=== PATIENT | female | born 1945 | race Caucasian/White ===

== ENCOUNTER → 2020-05-22 14:43 | Outpatient (BNVA) | payer MEDICARE, SELFPAY | PROVIDERS: PCP Nurse Practitioner Family; Visit Provider Hospitalist | DX: J44.9 Chronic obstructive pulmonary disease, unspecified (principal); J18.9 Pneumonia, unspecified organism; R91.8 Other nonspecific abnormal finding of lung field | CPT/HCPCS: 99212 ==

== ENCOUNTER → 2020-07-10 11:19 | Outpatient (BNVA) | payer MEDICARE, SELFPAY | PROVIDERS: PCP Internal Medicine; Visit Provider Orthopaedic Surgery | DX: M17.0 Bilateral primary osteoarthritis of knee (principal) | CPT/HCPCS: 20610; 99212; J1100 ==

== ENCOUNTER → 2020-07-12 08:54 | Outpatient (BNVA) | payer MEDICARE, SELFPAY | PROVIDERS: PCP Internal Medicine; Visit Provider Hospitalist | DX: Z13.89 Encounter for screening for other disorder (principal) | CPT/HCPCS: Q3014 ==

== ENCOUNTER → 2020-08-16 14:49 | Outpatient (BNVA) | payer MEDICARE, SELFPAY | PROVIDERS: PCP Nurse Practitioner Family; Visit Provider Internal Medicine | DX: J45.901 Unspecified asthma with (acute) exacerbation (principal); Z79.51 Long term (current) use of inhaled steroids | CPT/HCPCS: 96372; 99212; J2930 ==

== ENCOUNTER 2020-08-21 09:32 | Outpatient (REF) | payer MEDICARE, SELFPAY ==
--- NOTE | ~2020-08-21 | CT_ITS ---
EXAMINATION: CT CHEST WITHOUT CONTRAST CLINICAL INFORMATION: Pulmonary nodules COMPARISON: 02/28/2020 TECHNIQUE: Multidetector volumetric CT imaging of the chest was done. Axial MIP volume rendering provided. Sagittal and coronal reformatted images were obtained. This CT examination was performed using dose optimization techniques as appropriate, variously including the following: *Automated exposure control *Adjustment of mA and/or kV according to patient size (this includes techniques or standardized protocols for targeted exams where dose is matched to indication/reason for exam; i.e. extremities or head) *Use of iterative reconstruction technique DLP: 145 mGy-cm FINDINGS: MANAGER ENERGY: Unremarkable. LUNGS: Secretions noted in the trachea. The central airways are otherwise patent. Mild biapical paraseptal emphysema. This is unchanged. No dense consolidation. No pneumothorax. Pulmonary nodules are again noted. 1. 0.2 cm anterior left upper lobe nodule on series 5 image 156. This is unchanged. 2. 0.3 cm anterior left upper lobe nodule on series 5 image 148. This is unchanged. 3. The peripheral groundglass opacity of the right lower lobe has resolved. 4. Groundglass opacity in the right upper lobe along the major fissure measuring 1.3 x 0.4 cm is unchanged, series 5 image 187. There is an additional right middle lobe groundglass opacity described which is no longer seen. 5. 0.2 cm left upper lobe nodule on series 5 image 120, unchanged. No new pulmonary nodules are seen. MEDIASTINUM: Normal heart size. No pericardial effusion. No mediastinal lymphadenopathy. Coronary artery calcifications are present. PLEURA: There is no pleural effusion. No pleural mass or thickening. AXILLA: No lymphadenopathy. UPPER ABDOMEN: Cholecystectomy. No acute abnormality of the visualized upper abdomen. OSSEOUS STRUCTURES: No acute or suspicious osseous abnormality. Degenerative changes throughout the spine. CT/CT chest wo con IMPRESSION: Mild apical emphysema. Multiple pulmonary nodules are again noted, without change from previous imaging. The most prominent is the groundglass right upper lobe nodular opacity with average dimension of 0.8 cm. Based on the recommendations below, 2 year follow-up CT is recommended. According to the UPDATED 2017 Fleischner Society recommendations, the advised follow-up imaging for a single pure ground-glass nodule measuring 6 mm or greater is: CT at 6-12 months to confirm persistence, then CT every 2 years until 5 years if it persists.
== END 2020-08-21 09:33 | disposition home or self-care (01) ==
LOC: HO.CT 09:32
PROVIDERS: Visit Provider Hospitalist
DX: R91.8 Other nonspecific abnormal finding of lung field (principal)
CPT/HCPCS: 71250

== ENCOUNTER → 2020-09-11 09:16 | Outpatient (BNVA) | payer MEDICARE, SELFPAY | PROVIDERS: PCP Internal Medicine; Visit Provider Orthopaedic Surgery | DX: J45.51 Severe persistent asthma with (acute) exacerbation (principal); J40 Bronchitis, not specified as acute or chronic; J44.9 Chronic obstructive pulmonary disease, unspecified; J18.9 Pneumonia, unspecified organism; R91.8 Other nonspecific abnormal finding of lung field; D80.8 Other immunodeficiencies with predominantly antibody defects | CPT/HCPCS: 20610; 99212; J1100 ==

== ENCOUNTER 2020-10-23 15:01 | Emergency (ER) | payer MEDICARE, SELFPAY ==
--- NOTE | ~2020-10-23 | XR_ITS ---
EXAMINATION: XR CHEST CLINICAL INFORMATION: Dyspnea COMPARISON: Previous chest CT August 2019 and chest x-ray January 2020 TECHNIQUE: Frontal view of the chest was obtained. FINDINGS: The cardiac silhouette does not appear enlarged. The thoracic aorta is calcified. Hilar and mediastinal contours are otherwise unremarkable. The lungs are clear. There is no pleural effusion or pneumothorax. There are degenerative changes of the spine. XR/XR chest 1V IMPRESSION: No evidence for acute disease in the chest.
[2020-10-23 15:03] VITALS: BP 150/50; PULSE 86; RESP 20; TEMP 36.7; O2SAT 97; BMI 35.3
--- NOTE | 2020-10-23 15:20 | ED_ITS ---
HPI - SOB/Dyspnea General Chief Complaint: Dyspnea Stated Complaint: SOB Time Seen by Provider: 10/23/20 15:15 Source: patient Mode of arrival: ambulatory Limitations: no limitations History of Present Illness MD elicited complaint: shortness of breath and cough Pertinent past history: asthma and pneumonia Onset (ago): month(s) (1) Timing: constant and progressively worsening Severity: similar to previous episodes Exacerbating factors: exertion and coughing Relieving factors: rest and bronchodilators Known history of: asthma Associated symptoms: cough, wheezing, sputum production and other (has back pain with cough - hx of same in the past) Treatment prior to arrival: bronchodilator and other (on 5mg prednisone daily) Related Data Home Medications Medication Instructions Recorded Confirmed arformoterol 15 mcg/2 mL solution 2 ml INHALATION DAILY 05/22/20 09/11/20 for nebulization celecoxib 200 mg capsule 200 mg PO BID 05/22/20 07/12/20 flu vacc [id number](65yr up)-PF 240 ml IM 05/22/20 09/11/20 mcg/0.7 mL intramuscular syringe ipratropium bromide 21 mcg (0.03 INTRANASAL 05/22/20 07/12/20 %) nasal spray losartan 100 1 tab PO DAILY 05/22/20 09/11/20 mg-hydrochlorothiazide 25 mg tablet montelukast 10 mg tablet 10 mg PO DAILY 05/22/20 07/12/20 pravastatin 40 mg tablet mg PO 05/22/20 09/11/20 prednisone 10 mg tablet mg PO 05/22/20 07/12/20 estradiol 1 g VAGINAL 3XW 08/16/20 09/11/20 gabapentin 100 mg capsule 100 mg PO TID PRN cap 08/16/20 09/11/20 prednisone 10 mg tablet 20 mg PO DAILY tab 08/16/20 Previous Rx's Medication Instructions Recorded azithromycin 250 mg tablet 250 mg PO 3XW 28 Days #12 tab 05/22/20 doxycycline hyclate 100 mg tablet 100 mg PO BID 21 Days #42 tab 09/11/20 albuterol sulfate 90 mcg/actuation 2 puff INHALATION Q4-6H PRN 90 10/03/20 aerosol inhaler Days #3 ea albuterol sulfate 2.5 mg INHALATION Q6H PRN #300 ml 10/04/20 Allergies Allergy/AdvReac Type Severity Reaction Status Date / Time aspirin Allergy Severe Upset Verified 10/23/20 15:03 Stomach Latex Gloves Allergy Severe Rash Uncoded 09/11/20 10:26 Review of Systems Review of Systems: Constitutional : No Fever, No Chills ENT/Mouth : No sore throat, No Rhinorrhea, No Swallowing Difficulty Eyes: No Eye Pain, No Swelling, No Redness Cardiovascular : No Chest Pain, positive SOB, No Orthopnea, positive Edema Respiratory : pos Cough, pos Sputum, pos Wheezing, positive dyspnea Gastrointestinal : No Nausea, No Vomiting, No Diarrhea, No abdominal Pain, No Hematochezia, No Melena Genitourinary : No Dysuria, No Urinary Frequency, No Hematuria Musculoskeletal : No joint pain, No Myalgias, pos back pain with cough Skin : No Skin Lesions, No rash Neuro : No Weakness, No Numbness, No Dizziness, No Headache Psych : No Anxiety/Panic, No Depression Heme/Lymph: No Bruising, No Lymphadenopathy Endocrine : No Polyuria, No Polydipsia All other systems reviewed and are negative [facility] Past Medical History Attestation statement: The following information was validated with the patient. 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 Oriented X3. Mild acute distress. Eyes: Pupils equal, round and reactive to light. ENT: Pharynx normal. Neck: Normal inspection. Neck supple. CVS: Normal heart rate and rhythm. Pulses normal. Respiratory: Mild respiratory distress - tachypnea with retractions. Breath sounds diffuse audible insp/exp wheezing and decreased throughout Abdomen: Soft and nontender. Skin: Skin warm and dry. Normal skin color. Normal skin turgor. Extremities: mild nonpitting lower extremity edema. No calf ttp Neuro: Oriented X 3. No motor deficit. No sensory deficit. Course Course Course Narrative: signed out to Dr. South pending workup MDM - SOB/Dyspnea MDM Narrative Medical decision making narrative: 75 yo female with hx of pneumonitis, bronchial asthma here with 1 month of wheezing and cough - feels sputum at times she cannot get rid of, also c/o upper mid back pain with coughing, sent by her braiding machine tender for further workup and management at this time will need labs, EKG, hour long neb, IV steroids, CXR for pneumonia, given hx of COPD as well start antibiotics for coarse cough - possible admission ECG Data Attestation: I personally reviewed and interpreted this ECG as follows: ECG interpretation date: 10/23/20 ECG interpretation time: 15:51 Interpretation: Rate: 75 Rhythm: NSR [place]: normal Normal P waves. Normal NAVA. Normal QRS complex. ST T wave : normal no DARIEL qTC: normal prior studies: no acute ischemia The study has been interpreted contemporaneously by me. . Discharge Plan Discharge Clinical Impression: Asthma exacerbation Prescriptions: No Action albuterol sulfate 90 mcg/actuation HFA aerosol inhaler 2 puff inhalation Q4-6H PRN (Reason: shortness of breath or wheezing) 90 Days Qty: 3 RF: 3 albuterol sulfate 2.5 mg /3 mL (0.083 %) solution for nebulization 2.5 mg inhalation Q6H PRN (Reason: shortness of breath or wheezing) Qty: 300 RF: 3 doxycycline hyclate 100 mg tablet 100 mg PO BID 21 Days Qty: 42 RF: 1 montelukast 10 mg tablet 10 mg PO DAILY RF: 0 celecoxib 200 mg capsule 200 mg PO BID RF: 0 losartan-hydrochlorothiazide 100-25 mg tablet 1 tab PO DAILY RF: 0 pravastatin 40 mg tablet PO RF: 0 Fluzone HighDose Quad 20-21 PF 240 mcg/0.7 mL syringe IM RF: 0 prednisone 10 mg tablet PO RF: 0 ipratropium bromide 0.03 % spray,non-aerosol intranasal RF: 0 Brovana 15 mcg/2 mL solution for nebulization 2 ml inhalation DAILY RF: 0 azithromycin 250 mg tablet 250 mg PO 3XW 28 Days Qty: 12 RF: 6 gabapentin 100 mg capsule 100 mg PO TID PRNRF: 0 prednisone 10 mg tablet 20 mg PO DAILY RF: 0 estradiol 0.01 % (0.1 mg/gram) cream 1 g vaginal 3XW RF: 0
--- NOTE | 2020-10-23 15:28 | ECG_ITS ---
Test Reason : DYSPNEA Blood Pressure : / mmHG Vent. Rate : 075 BPM Atrial Rate : 075 BPM P-R Int : 162 ms QRS Dur : 078 ms QT Int : 376 ms P-R-T Axes : 036 006 019 degrees QTc Int : 419 ms Normal sinus rhythm Possible Inferior infarct , age undetermined Abnormal ECG No previous ECGs available Referred By: Deyanira Montaño Electronically Signed By:River Mark
[2020-10-23] MEDS: Albuterol Sulfate (0.083%) 2.5 MG/3 ML VIAL.NEB 5 MG INHALE (15:49)
[2020-10-23 15:50] VITALS: PULSE 82; O2SAT 97
[2020-10-23] MEDS: methylPREDNISolone Sod Succ 125 MG/2 ML VIAL IVPUSH (16:15)
[2020-10-23 16:29] LABS: MANUAL DIFF FLAG NO
[2020-10-23 16:30] VITALS: BP 132/55; PULSE 82; RESP 22; TEMP 36.5; O2SAT 97
[2020-10-23 16:36] LABS: Basophils Percent Auto 0.4 % (0-2); Eosinophils Absolute Auto 0.2 X10*3/uL (0.0-0.4); Eosinophils Percent Auto 2.2 % (0-4); Hematocrit 34.3 % (37-47); Hemoglobin 10.7 g/dl (12.0-16.0); Imm Gran Abs Auto 0.01 X10*3/uL (0.00-0.03); Imm Gran Pct Auto 0.1 % (0.0-0.4); Lymphocytes Absolute Auto 2.3 X10*3/uL (1.2-4.9); Lymphocytes Percent Auto 33.3 % (20-40); Mean Corpuscular HGB Conc 31.2 g/dl (31.0-35.0); Mean Corpuscular Hemoglobin 26.5 pg (27.0-33.0); Mean Corpuscular Volume 84.9 fL (80-98); Mean Platelet Volume 10.4 fL (9.4-12.3); Monocytes Absolute Auto 0.5 X10*3/uL (0.1-1.2); Monocytes Percent Auto 7.8 % (2-11); Neutrophils Absolute Auto 3.9 X10*3/uL (2.0-8.3); Neutrophils Percent Auto 56.2 % (45-73); Platelet Count 280 X10*3/uL (160-400); Red Blood Count 4.04 X10*6/uL (4.20-5.50); White Blood Count 6.9 X10*3/uL (4.8-10.8)
[2020-10-23] MEDS: cefTRIAXone sodium 1 GM in 0.9 % Sodium Chloride 50 ML IV (16:47)
[2020-10-23 16:58] LABS: Alanine Aminotransferase 22 U/L (0-31); Albumin Level 4.7 g/dL (3.5-5.0); Alkaline Phosphatase 104 U/L (39-117); Anion Gap 15 (12-20); Aspartate Amino Transferase 20 U/L (5-31); Bilirubin Direct < 0.2 mg/dL (0.0-0.5); Bilirubin Total 0.3 mg/dL (0.0-1.0); Blood Urea Nitrogen 27 mg/dL (9-16); Carbon Dioxide 27 mmol/L (22-29); Chloride 104 mmol/L (96-108); Creatinine Clr Calc Pharmacy 48.5; Estimated Glomerular Filt Rate 56; Glucose Random 110 mg/dL (60-115); Lipase 35 U/L (8-78); Magnesium 1.9 mg/dL (1.6-2.6); Potassium 3.7 mmol/L (3.3-5.1); Sodium 142 mmol/L (135-145); Total Protein 7.2 g/dL (6.5-8.0)
[2020-10-23 17:05] LABS: B Type Natriuretic Peptide 12 pg/mL (<100)
[2020-10-23 17:06] LABS: Troponin-I High Sensitivity < 3.5 ng/L (<3.5-17.0)
[2020-10-23] MEDS: Doxycycline Hyclate 100 MG in 0.9 % Sodium Chloride 250 ML 166.67 MG IV (17:50)
[2020-10-23 19:47] VITALS: BP 144/68; PULSE 78; RESP 20; TEMP 36.8; O2SAT 95
== END 2020-10-23 20:09 | disposition home or self-care (01) ==
PROVIDERS: Emergency Provider Emergency Medicine; PCP Nurse Practitioner Family
DX: J45.901 Unspecified asthma with (acute) exacerbation (principal); R06.00 Dyspnea, unspecified; Z79.899 Other long term (current) drug therapy; Z87.891 Personal history of nicotine dependence
CPT/HCPCS: 36415; 71045; 80048; 80076; 83690; 83735; 83880; 84484; 85025; 87040; 93005; 94640; 96361; 96365; 96375; 99284; J0696; J2930

== ENCOUNTER → 2020-10-30 14:32 | Outpatient (BNVA) | payer MEDICARE, SELFPAY | PROVIDERS: PCP Nurse Practitioner Family; Visit Provider Hospitalist | DX: J40 Bronchitis, not specified as acute or chronic (principal); J18.9 Pneumonia, unspecified organism; J44.9 Chronic obstructive pulmonary disease, unspecified; R91.8 Other nonspecific abnormal finding of lung field | CPT/HCPCS: 99212 ==

== ENCOUNTER → 2020-11-08 09:59 | Day surgery (SDC) | payer MEDICARE, SELFPAY ==
--- NOTE | 2020-11-06 13:45 | HO.ANESPROP2 ---
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 If so, by whom?: No Are you DNR?: No Advance Directives: No Advance Directives Information Provided: Yes Meds Allergies Allergy/AdvReac Type Severity Reaction Status Date / Time aspirin Allergy Severe Upset Verified 10/31/20 08:34 Stomach Latex Gloves Allergy Severe Rash Uncoded 10/31/20 08:34 Home Medications Medication Instructions Recorded Confirmed Last Taken Type losartan 100 1 tab PO DAILY 05/22/20 10/31/20 11/08/20 05:30 History mg-hydrochlorothiazide 25 mg tablet montelukast 10 mg tablet 10 mg PO QPM 05/22/20 10/31/20 Unknown History pravastatin 40 mg tablet 40 mg PO BID 05/22/20 10/31/20 11/08/20 05:30 History prednisone 10 mg tablet 10 mg PO DAILY 05/22/20 10/23/20 Unknown History estradiol 1 g VAGINAL MOWEFR@08/16/20 10/31/20 Unknown History gabapentin 100 mg capsule 100 mg PO TID PRN cap 08/16/20 10/31/20 Unknown History acetaminophen [Tylenol Extra 500 mg PO BEDTIME 10/23/20 10/31/20 Unknown History Strength] budesonide 0.5 mg INHALATION DAILY 10/23/20 10/31/20 Unknown History loratadine [Claritin] 10 mg PO DAILY 10/23/20 10/31/20 Unknown History omeprazole 20 mg PO DAILY 10/23/20 10/31/20 Unknown History peg 400-propylene glycol (PF) 1 drp OPHTHALMIC (EYE) TID 10/23/20 10/31/20 Unknown History [Systane (PF)] revefenacin [Yupelri] 175 mcg INHALATION DAILY 10/23/20 10/31/20 Unknown History Exam Exam Date and Time: November 06, 2020 1345 Narrative Narrative: EKG 10/2020 Vent. 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 If so, by whom?: No Are you DNR?: No Advance Directives: No Advance Directives Information Provided: Yes Meds Allergies Allergy/AdvReac Type Severity Reaction Status Date / Time aspirin Allergy Severe Upset Verified 10/31/20 08:34 Stomach Latex Gloves Allergy Severe Rash Uncoded 10/31/20 08:34 Home Medications Medication Instructions Recorded Confirmed Last Taken Type losartan 100 1 tab PO DAILY 12/01/0210/31/20 11/08/20 05:30 History mg-hydrochlorothiazide 25 mg tablet montelukast 10 mg tablet 10 mg PO QPM 05/22/20 10/31/20 Unknown History pravastatin 40 mg tablet 40 mg PO BID 05/22/20 10/31/20 11/08/20 05:30 History prednisone 10 mg tablet 10 mg PO DAILY 05/22/20 10/23/20 Unknown History estradiol 1 g VAGINAL MOWEFR@21 08/16/20 10/31/20 Unknown History gabapentin 100 mg capsule 100 mg PO TID PRN cap 08/16/20 10/31/20 Unknown History acetaminophen [Tylenol Extra 500 mg PO BEDTIME 10/23/20 10/31/20 Unknown History Strength] budesonide 0.5 mg INHALATION DAILY 10/23/20 10/31/20 Unknown History loratadine [Claritin] 10 mg PO DAILY 10/23/20 10/31/20 Unknown History omeprazole 20 mg PO DAILY 10/23/20 10/31/20 Unknown History peg 400-propylene glycol (PF) 1 drp OPHTHALMIC (EYE) TID 10/23/20 10/31/20 Unknown History [Systane (PF)] revefenacin [Yupelri] 175 mcg INHALATION DAILY 10/23/20 10/31/20 Unknown History Exam Airway Mallampati Class: II TM Dist: >3cm Neck ROM: Full Assessment and Plan Assessment Anesthesia Assessment: Anesthesia Plan Discussed and Chart Reviewed Final Anesthetic Review NPO: Yes ASA Class: II Final Preanesthetic Review: No Changes in Pt Med Stat, Meds/Allgs Chart Reviewed, Consent Obtained/Reviewed and Anes Risks/Benef Reviewed Patient Risk: Low Procedure Risk: Low Assessment/Block/Sedation in SS: Assess/Block/Sedation-SS Anesthetic Plan Anesthetic Plan: GA Disposition: Standard PACU
[2020-11-08] VITALS (8 sets, daily range): BP systolic 108–161; BP diastolic 41–78; PULSE 61–88; RESP 18–22; TEMP 35.9–36.4; O2SAT 96–100; BMI 35.3
[2020-11-08] MEDS: Lactated Ringers 1,000 ML 50 ML IV (10:45)
--- NOTE | 2020-11-08 11:30 | MHC.SHP ---
Pre-Procedural Eval Section B Chief Complaint: bronchitis Allergies: Allergies Allergy/AdvReac Type Severity Reaction Status Date / Time aspirin Allergy Severe Upset Verified 10/31/20 08:34 Stomach Latex Gloves Allergy Severe Rash Uncoded 10/31/20 08:34 Plan I have reviewed the history and physical and performed a pertinent physical examination on my patient. No changes have occurred unless specified.
[2020-11-08] MEDS: Albuterol Sulfate (0.083%) 2.5 MG/3 ML VIAL.NEB INHALE (12:28)
--- NOTE | 2020-11-08 20:56 | PM.OP ---
Brief Operative Note Date of Service: 11/08/20 Pre-op diagnosis: bronchitis, cough Post-op diagnosis: other (bronchomalecia) Procedure: Bronchoscopy with washings Surgeon: Beto Martins MD Anesthesia: GLMA Was an Adjunct Instructor used for this Procedure?: No Estimated blood loss (mL): 0 Pathology: none sent Condition: stable Disposition: same day
--- NOTE | 2020-11-08 22:42 | OP_ITS ---
SURGEON: Beto Martins MD PREOPERATIVE DIAGNOSIS: POSTOPERATIVE DIAGNOSIS: PROCEDURE PERFORMED: Bronchoscopy with washings. ESTIMATED BLOOD LOSS: COMPLICATIONS: ANESTHESIA: The patient received LMA. ASSISTANTS: None. SPECIMENS: ASA CLASSIFICATION: 2. PREOPERATIVE DIAGNOSES: Bronchitis and cough. POSTOPERATIVE DIAGNOSES: Bronchomalacia and chronic bronchitis. DESCRIPTION OF PROCEDURE: The patient was sedated and LMA was placed. After the patient was adequately sedated, the flexible digital bronchoscope was inserted over the level of the larynx. The vocal cords moved symmetrically to the midline without any lesions or inflammation. The patient did have some evidence of microaspiration. The bronchoscope was then passed through vocal cords to the level of the trachea. The trachea appeared to be patent and in good form. The tracheal rings were normal in appearance and no significant collapsibility of the tracheal rings with cough with breathing. The bronchoscope was navigated further down to the level of the main yuridia. At this point, the patient did have significant bronchomalacia, primarily of the central airways resulting in near complete obstruction of the airways with dynamic changes such as coughing. Also, had an excessive dynamic movement of the posterior membrane also resulting in additional extrinsic compression of the central airways. The bronchoscope was navigated to the entire tracheobronchial tree that was examined up to the subsegmental level without any evidence of any lesions or masses. The patient had thickened mucosa likely from chronic inflammatory changes and chronic bronchitis. No secretions noted. No bleeding and no endobronchial lesions noted. The bronchoscope was navigated to the subsegmental level and bronchial washings were collected bilaterally for both cytology and for microbiology. The bronchoscope was then removed. The total endoscopic time approximately about 10 minutes. The patient tolerated the procedure well. INTERPRETATION: 1. Normal larynx and normal trachea. 2. Evidence of significant bronchomalacia. 3. Chronic bronchitis. 4. Bronchial washings bilaterally and sent both for cytology and microbiology. Beto Martins MD MR/MODL / [id number]
== END | disposition home or self-care (01) ==
PROVIDERS: PCP Nurse Practitioner Family; Visit Provider Hospitalist
PROC: 0BJ08ZZ Inspection of Tracheobronchial Tree, Via Natural or Artificial Opening Endoscopic (ICD-10-PCS; CPT 31622; principal; 2020-11-08 11:30)
DX: J42 Unspecified chronic bronchitis (principal); J98.09 Other diseases of bronchus, not elsewhere classified; R91.8 Other nonspecific abnormal finding of lung field; I10 Essential (primary) hypertension; Z79.899 Other long term (current) drug therapy; Z91.040 Latex allergy status; Z88.8 Allergy status to other drugs, medicaments and biological substances
CPT/HCPCS: 31622; 87071; 87102; 87116; 87205; 88112; 88305; 94640; J0171

== ENCOUNTER → 2020-11-22 10:19 | Outpatient (BNVA) | payer MEDICARE, SELFPAY | PROVIDERS: PCP Internal Medicine; Visit Provider Hospitalist | DX: Z01.811 Encounter for preprocedural respiratory examination (principal); R91.8 Other nonspecific abnormal finding of lung field; J40 Bronchitis, not specified as acute or chronic; J18.9 Pneumonia, unspecified organism; J44.9 Chronic obstructive pulmonary disease, unspecified; J98.09 Other diseases of bronchus, not elsewhere classified | CPT/HCPCS: 99212 ==

== ENCOUNTER 2021-03-16 15:19 | Emergency (ER) | payer MEDICARE, SELFPAY ==
--- NOTE | ~2021-03-16 | XR_ITS ---
EXAMINATION: XR CHEST CLINICAL INFORMATION: Shortness of breath COMPARISON: Previous chest x-ray most recent October 2020 TECHNIQUE: 2 views of the chest were obtained. FINDINGS: The cardiac and mediastinal contours are stable. The lungs are clear. There is no pleural effusion or pneumothorax. There are degenerative changes of the thoracic spine. There are postsurgical changes of the lumbar spine. XR/XR chest 2V IMPRESSION: No evidence for acute disease in the chest.
[2021-03-16 15:27] VITALS: BP 149/64; PULSE 68; RESP 24; TEMP 36.3; O2SAT 99; BMI 35.9
== END 2021-03-16 18:30 | disposition left against medical advice (07) ==
PROVIDERS: Emergency Provider Emergency Medicine; PCP Nurse Practitioner Family
DX: R06.02 Shortness of breath (principal)
CPT/HCPCS: 71046; 99282; 99283

== ENCOUNTER → 2021-03-23 10:28 | Outpatient (BNVA) | payer MEDICARE, SELFPAY | PROVIDERS: PCP Nurse Practitioner Family; Visit Provider Hospitalist | DX: J40 Bronchitis, not specified as acute or chronic (principal); J18.9 Pneumonia, unspecified organism; J98.09 Other diseases of bronchus, not elsewhere classified; J45.51 Severe persistent asthma with (acute) exacerbation; R91.8 Other nonspecific abnormal finding of lung field | CPT/HCPCS: 99212 ==

== ENCOUNTER → 2021-04-06 13:30 | Outpatient (BNVA) | payer MEDICARE, SELFPAY | PROVIDERS: PCP Nurse Practitioner Family; Visit Provider Hospitalist | DX: J45.51 Severe persistent asthma with (acute) exacerbation (principal); J40 Bronchitis, not specified as acute or chronic; J18.9 Pneumonia, unspecified organism; J98.09 Other diseases of bronchus, not elsewhere classified; R91.8 Other nonspecific abnormal finding of lung field | CPT/HCPCS: 96372; 99212; J2930 ==

== ENCOUNTER → 2021-04-30 09:39 | Outpatient (BNVA) | payer MEDICARE, SELFPAY | PROVIDERS: PCP Nurse Practitioner Family; Visit Provider Hospitalist | DX: J45.51 Severe persistent asthma with (acute) exacerbation (principal); J40 Bronchitis, not specified as acute or chronic; J98.09 Other diseases of bronchus, not elsewhere classified; R91.8 Other nonspecific abnormal finding of lung field; J18.9 Pneumonia, unspecified organism | CPT/HCPCS: 96372; 99212; J2930 ==

== ENCOUNTER → 2021-05-15 15:38 | Outpatient (REF) | payer MEDICARE, SELFPAY | LOC: HO.SL 15:38 | PROVIDERS: PCP Nurse Practitioner Family; Visit Provider Hospitalist | DX: G47.33 Obstructive sleep apnea (adult) (pediatric) (principal) | CPT/HCPCS: 95806 ==

== ENCOUNTER → 2021-05-17 14:18 | Outpatient (BNVA) | payer MEDICARE, SELFPAY | PROVIDERS: PCP Nurse Practitioner Family; Visit Provider Hospitalist | DX: Z01.818 Encounter for other preprocedural examination (principal); J45.50 Severe persistent asthma, uncomplicated; J40 Bronchitis, not specified as acute or chronic; J18.9 Pneumonia, unspecified organism; J98.09 Other diseases of bronchus, not elsewhere classified; R91.8 Other nonspecific abnormal finding of lung field | CPT/HCPCS: 99212 ==

== ENCOUNTER 2021-05-24 08:50 | Outpatient (REF) | payer MEDICARE, SELFPAY | END 2021-05-24 08:51 | disposition home or self-care (01) | LOC: HO.MDS 08:50 | PROVIDERS: PCP Nurse Practitioner Family; Visit Provider Hospitalist | DX: J45.50 Severe persistent asthma, uncomplicated (principal) | CPT/HCPCS: 96372; J2182 ==

== ENCOUNTER 2021-06-22 14:54 | Outpatient (REF) | payer MEDICARE, SELFPAY | END 2021-06-22 14:55 | disposition home or self-care (01) | LOC: HO.MDS 14:54 | PROVIDERS: PCP Nurse Practitioner Family; Visit Provider Hospitalist | DX: J45.50 Severe persistent asthma, uncomplicated (principal) | CPT/HCPCS: 96372; J2182 ==

== ENCOUNTER 2021-07-19 14:22 | Outpatient (REF) | payer MEDICARE, SELFPAY | END 2021-07-19 14:23 | disposition home or self-care (01) | LOC: HO.MDS 14:22 | PROVIDERS: PCP Nurse Practitioner Family; Visit Provider Hospitalist | DX: J45.50 Severe persistent asthma, uncomplicated (principal) | CPT/HCPCS: 96372; J2182 ==

== ENCOUNTER → 2021-07-26 14:49 | Outpatient (BNVA) | payer MEDICARE, SELFPAY | PROVIDERS: PCP Nurse Practitioner Family; Visit Provider Hospitalist | DX: J45.51 Severe persistent asthma with (acute) exacerbation (principal); J40 Bronchitis, not specified as acute or chronic; J98.09 Other diseases of bronchus, not elsewhere classified; R91.8 Other nonspecific abnormal finding of lung field | CPT/HCPCS: 96372; 99212 ==

== ENCOUNTER 2021-09-14 14:18 | Outpatient (REF) | payer MEDICARE, SELFPAY | END 2021-09-14 14:19 | disposition home or self-care (01) | LOC: HO.MDS 14:18 | PROVIDERS: Visit Provider Hospitalist | DX: J45.50 Severe persistent asthma, uncomplicated (principal) | CPT/HCPCS: 96372; J2182 ==

== ENCOUNTER → 2021-09-18 13:40 | Outpatient (BNVA) | payer MEDICARE, SELFPAY | PROVIDERS: PCP Nurse Practitioner Family; Visit Provider Hospitalist | DX: J45.50 Severe persistent asthma, uncomplicated (principal); J98.09 Other diseases of bronchus, not elsewhere classified; R91.8 Other nonspecific abnormal finding of lung field; G47.33 Obstructive sleep apnea (adult) (pediatric) | CPT/HCPCS: 99212 ==

== ENCOUNTER 2021-10-12 13:49 | Outpatient (REF) | payer MEDICARE, SELFPAY | END 2021-10-12 13:50 | disposition home or self-care (01) | LOC: HO.MDS 13:49 | PROVIDERS: Visit Provider Hospitalist | DX: J45.50 Severe persistent asthma, uncomplicated (principal) | CPT/HCPCS: 96372; J2182 ==

== ENCOUNTER 2021-11-14 14:15 | Outpatient (REF) | payer MEDICARE, SELFPAY | END 2021-11-14 14:16 | disposition home or self-care (01) | LOC: HO.MDS 14:15 | PROVIDERS: Visit Provider Hospitalist | DX: J45.50 Severe persistent asthma, uncomplicated (principal) | CPT/HCPCS: 96372; J2182 ==

== ENCOUNTER 2021-12-13 10:43 | Outpatient (REF) | payer MEDICARE, SELFPAY | END 2021-12-13 10:44 | disposition home or self-care (01) | LOC: HO.MDS 10:43 | PROVIDERS: Visit Provider Hospitalist | DX: J45.50 Severe persistent asthma, uncomplicated (principal) | CPT/HCPCS: 96372; J2182 ==

== ENCOUNTER 2022-01-06 10:00 | Inpatient (IN) | payer MEDICARE, SELFPAY ==
[2022-01-06] VITALS (10 sets, daily range): BP systolic 97–147; BP diastolic 34–66; PULSE 65–155; RESP 14–28; TEMP 36.7–37.1; O2SAT 96–98; BMI 35.9
--- NOTE | ~2022-01-06 | CT_ITS ---
EXAMINATION: CT CHEST WITHOUT CONTRAST CLINICAL INFORMATION: Shortness of breath COMPARISON: Chest radiograph earlier today, chest CT 08/21/2020 TECHNIQUE: Multidetector volumetric CT imaging of the chest was done. Axial MIP volume rendering provided. Sagittal and coronal reformatted images were obtained. This CT examination was performed using dose optimization techniques as appropriate, variously including the following: *Automated exposure control *Adjustment of mA and/or kV according to patient size (this includes techniques or standardized protocols for targeted exams where dose is matched to indication/reason for exam; i.e. extremities or head) *Use of iterative reconstruction technique DLP: 260 mGy-cm FINDINGS: LUNGS: Some small 2 mm micronodules are unchanged (see parra images) There is a groundglass opacity seen in the right upper lobe along the fissure laterally which has increased in size measuring 1.3 x 0.7 x 0.5 cm previously measuring 1.2 x 0.4 x 0.3 cm (5:195 compare prior 5:189) MEDIASTINUM: Heart size normal. Coronary artery calcifications are seen. Aortic calcifications are present. No aneurysm. Mild stenosis origin of left subclavian artery. PLEURA: There is no pleural effusion. No pleural mass or thickening. AXILLA: No lymphadenopathy. UPPER ABDOMEN: Status post cholecystectomy OSSEOUS STRUCTURES: Degenerative changes again seen throughout the spine CT/CT chest wo con IMPRESSION: 1. A cause for the patient's shortness of breath and found. 2. Incidental note is made of decrease in size of the groundglass opacity in the right upper lobe along the fissure from 1.2 x 0.4 x 0.3 cm to 1.3 x 0.7 x 0.5 cm. 3. No other worrisome lung masses seen. 2017 Fleischner Society Recommendations for Lung Nodule(s): Follow-Up based on size (average of long- and short-axis diameters). Use most suspicious nodule for followup. Single GG lung nodule >= 6 mm: Recommend a non-contrast Chest CT at 6-12 months to confirm persistence, then additional non-contrast Chest CTs every 2 years until 5 years. These guidelines do not apply to patients younger than 35 years, immunocompromised patients, and patients with cancer. F/u in patients with significant comorbidities as clinically warranted. For lung cancer screening, adhere to Lung-RADS guidelines. Reference: Radiology. 2017 Dec; 284(1):228-243 1. Fleischner guidelines were followed.
--- NOTE | ~2022-01-06 | XR_ITS ---
EXAMINATION: XR CHEST CLINICAL INFORMATION: Cough, shortness of breath. COMPARISON: Most recent chest radiograph dated 03/16/2021. TECHNIQUE: 2 views of the chest were obtained. FINDINGS: No focal airspace consolidation. No pleural effusion or pneumothorax. Stable cardiomediastinal silhouette. Partially visualized posterior stabilization hardware within the spine. Right upper quadrant surgical clips. XR/XR chest 2V IMPRESSION: No acute cardiopulmonary findings.
[2022-01-06 11:00] LABS: COVID-19 Test Negative (Negative); IDNOW Serial# 16C4AD1C
--- NOTE | 2022-01-06 11:32 | ECG_ITS ---
Test Reason : SOB Blood Pressure : / mmHG Vent. Rate : 079 BPM Atrial Rate : 079 BPM P-R Int : 134 ms QRS Dur : 082 ms QT Int : 374 ms P-R-T Axes : 047 004 016 degrees QTc Int : 428 ms Sinus rhythm with sinus arrhythmia with occasional , and consecutive Premature ventricular complexes Possible Inferior infarct (cited on or before 23-OCT-2020) Abnormal ECG When compared with ECG of 23-OCT-2020 15:47, Premature ventricular complexes are now Present Referred By: Paulina Robles Electronically Signed By:ELIZABETH BECKER
--- NOTE | 2022-01-06 11:34 | ED.SOB ---
HPI - SOB/Dyspnea General Chief Complaint: Dyspnea Stated Complaint: flu like symptoms Time Seen by Provider: 01/06/22 10:17 Source: patient Mode of arrival: ambulatory Limitations: no limitations History of Present Illness HPI Narrative: Patient presents emergency department for evaluation of shortness of breath and cough. She reports she has been having symptoms for approximately 2 weeks. However her symptoms are progressively worsening. She contacted her assembler rubber footwear 4-5 days ago by her account, and was given a prescription for an antibiotic and a prednisone taper, stating she has completed the antibiotic and is currently taking prednisone 30 mg. She states her symptoms have not improved since he taking these medications. She is using a albuterol inhaler multiple times a day, and nebulizer twice a day without significant improvement. She has a productive cough with yellow phlegm, no associated chest pain and upper back pain when coughing. Denies fevers or chills, sore throat, palpitation, nausea, vomiting, abdominal pain. Related Data Home Medications Medication Instructions Recorded Confirmed losartan 100 1 tab PO DAILY 05/22/20 01/06/22 mg-hydrochlorothiazide 25 mg tablet pravastatin 40 mg tablet 40 mg PO BID 05/22/20 01/06/22 acetaminophen 500 mg tablet 500 mg PO BEDTIME 10/23/20 01/06/22 (Tylenol Extra Strength) budesonide 0.5 mg/2 mL suspension 0.5 mg inhalation BID 10/23/20 01/06/22 for nebulization loratadine 10 mg tablet (Claritin) 10 mg PO DAILY 10/23/20 01/06/22 omeprazole 20 mg capsule,delayed 20 mg PO DAILY 10/23/20 01/06/22 release peg 400-propylene glycol (PF) 0.4 1 drp ophthalmic (eye) TID PRN Dry 10/23/20 01/06/22 %-0.3 % eye drops in a dropperette Eye(S) (Systane (PF)) alendronate 70 mg tablet 70 mg PO SA 03/23/21 01/06/22 ascorbic acid (vitamin C) 1,000 mg 500 mg PO DAILY 04/06/21 01/06/22 tablet ferrous sulfate 142 mg (45 mg 142 mg PO DAILY 04/06/21 01/06/22 iron) tablet,extended release (Slow Fe) montelukast 10 mg tablet 10 mg PO DAILY 05/17/21 01/06/22 mirabegron 25 mg tablet,extended 25 mg PO DAILY 07/26/21 01/06/22 release 24 hr (Myrbetriq) conjugated estrogens 0.625 mg/gram 0.625 mg vaginal MOFR@2100 01/06/22 01/06/22 vaginal cream (Premarin) gabapentin 100 mg capsule 1 cap PO BEDTIME PRN moderate pain 01/06/22 01/06/22 ipratropium 0.5 mg-albuterol 3 mg 3 ml inhalation BID 01/06/22 01/06/22 (2.5 mg base)/3 mL nebulization soln omeprazole 20 mg capsule,delayed 20 mg PO DAILY PRN gi upset 01/06/22 01/06/22 release prednisone 10 mg tablet See Rx Instructions PO DAILY 01/06/22 01/06/22 triamcinolone acetonide 0.1 % 1 appl topical BID PRN Rash 01/06/22 01/06/22 topical cream white petrolatum-mineral oil 94 1 appl ophthalmic (eye) BEDTIME 01/06/22 01/06/22 %-3 % eye ointment (Systane Nighttime) Previous Rx's Medication Instructions Recorded albuterol sulfate 90 mcg/actuation 2 inh inhalation Q6H PRN shortness 04/06/21 aerosol inhaler of breath or wheezing 30 days #18 grams mepolizumab 100 mg subcutaneous 100 mg subcut Q4W 30 days #1 ea 04/17/21 solution Allergies Allergy/AdvReac Type Severity Reaction Status Date / Time aspirin Allergy Severe Upset Verified 09/18/21 13:51 Stomach Latex Gloves Allergy Severe Rash Uncoded 09/18/21 13:51 Review of Systems Review of Systems: Constitutional : No Fever, No Chills ENT/Mouth : No sore throat, No Rhinorrhea, No Swallowing Difficulty Eyes: No Eye Pain, No Swelling, No Redness Cardiovascular : Positive Chest Pain, positive SOB, No Orthopnea, no Edema Respiratory : Positive Cough, positive Sputum, positive Wheezing, positive dyspnea Gastrointestinal : No Nausea, No Vomiting, No Diarrhea, No abdominal Pain, No Hematochezia, No Melena Genitourinary : No Dysuria, No Urinary Frequency, No Hematuria Musculoskeletal : No joint pain, No Myalgias Skin : No Skin Lesions, No rash Neuro : No Weakness, No Numbness, No Dizziness, No Headache Psych : No Anxiety/Panic, No Depression Heme/Lymph: No Bruising, No Lymphadenopathy Endocrine : No Polyuria, No Polydipsia Yes all other systems are reviewed and are negative [facility] Past Medical History Attestation statement: The following information was validated with the patient. 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 Surgical History History of bronchoscopy History of foot surgery Family History Family History Other Asthma Social History Social History Patient Tobacco Use Status: Former Tobacco user Tobacco use type: Cigarette Years Smoked: 20 years Advance Directives: Yes Advance Directives Information Provided: No Advance Directives on File: No Physical Exam Vital Signs: Vital Signs: Last Vital Signs Temp 98.1 F 01/06/22 13:44 Pulse 70 01/06/22 17:40 Resp 14 01/06/22 17:40 BP 138/57 L 01/06/22 15:19 Pulse Ox 97 01/06/22 15:19 O2 Del Method 01/06/22 15:19 O2 Flow Rate 2 01/06/22 15:19 BMI result Body Mass Index 35.9 Appearance: Alert.?Oriented to person, place and time. No acute distress.?Normal affect. Eyes: Pupils equal, round and reactive to light.? ENT: Pharynx normal.?? Neck: Normal inspection.? Neck supple.?? CVS: Heart sounds normal. Normal heart rate and rhythm.? Pulses normal.?? Respiratory: No respiratory distress.? Lung sounds with diffuse expiratory wheezing. Abdomen: Soft and non-tender. Normoactive bowel sounds. Skin: Skin warm and dry.? Normal skin color.? ?? Extremities: No lower extremity edema.? No calf ttp? Neuro: Moves all extremities spontaneously. Sensation intact bilaterally. CN II-XII intact. No focal neuro deficits. Ambulates with normal steady gait. Course Course Course Narrative: Patient is a 76-year-old female with a past medical history of obstructive sleep apnea, pneumonitis, asthma/COPD overlap, bronchial malacia, pulmonary nodules presenting to emergency department for evaluation of shortness of breath and cough, associated chest and upper back pain with cough. Removal increased work of breathing big toe ariza, mild tachypnea, no hypoxia or tachycardia at this time. Will obtain CBC, CMP, BNP, EKG, troponin, and a uteri all/ipratropium, IV Solu-Medrol, chest x-ray. Given history of COPD will cover with IV antibiotic Reevaluation(s) Reevaluation #1: CBC reveals a microcytic anemia. CMP overall unremarkable. Chest x-ray is unremarkable for any acute cardiopulmonary disease. Troponin <3.5, initial EKG revealing sinus rhythm no acute ischemic findings. BNP normal COVID-19 testing is negative. Re-evaluated patient at this time, reports minimal improvement after receiving hour long nebulizer, lung sounds with less wheezing, but diminished, at this time noted to be tachypneic respiratory rate 30, and tachycardia 160s, obtained repeat EKG at this time which revealed atrial fibrillation with RVR, patient with no reported history of atrial fibrillation in the past. Will trial diltiazem 15 mg IV push at this time. Time: 13:42 Reevaluation #2: Rate has improved after bolus down to 130s, will initiate Cardizem drip at 5 mg/hour at this time titrating accordingly. Spoke with hospitalist, Haydee Martins [employer], who accepted patient for admission to medicine service for AF-ib RVR and COPD exacerbation. Discussed all this with patient. She is agreeable to plan of care. Time: 14:10 MDM - SOB/Dyspnea Medical Records Attestation: I reviewed the patient's medical records. Lab Data Attestation: I reviewed the patient's lab results. Result diagrams: 01/06/22 13:23 01/06/22 13:23 Labs: Lab Results 01/06/22 01/06/22 01/06/22 Range/Units 10:37 13:23 13:23 WBC 9.8 (4.8-10.8) X10*3/uL RBC 4.05 L (4.20-5.50) X10*6/uL Hgb 10.0 L (12.0-16.0) g/dl Hct 33.1 L (37.0-47.0) % MCV 81.7 (80.0-98.0) fL MCH 24.7 L (27.0-33.0) pg MCHC 30.2 L (31.0-35.0) g/dl RDW 16.7 H (11.0-16.0) % Plt Count 300 (160-400) X10*3/uL MPV 9.6 (9.4-12.3) fL Immature Gran % (Auto) 1.8 H (0.0-0.4) % Neut % (Auto) 81.7 H (45-73) % Lymph % (Auto) 14.3 L (20-40) % [place] % (Auto) 2.1 (2-11) % Eos % (Auto) 0.0 (0-4) % Baso % (Auto) 0.1 (0-2) % Lymph # (Auto) 1.4 (1.2-4.9) X10*3/uL [place] # (Auto) 0.2 (0.1-1.2) X10*3/uL Eos # (Auto) 0.0 (0.0-0.4) X10*3/uL Baso # (Auto) 0.0 (0.0-0.2) X10*3/uL Abs Immat Gran (auto) 0.18 H (0.00-0.03) X10*3/uL Absolute Neuts (auto) 8.0 (2.0-8.3) x10*3/uL Absolute Nucleated RBC 0.000 (0.0-0.012) X10*3/uL Nucleated RBC % (auto) 0.0 (0.0-0.2) /100WBC Sodium 142 (135-145) mmol/L Potassium 4.3 (3.3-5.1) mmol/L Chloride 104 (96-108) mmol/L Carbon Dioxide 25 (22-29) mmol/L Anion Gap 17 (12-20) BUN 24 H (9-16) mg/dL Creatinine 1.02 (0.5-1.4) mg/dL Estim Creat Clear Calc 45.3 Estimated GFR 52 Random Glucose 177 H (60-115) mg/dL Calcium 9.8 (8.4-10.2) mg/dL Magnesium 1.7 (1.6-2.6) mg/dL Total Bilirubin 0.2 (0.0-1.0) mg/dL AST 11 D (5-31) U/L ALT 15 (0-31) U/L Alkaline Phosphatase 88 (39-117) U/L Troponin I High Sens (<3.5-17.0) ng/L B-Natriuretic Peptide (<100) pg/mL Total Protein 7.1 (6.5-8.0) g/dL Albumin 4.4 (3.5-5.0) g/dL TSH 0.44 (0.32-4.0) uIU/mL COVID-19 (JORDAN) Negative (Negative) COVID-19 Clin Com See Note 01/06/22 01/06/22 Range/Units 13:23 13:23 WBC (4.8-10.8) X10*3/uL RBC (4.20-5.50) X10*6/uL Hgb (12.0-16.0) g/dl Hct (37.0-47.0) % MCV (80.0-98.0) fL MCH (27.0-33.0) pg MCHC (31.0-35.0) g/dl RDW (11.0-16.0) % Plt Count (160-400) X10*3/uL MPV (9.4-12.3) fL Immature Gran % (Auto) (0.0-0.4) % Neut % (Auto) (45-73) % Lymph % (Auto) (20-40) % [place] % (Auto) (2-11) % Eos % (Auto) (0-4) % Baso % (Auto) (0-2) % Lymph # (Auto) (1.2-4.9) X10*3/uL [place] # (Auto) (0.1-1.2) X10*3/uL Eos # (Auto) (0.0-0.4) X10*3/uL Baso # (Auto) (0.0-0.2) X10*3/uL Abs Immat Gran (auto) (0.00-0.03) X10*3/uL Absolute Neuts (auto) (2.0-8.3) x10*3/uL Absolute Nucleated RBC (0.0-0.012) X10*3/uL Nucleated RBC % (auto) (0.0-0.2) /100WBC Sodium (135-145) mmol/L Potassium (3.3-5.1) mmol/L Chloride (96-108) mmol/L Carbon Dioxide (22-29) mmol/L Anion Gap (12-20) BUN (9-16) mg/dL Creatinine (0.5-1.4) mg/dL Estim Creat Clear Calc Estimated GFR Random Glucose (60-115) mg/dL Calcium (8.4-10.2) mg/dL Magnesium (1.6-2.6) mg/dL Total Bilirubin (0.0-1.0) mg/dL AST (5-31) U/L ALT (0-31) U/L Alkaline Phosphatase (39-117) U/L Troponin I High Sens < 3.5 (<3.5-17.0) ng/L B-Natriuretic Peptide 33 (<100) pg/mL Total Protein (6.5-8.0) g/dL Albumin (3.5-5.0) g/dL TSH (0.32-4.0) uIU/mL COVID-19 (JORDAN) (Negative) COVID-19 Clin Com Imaging Data Chest x-ray: Radiologist's impression: FINDINGS: No focal airspace consolidation. No pleural effusion or pneumothorax. Stable cardiomediastinal silhouette. Partially visualized posterior stabilization hardware within the spine. Right upper quadrant surgical clips. XR/XR chest 2V IMPRESSION: No acute cardiopulmonary findings. ECG Data Attestation: I personally reviewed and interpreted this ECG as follows: ECG interpretation date: 01/06/22 Prior ECG tracings: available for review Interpretation: Rate: 79 Rhythm:? Sinus rhythm with PVC [place]:? Normal Normal P waves.? Normal NAVA.?? Normal QRS complex.?? ST T wave :??No ST elevation, no ST depression, no T-wave inversion qTC: 428 prior studies:? October 2020 The study has been interpreted contemporaneously by me. Repeat EKG 13:34 Rate: 155 Rhythm:? Atrial fibrillation with rapid ventricular response Normal QRS complex.?? ST T wave :? No ST elevation, no T-wave inversion? qTC: 465 The study has been interpreted contemporaneously by me. Discharge Plan Discharge Clinical Impression: COPD exacerbation, Atrial fibrillation with RVR Patient Disposition: Admitted As Inpatient
[2022-01-06] MEDS: Albuterol/Iprat 2.5/0.5MG 3 ML AMPUL.NEB INHALE (11:49)
[2022-01-06] MEDS: Albuterol Sulfate (0.083%) 2.5 MG/3 ML VIAL.NEB 7.5 MG INHALE (11:49)
[2022-01-06] MEDS: methylPREDNISolone Sod Succ 125 MG/2 ML VIAL 80 MG IVPUSH (12:38)
[2022-01-06] MEDS: cefTRIAXone sodium 1 GM in 0.9 % Sodium Chloride 50 ML IV (12:39)
[2022-01-06 13:28] LABS: MANUAL DIFF FLAG NO
[2022-01-06 13:31] LABS: Basophils Percent Auto 0.1 % (0-2); Hematocrit 33.1 % (37.0-47.0); Imm Gran Abs Auto 0.18 X10*3/uL (0.00-0.03); Imm Gran Pct Auto 1.8 % (0.0-0.4); Lymphocytes Absolute Auto 1.4 X10*3/uL (1.2-4.9); Lymphocytes Percent Auto 14.3 % (20-40); Mean Corpuscular HGB Conc 30.2 g/dl (31.0-35.0); Mean Corpuscular Hemoglobin 24.7 pg (27.0-33.0); Mean Corpuscular Volume 81.7 fL (80.0-98.0); Mean Platelet Volume 9.6 fL (9.4-12.3); Monocytes Absolute Auto 0.2 X10*3/uL (0.1-1.2); Monocytes Percent Auto 2.1 % (2-11); Neutrophils Percent Auto 81.7 % (45-73); Platelet Count 300 X10*3/uL (160-400); Red Blood Count 4.05 X10*6/uL (4.20-5.50); Red Cell Distribution Width 16.7 % (11.0-16.0); White Blood Count 9.8 X10*3/uL (4.8-10.8)
--- NOTE | 2022-01-06 13:42 | ECG_ITS ---
Test Reason : hi heartrate Blood Pressure : / mmHG Vent. Rate : 155 BPM Atrial Rate : 000 BPM P-R Int : 000 ms QRS Dur : 080 ms QT Int : 290 ms P-R-T Axes : 000 009 268 degrees QTc Int : 465 ms Atrial fibrillation with rapid ventricular response Nonspecific ST and T wave abnormality Abnormal ECG When compared with ECG of 06-JAN-2022 11:34, Atrial fibrillation has replaced Sinus rhythm Vent. rate has increased BY [address] now depressed in Lateral leads T wave inversion now evident in Inferior leads T wave inversion now evident in Lateral leads Referred By: Paulina Robles Electronically Signed By:ELIZABETH BECKER
[2022-01-06 13:49] LABS: Alanine Aminotransferase 15 U/L (0-31); Albumin Level 4.4 g/dL (3.5-5.0); Alkaline Phosphatase 88 U/L (39-117); Anion Gap 17 (12-20); Aspartate Amino Transferase 11 U/L (5-31); Bilirubin Total 0.2 mg/dL (0.0-1.0); Blood Urea Nitrogen 24 mg/dL (9-16); Calcium 9.8 mg/dL (8.4-10.2); Carbon Dioxide 25 mmol/L (22-29); Chloride 104 mmol/L (96-108); Creatinine Clr Calc Pharmacy 45.3; Estimated Glomerular Filt Rate 52; Glucose Random 177 mg/dL (60-115); Magnesium 1.7 mg/dL (1.6-2.6); Potassium 4.3 mmol/L (3.3-5.1); Sodium 142 mmol/L (135-145); Total Protein 7.1 g/dL (6.5-8.0)
[2022-01-06 13:52] LABS: B Type Natriuretic Peptide 33 pg/mL (<100); Troponin-I High Sensitivity < 3.5 ng/L (<3.5-17.0)
[2022-01-06] MEDS: dilTIAZem HCL 50 MG/10 ML VIAL 15 MG IVPUSH (13:53)
[2022-01-06] MEDS: dilTIAZem HCL 125 MG in 0.9 % Sodium Chloride 100 ML IVCONT (14:20)
--- NOTE | 2022-01-06 15:34 | PHA.MEDREC ---
Pharmacy Consult ? Medication Reconciliation Pharmacy has completed the medication reconciliation. Patient had list of updated medications. Reports using both budesonide and Duoneb BID after 30 min-1 hours apart from each other. Reports she is finished with her course of azithromycin. She reported she is suppose to start Prednisone 30 mg part of her taper tomorrow. Juliana Torres, PharmD
--- NOTE | 2022-01-06 15:38 | PM.IMHP ---
History of Present Illness Date of Service: 01/06/22 Chief Complaint: SOB 76-year-old woman presenting to the ER with complaints of worsening shortness of breath and cough. Parent Jenna she has had symptoms for about 2 weeks. 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 However symptoms have not improved. She reports a cough with yellow phlegm, denies chest pain, shortness breath, nausea, vomiting, diarrhea. She denied any palpitations. Patient was noted to be in atrial fibrillation with rapid ventricular response on telemetry, which is new for her. Labs all within acceptable limits, 19-. Chest x-ray negative for consolidation or effusion. Stable blood pressure, no hypoxia Received Solu-Medrol, DuoNebs, Rocephin and was started on diltiazem for atrial fibrillation with rapid ventricular response. Be admitted for further management treatment of acute COPD/asthma exacerbation and acute atrial fibrillation. Review of Systems Review of Systems: Denies any recent fever chills or decrease in appetite respiratory denies any shortness of breath coverage production cardiovascular denies chest pain gastrointestinal denies any dysphagia abdominal pain nausea vomiting or diarrhea genitourinary denies any dysuria frequency or hematuria musculoskeletal denies any joint pain or swelling neuropsych denies any weakness or seizures all other systems reviewed are negative [facility] Medical History Asthma Asthma-COPD overlap syndrome Bronchitis Bronchomalacia HTN (hypertension) ARIEL (obstructive sleep apnea) Pneumonitis Pulmonary nodules 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 Family History Other Asthma Surgical History History of bronchoscopy History of foot surgery Social History Patient Tobacco Use Status: Former Tobacco user Tobacco use type: Cigarette Years Smoked: 20 years Advance Directives: Yes Advance Directives Information Provided: No Advance Directives on File: No Meds Allergies Allergy/AdvReac Type Severity Reaction Status Date / Time aspirin Allergy Severe Upset Verified 09/18/21 13:51 Stomach Latex Gloves Allergy Severe Rash Uncoded 09/18/21 13:51 Active Medications: Current Medications Acetaminophen (Acetaminophen 325 Mg Tablet) 650 mg PO Q6H PRN PRN Reason: Pain, Mild (Pain Scale 1-3) Diltiazem HCl 125 mg/ Sodium (Chloride) 125 mls @ 0 mls/hr IVCONT .Q0M [facility]; Protocol Last Titration: 01/06/22 15:01 Dose: 15 mg/hr, 15 mls/hr Ondansetron HCl (Ondansetron Hcl 4 Mg/2 Ml Vial) 4 mg IVPUSH Q8H PRN PRN Reason: Nausea and Vomiting Pharmacy Consult (Consult Rx Perform Med Rec) 1 each MISCELLANE ONCE PRN PRN Reason: Consult order Sodium Chloride (0.9 % Sodium Chloride Flush 3 Ml Syringe) 3 ml IVFLUSH QSHIFT [facility] Home Medications Medication Instructions Recorded Confirmed Last Taken Type losartan 100 1 tab PO DAILY 05/22/20 01/06/22 01/06/22 History mg-hydrochlorothiazide 25 mg tablet pravastatin 40 mg tablet 40 mg PO BID 05/22/20 01/06/22 01/06/22 History acetaminophen 500 mg tablet 500 mg PO BEDTIME 10/23/20 01/06/22 Unknown History (Tylenol Extra Strength) budesonide 0.5 mg/2 mL suspension 0.5 mg inhalation BID 10/23/20 01/06/22 01/06/22 History for nebulization loratadine 10 mg tablet (Claritin) 10 mg PO DAILY 10/23/20 01/06/22 01/06/22 History omeprazole 20 mg capsule,delayed 20 mg PO DAILY 10/23/20 01/06/22 01/06/22 History release peg 400-propylene glycol (PF) 0.4 1 drp ophthalmic (eye) TID PRN Dry 10/23/20 01/06/22 Unknown History %-0.3 % eye drops in a dropperette Eye(S) (Systane (PF)) alendronate 70 mg tablet 70 mg PO SA 03/23/21 01/06/22 01/05/22 History ascorbic acid (vitamin C) 1,000 mg 500 mg PO DAILY 04/06/21 01/06/22 01/06/22 History tablet ferrous sulfate 142 mg (45 mg 142 mg PO DAILY 04/06/21 01/06/22 01/06/22 History iron) tablet,extended release (Slow Fe) montelukast 10 mg tablet 10 mg PO DAILY 05/17/21 01/06/22 01/06/22 History mirabegron 25 mg tablet,extended 25 mg PO DAILY 07/26/21 01/06/22 01/05/22 History release 24 hr (Myrbetriq) conjugated estrogens 0.625 mg/gram 0.625 mg vaginal MOFR@2100 01/06/22 01/06/22 Unknown History vaginal cream (Premarin) gabapentin 100 mg capsule 1 cap PO BEDTIME PRN moderate pain 01/06/22 01/06/22 Unknown History ipratropium 0.5 mg-albuterol 3 mg 3 ml inhalation BID 01/06/22 01/06/22 01/06/22 History (2.5 mg base)/3 mL nebulization soln omeprazole 20 mg capsule,delayed 20 mg PO DAILY PRN gi upset 01/06/22 01/06/22 Unknown History release prednisone 10 mg tablet See Rx Instructions PO DAILY 01/06/22 01/06/22 01/06/22 History triamcinolone acetonide 0.1 % 1 appl topical BID PRN Rash 01/06/22 01/06/22 Unknown History topical cream white petrolatum-mineral oil 94 1 appl ophthalmic (eye) BEDTIME 01/06/22 01/06/22 Unknown History %-3 % eye ointment (Systane Nighttime) Physical Exam Vital Signs and Narrative: Vital Signs: Last Vital Signs Temp 98.1 F 01/06/22 13:44 Pulse 119 H 01/06/22 15:19 Resp 28 H 01/06/22 15:19 BP 138/57 L 01/06/22 15:19 Pulse Ox 97 01/06/22 15:19 O2 Del Method 01/06/22 15:19 O2 Flow Rate 2 01/06/22 15:19 BMI result Body Mass Index 35.9 Appearing in no acute distress head is normocephalic atraumatic eyes pupils are PERRLA sclera is anicteric mouth throat mucous membranes are intact and moist neck is supple no lymphadenopathy, no JVD noted lung sounds are clear to auscultation heart regular rate rhythm, clear S1, S2 positive bowel sounds, abdomen is soft, nontender neuro patient is alert x3, no focal deficits Results Labs CBC and Chem 7: 01/07/22 03:53 01/07/22 03:53 Labs: Laboratory Results - last 24 hr 01/06/22 01/06/22 01/06/22 10:37 13:23 13:23 MCV 81.7 MCH 24.7 L MCHC 30.2 L RDW 16.7 H Plt Count 300 MPV 9.6 Immature Gran % (Auto) 1.8 H Neut % (Auto) 81.7 H Lymph % (Auto) 14.3 L [place] % (Auto) 2.1 Eos % (Auto) 0.0 Baso % (Auto) 0.1 Lymph # (Auto) 1.4 [place] # (Auto) 0.2 Eos # (Auto) 0.0 Baso # (Auto) 0.0 Abs Immat Gran (auto) 0.18 H Absolute Neuts (auto) 8.0 Absolute Nucleated RBC 0.000 Nucleated RBC % (auto) 0.0 Anion Gap 17 Estim Creat Clear Calc 45.3 Estimated GFR 52 Random Glucose 177 H Calcium 9.8 Magnesium 1.7 Total Bilirubin 0.2 AST 11 D ALT 15 Alkaline Phosphatase 88 Troponin I High Sens B-Natriuretic Peptide Total Protein 7.1 Albumin 4.4 COVID-19 (JORDAN) Negative COVID-19 Clin Com See Note 01/06/22 01/06/22 13:23 13:23 MCV MCH MCHC RDW Plt Count MPV Immature Gran % (Auto) Neut % (Auto) Lymph % (Auto) [place] % (Auto) Eos % (Auto) Baso % (Auto) Lymph # (Auto) [place] # (Auto) Eos # (Auto) Baso # (Auto) Abs Immat Gran (auto) Absolute Neuts (auto) Absolute Nucleated RBC Nucleated RBC % (auto) Anion Gap Estim Creat Clear Calc Estimated GFR Random Glucose Calcium Magnesium Total Bilirubin AST ALT Alkaline Phosphatase Troponin I High Sens < 3.5 B-Natriuretic Peptide 33 Total Protein Albumin COVID-19 (JORDNA) COVID-19 Clin Com Imaging Radiologist's Impressions: Impressions Chest X-Ray 01/06/22 11:10 IMPRESSION: No acute cardiopulmonary findings. Assessment and Plan (1) COPD exacerbation: Status: Acute Plan 76 year old women admitted with COPD/asthma exacerbation and subsequently found to have afib with RVR Afib RVR, acute Started on diltiazem drip consult cardiology echo telemetry check TSH, normal mag Chadsvasc score 4, will start Lovenox, likely switch to eliquis COPD/Asthma failed o/p therapy no consolidation on cxr solumedrol, duonebs supplemental oxygen Hypertension stable continue Losartan and HCTZ GERD continue PPI HLD continue statin Normocytic anemia no bleeding continue iron supp follow HH Obesity BMI 35.9 ARIEL, chronic may bring in cpap from home DVT prophylaxis with Lovenox for now Attending Dr. Jacobs Full code 2 midnight for tx of acute Afiv rvr requiring IV medications for control Quality Stroke Does the patient have a stroke diagnosis?: No VTE Prior VTE?: No VTE Risk Level:: Medical - moderate - high VTE Device Contraindication: Treatment Not Indicated VTE Drug Contraindication: N/A - Med Ordered
--- NOTE | 2022-01-06 16:34 | ECG_ITS ---
Test Reason : chest pain Blood Pressure : / mmHG Vent. Rate : 074 BPM Atrial Rate : 074 BPM P-R Int : 158 ms QRS Dur : 086 ms QT Int : 392 ms P-R-T Axes : 007 007 -14 degrees QTc Int : 435 ms Normal sinus rhythm Normal ECG When compared with ECG of 06-JAN-2022 13:34, Sinus rhythm has replaced Atrial fibrillation Vent. rate has decreased BY [address] no longer depressed in Lateral leads T wave inversion no longer evident in Lateral leads Referred By: Paulina Robles Electronically Signed By:ELIZABETH BECKER
[2022-01-06 17:00] LABS: Thyroid Stimulating Hormone 0.44 uIU/mL (0.32-4.0)
--- NOTE | 2022-01-06 18:47 | PC.NURSE ---
At approx 1520, cardizem drip paused per provider as pt was converted back into sinus rhytm .
[2022-01-06] MEDS: methylPREDNISolone Sod Succ 40 MG/ML VIAL IVPUSH (21:43)
[2022-01-06] MEDS: Pravastatin Sodium 40 MG TABLET PO (21:43)
--- NOTE | 2022-01-06 23:23 | PC.NURSE ---
pt note secondary to pt care, this RN got in report from previous shift RN that diltiazem drip had been paused due to decrease in HR and hypotension, drip not running during this RN contact in pt, previous shift RN did not chart that drip was paused,this RN charted it but time is incorrect.
[2022-01-07] VITALS (10 sets, daily range): BP systolic 111–179; BP diastolic 41–74; PULSE 63–82; RESP 12–20; TEMP 36.1–36.7; O2SAT 94–99
[2022-01-07 04:14] LABS: MANUAL DIFF FLAG NO
[2022-01-07 04:15] LABS: Basophils Percent Auto 0.1 % (0-2); Hematocrit 30.1 % (37.0-47.0); Hemoglobin 9.4 g/dl (12.0-16.0); Imm Gran Abs Auto 0.11 X10*3/uL (0.00-0.03); Imm Gran Pct Auto 1.2 % (0.0-0.4); Lymphocytes Percent Auto 10.7 % (20-40); Mean Corpuscular HGB Conc 31.2 g/dl (31.0-35.0); Mean Corpuscular Hemoglobin 25.3 pg (27.0-33.0); Mean Corpuscular Volume 81.1 fL (80.0-98.0); Mean Platelet Volume 9.8 fL (9.4-12.3); Monocytes Absolute Auto 0.2 X10*3/uL (0.1-1.2); Monocytes Percent Auto 1.8 % (2-11); Neutrophils Absolute Auto 7.6 x10*3/uL (2.0-8.3); Neutrophils Percent Auto 86.2 % (45-73); Platelet Count 283 X10*3/uL (160-400); Red Blood Count 3.71 X10*6/uL (4.20-5.50); Red Cell Distribution Width 17.1 % (11.0-16.0); White Blood Count 8.8 X10*3/uL (4.8-10.8)
[2022-01-07 04:32] LABS: Anion Gap 15 (12-20); Blood Urea Nitrogen 24 mg/dL (9-16); Calcium 9.4 mg/dL (8.4-10.2); Carbon Dioxide 25 mmol/L (22-29); Chloride 106 mmol/L (96-108); Creatinine Clr Calc Pharmacy 56.4; Estimated Glomerular Filt Rate > 60; Glucose Random 135 mg/dL (60-115); Potassium 4.4 mmol/L (3.3-5.1); Sodium 142 mmol/L (135-145)
[2022-01-07] MEDS: methylPREDNISolone Sod Succ 40 MG/ML VIAL IVPUSH ×3 (04:46→21:38)
[2022-01-07] MEDS: Omeprazole 20 MG CAPSULE.DR PO (06:06)
--- NOTE | 2022-01-07 07:00 | CA_ITS ---
Transthoracic Echocardiogram Patient (Last, First, Middle): Tessa Montalvo A Gender: Female Date of : 1945 Age: 76 Procedure Date: 01/07/2022 Procedure Type: Transthoracic Echocardiogram [place] [facility] [place]: 154.94 cm Weight: 86.18 kg BSA: 1.85 m2 Heart Rate: bpm BP: 143 / 59 mmHg Business Support Associate: CLAY Referring MD: Mayra Martins NP Symptoms: new onset afib rvr Study Quality: Adequate ECG Rhythm: Sinus Conclusions: - The left ventricular systolic function is normal. The calculated ejection fraction is 69% by biplane method. - No obvious valvular pathology seen on this study. - Mild pulmonary hypertension is present. Findings Left Ventricle Normal left ventricular cavity size. There is mildly increased left ventricular wall thickness. The left ventricular systolic function is normal. The calculated ejection fraction is 69% by biplane method. There is no evidence of regional wall motion abnormalities. Diastolic function is normal for age. Right Ventricle Normal right ventricular cavity size and systolic function. Atria The left atrium is mildly dilated. The right atrium is normal in size. Aortic Valve There is a normal trileaflet aortic valve. There is no aortic valve stenosis. There is no aortic valve regurgitation. Mitral Valve The mitral valve appears normal. There is trace mitral valve regurgitation. There is no mitral valve stenosis. Pulmonic Valve The pulmonic valve was not well visualized. Tricuspid Valve Normal tricuspid valve structure. There is trace tricuspid valve regurgitation. The right ventricular systolic pressure is 37 mmHg. Mild pulmonary hypertension is present. Great Vessels The aortic annulus, sinuses of valsalva, and asc aorta are normal in size. Venous The inferior vena cava is dilated and collapses greater than 50% with inspiration. Pericardium/Pleural There is no evidence of pericardial effusion. Prior Study Comparison No prior study available for comparison. Recommendations, Care & Conclusions No obvious valvular pathology seen on this study. Measurements 2D Linear Measurements IVSd: 1.12 0.6-0.9/0.6-1.0 cm LVIDd: 4.98 3.9-5.3/4.2-5.9 cm LVIDd Index: 2.69 2.4-3.2/2.2-3.1 cm/m2 LVIDs: 3.99 2.0-3.6 cm LVPWd: 1.05 0.7-1.1 cm LA Diam: 4.40 2.7-3.8/3.0-4.0 cm LAIDs Index: 2.38 1.5-2.3 cm/m2 LV Mass: 251.70 67-162/88-224 g LV Mass Index: 136.05 43-95/49-115 g/m2 LVOT Diam: 2.00 3.0+(-)1.3 cm 2D Systolic Function EF 4C: 71.60 >55% EF 2C: 66.40 >55% EF BiP: 69.40 >55% Mitral Valve MV Pk E: 0.97 MV PK A: 0.88 MV Decel Time: 231.00 E/A: 1.10 E'Lateral: 8.05 E'Medial: 6.74 E/E' Med: 14.40 E/E' Lat: 12.10 PHT: 68.00 MVA PHT: 3.24 Decel [place]: 4.21 Aortic Valve AoV Pk [place]: 1.97 AoV Mn [place]: 1.38 AoV VTI: 0.46 AoV Pk Grad: 16.00 Aov Mn Grad: 9.00 JUDITH Cont.VTI: 2.47 LVOT LVOT Pk [place]: 1.49 LVOT Mn [place]: 1.08 LVOT VTI: 0.36 LVOT Pk Grad: 9.00 LVOT Mn Grad: 5.00 LVOT Diam: 2.00 LVOT Area: 3.14 Diastolic Function MV Pk E: 0.97 MV Pk A: 0.88 E/A: 1.10 E'Medial: 6.74 E/E' Med: 14.40 E' Laterial: 8.05 E/E' Lat: 12.10 Right Ventricle TAPSE (mm): 20.40 TVS' [place]: 13.10 Tricuspid Valve TR Pk [place]: 2.70 TR Pk Grad: 29.00 RA Press: 8.00 RVSP: 37.00 Great Vessels Aorta Sinus of Valsalva: 2.75 2.0-3.[address] [place]: 2.28 1.7-3.4 cm Ao Asc: 3.40 2.1-3.4 cm Updated in Other Vendor System with Status of Final Shady Vernon MD electronically signed on 01/07/2022 4:19:40 PM with status of Final
[2022-01-07] MEDS: 0.9 % Sodium Chloride Flush 3 ML SYRINGE IVFLUSH ×3 (09:00→21:39)
[2022-01-07] MEDS: Pravastatin Sodium 40 MG TABLET PO ×2 (09:00→21:38)
[2022-01-07] MEDS: Loratadine 10 MG TABLET PO (09:00)
[2022-01-07] MEDS: Montelukast Sodium 10 MG TABLET PO (09:00)
[2022-01-07] MEDS: Ascorbic Acid 500 MG TABLET PO (09:00)
[2022-01-07] MEDS: Mirabegron 25 MG TAB.ER.24H PO (10:27)
--- NOTE | 2022-01-07 10:40 | PM.CNCAR ---
History of Present Illness History of Present Illness Date of Service: 01/07/22 Chief complaint: afib rvr, copd Narrative: This is a cardiology consultation regarding atrial fibrillation. Patient presented with increasing shortness of breath and cough. 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 She was noted to be in atrial fibrillation rapid rate on telemetry. Subsequently admitted. Currently, she is back in normal sinus rhythm. She denies any prior history of cardiac issues like coronary artery disease or myocardial infarction or cardiomyopathy. She has chronic shortness of breath with activity likely from her pulmonary issues. Otherwise, she states she feels palpitations only when she is using inhalers but not otherwise. Some chest pressure/tightness but not clear if that is all from her asthma/COPD itself. Review of Systems Review of Systems: Yes all other systems are reviewed and are negative Constitutional: Constitutional: Reports as per HPI Eyes: Eyes: Reports as per HPI ENT: Reports as per HPI Cardiovascular: Cardiovascular: Reports as per HPI, Denies acrocyanosis, Denies cool extremities, Denies chest pain, Denies leg edema, Denies lightheadedness, Denies palpitations and Reports dyspnea Respiratory: Respiratory: Reports as per HPI, Reports no additional respiratory complaints, Reports cough and Reports dyspnea Gastrointestinal: Gastrointestinal: Reports as per HPI and Reports no additional gastrointestinal complaints Genitourinary: Genitourinary: Reports as per HPI Musculoskeletal: Musculoskeletal: Reports no additional musculoskeletal complaints and Reports as per HPI Integumentary/Breasts: Skin/Breast: Reports system reviewed and no additional complaints, except as docu Neurologic: Reports system reviewed and no additional complaints, except as documented and Reports as per HPI Psychiatric: Psychiatric: Reports no additional psychiatric complaints and Reports as per HPI Endocrine: Endocrine: Reports no additional endocrine complaints, Reports as per HPI and Denies palpitations Hematologic/Lymphatic: Hematologic/Lymphatic: Reports no additional hematologic/lymphatic complaints and Reports as per HPI Allergic/Immunologic: Allergic/Immunologic: Reports no additional allergic/immunologic complaints and Reports as per HPI PMF Past Medical History Medical History Asthma Asthma-COPD overlap syndrome Bronchitis Bronchomalacia HTN (hypertension) ARIEL (obstructive sleep apnea) Pneumonitis Pulmonary nodules 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 Family History Family History Other Asthma Surgical History Surgical History History of bronchoscopy History of foot surgery Social History Social History Patient Tobacco Use Status: Former Tobacco user Tobacco use type: Cigarette Years Smoked: 20 years Advance Directives: Yes Advance Directives Information Provided: No Advance Directives on File: No Meds Allergies Allergy/AdvReac Type Severity Reaction Status Date / Time aspirin Allergy Severe Upset Verified 09/18/21 13:51 Stomach Latex Gloves Allergy Severe Rash Uncoded 09/18/21 13:51 Active Medications: Current Medications Acetaminophen (Acetaminophen 325 Mg Tablet) 650 mg PO Q6H PRN PRN Reason: Pain, Mild (Pain Scale 1-3) Ascorbic Acid (Ascorbic Acid 500 Mg Tablet) 500 mg PO DAILY [facility] Last Admin: 01/07/22 09:00 Dose: 500 mg Estrogens Conjugated (Estrogens, Conjugated Cream 30 Gm Tube) 0.0006 gm VAGINAL MOFR@2100 [facility]INO Gabapentin (Gabapentin 100 Mg Capsule) 100 mg PO BEDTIME PRN PRN Reason: moderate pain Diltiazem HCl 125 mg/ Sodium (Chloride) 125 mls @ 0 mls/hr IVCONT .Q0M [facility]; Protocol Last Titration: 01/06/22 23:22 Dose: 0 mg/hr, 0 mls/hr Levalbuterol HCl (Levalbuterol Hcl 1.25 Mg/0.5 Ml Vial.Neb) 1.25 mg INHALE RQ4H WHILE AWAKE [facility] Last Admin: 01/07/22 07:48 Dose: 1.25 mg Loratadine (Loratadine 10 Mg Tablet) 10 mg PO DAILY [facility] Last Admin: 01/07/22 09:00 Dose: 10 mg Methylprednisolone Sodium Succinate (Methylprednisolone Sod Succ 40 Mg/Ml Vial) 40 mg IVPUSH Q8H [facility]INO Last Admin: 01/07/22 04:46 Dose: 40 mg Mirabegron (Mirabegron 25 Mg Tab.Er.24h) 25 mg PO DAILY [facility] Last Admin: 01/07/22 10:27 Dose: 25 mg Montelukast Sodium (Montelukast Sodium 10 Mg Tablet) 10 mg PO DAILY [facility] Last Admin: 01/07/22 09:00 Dose: 10 mg Non-Formulary Medication (Ferrous Sulfate [Slow Fe]) 142 mg PO DAILY [facility] Omeprazole (Omeprazole 20 Mg Capsule.Dr) 20 mg PO DAILY@0630 [facility] Last Admin: 01/07/22 06:06 Dose: 20 mg Ondansetron HCl (Ondansetron Hcl 4 Mg/2 Ml Vial) 4 mg IVPUSH Q8H PRN PRN Reason: Nausea and Vomiting Pharmacy Consult (Consult Rx Perform Med Rec) 1 each MISCELLANE ONCE PRN PRN Reason: Consult order Pravastatin Sodium (Pravastatin Sodium 40 Mg Tablet) 40 mg PO BID [facility] Last Admin: 01/07/22 09:00 Dose: 40 mg Sodium Chloride (0.9 % Sodium Chloride Flush 3 Ml Syringe) 3 ml IVFLUSH QSHIFT [facility] Last Admin: 01/07/22 09:00 Dose: 3 ml Home Medications Medication Instructions Recorded Confirmed Last Taken Type losartan 100 1 tab PO DAILY 05/22/20 01/06/22 01/06/22 History mg-hydrochlorothiazide 25 mg tablet pravastatin 40 mg tablet 40 mg PO BID 05/22/20 01/06/22 01/06/22 History acetaminophen 500 mg tablet 500 mg PO BEDTIME 10/23/20 01/06/22 Unknown History (Tylenol Extra Strength) budesonide 0.5 mg/2 mL suspension 0.5 mg inhalation BID 10/23/20 01/06/22 01/06/22 History for nebulization loratadine 10 mg tablet (Claritin) 10 mg PO DAILY 10/23/20 01/06/22 01/06/22 History omeprazole 20 mg capsule,delayed 20 mg PO DAILY 10/23/20 01/06/22 01/06/22 History release peg 400-propylene glycol (PF) 0.4 1 drp ophthalmic (eye) TID PRN Dry 10/23/20 01/06/22 Unknown History %-0.3 % eye drops in a dropperette Eye(S) (Systane (PF)) alendronate 70 mg tablet 70 mg PO SA 03/23/21 01/06/22 01/05/22 History ascorbic acid (vitamin C) 1,000 mg 500 mg PO DAILY 04/06/21 01/06/22 01/06/22 History tablet ferrous sulfate 142 mg (45 mg 142 mg PO DAILY 04/06/21 01/06/22 01/06/22 History iron) tablet,extended release (Slow Fe) montelukast 10 mg tablet 10 mg PO DAILY 05/17/21 01/06/22 01/06/22 History mirabegron 25 mg tablet,extended 25 mg PO DAILY 07/26/21 01/06/22 01/05/22 History release 24 hr (Myrbetriq) conjugated estrogens 0.625 mg/gram 0.625 mg vaginal MOFR@2100 01/06/22 01/06/22 Unknown History vaginal cream (Premarin) gabapentin 100 mg capsule 1 cap PO BEDTIME PRN moderate pain 01/06/22 01/06/22 Unknown History ipratropium 0.5 mg-albuterol 3 mg 3 ml inhalation BID 01/06/22 01/06/22 01/06/22 History (2.5 mg base)/3 mL nebulization soln omeprazole 20 mg capsule,delayed 20 mg PO DAILY PRN gi upset 01/06/22 01/06/22 Unknown History release prednisone 10 mg tablet See Rx Instructions PO DAILY 01/06/22 01/06/22 01/06/22 History triamcinolone acetonide 0.1 % 1 appl topical BID PRN Rash 01/06/22 01/06/22 Unknown History topical cream white petrolatum-mineral oil 94 1 appl ophthalmic (eye) BEDTIME 01/06/22 01/06/22 Unknown History %-3 % eye ointment (Systane Nighttime) Physical Exam Vital Signs: Vital Signs: Last Vital Signs Temp 98.1 F 01/06/22 20:38 Pulse 82 01/07/22 08:23 Resp 20 01/07/22 08:23 BP 111/41 L 01/07/22 08:23 Pulse Ox 97 01/07/22 08:23 O2 Del Method 01/07/22 08:23 O2 Flow Rate 2 01/06/22 23:30 BMI result Body Mass Index 35.9 Const: General: comfortable and no acute distress Orientation/consciousness: patient oriented x3 HEENT: Other: Unremarkable Head: Yes normal to inspection Neck: Neck: Yes normal visual inspection Chest: Chest palpation & inspection: normal inspection of the chest Resp: Auscultation: wheezes (scattered, but not extensive) and diminished lung sounds Cardio: Palpation: normal PMI Heart sounds: S1 normal heart sound present, S2 normal heart sound present, no gallops, no murmurs and no rubs GI: Palpation (GI): Soft to palpation Back/Spine/Pelvis: Other: unremarkable Skin: General skin exam: no rashes or lesions noted Neuro: General: patient oriented x3 Extrem: General: Yes normal to inspection Psych: Mental Status: mental status grossly normal Objective Labs and Meds Result diagrams: 01/07/22 03:53 01/07/22 03:53 Lab results: Laboratory Results - last 24 hr 01/06/22 01/06/22 01/06/22 10:37 13:23 13:23 WBC 9.8 RBC 4.05 L Hgb 10.0 L Hct 33.1 L MCV 81.7 MCH 24.7 L MCHC 30.2 L RDW 16.7 H Plt Count 300 MPV 9.6 Immature Gran % (Auto) 1.8 H Neut % (Auto) 81.7 H Lymph % (Auto) 14.3 L [place] % (Auto) 2.1 Eos % (Auto) 0.0 Baso % (Auto) 0.1 Lymph # (Auto) 1.4 [place] # (Auto) 0.2 Eos # (Auto) 0.0 Baso # (Auto) 0.0 Abs Immat Gran (auto) 0.18 H Absolute Neuts (auto) 8.0 Absolute Nucleated RBC 0.000 Nucleated RBC % (auto) 0.0 Sodium 142 Potassium 4.3 Chloride 104 Carbon Dioxide 25 Anion Gap 17 BUN 24 H Creatinine 1.02 Estim Creat Clear Calc 45.3 Estimated GFR 52 Random Glucose 177 H Calcium 9.8 Magnesium 1.7 Total Bilirubin 0.2 AST 11 D ALT 15 Alkaline Phosphatase 88 Troponin I High Sens B-Natriuretic Peptide Total Protein 7.1 Albumin 4.4 TSH 0.44 COVID-19 (JORDAN) Negative COVID-19 Clin Com See Note 01/06/22 01/06/22 01/07/22 13:23 13:23 03:53 WBC 8.8 RBC 3.71 L Hgb 9.4 L Hct 30.1 L MCV 81.1 MCH 25.3 L MCHC 31.2 RDW 17.1 H Plt Count 283 MPV 9.8 Immature Gran % (Auto) 1.2 H Neut % (Auto) 86.2 H Lymph % (Auto) 10.7 L [place] % (Auto) 1.8 L Eos % (Auto) 0.0 Baso % (Auto) 0.1 Lymph # (Auto) 1.0 L [place] # (Auto) 0.2 Eos # (Auto) 0.0 Baso # (Auto) 0.0 Abs Immat Gran (auto) 0.11 H Absolute Neuts (auto) 7.6 Absolute Nucleated RBC 0.000 Nucleated RBC % (auto) 0.0 Sodium Potassium Chloride Carbon Dioxide Anion Gap BUN Creatinine Estim Creat Clear Calc Estimated GFR Random Glucose Calcium Magnesium Total Bilirubin AST ALT Alkaline Phosphatase Troponin I High Sens < 3.5 B-Natriuretic Peptide 33 Total Protein Albumin TSH COVID-19 (JORDAN) COVID-19 [employer] Com 01/07/22 03:53 WBC RBC Hgb Hct MCV MCH MCHC RDW Plt Count MPV Immature Gran % (Auto) Neut % (Auto) Lymph % (Auto) [place] % (Auto) Eos % (Auto) Baso % (Auto) Lymph # (Auto) [place] # (Auto) Eos # (Auto) Baso # (Auto) Abs Immat Gran (auto) Absolute Neuts (auto) Absolute Nucleated RBC Nucleated RBC % (auto) Sodium 142 Potassium 4.4 Chloride 106 Carbon Dioxide 25 Anion Gap 15 BUN 24 H Creatinine 0.82 Estim Creat Clear Calc 56.4 Estimated GFR > 60 Random Glucose 135 H Calcium 9.4 Magnesium Total Bilirubin AST ALT Alkaline Phosphatase Troponin I High Sens B-Natriuretic Peptide Total Protein Albumin TSH COVID-19 (JORDAN) COVID-19 Clin Com ECG Interpretation: While in atrial fibrillation, EKG shows a rate of 155/Min with slight ST depression. EKG prior to that showed sinus rhythm at 79/Min. Currently, she is in sinus rhythm on telemetry. Imaging Radiologist's impression: Impressions Chest X-Ray 01/06/22 11:10 IMPRESSION: No acute cardiopulmonary findings. Chest CT 01/06/22 20:21 IMPRESSION: 1. A cause for the patient's shortness of breath and found. 2. Incidental note is made of decrease in size of the groundglass opacity in the right upper lobe along the fissure from 1.2 x 0.4 x 0.3 cm to 1.3 x 0.7 x 0.5 cm. 3. No other worrisome lung masses seen. 2017 Fleischner Society Recommendations for Lung Nodule(s): Follow-Up based on size (average of long- and short-axis diameters). Use most suspicious nodule for followup. Single GG lung nodule >= 6 mm: Recommend a non-contrast Chest CT at 6-12 months to confirm persistence, then additional non-contrast Chest CTs every 2 years until 5 years. These guidelines do not apply to patients younger than 35 years, immunocompromised patients, and patients with cancer. F/u in patients with significant comorbidities as clinically warranted. For lung cancer screening, adhere to Lung-RADS guidelines. Reference: Radiology. 2017 Dec; 284(1):228-243 1. Fleischner guidelines were followed. Assessment and Plan (1) Atrial fibrillation with RVR: Status: Acute (2) COPD exacerbation: Status: Acute (3) Coronary artery calcification seen on CAT scan: Status: Acute Plan High sensitivity troponins less than 3.5. Cardiac BNP is also unremarkable at 33. With regard hemoglobin, some anemia with hemoglobin of 9.4. For previously, 10.7. In the chest CT scan, reported to have coronary artery calcifications and aortic calcification. Mild stenosis of the left subclavian artery. With regard to medications, can do diltiazem CD 1 20 mg daily. Will need anticoagulation with Eliquis. Statin dose will need to be addressed as she is listed to have b.i.d. pravastatin. Discussed with Mayra Martins. Procedures Date of Service Date of Service: 01/07/22
--- NOTE | 2022-01-07 11:51 | P.CDIC_ITS ---
CDI Concurrent Query Documentation Clarification: PHYSICIAN'S DOCUMENTATION REQUEST Date of Query: 01/07/22 1151 Patient Name: Tessa Montalvo Admit Date: 01/06/22 Dear Doctor, Please review the following and provide your response in the progress notes. Clinical Indicators: The diagnosis of asthma was documented in the record on 01/06/22. Additional clinical indicators from the record include: Risk Factors/Clinical Indicators/Treatments COPD/asthma exacerbation?per H&P Based on the above, please clarify in the Progress Notes further specificity regarding the type and acuity of the asthma: Type: * Mild intermittent - less than 2x/week * Mild persistent - more than 2x/week but not daily * Moderate persistent - daily and may restrict physical activity * Severe persistent - throughout the day with frequent attacks, limiting activities * Exercise induced * Chronic obstructive asthma and indicate if with acute lower respiratory infection * Asthma with underlying COPD and indicate if with acute lower respiratory infection * Other ? please specify * Unable to determine Acuity: * With acute exacerbation * With status asthmaticus * Uncomplicated * Unable to determine Use of terms such as suspected, likely, concern for, or probable (associated with a specific diagnosis that is being evaluated, monitored, or treated as if it exists) are acceptable and can be coded in the inpatient setting, when documented at the time of discharge. Thank you, Steph Betancourt RN Extension: [phone] Please use your independent medical judgment in providing your response. THIS QUERY IS PART OF THE PERMANENT MEDICAL RECORD Other Diagnosis: Mild intermittent with acute exacerbation
--- NOTE | 2022-01-07 11:51 | MHC.CDI.CONC ---
CDI Concurrent Query Documentation Clarification: PHYSICIAN'S DOCUMENTATION REQUEST Date of Query: 01/07/22 1151 Patient Name: Tessa Montalvo Admit Date: 01/06/22 Dear Doctor, Please review the following and provide your response in the progress notes. Clinical Indicators: The diagnosis of asthma was documented in the record on 01/06/22. Additional clinical indicators from the record include: Risk Factors/Clinical Indicators/Treatments COPD/asthma exacerbation?per H&P Based on the above, please clarify in the Progress Notes further specificity regarding the type and acuity of the asthma: Type: Mild intermittent - less than 2x/week Mild persistent - more than 2x/week but not daily Moderate persistent - daily and may restrict physical activity Severe persistent - throughout the day with frequent attacks, limiting activities Exercise induced Chronic obstructive asthma and indicate if with acute lower respiratory infection Asthma with underlying COPD and indicate if with acute lower respiratory infection Other ? please specify Unable to determine Acuity: With acute exacerbation With status asthmaticus Uncomplicated Unable to determine Use of terms such as suspected, likely, concern for, or probable (associated with a specific diagnosis that is being evaluated, monitored, or treated as if it exists) are acceptable and can be coded in the inpatient setting, when documented at the time of discharge. Thank you, Steph Betancourt RN Extension: [phone] Please use your independent medical judgment in providing your response. THIS QUERY IS PART OF THE PERMANENT MEDICAL RECORD Other Diagnosis: Mild intermittent with acute exacerbation
--- NOTE | 2022-01-07 12:18 | PC.NURSE ---
called to give report, awaiting call back
--- NOTE | 2022-01-07 13:36 | HO.PM.IMPN ---
Subjective Subjective Date of Service: 01/07/22 Review of Systems Follow-up COPD, AFib RVR Feeling better but still with cough Physical Exam Vital Signs: Vital Signs: Last Vital Signs Temp 98.1 F 01/06/22 20:38 Pulse 67 01/07/22 11:05 Resp 17 01/07/22 11:05 BP 111/41 L 01/07/22 08:23 Pulse Ox 97 01/07/22 08:23 O2 Del Method 01/07/22 08:23 O2 Flow Rate 2 01/06/22 23:30 BMI result Body Mass Index 35.9 Appearing in no acute distress lung sounds exp wheezing heart regular rate rhythm, clear S1, S2 positive bowel sounds, abdomen is soft, nontender neuro patient is alert x3, no focal deficits Objective Data Active Medications Acetaminophen (Acetaminophen 325 Mg Tablet) 650 mg PO Q6H PRN PRN Reason: Pain, Mild (Pain Scale 1-3) Ascorbic Acid (Ascorbic Acid 500 Mg Tablet) 500 mg PO DAILY [facility] Last Admin: 01/07/22 09:00 Dose: 500 mg Documented By: PRASANNA Estrogens Conjugated (Estrogens, Conjugated Cream 30 Gm Tube) 1 gm VAGINAL MOFR@2100 MARINO Gabapentin (Gabapentin 100 Mg Capsule) 100 mg PO BEDTIME PRN PRN Reason: moderate pain Diltiazem HCl 125 mg/ Sodium (Chloride) 125 mls @ 0 mls/hr IVCONT .Q0M [facility]; Protocol Last Titration: 01/06/22 23:22 Dose: 0 mg/hr, 0 mls/hr Documented By: ELHAM Levalbuterol HCl (Levalbuterol Hcl 1.25 Mg/0.5 Ml Vial.Neb) 1.25 mg INHALE RQ4H WHILE AWAKE [facility] Last Admin: 01/07/22 11:04 Dose: 1.25 mg Documented By: HORTENSIA Loratadine (Loratadine 10 Mg Tablet) 10 mg PO DAILY [facility] Last Admin: 01/07/22 09:00 Dose: 10 mg Documented By: PRASANNA Methylprednisolone Sodium Succinate (Methylprednisolone Sod Succ 40 Mg/Ml Vial) 40 mg IVPUSH Q8H [facility] Last Admin: 01/07/22 13:18 Dose: 40 mg Documented By: PRASANNA Mirabegron (Mirabegron 25 Mg Tab.Er.24h) 25 mg PO DAILY [facility] Last Admin: 01/07/22 10:27 Dose: 25 mg Documented By: PRASANNA Montelukast Sodium (Montelukast Sodium 10 Mg Tablet) 10 mg PO DAILY [facility] Last Admin: 01/07/22 09:00 Dose: 10 mg Documented By: PRASANNA Non-Formulary Medication (Ferrous Sulfate [Slow Fe]) 142 mg PO DAILY [facility] Omeprazole (Omeprazole 20 Mg Capsule.Dr) 20 mg PO DAILY@0630 [facility] Last Admin: 01/07/22 06:06 Dose: 20 mg Documented By: ELHAM Ondansetron HCl (Ondansetron Hcl 4 Mg/2 Ml Vial) 4 mg IVPUSH Q8H PRN PRN Reason: Nausea and Vomiting Pharmacy Consult (Consult Rx Perform Med Rec) 1 each MISCELLANE ONCE PRN PRN Reason: Consult order Pravastatin Sodium (Pravastatin Sodium 40 Mg Tablet) 40 mg PO BID [facility] Last Admin: 01/07/22 09:00 Dose: 40 mg Documented By: PRASANNA Sodium Chloride (0.9 % Sodium Chloride Flush 3 Ml Syringe) 3 ml IVFLUSH QSHIFT [facility] Last Admin: 01/07/22 09:00 Dose: 3 ml Documented By: PRASANNA Labs CBC & Chem 7: 01/07/22 03:53 01/07/22 03:53 Labs: Laboratory Results - last 24 hr 01/06/22 01/06/22 01/06/22 13:23 13:23 13:23 MCV MCH MCHC RDW Plt Count MPV Immature Gran % (Auto) Neut % (Auto) Lymph % (Auto) Wayne % (Auto) Eos % (Auto) Baso % (Auto) Lymph # (Auto) Wayne # (Auto) Eos # (Auto) Baso # (Auto) Abs Immat Gran (auto) Absolute Neuts (auto) Absolute Nucleated RBC Nucleated RBC % (auto) Anion Gap 17 Estim Creat Clear Calc 45.3 Estimated GFR 52 Random Glucose 177 H Calcium 9.8 Magnesium 1.7 Total Bilirubin 0.2 AST 11 D ALT 15 Alkaline Phosphatase 88 Troponin I High Sens < 3.5 B-Natriuretic Peptide 33 Total Protein 7.1 Albumin 4.4 TSH 0.44 01/07/22 01/07/22 03:53 03:53 MCV 81.1 MCH 25.3 L MCHC 31.2 RDW 17.1 H Plt Count 283 MPV 9.8 Immature Gran % (Auto) 1.2 H Neut % (Auto) 86.2 H Lymph % (Auto) 10.7 L Wayne % (Auto) 1.8 L Eos % (Auto) 0.0 Baso % (Auto) 0.1 Lymph # (Auto) 1.0 L Wayne # (Auto) 0.2 Eos # (Auto) 0.0 Baso # (Auto) 0.0 Abs Immat Gran (auto) 0.11 H Absolute Neuts (auto) 7.6 Absolute Nucleated RBC 0.000 Nucleated RBC % (auto) 0.0 Anion Gap 15 Estim Creat Clear Calc 56.4 Estimated GFR > 60 Random Glucose 135 H Calcium 9.4 Magnesium Total Bilirubin AST ALT Alkaline Phosphatase Troponin I High Sens B-Natriuretic Peptide Total Protein Albumin TSH Assessment and Plan (1) COPD exacerbation: Status: Acute Plan 76 year old women admitted with COPD/asthma exacerbation and subsequently found to have afib with RVR Afib RVR, acute. Converted Started on diltiazem drip, stopped echo showing EF of 69% with no obvious valvular abnormalities, mild pulmonary hypertension, normal function for age telemetry normal TSH and mag Chadsvasc score 4, Mathew cardio rec diltiazem [id number] daily COPD/Asthma failed o/p therapy no consolidation on cxr or CT solumedrol, duonebs, Xopenex due to tachycardia from AFib supplemental oxygen Add cough suppressant Hypertension stop medications due to low BP GERD continue PPI HLD continue statin Normocytic anemia no bleeding continue iron supp follow HH Obesity BMI 35.9 ARIEL, chronic may bring in cpap from home DVT prophylaxis with Mathew Attending Dr. Manuel Full code Dispo home when medically stable Continue hospitalization for treatment of acute COPD exacerbation requiring IV steroids and regularly scheduled albuterol Quality Stroke Does the patient have a stroke diagnosis?: No VTE Prior VTE?: No VTE Risk Level:: Medical - moderate - high VTE Device Contraindication: Treatment Not Indicated VTE Drug Contraindication: N/A - Med Ordered
--- NOTE | 2022-01-07 15:54 | MHC.CM.PN ---
IMM addressed, original to patient, copy to chart. Patient reports she lives alone senior housing. She is independent at home/community. No home services and uses cane. HCP copy requested as pt reports she has already completed one and has it on file at her PCP's office. Moisés bates'rossana x4 (MRNA). PCP: Rula Hilario. Pt will drive herself home. D/C Plan: Home (self-care).
[2022-01-07] MEDS: guaiFENesin DM 100/10/5 ML 5 ML SYRUP PO (19:22)
[2022-01-07] MEDS: Apixaban 5 MG TABLET PO (21:38)
[2022-01-08] MEDS: guaiFENesin DM 100/10/5 ML 5 ML SYRUP PO ×2 (00:44→05:43)
[2022-01-08 04:00] VITALS: BP 174/74; PULSE 69; RESP 16; TEMP 35.9; O2SAT 96
[2022-01-08] MEDS: methylPREDNISolone Sod Succ 40 MG/ML VIAL IVPUSH (05:43)
[2022-01-08] MEDS: Omeprazole 20 MG CAPSULE.DR PO (05:43)
[2022-01-08 07:10] VITALS: BP 142/65; PULSE 70; RESP 16; TEMP 36.2; O2SAT 93
[2022-01-08 07:37] VITALS: PULSE 66; RESP 18; O2SAT 96
[2022-01-08] MEDS: Mirabegron 25 MG TAB.ER.24H PO (09:39)
[2022-01-08] MEDS: Ascorbic Acid 500 MG TABLET PO (09:39)
[2022-01-08] MEDS: Pravastatin Sodium 40 MG TABLET PO (09:39)
[2022-01-08] MEDS: Apixaban 5 MG TABLET PO (09:39)
[2022-01-08] MEDS: 0.9 % Sodium Chloride Flush 3 ML SYRINGE IVFLUSH (09:40)
[2022-01-08] MEDS: Loratadine 10 MG TABLET PO (09:40)
--- NOTE | 2022-01-08 09:40 | P.DS_ITS ---
DS: Providers Provider Date of Service: 01/08/22 Date of admission: 01/06/22 15:25 Primary care physician: JAIME Simms Consults: 01/06/22 16:10 Consult to Cardiology Routine Consulting Provider: River Mark Reason for consultation: new onset afib rvr Has provider been notified: No Attending physician on discharge: Son Manuel Discharging clinician: Mayra Martins DS: Diagnosis Discharge Diagnosis (1) COPD exacerbation: Status: Acute DS: Summary Hospital Course Hospital Course: 76-year-old woman presenting to the ER with complaints of worsening shortness of breath and cough.? Parent Jenna she has had symptoms for about 2 weeks.? 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 However symptoms have not improved.? She reports a cough with yellow phlegm, denies chest pain, shortness breath, nausea, vomiting, diarrhea.? She denied any palpitations.? Patient was noted to be in atrial fibrillation with rapid ventricular response on telemetry, which is new for her. Labs all within acceptable limits, 19-.? Chest x-ray negative for consolidation or effusion.? Stable blood pressure, no hypoxia Received Solu-Medrol, DuoNebs, Rocephin and was started on diltiazem for atrial fibrillation with rapid ventricular response.? Be admitted for further management treatment of acute COPD/asthma exacerbation and acute atrial fibrillation. Afib RVR, acute.? Converted Started on diltiazem drip, stopped echo showing EF of 69% with no obvious valvular abnormalities, mild pulmonary hypertension, normal function for age monitored on telemetry normal TSH and mag Chadsvasc score 4, Eliquis started cardio rec diltiazem [id number] daily Follow-up with Cardiology as outpatient COPD/Asthma intermittent failed o/p therapy no consolidation on cxr or CT solumedrol, duonebs, Xopenex due to tachycardia from AFib supplemental oxygen cough suppressant Continue Xopenex in light of new atrial fibrillation Hypertension Medications held due to low blood pressure of rim a continue home med blood pressure stable GERD continue PPI HLD continue statin Normocytic anemia no bleeding continue iron supp follow HH Obesity BMI 35.9 ARIEL, chronic may bring in cpap from home Time Spent with Patient Time attestation: Total time spent providing and/or coordinating discharge services: Discharge coordination time: Greater than 30 minutes Quality: Safe Use of Opioids Does Pt have an Active Cancer Diagnosis on the Problem List?: No Quality: Stroke Does the patient have a stroke diagnosis?: No Physical Exam Vital Signs: Vital Signs: Last Vital Signs Temp 97.1 F 01/08/22 07:10 Pulse 66 01/08/22 07:37 Resp 18 01/08/22 07:37 BP 142/65 H 01/08/22 07:10 Pulse Ox 93 01/08/22 07:10 O2 Del Method 01/08/22 07:10 O2 Flow Rate 2 01/07/22 19:10 BMI result Body Mass Index 35.9 Appearing in no acute distress head is normocephalic atraumatic eyes pupils are PERRLA sclera is anicteric mouth throat mucous membranes are intact and moist neck is supple no lymphadenopathy, no JVD noted lung sounds rhonchi heart regular rate rhythm, clear S1, S2 positive bowel sounds, abdomen is soft, nontender neuro patient is alert x3, no focal deficits Discharge Plan Discharge Anticipated Discharge Date/Time: 01/08/22 09:21 Patient Disposition: Home, Self-Care Discharge Diagnosis: Afib RVR COPD exacerbation Referrals: River Mark MD [Physician] - 1 Week (Follow up for atrial fibrillation ) Rula Hilario FNP [Primary Care Provider] - 1 Week eBto Martins MD [Physician] - 1 Week Discharge Medications: New Eliquis 5 mg Tablet 5 mg PO BID Qty: 60 0RF levalbuterol HCl [Xopenex Concentrate] 1.25 mg/0.5 mL Solution For Nebulization 1.25 mg inhalation Q4H PRN (Reason: shortness of breath or wheezing) Qty: 30 0RF diltiazem HCl [Cardizem CD] 120 mg capsule,extended release 24hr 120 mg PO DAILY Qty: 30 0RF Continued mepolizumab 100 mg recon soln 100 mg subcut Q4W 30 Days Qty: 1 12RF Rx Instructions: administer as three 100 mg injections at separate sites acetaminophen [Tylenol Extra Strength] 500 mg Tablet 500 mg PO BEDTIME omeprazole 20 mg Capsule,Delayed Release(Dr/Ec) 20 mg PO DAILY budesonide 0.5 mg/2 mL Suspension For Nebulization 0.5 mg INHALATION BID loratadine [Claritin] 10 mg Tablet 10 mg PO DAILY Systane (PF) 0.4-0.3 % Dropperette 1 drp OPHTHALMIC (EYE) TID PRN (Reason: Dry Eye(S)) gabapentin 100 mg capsule 1 cap PO BEDTIME PRN (Reason: moderate pain) prednisone 10 mg tablet See Rx Instructions PO DAILY Taper: Prednisone 30 daily for 3 Days and 0 Hour 20 daily for 3 Days and 0 Hour 10 daily for 3 Days and 0 Hour Rx Instructions: PO daily; Take 6 tabs daily x 3 days, then 5 tabs x 3 days, then 4 tabs x 3 d ays, then 3 tabs x 3 days, then 2 tabs daily x 3 days, then 1 tab x 3 days to complete. Premarin 0.625 mg/gram Cream 0.625 mg VAGINAL MOFR@2100 triamcinolone acetonide 0.1 % cream 1 appl topical BID PRN (Reason: Rash) Systane Nighttime 94-3 % Ointment 1 appl OPHTHALMIC (EYE) BEDTIME omeprazole 20 mg Capsule,Delayed Release(Dr/Ec) 20 mg PO DAILY PRN (Reason: gi upset) Rx Instructions: Afternoon/night dose if needed in additional to daily dose losartan-hydrochlorothiazide 100-25 mg tablet 1 tab PO DAILY pravastatin 40 mg tablet 40 mg PO BID Myrbetriq 25 mg tablet extended release 24 hr 25 mg PO DAILY alendronate 70 mg tablet 70 mg PO SA ascorbic acid (vitamin C) 1,000 mg tablet 500 mg PO DAILY Slow Fe 142 mg (45 mg iron) tablet extended release 142 mg PO DAILY albuterol sulfate 90 mcg/actuation HFA aerosol inhaler 2 inh inhalation Q6H PRN (Reason: shortness of breath or wheezing) 30 Days Qty: 18 12RF montelukast 10 mg tablet 10 mg PO DAILY Discontinued ipratropium-albuterol 0.5 mg-3 mg(2.5 mg base)/3 mL solution for nebulization 3 ml inhalation BID Discharge Orders: Discharge Order (Routine); Ordered 01/08/22 Ordered By: Mayra Martins Diet: Advance to usual diet Activity on Discharge: As tolerated Stand Alone Forms: Patient Portal Discharge page Care Plan Goals: Complete resolution of symptoms Health Concerns: Afib rvr COPD exacerbation Plan of Treatment: Follow up with primary care provider as needed Follow up with cardiology regarding new atrial fibrillation Follow up with Pulmonology as needed Assessment: See discharge summary
--- NOTE | 2022-01-08 09:56 | MHC.CM.PN ---
Pt has been medically cleared for discharge today. Discharge is to Home (self-care).
--- NOTE | 2022-01-08 11:05 | PM.PNCARD ---
Subjective Subjective Date of Service: 01/08/22 Interval history: She states that she feels okay. No specific cardiac complaints. Review of Systems Review of Systems Yes all other systems are reviewed and are negative Constitutional: Reports as per HPI Eyes: Reports as per HPI Reports as per HPI Cardiovascular: Reports as per HPI, Denies acrocyanosis, Denies cool extremities, Denies chest pain, Denies leg edema, Denies lightheadedness, Denies palpitations and Denies dyspnea Respiratory: Reports as per HPI, Reports no additional respiratory complaints and Denies dyspnea Gastrointestinal: Reports as per HPI and Reports no additional gastrointestinal complaints Genitourinary: Reports as per HPI Musculoskeletal: Reports no additional musculoskeletal complaints and Reports as per HPI Skin/Breast: Reports system reviewed and no additional complaints, except as docu Reports system reviewed and no additional complaints, except as documented and Reports as per HPI Psychiatric: Reports no additional psychiatric complaints and Reports as per HPI Endocrine: Reports no additional endocrine complaints, Reports as per HPI and Denies palpitations Hematologic/Lymphatic: Reports no additional hematologic/lymphatic complaints and Reports as per HPI Allergic/Immunologic: Reports no additional allergic/immunologic complaints and Reports as per HPI Physical Exam Vital Signs: Last Vital Signs Temp 97.1 F 01/08/22 07:10 Pulse 66 01/08/22 07:37 Resp 18 01/08/22 07:37 BP 142/65 H 01/08/22 07:10 Pulse Ox 93 01/08/22 07:10 O2 Del Method 01/08/22 07:10 O2 Flow Rate 2 01/07/22 19:10 BMI result Body Mass Index 35.9 Const General: comfortable and no acute distress Orientation/consciousness: patient oriented x3 HEENT Other: Unremarkable Head: Yes normal to inspection Neck Neck: Yes normal visual inspection Chest Chest palpation & inspection: normal inspection of the chest Resp Auscultation: wheezes (scattered, but not extensive) and diminished lung sounds Cardio Palpation: normal PMI Heart sounds: S1 normal heart sound present, S2 normal heart sound present, no gallops, no murmurs and no rubs GI Palpation (GI): Soft to palpation Back/Spine/Pelvis Other: unremarkable Skin General skin exam: no rashes or lesions noted Neuro General: patient oriented x3 Extrem General: Yes normal to inspection Psych Mental Status: mental status grossly normal Objective Labs and Meds Result diagrams: 01/07/22 03:53 01/07/22 03:53 Progress Note: A&P Assessment and plan (1) Atrial fibrillation with RVR: Status: Acute (2) COPD exacerbation: Status: Acute (3) Coronary artery calcification seen on CAT scan: Status: Acute Plan She is maintaining sinus rhythm. Otherwise no specific cardiac complaints. We can keep on diltiazem CD. We also given Eliquis. She does have some anemia and that may need outpatient workup based on the trend. In the echocardiogram, LVEF 69%. No obvious valvular issues. There was slight pulmonary hypertension. Chest CT scan shows coronary/aortic calcification/mild left subclavian stenosis. Can keep on statins. Otherwise, discharge planning. We will arrange outpatient follow-up in the office. High sensitivity troponins less than 3.5. Cardiac BNP is also unremarkable at 33. Discussed with Mayra Martins. Time Spent With Patient Time: Total time spent is greater than 50% in coordination of care (as documented) at patient's floor/unit and/or counseling patient: 37min. Progress Note: Quality Stroke Does the patient have a stroke diagnosis?: No Procedures Date of Service Date of Service: 01/08/22
== END 2022-01-08 10:09 | disposition home or self-care (01) | DRG 191 ==
LOC: HO.ED 15:20 → HO.EDOVER 15:36 → HO.IMC 01-07 11:37
PROVIDERS: Nurse Practitioner Family; Admitting Provider Nurse Practitioner Acute Care; Emergency Provider Emergency Medicine; PCP Nurse Practitioner Family; Visit Provider Nurse Practitioner Acute Care
DX: J44.1 Chronic obstructive pulmonary disease with (acute) exacerbation (principal); I48.20 Chronic atrial fibrillation, unspecified; J45.21 Mild intermittent asthma with (acute) exacerbation; D64.9 Anemia, unspecified; E66.9 Obesity, unspecified; Z68.35 Body mass index [BMI] 35.0-35.9, adult; I77.1 Stricture of artery; I27.20 Pulmonary hypertension, unspecified; I25.10 Atherosclerotic heart disease of native coronary artery without angina pectoris; I10 Essential (primary) hypertension; G47.33 Obstructive sleep apnea (adult) (pediatric); Z20.822 Contact with and (suspected) exposure to COVID-19; Z91.040 Latex allergy status; Z88.6 Allergy status to analgesic agent; Z79.01 Long term (current) use of anticoagulants; Z79.899 Other long term (current) drug therapy
CPT/HCPCS: 36415; 71046; 71250; 80048; 80053; 83735; 83880; 84443; 84484; 85025; 87635; 93005; 93306; 94640; 94644; 96365; 96367; 96375; 99285; J0696; J2920; J2930

== ENCOUNTER 2022-01-10 11:09 | Outpatient (REF) | payer MEDICARE, SELFPAY | END 2022-01-10 11:10 | disposition home or self-care (01) | LOC: HO.MDS 11:09 | PROVIDERS: Visit Provider Hospitalist | DX: J45.50 Severe persistent asthma, uncomplicated (principal) | CPT/HCPCS: 96372; J2182 ==

== ENCOUNTER → 2022-01-21 14:31 | Outpatient (BNVA) | payer MEDICARE, SELFPAY | PROVIDERS: PCP Nurse Practitioner Family; Referring Provider Nurse Practitioner Family; Visit Provider Internal Medicine | DX: I48.0 Paroxysmal atrial fibrillation (principal); I25.10 Atherosclerotic heart disease of native coronary artery without angina pectoris; I10 Essential (primary) hypertension | CPT/HCPCS: 99212 ==

== ENCOUNTER → 2022-02-07 08:43 | Outpatient (REF) | payer MEDICARE, SELFPAY ==
--- NOTE | ~2022-02-07 | NM_ITS ---
Lexiscan Myocardial perfusion study Indication: Atrial fibrillation, coronary artery calcification, assess for ischemia Technique: The patient was brought in for a Lexiscan perfusion study on 02/07/2022 and was injected 0.4 mg of Lexiscan intravenously. Within a minute of this injection 30 mCi of sestamibi was given intravenously. Images were obtained using the SPECT gamma camera interlaced with the gating device. Images were obtained in supine position. Resting perfusion study was performed on 02/12/2022. Patient was administered 30 mCi of sestamibi intravenously at rest. Images were then obtained in supine position. Total DLP 103mGy-cm. Images were processed with the software and compared side to side in short axis, horizontal long axis and vertical long axis views. Findings: Raw acquisition reviewed. The stress perfusion study showed minimally reduced tracer uptake in the distal part of anterolateral wall. With CT attenuation correction, there is slightly reduced tracer uptake in the distal anterior wall but otherwise unremarkable. The gated study shows normal LV systolic function with calculated LVEF of 72%. LV cavity is normal in size. The gated study shows normal wall thickening and contraction of segments. Resting study shows no significant perfusion abnormality. Both uncorrected as well as CT attenuation corrected images were reviewed. Gating at rest reveals normal wall motion with ejection fraction at 68%. The findings are consistent with no clear evidence of any reversible or fixed defects. Probably artifactual defects. NM/NM cardiolite stress test Impression: 1. Myocardial perfusion imaging study shows likely normal myocardial perfusion. No definitive evidence of any ischemia or infarction. 2. Gated LVEF is 70% during stress and 68% during rest. 3. Transient ischemic dilatation not present. EKG component of the test reported separately.
--- NOTE | 2022-02-07 08:53 | CA_ITS ---
Acquisition Time: 2022-02-07 09:27:30 Total Exercise Time: 00:02:00 Test Indications: AFIB, COPD Medications: SEE CHART Protocol: LEXISCAN Max HR: 099 BPM 69% of Pred: 142 BPM Max BP: 118/064 mmHG Max Work Load: 1.0 METS Pharmacological stress test with Lexiscan injection, while sitting and kicking her legs, with report of sob post injection, without chest discomfort, with isolated PACs, PVCs, with normotensive response to injection, with nondiagnostic EKG for ischemia. In recovery she was treated with Aminophylline 75mg IVP to reverse Lexiscan. Nuclear images pending. She had prolonged wheezing noted in recovery and was treated with Levalbuteral updraft with resolutiion of wheezing. Test reviewed with Dr Vernon Referred By: Shady Vernon Overread By: YESIKA HOWARD
== END ==
LOC: HO.CARD 08:43
PROVIDERS: Visit Provider Internal Medicine
DX: Z13.89 Encounter for screening for other disorder (principal)
CPT/HCPCS: 93017; J0280; J2785

== ENCOUNTER 2022-02-07 11:02 | Outpatient (REF) | payer MEDICARE, SELFPAY | END 2022-02-07 11:03 | disposition home or self-care (01) | LOC: HO.MDS 11:02 | PROVIDERS: Visit Provider Hospitalist | DX: J45.50 Severe persistent asthma, uncomplicated (principal) | CPT/HCPCS: 78452; 93017; 96372; A9500; J2182; J2785 ==

== ENCOUNTER → 2022-02-12 09:25 | Outpatient (BNVA) | payer MEDICARE, SELFPAY | PROVIDERS: PCP Nurse Practitioner Family; Visit Provider Hospitalist | DX: J45.50 Severe persistent asthma, uncomplicated (principal); J44.9 Chronic obstructive pulmonary disease, unspecified; R91.8 Other nonspecific abnormal finding of lung field; J98.09 Other diseases of bronchus, not elsewhere classified; G47.33 Obstructive sleep apnea (adult) (pediatric) | CPT/HCPCS: 99212 ==

== ENCOUNTER → 2022-02-20 14:08 | Outpatient (BNVA) | payer MEDICARE, SELFPAY | PROVIDERS: PCP Nurse Practitioner Family; Referring Provider Nurse Practitioner Family; Visit Provider Nurse Practitioner Family | DX: I48.0 Paroxysmal atrial fibrillation (principal); I25.10 Atherosclerotic heart disease of native coronary artery without angina pectoris; I10 Essential (primary) hypertension; J98.09 Other diseases of bronchus, not elsewhere classified; J45.50 Severe persistent asthma, uncomplicated | CPT/HCPCS: 99212 ==

== ENCOUNTER 2022-03-06 13:11 | Outpatient (REF) | payer MEDICARE, SELFPAY | END 2022-03-06 13:12 | disposition home or self-care (01) | LOC: HO.MDS 13:11 | PROVIDERS: Visit Provider Hospitalist | DX: J45.50 Severe persistent asthma, uncomplicated (principal) | CPT/HCPCS: 96372; J2182 ==

== ENCOUNTER 2022-03-14 13:44 | Outpatient (REF) | payer MEDICARE, SELFPAY ==
--- NOTE | 2022-03-14 17:24 | PFT_ITS ---
FLOWS: FEV1 79% of predicted at 1.35 L. FVC 68% of predicted at 1.58 L. FEV1 to FVC ratio of 0.86. Positive bronchodilator response. LUNG VOLUMES: Total lung capacity 83% of predicted at 3.83 L. Residual volume 99% of predicted at 2.20 L. Slow vital capacity 68% of predicted at 1.63 L. Expiratory reserve volume 8% of predicted at 0.04 L. Diffusion capacity is mildly decreased, diffusion capacity corrects to normal after adjustment for alveolar ventilation. IMPRESSION: No obstructive or restrictive ventilatory defect. Positive bronchodilator response. Decreased expiratory reserve volume suggests extrathoracic restriction likely secondary to abdominal obesity. Marquez Ashford MD AP/MODL / [id number]
== END 2022-03-14 13:45 | disposition home or self-care (01) ==
LOC: HO.RESP 13:44
PROVIDERS: Visit Provider Hospitalist
DX: J44.9 Chronic obstructive pulmonary disease, unspecified (principal)
CPT/HCPCS: 94060; 94727; 94729

== ENCOUNTER 2022-04-04 09:47 | Outpatient (REF) | payer MEDICARE, SELFPAY ==
[2022-04-04 10:08] LABS: MANUAL DIFF FLAG NO
[2022-04-04 10:53] LABS: Basophils Percent Auto 0.4 % (0-2); Eosinophils Percent Auto 0.1 % (0-4); Hematocrit 27.2 % (37.0-47.0); Hemoglobin 8.2 g/dl (12.0-16.0); Imm Gran Abs Auto 0.01 X10*3/uL (0.00-0.03); Imm Gran Pct Auto 0.1 % (0.0-0.4); Lymphocytes Absolute Auto 1.4 X10*3/uL (1.2-4.9); Lymphocytes Percent Auto 20.8 % (20-40); Mean Corpuscular HGB Conc 30.1 g/dl (31.0-35.0); Mean Corpuscular Volume 79.8 fL (80.0-98.0); Mean Platelet Volume 9.9 fL (9.4-12.3); Monocytes Absolute Auto 0.7 X10*3/uL (0.1-1.2); Monocytes Percent Auto 10.7 % (2-11); Neutrophils Absolute Auto 4.6 x10*3/uL (2.0-8.3); Neutrophils Percent Auto 67.9 % (45-73); Platelet Count 280 X10*3/uL (160-400); Red Blood Count 3.41 X10*6/uL (4.20-5.50); Red Cell Distribution Width 17.5 % (11.0-16.0); White Blood Count 6.7 X10*3/uL (4.8-10.8)
== END 2022-04-04 09:48 | disposition home or self-care (01) ==
LOC: HO.LAB 09:47
PROVIDERS: PCP Nurse Practitioner Family; Visit Provider Nurse Practitioner Family
DX: Z13.89 Encounter for screening for other disorder (principal)
CPT/HCPCS: 36415; 85025

== ENCOUNTER 2022-04-04 10:09 | Outpatient (REF) | payer MEDICARE, SELFPAY | END 2022-04-04 10:10 | disposition home or self-care (01) | LOC: HO.MDS 10:09 | PROVIDERS: Visit Provider Hospitalist | DX: J45.50 Severe persistent asthma, uncomplicated (principal) | CPT/HCPCS: 36415; 85025; 96372; J2182 ==

== ENCOUNTER 2022-05-02 10:51 | Outpatient (REF) | payer MEDICARE, SELFPAY | END 2022-05-02 10:52 | disposition home or self-care (01) | LOC: HO.MDS 10:51 | PROVIDERS: PCP Nurse Practitioner Family; Visit Provider Hospitalist | DX: J45.50 Severe persistent asthma, uncomplicated (principal) | CPT/HCPCS: 96372 ==

== ENCOUNTER 2022-05-30 11:14 | Outpatient (REF) | payer MEDICARE, SELFPAY | END 2022-05-30 11:15 | disposition home or self-care (01) | LOC: HO.MDS 11:14 | PROVIDERS: Visit Provider Hospitalist | DX: J45.50 Severe persistent asthma, uncomplicated (principal) | CPT/HCPCS: 96372 ==

== ENCOUNTER → 2022-06-20 12:51 | Outpatient (BNVA) | payer MEDICARE, SELFPAY | PROVIDERS: PCP Nurse Practitioner Family; Visit Provider Hospitalist | DX: J44.9 Chronic obstructive pulmonary disease, unspecified (principal); J45.51 Severe persistent asthma with (acute) exacerbation; R91.8 Other nonspecific abnormal finding of lung field; J98.09 Other diseases of bronchus, not elsewhere classified; G47.33 Obstructive sleep apnea (adult) (pediatric); R60.0 Localized edema; D64.9 Anemia, unspecified; Z79.899 Other long term (current) drug therapy | CPT/HCPCS: 96372; 99212; J2930 ==

== ENCOUNTER → 2022-08-28 10:57 | Outpatient (BNVA) | payer MEDICARE, SELFPAY | PROVIDERS: PCP Nurse Practitioner Family; Visit Provider Hospitalist | DX: J45.51 Severe persistent asthma with (acute) exacerbation (principal); J98.09 Other diseases of bronchus, not elsewhere classified; R60.0 Localized edema; R91.8 Other nonspecific abnormal finding of lung field; D64.9 Anemia, unspecified; G47.33 Obstructive sleep apnea (adult) (pediatric) | CPT/HCPCS: 99212 ==

== ENCOUNTER 2022-10-28 09:28 | Outpatient (REF) | payer MEDICARE, SELFPAY ==
--- NOTE | ~2022-10-28 | XR_ITS ---
EXAMINATION: XR CHEST CLINICAL INFORMATION: COPD COMPARISON: None available. TECHNIQUE: 2 views of the chest were obtained. FINDINGS: The lungs are well-expanded and clear heart size and pulmonary vascularity is normal. There is moderate spurring ventral spondylosis throughout mid and distal thoracic spine. No aggressive lytic or sclerotic process seen. XR/XR chest 2V IMPRESSION: Unremarkable chest exam.
== END 2022-10-28 09:29 | disposition home or self-care (01) ==
LOC: HO.XRAY 09:28
PROVIDERS: Visit Provider Hospitalist
DX: Z13.89 Encounter for screening for other disorder (principal)
CPT/HCPCS: 71046

== ENCOUNTER 2022-10-29 09:44 | Inpatient (IN) | payer MEDICARE, SELFPAY ==
[2022-10-29] VITALS (12 sets, daily range): BP systolic 118–145; BP diastolic 51–94; PULSE 72–105; RESP 18–22; TEMP 36.4–37.2; O2SAT 92–98; BMI 33.5
--- NOTE | ~2022-10-29 | XR_ITS ---
EXAMINATION: XR CHEST CLINICAL INFORMATION: Shortness of breath COMPARISON: Previous x-ray most recent from yesterday TECHNIQUE: Frontal view of the chest was obtained. FINDINGS: The cardiac and mediastinal contours are stable. There are increased central bronchovascular markings. Differential would include airways disease and mild pulmonary edema. Lungs are otherwise clear. No pleural effusion or pneumothorax. No acute bone abnormality. XR/XR chest 1V IMPRESSION: Increased central bronchovascular markings. Differential would include airways disease and mild pulmonary edema. Clinical correlation recommended.
--- NOTE | 2022-10-29 10:07 | ECG_ITS ---
Test Reason : sob Blood Pressure : / mmHG Vent. Rate : 086 BPM Atrial Rate : 086 BPM P-R Int : 152 ms QRS Dur : 066 ms QT Int : 358 ms P-R-T Axes : 052 004 039 degrees QTc Int : 428 ms Normal sinus rhythm Possible Inferior infarct , age undetermined Abnormal ECG When compared with ECG of 06-JAN-2022 16:37, Borderline criteria for Inferior infarct are now Present ST no longer depressed in Inferior leads Nonspecific T wave abnormality has replaced inverted T waves in Inferior leads Nonspecific T wave abnormality now evident in Anterior leads Referred By: Maryanne Boyd Electronically Signed By:River Mark
--- NOTE | 2022-10-29 10:22 | PC.NURSE ---
Alert and oriented, able to make needs known. Arrived form home complaining of nasal congestion and cough x 1 week that she know feels has moved into her lungs. sating 98% in 1 liter 02. Wheezing noted through lungs. No complaints of any pain or discomfort. Respiratory in to see patient- stating she can`t take albuterol because she has afib. NO lower extremity edema noted.
[2022-10-29] MEDS: levalbuterol HCL 1.25 MG/3 ML VIAL.NEB INHALE ×3 (10:35→13:41)
[2022-10-29 10:51] LABS: MANUAL DIFF FLAG NO
[2022-10-29 10:52] LABS: VBG Base Excess 4.4 mmol/L; VBG HCO3 28 mmol/L (22-26); VBG pCO2 39 mmHg; VBG pH 7.46 (7.32-7.43); VBG pO2 52 mmHg
[2022-10-29 10:52] LABS: Venous Blood Gas Refer to POC result
[2022-10-29 10:55] LABS: Basophils Percent Auto 0.6 % (0-2); Eosinophils Percent Auto 0.5 % (0-4); Hematocrit 43.1 % (37.0-47.0); Hemoglobin 14.1 g/dl (12.0-16.0); Imm Gran Abs Auto 0.07 X10*3/uL (0.00-0.03); Imm Gran Pct Auto 1.1 % (0.0-0.4); Lymphocytes Absolute Auto 1.2 X10*3/uL (1.2-4.9); Lymphocytes Percent Auto 18.4 % (20-40); Mean Corpuscular HGB Conc 32.7 g/dl (31.0-35.0); Mean Corpuscular Hemoglobin 27.6 pg (27.0-33.0); Mean Corpuscular Volume 84.3 fL (80.0-98.0); Mean Platelet Volume 10.4 fL (9.4-12.3); Monocytes Absolute Auto 0.5 X10*3/uL (0.1-1.2); Monocytes Percent Auto 7.5 % (2-11); Neutrophils Absolute Auto 4.7 x10*3/uL (2.0-8.3); Neutrophils Percent Auto 71.9 % (45-73); Platelet Count 222 X10*3/uL (160-400); Red Blood Count 5.11 X10*6/uL (4.20-5.50); Red Cell Distribution Width 20.5 % (11.0-16.0); White Blood Count 6.5 X10*3/uL (4.8-10.8)
[2022-10-29 11:05] LABS: INTERNATIONAL NORM RATIO 1.3 (0.9-1.1); Lactic Acid 1.6 mmol/L (0.5-2.0); Prothrombin Time 15.3 SEC (10.0-13.1)
[2022-10-29 11:09] LABS: Alanine Aminotransferase 25 U/L (0-31); Albumin Level 4.8 g/dL (3.5-5.0); Alkaline Phosphatase 110 U/L (39-117); Anion Gap 13 (12-20); Aspartate Amino Transferase 21 U/L (5-31); Bilirubin Total 0.5 mg/dL (0.0-1.0); Blood Urea Nitrogen 23 mg/dL (9-16); Calcium 10.9 mg/dL (8.4-10.2); Carbon Dioxide 29 mmol/L (22-29); Chloride 104 mmol/L (96-108); Creatinine Clr Calc Pharmacy 52.2; Estimated Glomerular Filt Rate > 60; Glucose Random 91 mg/dL (60-115); Potassium 4.1 mmol/L (3.3-5.1); Sodium 142 mmol/L (135-145); Total Protein 7.4 g/dL (6.5-8.0)
[2022-10-29 11:14] LABS: B Type Natriuretic Peptide 14 pg/mL (<100)
--- NOTE | 2022-10-29 11:35 | ED_ITS ---
HPI - SOB/Dyspnea General Chief Complaint: Upper Respiratory Symptoms Stated Complaint: Diff Breathing Cough Time Seen by Provider: 10/29/22 10:07 Source: patient Mode of arrival: ambulatory History of Present Illness HPI Narrative: 77-year-old female presents with shortness of breath that is progressively worsened over the past few days, she has an appointment with her community marketing manager today but was unable to attend the appointment due to the amount of coughing, shortness of breath and otherwise denies any fevers or chills and denies in creased sputum production. Related Data Home Medications Medication Instructions Recorded Confirmed acetaminophen 500 mg tablet 500 mg PO BEDTIME 10/23/20 02/22/22 (Tylenol Extra Strength) budesonide 0.5 mg/2 mL suspension 0.5 mg inhalation BID 10/23/20 02/22/22 for nebulization peg 400-propylene glycol (PF) 0.4 1 drp ophthalmic (eye) TID PRN Dry 10/23/20 02/22/22 %-0.3 % eye drops in a dropperette Eye(S) (Systane (PF)) ascorbic acid (vitamin C) 1,000 mg 500 mg PO DAILY 04/06/21 02/22/22 tablet montelukast 10 mg tablet 10 mg PO DAILY 05/17/21 02/22/22 omeprazole 20 mg capsule,delayed 20 mg PO DAILY PRN gi upset 01/06/22 02/22/22 release white petrolatum-mineral oil 94 1 appl ophthalmic (eye) BEDTIME 01/06/22 02/22/22 %-3 % eye ointment (Systane Nighttime) alendronate 70 mg tablet 70 mg PO QWEEK 01/21/22 02/22/22 estradiol 0.01% (0.1 mg/gram) g vaginal 01/21/22 02/22/22 vaginal cream ferrous sulfate 142 mg (45 mg See Rx Instructions PO DAILY 01/21/22 02/22/22 iron) tablet,extended release gabapentin 100 mg capsule 100 mg PO BEDTIME PRN moderate pain 02/20/22 02/22/22 CPAP (CPAP Machine/Device) 06/20/22 atorvastatin 80 mg tablet 80 mg PO DAILY 06/20/22 diltiazem HCl 240 mg 240 mg PO DAILY 06/20/22 capsule,extended release 24 hr hydrochlorothiazide 12.5 mg tablet 12.5 mg PO DAILY 06/20/22 Previous Rx's Medication Instructions Recorded levalbuterol tartrate 45 2 puff inhalation Q4-6H PRN 02/07/22 mcg/actuation aerosol inhaler shortness of breath #15 grams loratadine 10 mg tablet (Claritin) 10 mg PO DAILY 30 days #30 tabs 05/31/22 furosemide 20 mg tablet (Lasix) 20 mg PO DAILY 3 days #3 tabs 06/20/22 apixaban 5 mg tablet (Eliquis) 5 mg PO BID 30 days #60 tabs 07/29/22 mepolizumab 100 mg/mL subcutaneous 100 mg subcut Q4W #1 mL 08/20/22 syringe levalbuterol HCl 1.25 mg/3 mL 1.25 mg (3 mL) inhalation BID #180 08/28/22 solution for nebulization mL doxycycline hyclate 100 mg capsule 100 mg PO BID 10 days #20 caps 10/28/22 Allergies Allergy/AdvReac Type Severity Reaction Status Date / Time aspirin Allergy Severe Upset Verified 08/28/22 11:03 Stomach Latex Gloves Allergy Severe Rash Uncoded 08/28/22 11:03 Review of Systems Review of Systems: Pertinent positives and negatives as stated in HPI [facility] Past Medical History Source: nursing notes reviewed Medical History Anemia Asthma Asthma-COPD overlap syndrome Bronchitis Bronchomalacia Coronary artery calcification seen on CAT scan Essential hypertension HTN (hypertension) ARIEL (obstructive sleep apnea) PAF (paroxysmal atrial fibrillation) Pneumonitis Pulmonary nodules 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 Surgical History History of bronchoscopy History of foot surgery Family History Family History Other Asthma Social History Social History Household Members: None Housing: Apartment Do you presently have visiting nurse or other home services: No Alcohol intake: former Patient Tobacco Use Status: Never used Tobacco Tobacco use type: Cigarette Years Smoked: 50 Smoked in Last 30 Days: No e-Cigarette/Vaping Use: Never Used Second Hand Smoke Exposure: No (not recently) Use of substances other than those prescribed or required for medical reasons: No Advance Directives: Yes Advance Directives on File: Yes Advance Directives Date on File: 01/07/22 service: No Current occupational status: retired Physical Exam Vital Signs: Vital Signs: Last Vital Signs Temp 98.9 F 10/29/22 10:20 Pulse 88 10/29/22 15:45 Resp 18 10/29/22 15:45 BP 138/64 10/29/22 15:45 Pulse Ox 93 10/29/22 15:45 O2 Del Method Room Air 10/29/22 15:45 O2 Flow Rate 1 10/29/22 15:45 Oxygen Flow Rate 1 10/29/22 10:20 BMI result Body Mass Index 33.5 VITAL SIGNS: Reviewed. GENERAL: Well developed, well nourished, in no acute distress. HEAD: Normocephalic/atraumatic EYES: PERRLA, EOMI EARS: Ext canals without abnormality NOSE: Nares patent bilateral OROPHARYNX: no oral lesions noted, posterior pharynx clear NECK: Supple, no adenopathy LUNGS: Good inspiratory effort with coarse rales expiratory wheeze, mild tachypnea SpO2<98> CARDIOVASCULAR: Regular rate and rhythm without noted murmurs ABDOMEN: Soft, non-tender, non-distended with bowel sounds. MUSCULOSKELETAL: No tenderness, deformities, or effusions noted on gross inspection. EXTREMITIES: No cyanosis, clubbing or edema. SKIN: Inspection of the skin reveals no rashes NEUROLOGIC: Alert and oriented x 4. Strength and sensation to light touch were grossly intact x 4. Medications Administered Discontinued Medications Generic Name Dose Route Start Last Admin Trade Name Davinq PRN Reason Stop Dose Admin Albuterol Sulfate 2.5 mg/ 0 mg 10/29/22 10:07 10/29/22 10:48 Albuterol/Ipratropium 3 ml INHALE 10/29/22 10:08 Not Given ONCE ONE Furosemide 40 mg 10/29/22 12:21 10/29/22 12:27 Furosemide 40 Mg/4 Ml Vial IVPUSH 10/29/22 12:22 40 mg ONCE ONE Administration Protocol Levalbuterol HCl 1.25 mg 10/29/22 10:27 10/29/22 10:35 Levalbuterol Hcl 1.25 Mg/3 Ml Vial.Neb INHALE 10/29/22 10:28 1.25 mg ONCE ONE Administration Levalbuterol HCl 1.25 mg 10/29/22 11:19 10/29/22 11:33 Levalbuterol Hcl 1.25 Mg/3 Ml Vial.Neb INHALE 10/29/22 11:20 1.25 mg ONCE ONE Administration Levalbuterol HCl 1.25 mg 10/29/22 13:28 10/29/22 13:41 Levalbuterol Hcl 1.25 Mg/3 Ml Vial.Neb INHALE 10/29/22 13:29 1.25 mg ONCE ONE Administration Methylprednisolone Sodium Succinate 125 mg 10/29/22 13:25 10/29/22 13:38 Methylprednisolone Sod Succ 125 Mg/2 Ml Vial IVPUSH 10/29/22 13:26 125 mg ONCE ONE Administration Metoprolol Tartrate 5 mg 10/29/22 14:40 10/29/22 14:50 Metoprolol Tartrate 5 Mg/5 Ml Vial IVPUSH 10/29/22 14:41 5 mg ONCE ONE Administration Medical Decision Making Medical Decision Making MDM Narrative: 77-year-old female who arrives with shortness of breath, no hypoxia but increased work of breathing, there has been no he increase in sputum production, on review VBG no supporting evidence for hypercapnia to suggest acute COPD exacerbation although patient states that she used her nebulized treatment at home with limited success. Based on clinical exam there is a possibility bronchitis/mild CHF in the sense of bilateral lower extremity swelling will not treat aggressively. Patient received a total of 3 doses of Xopenex and IV Solu- Medrol. Patient went into paroxysmal atrial fibrillation, she is currently on an ticoagulation, she then responded well to 5 mg of Lopressor and heart rate is currently irregular but in the mid 90s with a stable blood pressure. Patient dip down to the 88% oxygenation and continues with supplemental oxygen which she does not use at home. On re-evaluation she does report feeling improved and understands that she will be admitted. 1547: I discussed the case with the inpatient hospitalist who accepts admission. Differential Diagnosis Please see the discussion above Consult Healthcare Provider Management of the patient was discussed with: Hospitalist Please see the discussion above Lab Data Please see the discussion above 10/29/22 10:43 10/29/22 10:43 Labs: Lab Results 10/29/22 10/29/22 10/29/22 Range/Units 10:43 10:43 10:43 WBC 6.5 (4.8-10.8) X10*3/uL RBC 5.11 D (4.20-5.50) X10*6/uL Hgb 14.1 D (12.0-16.0) g/dl Hct 43.1 D (37.0-47.0) % MCV 84.3 (80.0-98.0) fL MCH 27.6 (27.0-33.0) pg MCHC 32.7 (31.0-35.0) g/dl RDW 20.5 H (11.0-16.0) % Plt Count 222 (160-400) X10*3/uL MPV 10.4 (9.4-12.3) fL Immature Gran % (Auto) 1.1 H (0.0-0.4) % Neut % (Auto) 71.9 (45-73) % Lymph % (Auto) 18.4 L (20-40) % [place] % (Auto) 7.5 (2-11) % Eos % (Auto) 0.5 (0-4) % Baso % (Auto) 0.6 (0-2) % Lymph # (Auto) 1.2 (1.2-4.9) X10*3/uL [place] # (Auto) 0.5 (0.1-1.2) X10*3/uL Eos # (Auto) 0.0 (0.0-0.4) X10*3/uL Baso # (Auto) 0.0 (0.0-0.2) X10*3/uL Abs Immat Gran (auto) 0.07 H (0.00-0.03) X10*3/uL Absolute Neuts (auto) 4.7 (2.0-8.3) x10*3/uL Absolute Nucleated RBC 0.000 (0.0-0.012) X10*3/uL Nucleated RBC % (auto) 0.0 (0.0-0.2) /100WBC PT 15.3 H (10.0-13.1) SEC INR 1.3 H (0.9-1.1) VBG pH (7.32-7.43) VBG pCO2 mmHg VBG pO2 mmHg VBG HCO3 (22-26) mmol/L VBG O2 Saturation % VBG Base Excess mmol/L Sodium 142 (135-145) mmol/L Potassium 4.1 (3.3-5.1) mmol/L Chloride 104 (96-108) mmol/L Carbon Dioxide 29 (22-29) mmol/L Anion Gap 13 (12-20) BUN 23 H (9-16) mg/dL Creatinine 0.84 (0.5-1.4) mg/dL Estim Creat Clear Calc 52.2 Estimated GFR > 60 Random Glucose 91 (60-115) mg/dL Lactic Acid (0.5-2.0) mmol/L Calcium 10.9 H D (8.4-10.2) mg/dL Total Bilirubin 0.5 (0.0-1.0) mg/dL AST 21 (5-31) U/L ALT 25 (0-31) U/L Alkaline Phosphatase 110 (39-117) U/L B-Natriuretic Peptide (<100) pg/mL Total Protein 7.4 (6.5-8.0) g/dL Albumin 4.8 (3.5-5.0) g/dL 10/29/22 10/29/22 10/29/22 Range/Units 10:43 10:43 10:45 WBC (4.8-10.8) X10*3/uL RBC (4.20-5.50) X10*6/uL Hgb (12.0-16.0) g/dl Hct (37.0-47.0) % MCV (80.0-98.0) fL MCH (27.0-33.0) pg MCHC (31.0-35.0) g/dl RDW (11.0-16.0) % Plt Count (160-400) X10*3/uL MPV (9.4-12.3) fL Immature Gran % (Auto) (0.0-0.4) % Neut % (Auto) (45-73) % Lymph % (Auto) (20-40) % [place] % (Auto) (2-11) % Eos % (Auto) (0-4) % Baso % (Auto) (0-2) % Lymph # (Auto) (1.2-4.9) X10*3/uL [place] # (Auto) (0.1-1.2) X10*3/uL Eos # (Auto) (0.0-0.4) X10*3/uL Baso # (Auto) (0.0-0.2) X10*3/uL Abs Immat Gran (auto) (0.00-0.03) X10*3/uL Absolute Neuts (auto) (2.0-8.3) x10*3/uL Absolute Nucleated RBC (0.0-0.012) X10*3/uL Nucleated RBC % (auto) (0.0-0.2) /100WBC PT (10.0-13.1) SEC INR (0.9-1.1) VBG pH 7.46 H (7.32-7.43) VBG pCO2 39 mmHg VBG pO2 52 mmHg VBG HCO3 28 H (22-26) mmol/L VBG O2 Saturation 83.0 % VBG Base Excess 4.4 mmol/L Sodium (135-145) mmol/L Potassium (3.3-5.1) mmol/L Chloride (96-108) mmol/L Carbon Dioxide (22-29) mmol/L Anion Gap (12-20) BUN (9-16) mg/dL Creatinine (0.5-1.4) mg/dL Estim Creat Clear Calc Estimated GFR Random Glucose (60-115) mg/dL Lactic Acid 1.6 (0.5-2.0) mmol/L Calcium (8.4-10.2) mg/dL Total Bilirubin (0.0-1.0) mg/dL AST (5-31) U/L ALT (0-31) U/L Alkaline Phosphatase (39-117) U/L B-Natriuretic Peptide 14 (<100) pg/mL Total Protein (6.5-8.0) g/dL Albumin (3.5-5.0) g/dL Independent Interpretation I performed an independent interpretation of an: EKG Interpretation: Normal sinus rhythm, HR-86, no STEMI, UT/QRS/QTC is within normal limits. 1449: Interval relation with RVR, HR-122, no STEMI, QRS/QTC is within normal limits. Radiology Impression Radiologist Impression: My interpretation is in agreement with radiology's impression. External Record Review External record reviewed: Outpatient record and Prior outpatient labs Chronic Conditions Patient?s care impacted by: Hypertension Discharge Plan Discharge Clinical Impression: Asthma-COPD overlap syndrome, CHF exacerbation, Atrial fibrillation with RVR, Hypoxia Patient Disposition: Admitted As Inpatient Prescriptions: No Action levalbuterol tartrate 45 mcg/actuation HFA aerosol inhaler 2 puff inhalation Q4-6H PRN (Reason: shortness of breath) Qty: 15 0RF loratadine [Claritin] 10 mg tablet 10 mg PO DAILY 30 Days Qty: 30 11RF Eliquis 5 mg tablet 5 mg PO BID 30 Days Qty: 60 5RF mepolizumab 100 mg/mL syringe 100 mg subcut Q4W Qty: 1 11RF doxycycline hyclate 100 mg capsule 100 mg PO BID 10 Days Qty: 20 0RF acetaminophen [Tylenol Extra Strength] 500 mg Tablet 500 mg PO BEDTIME budesonide 0.5 mg/2 mL Suspension For Nebulization 0.5 mg INHALATION BID Systane (PF) 0.4-0.3 % Dropperette 1 drp OPHTHALMIC (EYE) TID PRN (Reason: Dry Eye(S)) Systane Nighttime 94-3 % Ointment 1 appl OPHTHALMIC (EYE) BEDTIME omeprazole 20 mg Capsule,Delayed Release(Dr/Ec) 20 mg PO DAILY PRN (Reason: gi upset) Rx Instructions: Afternoon/night dose if needed in additional to daily dose gabapentin 100 mg capsule 100 mg PO BEDTIME PRN (Reason: moderate pain) levalbuterol HCl 1.25 mg/3 mL solution for nebulization 1.25 mg inhalation BID Qty: 180 11RF alendronate 70 mg tablet 70 mg PO QWEEK ascorbic acid (vitamin C) 1,000 mg tablet 500 mg PO DAILY montelukast 10 mg tablet 10 mg PO DAILY estradiol 0.01 % (0.1 mg/gram) cream vaginal ferrous sulfate 142 mg (45 mg iron) tablet extended release See Rx Instructions PO DAILY Rx Instructions: 1 tablet every 3rd day orally daily; hydrochlorothiazide 12.5 mg tablet 12.5 mg PO DAILY diltiazem HCl 240 mg capsule,extended release 24hr 240 mg PO DAILY atorvastatin 80 mg tablet 80 mg PO DAILY (DME) CPAP Machine/Device Device See Rx Instructions .ROUTE Rx Instructions: As directed furosemide [Lasix] 20 mg tablet 20 mg PO DAILY 3 Days Qty: 3 0RF
[2022-10-29] MEDS: Furosemide 40 MG/4 ML VIAL IVPUSH (12:27)
--- NOTE | 2022-10-29 12:28 | PC.NURSE ---
Medicated as charted. Pt continues with audible wheezing with occasional cough. Mild increased work of breathing, worse with exertion. Reports improvement s/p updrafts given. Commode to bedside. Skin pwd, speaking full sentences. Sat 96% on 2lpm
[2022-10-29] MEDS: methylPREDNISolone Sod Succ 125 MG/2 ML VIAL IVPUSH (13:38)
--- NOTE | 2022-10-29 14:40 | ECG_ITS ---
Test Reason : afib Blood Pressure : / mmHG Vent. Rate : 122 BPM Atrial Rate : 000 BPM P-R Int : 000 ms QRS Dur : 080 ms QT Int : 328 ms P-R-T Axes : 000 -07 -83 degrees QTc Int : 467 ms Atrial fibrillation with rapid ventricular response Inferior infarct (cited on or before 29-OCT-2022) Marked ST abnormality, possible lateral subendocardial injury Abnormal ECG When compared with ECG of 29-OCT-2022 10:19, Atrial fibrillation has replaced Sinus rhythm ST now depressed in Inferior leads T wave inversion now evident in Inferior leads Nonspecific T wave abnormality no longer evident in Anterior leads Referred By: Maryanne Boyd Electronically Signed By:River Mark
[2022-10-29] MEDS: Metoprolol Tartrate 5 MG/5 ML VIAL IVPUSH (14:50)
--- NOTE | 2022-10-29 14:51 | PC.NURSE ---
Alert and oriented. sating 88% on RA placed back on 1 liter 02 with sat up to 95%. Afib observed on monitor HR, IV meds given per order. No sob noted, no chest pain or discomfort. Ambulating to commode with 600ml output. Repeat EKG obtained. Reports improvement in breathing, bilateral wheezing still heard.
--- NOTE | 2022-10-29 15:43 | PC.NURSE ---
s/p administration of iv metoprolol. Remains in afib but rate controlled. reports no pain or sob.
--- NOTE | 2022-10-29 16:00 | PM.IMHP ---
History of Present Illness Date of Service: 10/29/22 Attending physician on admission: Sander Madera Chief Complaint: SOB 77 year old women presenting to the ED with worsening shortness of breath and dry cough. She reports over the last 2 weeks she has had worsening shortness breath that started with upper respiratory symptoms then moved to her lungs. She has had increase in wheezing and fever over the last couple of nights including last night with fever over 100.0. She denied chest pain, nausea, vomiting, diarrhea, recent illness, sick contacts, recent travel. She is able to speak in full sentences in currently is on 2 L nasal cannula. In the ER, Labs all within acceptable limits, vital signs stable. She was given levalbuterol, lasix, solumedrol, metoprolol. She will be admitted for further management of COPD exacerbation Review of Systems Review of Systems: Denies any recent fever chills or decrease in appetite respiratory See HPI cardiovascular Denies chest pain gastrointestinal denies any dysphagia abdominal pain nausea vomiting or diarrhea genitourinary denies any dysuria frequency or hematuria musculoskeletal denies any joint pain or swelling neuropsych denies any weakness or seizures all other systems reviewed are negative [facility] Medical History (Updated 10/29/22 @ 16:44 by Mayra Martins NP) Anemia Asthma-COPD overlap syndrome Bronchitis Bronchomalacia Coronary artery calcification seen on CAT scan Essential hypertension HTN (hypertension) ARIEL (obstructive sleep apnea) PAF (paroxysmal atrial fibrillation) Pulmonary nodules 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 Family History Other Asthma Surgical History History of bronchoscopy History of foot surgery Social History Household Members: None Housing: Apartment Do you presently have visiting nurse or other home services: No Alcohol intake: former Patient Tobacco Use Status: Never used Tobacco Tobacco use type: Cigarette Years Smoked: 50 Smoked in Last 30 Days: No e-Cigarette/Vaping Use: Never Used Second Hand Smoke Exposure: No (not recently) Use of substances other than those prescribed or required for medical reasons: No Advance Directives: Yes Advance Directives on File: Yes Advance Directives Date on File: 01/07/22 service: No Current occupational status: retired Meds Allergies Allergy/AdvReac Type Severity Reaction Status Date / Time aspirin Allergy Severe Upset Verified 08/28/22 11:03 Stomach Latex Gloves Allergy Severe Rash Uncoded 08/28/22 11:03 Active Medications: Current Medications Pharmacy Consult (Consult Rx Perform Med Rec) 1 each MISCELLANE ONCE PRN PRN Reason: Consult order Home Medications Medication Instructions Recorded Confirmed Last Taken Type budesonide 0.5 mg/2 mL suspension 0.5 mg inhalation BID 10/23/20 10/29/22 10/29/22 History for nebulization peg 400-propylene glycol (PF) 0.4 1 drp ophthalmic (eye) TID PRN Dry 10/23/20 10/29/22 Unknown History %-0.3 % eye drops in a dropperette Eye(S) (Systane (PF)) ascorbic acid (vitamin C) 1,000 mg 1,000 mg PO MOWEFR 04/06/21 10/29/22 10/28/22 History tablet montelukast 10 mg tablet 10 mg PO DAILY 05/17/21 10/29/22 10/29/22 History omeprazole 20 mg capsule,delayed 20 mg PO DAILY PRN gi upset 01/06/22 10/29/22 Unknown History release alendronate 70 mg tablet 70 mg PO SA 01/21/22 10/29/22 10/26/22 History gabapentin 100 mg capsule 100 mg PO BEDTIME PRN moderate pain 02/20/22 10/29/22 10/28/22 History CPAP (CPAP Machine/Device) 06/20/22 Unknown History atorvastatin 80 mg tablet 80 mg PO DAILY 06/20/22 10/29/22 10/29/22 History diltiazem HCl 120 mg 120 mg PO DAILY 10/29/22 10/29/22 10/29/22 History capsule,extended release 24 hr ferrous sulfate 142 mg (45 mg 142 mg PO MOWEFR 10/29/22 10/29/22 10/28/22 History iron) tablet,extended release (Slow Fe) Physical Exam Vital Signs and Narrative: Vital Signs: Last Vital Signs Temp 98.9 F 10/29/22 10:20 Pulse 88 10/29/22 15:45 Resp 18 10/29/22 15:45 BP 138/64 10/29/22 15:45 Pulse Ox 93 10/29/22 15:45 O2 Del Method Room Air 10/29/22 15:45 O2 Flow Rate 1 10/29/22 15:45 Oxygen Flow Rate 1 10/29/22 10:20 BMI result Body Mass Index 33.5 Appearing in no acute distress head is normocephalic atraumatic eyes pupils are PERRLA sclera is anicteric mouth throat mucous membranes are intact and moist neck is supple no lymphadenopathy, no JVD noted lung sounds are clear to auscultation heart regular rate rhythm, clear S1, S2 positive bowel sounds, abdomen is soft, nontender neuro patient is alert x3, no focal deficits Results Labs 10/29/22 10:43 10/29/22 10:43 Labs: Laboratory Results - last 24 hr 10/29/22 10/29/22 10/29/22 10:43 10:43 10:43 MCV 84.3 MCH 27.6 MCHC 32.7 RDW 20.5 H Plt Count 222 MPV 10.4 Immature Gran % (Auto) 1.1 H Neut % (Auto) 71.9 Lymph % (Auto) 18.4 L [place] % (Auto) 7.5 Eos % (Auto) 0.5 Baso % (Auto) 0.6 Lymph # (Auto) 1.2 [place] # (Auto) 0.5 Eos # (Auto) 0.0 Baso # (Auto) 0.0 Abs Immat Gran (auto) 0.07 H Absolute Neuts (auto) 4.7 Absolute Nucleated RBC 0.000 Nucleated RBC % (auto) 0.0 PT 15.3 H INR 1.3 H VBG pH VBG pCO2 VBG pO2 VBG HCO3 VBG O2 Saturation VBG Base Excess Anion Gap 13 Estim Creat Clear Calc 52.2 Estimated GFR > 60 Random Glucose 91 Lactic Acid Calcium 10.9 H D Total Bilirubin 0.5 AST 21 ALT 25 Alkaline Phosphatase 110 B-Natriuretic Peptide Total Protein 7.4 Albumin 4.8 10/29/22 10/29/22 10/29/22 10:43 10:43 10:45 MCV MCH MCHC RDW Plt Count MPV Immature Gran % (Auto) Neut % (Auto) Lymph % (Auto) [place] % (Auto) Eos % (Auto) Baso % (Auto) Lymph # (Auto) [place] # (Auto) Eos # (Auto) Baso # (Auto) Abs Immat Gran (auto) Absolute Neuts (auto) Absolute Nucleated RBC Nucleated RBC % (auto) PT INR VBG pH 7.46 H VBG pCO2 39 VBG pO2 52 VBG HCO3 28 H VBG O2 Saturation 83.0 VBG Base Excess 4.4 Anion Gap Estim Creat Clear Calc Estimated GFR Random Glucose Lactic Acid 1.6 Calcium Total Bilirubin AST ALT Alkaline Phosphatase B-Natriuretic Peptide 14 Total Protein Albumin Imaging Radiologist's Impressions: Impressions Chest X-Ray 10/29/22 11:12 IMPRESSION: Increased central bronchovascular markings. Differential would include airways disease and mild pulmonary edema. Clinical correlation recommended. Assessment and Plan (1) Asthma-COPD overlap syndrome: Status: Acute Plan 77 year old women admitted with COPD/asthma exacerbation COPD/Asthma exacerbation with bronchomalacia Scheduled duonebs (levalbuterol d/t afib), IV steroid supplemental oxygen Mucinex Doxycycline continue home allergy medications Pulmonary consultation (sees Dr. Beto Martins) plan for home oxygen evaluation at discharge PAF with RVR controlled at this time after IV metoprolol Likely secondary to updraft treatments continue eliquis and diltiazem Hypertension stable blood pressure continue home medications CAD statin Chronic leg edema lasix History of obstructive sleep apnea Reports that she was taken off CPAP by her biometrics technician HLD Statin Obesity. BMI 33.5 Discussed importance of weight management as this may be contributing to worsening of other comorbidities GERD PPI DVT prophylaxis with [facility] Attending Dr. Madera Full code OBS Time Spent With Patient Time: Total time managing care of this patient today ____ minutes. Quality Stroke Does the patient have a stroke diagnosis?: No VTE Prior VTE?: No VTE Risk Level:: Medical - moderate - high VTE Device Contraindication: Treatment Not Indicated VTE Drug Contraindication: N/A - Med Ordered
--- NOTE | 2022-10-29 16:47 | PHA.MEDREC ---
Pharmacy Consult ? Medication Reconciliation Pharmacy has completed the medication reconciliation.
--- NOTE | 2022-10-29 18:25 | PC.NURSE ---
good po intake and appetitei for dinner, reports feeling better but still with dry non-productive cough. Remains in afib with no chest pain or sob.
[2022-10-29] MEDS: Doxycycline Hyclate 100 MG in 0.9 % Sodium Chloride 250 ML 166.67 MG IV (20:31)
[2022-10-29] MEDS: guaiFENesin LA 600 MG TAB.ER.12H PO (20:32)
[2022-10-29] MEDS: methylPREDNISolone Sod Succ 40 MG/ML VIAL IVPUSH (20:32)
[2022-10-29] MEDS: Apixaban 5 MG TABLET PO (20:32)
[2022-10-29] MEDS: 0.9 % Sodium Chloride Flush 3 ML SYRINGE IVFLUSH (22:50)
[2022-10-30] VITALS (9 sets, daily range): BP systolic 129–148; BP diastolic 58–67; PULSE 68–96; RESP 16–20; TEMP 36.2–37; O2SAT 92–96
[2022-10-30] MEDS: methylPREDNISolone Sod Succ 40 MG/ML VIAL IVPUSH ×3 (06:22→21:07)
[2022-10-30 06:45] LABS: MANUAL DIFF FLAG NO
[2022-10-30 06:50] LABS: Basophils Percent Auto 0.1 % (0-2); Hematocrit 39.4 % (37.0-47.0); Imm Gran Abs Auto 0.09 X10*3/uL (0.00-0.03); Lymphocytes Absolute Auto 1.3 X10*3/uL (1.2-4.9); Lymphocytes Percent Auto 13.6 % (20-40); Mean Corpuscular Hemoglobin 27.1 pg (27.0-33.0); Mean Corpuscular Volume 82.3 fL (80.0-98.0); Mean Platelet Volume 10.6 fL (9.4-12.3); Monocytes Absolute Auto 0.1 X10*3/uL (0.1-1.2); Monocytes Percent Auto 1.5 % (2-11); Neutrophils Absolute Auto 7.7 x10*3/uL (2.0-8.3); Neutrophils Percent Auto 83.8 % (45-73); Platelet Count 238 X10*3/uL (160-400); Red Blood Count 4.79 X10*6/uL (4.20-5.50); Red Cell Distribution Width 20.5 % (11.0-16.0); White Blood Count 9.2 X10*3/uL (4.8-10.8)
[2022-10-30 07:21] LABS: Anion Gap 19 (12-20); Blood Urea Nitrogen 24 mg/dL (9-16); Carbon Dioxide 25 mmol/L (22-29); Chloride 103 mmol/L (96-108); Creatinine Clr Calc Pharmacy 56.9; Estimated Glomerular Filt Rate > 60; Glucose Random 130 mg/dL (60-115); Potassium 3.7 mmol/L (3.3-5.1); Sodium 143 mmol/L (135-145)
[2022-10-30] MEDS: 0.9 % Sodium Chloride Flush 3 ML SYRINGE IVFLUSH ×3 (09:51→21:06)
[2022-10-30] MEDS: Doxycycline Hyclate 100 MG in 0.9 % Sodium Chloride 250 ML 166.67 MG IV ×2 (09:51→21:05)
[2022-10-30] MEDS: dilTIAZem HCL CD 120 MG CAP.ER.DEG PO (09:54)
[2022-10-30] MEDS: Apixaban 5 MG TABLET PO ×2 (09:54→21:06)
[2022-10-30] MEDS: Atorvastatin Calcium 80 MG TABLET PO (09:54)
[2022-10-30] MEDS: guaiFENesin LA 600 MG TAB.ER.12H PO ×2 (09:54→21:06)
[2022-10-30] MEDS: Loratadine 10 MG TABLET PO (09:54)
[2022-10-30] MEDS: Furosemide 20 MG TABLET PO (09:55)
[2022-10-30] MEDS: Montelukast Sodium 10 MG TABLET PO (09:55)
[2022-10-30] MEDS: levalbuterol HCL 1.25 MG/3 ML VIAL.NEB INHALE ×4 (10:37→23:02)
--- NOTE | 2022-10-30 10:57 | P.PNIM_ITS ---
Subjective Subjective Date of Service: 10/30/22 Interval History: feeling better but has persistent shortness of breath and cough unable to complete a sentence without coughing, denies fever chills, no chest pain, no palpitations, denies headache lightheadedness or dizziness, took breakfast without nausea, vomiting or abdominal pain. Review of Systems Review of Systems: Yes all other systems are reviewed and are negative Physical Exam Vital Signs: Vital Signs: Last Vital Signs Temp 97.3 F 10/30/22 07:10 Pulse 68 10/30/22 10:39 Resp 16 10/30/22 10:39 BP 135/67 10/30/22 07:10 Pulse Ox 94 10/30/22 07:10 O2 Del Method Nasal Cannula 10/30/22 07:10 O2 Flow Rate 1 10/30/22 07:10 Oxygen Flow Rate 1 10/29/22 10:20 BMI result Body Mass Index 33.5 Const: Other: General coughing, congested, no acute distress. Neck is supple no JVD. CVS regular rate rhythm, Respiratory lungs bilateral expiratory wheeze, no use of accessory musclesi. Gastrointestinal abdomen soft, nontender, bowel sounds audible, no guarding , no rigidity. Extremities no edema. Neuro nonfocal . Skin no rash psych appropriate affect Objective Data Active Medications Acetaminophen (Acetaminophen 325 Mg Tablet) 650 mg PO Q6H PRN PRN Reason: Pain, Mild (Pain Scale 1-3) Apixaban (Apixaban 5 Mg Tablet) 5 mg PO BID [facility] Last Admin: 10/30/22 09:54 Dose: 5 mg Documented By: ALESSANDRO Ascorbic Acid (Ascorbic Acid 500 Mg Tablet) [facility] Atorvastatin Calcium (Atorvastatin Calcium 80 Mg Tablet) 80 mg PO DAILY [facility] Last Admin: 10/30/22 09:54 Dose: 80 mg Documented By: ALESSANDRO Diltiazem HCl (Diltiazem Hcl Cd 120 Mg Cap.Er.Deg) 120 mg PO DAILY [facility]; Protocol Last Admin: 10/30/22 09:54 Dose: 120 mg Documented By: ALESSANDRO Furosemide (Furosemide 20 Mg Tablet) 20 mg PO DAILY [facility]; Protocol Last Admin: 10/30/22 09:55 Dose: 20 mg Documented By: ALESSANDRO Guaifenesin (Guaifenesin La 600 Mg Tab.Er.12h) 600 mg PO BID [facility] Last Admin: 10/30/22 09:54 Dose: 600 mg Documented By: ALESSANDRO Doxycycline Hyclate 100 mg/ (Sodium Chloride) 250 mls @ 166.67 mls/hr IV BID [facility] Last Admin: 10/30/22 09:51 Dose: 166.67 mls/hr Documented By: ALESSANDRO Levalbuterol HCl (Levalbuterol Hcl 1.25 Mg/3 Ml Vial.Neb) 1.25 mg INHALE RQ4H WHILE AWAKE PRN PRN Reason: Wheezing Last Admin: 10/30/22 10:37 Dose: 1.25 mg Documented By: CHEY[place] Loratadine (Loratadine 10 Mg Tablet) 10 mg PO DAILY [facility] Last Admin: 10/30/22 09:54 Dose: 10 mg Documented By: ALESSANDRO Methylprednisolone Sodium Succinate (Methylprednisolone Sod Succ 40 Mg/Ml Vial) 40 mg IVPUSH Q8H [facility] Last Admin: 10/30/22 06:22 Dose: 40 mg Documented By: DAYANNA Montelukast Sodium (Montelukast Sodium 10 Mg Tablet) 10 mg PO DAILY [facility] Last Admin: 10/30/22 09:55 Dose: 10 mg Documented By: ALESSANDRO Omeprazole (Omeprazole 20 Mg Capsule.Dr) 20 mg PO DAILY PRN PRN Reason: gi upset Ondansetron HCl (Ondansetron Hcl 4 Mg/2 Ml Vial) 4 mg IVPUSH Q8H PRN PRN Reason: Nausea and Vomiting Pharmacy Consult (Consult Rx Perform Med Rec) 1 each MISCELLANE ONCE PRN PRN Reason: Consult order Sodium Chloride (0.9 % Sodium Chloride Flush 3 Ml Syringe) 3 ml IVFLUSH QSHIFT [facility] Last Admin: 10/30/22 09:51 Dose: 3 ml Documented By: ALESSANDRO Labs 10/30/22 06:02 10/30/22 06:02 Labs: Laboratory Results - last 24 hr 10/29/22 10/29/22 10/29/22 10:43 10:43 10:43 MCV MCH MCHC RDW Plt Count MPV Immature Gran % (Auto) Neut % (Auto) Lymph % (Auto) [place] % (Auto) Eos % (Auto) Baso % (Auto) Lymph # (Auto) [place] # (Auto) Eos # (Auto) Baso # (Auto) Abs Immat Gran (auto) Absolute Neuts (auto) Absolute Nucleated RBC Nucleated RBC % (auto) PT 15.3 H INR 1.3 H Anion Gap 13 Estim Creat Clear Calc 52.2 Estimated GFR > 60 Random Glucose 91 Lactic Acid Calcium 10.9 H D Total Bilirubin 0.5 AST 21 ALT 25 Alkaline Phosphatase 110 B-Natriuretic Peptide 14 Total Protein 7.4 Albumin 4.8 10/29/22 10/30/22 10/30/22 10:43 06:02 06:02 MCV 82.3 MCH 27.1 MCHC 33.0 RDW 20.5 H Plt Count 238 MPV 10.6 Immature Gran % (Auto) 1.0 H Neut % (Auto) 83.8 H Lymph % (Auto) 13.[address] [place] % (Auto) 1.5 L Eos % (Auto) 0.0 Baso % (Auto) 0.1 Lymph # (Auto) 1.3 [place] # (Auto) 0.1 Eos # (Auto) 0.0 Baso # (Auto) 0.0 Abs Immat Gran (auto) 0.09 H Absolute Neuts (auto) 7.7 Absolute Nucleated RBC 0.000 Nucleated RBC % (auto) 0.0 PT INR Anion Gap 19 Estim Creat Clear Calc 56.9 Estimated GFR > 60 Random Glucose 130 H Lactic Acid 1.6 Calcium 10.0 D Total Bilirubin AST ALT Alkaline Phosphatase B-Natriuretic Peptide Total Protein Albumin Assessment and Plan (1) Atrial fibrillation with RVR: Status: Acute (2) Hypoxia: Status: Acute (3) Asthma-COPD overlap syndrome: Status: Acute Plan 77 year old women admitted with COPD/asthma exacerbation Acute COPD/Asthma exacerbation with bronchomalacia persistent shortness of breath, continue Scheduled duonebs (levalbuterol d/t afib) and as needed, IV steroid 40 mg q.8 hours not on home oxygen, continue supplemental oxygen, will assess for home O2 continue doxycycline,Mucinex and allergy medications await Pulmonary consultation PAF with RVR controlled at this time after IV metoprolol,Likely secondary to updraft treatments continue eliquis and diltiazem, 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 BMI 33.5 recommended low-calorie diet, as this may be contributing to worsening of other comorbidities GERD will schedule Prilosec DVT prophylaxis with Eliquis Full code patient will need continued inpatient hospitalization for persistent shortness of breath, expiratory wheeze,hypoxia, requiring IV steroids,O2 and scheduled updraft treatment. Time Spent With Patient Time: Total time managing care of this patient today ____ minutes. Quality Stroke Does the patient have a stroke diagnosis?: No VTE Prior VTE?: No VTE Risk Level:: Medical - moderate - high VTE Device Contraindication: Treatment Not Indicated VTE Drug Contraindication: N/A - Med Ordered
[2022-10-30] MEDS: Ascorbic Acid 500 MG TABLET 1000 MG PO (11:08)
--- NOTE | 2022-10-30 14:44 | P.CONPL_ITS ---
History of Present Illness History of Present Illness Consult date: 10/30/22 Requesting physician: Mayra Martins Chief complaint: COPD exacerbation Narrative: 77-year-old lady with underlying history of asthma/COPD overlap syndrome, recently on no color, had to stop secondary to insurance reasons, now admitted with an acute asthma/COPD exacerbation symptomatic with nonproductive cough, wheezing, and dyspnea. Symptoms are slowly improving on current treatment regimen with IV glucocorticoids and nebulized bronchodilators. Review of Systems Constitutional: Constitutional: Denies daytime sleepiness, Denies excessive sweating, Denies fatigue, Denies fever(s), Denies lethargy, Denies malaise, Denies night sweats, Denies snoring and Denies weight loss Eyes: Eyes: Denies blurry vision and Denies itchy eyes ENT: Denies nasal congestion, Denies post nasal drip, Denies sinus pain, Denies sinus pressure and Denies other ( Thrush) Cardiovascular: Cardiovascular: Denies chest pain, Denies pedal edema, Denies dyspnea, Reports dyspnea on exertion, Denies orthopnea and Denies paroxysmal nocturnal dyspnea Respiratory: Respiratory: Reports cough, Denies hemoptysis, Denies excessive phlegm production, Denies dyspnea, Reports dyspnea on exertion, Denies snoring and Reports wheezing Gastrointestinal: Gastrointestinal: Denies abdominal pain and Denies heartburn Musculoskeletal: Musculoskeletal: Denies myalgias, Denies arthralgias and Denies joint swelling Integumentary/Breasts: Skin/Breast: Denies rash Neurologic: Denies memory loss and Denies seizure-like activity Psychiatric: Psychiatric: Denies abnormal sleep pattern, Denies anxiety and Denies memory loss Endocrine: Endocrine: Denies excessive sweating, Denies fatigue and Denies heat intolerance Hematologic/Lymphatic: Hematologic/Lymphatic: Denies easy bruising Allergic/Immunologic: Allergic/Immunologic: Denies itchy eyes, Denies seasonal rhinorrhea and Reports wheezing PMFSH Past Medical History Medical History (Updated 10/29/22 @ 16:44 by Mayra Martins NP) Anemia Asthma-COPD overlap syndrome Bronchitis Bronchomalacia Coronary artery calcification seen on CAT scan Essential hypertension HTN (hypertension) ARIEL (obstructive sleep apnea) PAF (paroxysmal atrial fibrillation) Pulmonary nodules 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 Family History Family History Other Asthma Surgical History Surgical History History of bronchoscopy History of foot surgery Social History Social History Household Members: None Housing: Apartment Do you presently have visiting nurse or other home services: No Alcohol intake: former Patient Tobacco Use Status: Former Tobacco user Quit Date: 2001 Tobacco use type: Cigarette Years Smoked: 50 Smoked in Last 30 Days: No e-Cigarette/Vaping Use: Never Used Second Hand Smoke Exposure: Yes Use of substances other than those prescribed or required for medical reasons: No Advance Directives: Yes Advance Directives on File: Yes Advance Directives Date on File: 01/07/22 service: No Current occupational status: retired Meds Allergies Allergy/AdvReac Type Severity Reaction Status Date / Time aspirin Allergy Severe Upset Verified 08/28/22 11:03 Stomach Latex Gloves Allergy Severe Rash Uncoded 08/28/22 11:03 Active Medications: Current Medications Acetaminophen (Acetaminophen 325 Mg Tablet) 650 mg PO Q6H PRN PRN Reason: Pain, Mild (Pain Scale 1-3) Apixaban (Apixaban 5 Mg Tablet) 5 mg PO BID [facility] Last Admin: 10/30/22 09:54 Dose: 5 mg Ascorbic Acid (Ascorbic Acid 500 Mg Tablet) 1,000 mg PO MOWEFR [facility] Last Admin: 10/30/22 11:08 Dose: 1,000 mg Atorvastatin Calcium (Atorvastatin Calcium 80 Mg Tablet) 80 mg PO DAILY [facility] Last Admin: 10/30/22 09:54 Dose: 80 mg Diltiazem HCl (Diltiazem Hcl Cd 120 Mg Cap.Er.Deg) 120 mg PO DAILY [facility]; Protocol Last Admin: 10/30/22 09:54 Dose: 120 mg Furosemide (Furosemide 20 Mg Tablet) 20 mg PO DAILY [facility]; Protocol Last Admin: 10/30/22 09:55 Dose: 20 mg Guaifenesin (Guaifenesin La 600 Mg Tab.Er.12h) 600 mg PO BID [facility] Last Admin: 10/30/22 09:54 Dose: 600 mg Doxycycline Hyclate 100 mg/ (Sodium Chloride) 250 mls @ 166.67 mls/hr IV BID [facility] Last Infusion: 10/30/22 11:32 Dose: Infused Levalbuterol HCl (Levalbuterol Hcl 1.25 Mg/3 Ml Vial.Neb) 1.25 mg INHALE RQ4H WHILE AWAKE PRN PRN Reason: Wheezing Last Admin: 10/30/22 10:37 Dose: 1.25 mg Levalbuterol HCl (Levalbuterol Hcl 1.25 Mg/3 Ml Vial.Neb) 1.25 mg INHALE RQ4H WHILE AWAKE [facility] Last Admin: 10/30/22 12:57 Dose: Not Given Loratadine (Loratadine 10 Mg Tablet) 10 mg PO DAILY [facility] Last Admin: 10/30/22 09:54 Dose: 10 mg Methylprednisolone Sodium Succinate (Methylprednisolone Sod Succ 40 Mg/Ml Vial) 40 mg IVPUSH Q8H [facility] Last Admin: 10/30/22 14:42 Dose: 40 mg Montelukast Sodium (Montelukast Sodium 10 Mg Tablet) 10 mg PO DAILY [facility] Last Admin: 10/30/22 09:55 Dose: 10 mg Omeprazole (Omeprazole 20 Mg Capsule.Dr) 20 mg PO DAILY PRN PRN Reason: gi upset Ondansetron HCl (Ondansetron Hcl 4 Mg/2 Ml Vial) 4 mg IVPUSH Q8H PRN PRN Reason: Nausea and Vomiting Pharmacy Consult (Consult Rx Perform Med Rec) 1 each MISCELLANE ONCE PRN PRN Reason: Consult order Sodium Chloride (0.9 % Sodium Chloride Flush 3 Ml Syringe) 3 ml IVFLUSH QSHIFT [facility] Last Admin: 10/30/22 09:51 Dose: 3 ml Home Medications Medication Instructions Recorded Confirmed Last Taken Type budesonide 0.5 mg/2 mL suspension 0.5 mg inhalation BID 10/23/20 10/29/22 10/29/22 History for nebulization peg 400-propylene glycol (PF) 0.4 1 drp ophthalmic (eye) TID PRN Dry 10/23/20 10/29/22 Unknown History %-0.3 % eye drops in a dropperette Eye(S) (Systane (PF)) ascorbic acid (vitamin C) 1,000 mg 1,000 mg PO MOWEFR 04/06/21 10/29/22 10/28/22 History tablet montelukast 10 mg tablet 10 mg PO DAILY 05/17/21 10/29/22 10/29/22 History omeprazole 20 mg capsule,delayed 20 mg PO DAILY PRN gi upset 01/06/22 10/29/22 Unknown History release alendronate 70 mg tablet 70 mg PO SA 01/21/22 10/29/22 10/26/22 History gabapentin 100 mg capsule 100 mg PO BEDTIME PRN moderate pain 02/20/22 10/29/22 10/28/22 History CPAP (CPAP Machine/Device) 06/20/22 Unknown History atorvastatin 80 mg tablet 80 mg PO DAILY 06/20/22 10/29/22 10/29/22 History diltiazem HCl 120 mg 120 mg PO DAILY 10/29/22 10/29/22 10/29/22 History capsule,extended release 24 hr ferrous sulfate 142 mg (45 mg 142 mg PO MOWEFR 10/29/22 10/29/22 10/28/22 History iron) tablet,extended release (Slow Fe) Physical Exam Vital Signs: Vital Signs: Last Vital Signs Temp 97.1 F 10/30/22 11:12 Pulse 84 10/30/22 11:12 Resp 20 10/30/22 11:12 BP 148/66 H 10/30/22 11:12 Pulse Ox 96 10/30/22 11:12 O2 Del Method Nasal Cannula 10/30/22 11:12 O2 Flow Rate 1 10/30/22 11:12 Oxygen Flow Rate 1 10/29/22 10:20 BMI result Body Mass Index 33.5 Const: General: no acute distress and alert Nutritional Appearance: not obese Orientation/consciousness: Other orientation findings ( oriented) HEENT: Head: Yes atraumatic Mouth: no other ( thrush) Throat: No postnasal drainage Eyes: General: appearance normal, both eyes and all related structures Sclerae: sclerae normal EOM: EOMs intact bilaterally Neck: Neck: Yes supple Lymphatic: no lymphadenopathy noted Resp: Effort & Inspection: normal respiratory effort and no use of accessory muscles Auscultation: wheezes expiratory wheezes (Diffuse throughout) Cardio: Rate: regular rate Rhythm: regular rhythm Heart sounds: no gallops, no murmurs and no rubs GI: Palpation (GI): Soft to palpation and Other GI palpation findings present ( nontender) Skin: General skin exam: other ( warm) Rashes: no rashes Extrem: General: No clubbing, No cyanosis and No edema Results Laboratory Findings 10/30/22 06:02 10/30/22 06:02 ABG, PT/INR, D-dimer: PT/INR, D-dimer PT 15.3 SEC (10.0-13.1) H 10/29/22 10:43 INR 1.3 (0.9-1.1) H 10/29/22 10:43 Abnormal lab findings: Abnormal Labs 10/29/22 10/29/22 10/29/22 10:43 10:43 10:43 RDW 20.5 H Immature Gran % (Auto) 1.1 H Neut % (Auto) Lymph % (Auto) 18.4 L [place] % (Auto) Abs Immat Gran (auto) 0.07 H PT 15.3 H INR 1.3 H VBG pH VBG HCO3 BUN 23 H Random Glucose Calcium 10.9 H D 10/29/22 10/30/22 10/30/22 10:45 06:02 06:02 RDW 20.5 H Immature Gran % (Auto) 1.0 H Neut % (Auto) 83.8 H Lymph % (Auto) 13.6 L [place] % (Auto) 1.5 L Abs Immat Gran (auto) 0.09 H PT INR VBG pH 7.46 H VBG HCO3 28 H BUN 24 H Random Glucose 130 H Calcium Microbiology: Microbiology 10/29/22 10:43 Blood - Venous Blood Culture - Preliminary No growth after 24 hours. 10/29/22 10:43 Blood - Venous Blood Culture - Preliminary No growth after 24 hours. Assessment and Plan (1) Asthma-COPD overlap syndrome: Status: Acute (2) Asthma exacerbation: Qualifiers: Asthma severity: moderate Asthma persistence: persistent Qualified Code(s): J45.41 - Moderate persistent asthma with (acute) exacerbation Status: Inactive Plan Impression: 77-year-old lady with underlying asthma/COPD overlap syndrome admitted with an acute exacerbation, now improving slowly. Recommendations: Agree with current treatment regimen of IV glucocorticoids and nebulized bronchodilators. Consider adding codeine syrup for symptomatic relief of cough. Does not appear to have an active pulmonary infection at this time, consider discontinuation of doxycycline. Time Spent With Patient Time: Total time managing care of this patient today ____ minutes. Procedures Date of Service Date of Service: 10/30/22
--- NOTE | 2022-10-30 15:31 | MHC.CM.PN ---
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 PT VERIFIES PCP IS OLGA ALLAN HOWEVER WAS PROVIDED W/A [facility] PAMPHLET W/PROVIDER LIST SHE WOULD LIKE TO CHANGE FROM [facility], PT REPORTS SHE IS FULLY VACCINATED AGAINST COVID19 AND HER HCP IS LARISA RODRIGUEZ [phone] AND HAS BEEN CHANGED TO THE PRIMARY CONTACT PER PT REQUEST. D/C PLAN: HOME NO SERVICES W/FAMILY FOR TRANSPORT
[2022-10-31] VITALS (10 sets, daily range): BP systolic 123–148; BP diastolic 57–66; PULSE 64–89; RESP 14–20; TEMP 36.3–36.9; O2SAT 90–97
[2022-10-31] MEDS: methylPREDNISolone Sod Succ 40 MG/ML VIAL IVPUSH ×3 (05:19→20:55)
[2022-10-31] MEDS: levalbuterol HCL 1.25 MG/3 ML VIAL.NEB INHALE ×4 (07:36→19:45)
[2022-10-31] MEDS: Doxycycline Hyclate 100 MG in 0.9 % Sodium Chloride 250 ML 166.67 MG IV ×2 (09:29→20:56)
[2022-10-31] MEDS: guaiFEN/Codeine SF 200/20/10ML 10 ML LIQUID PO ×3 (09:30→21:28)
[2022-10-31] MEDS: Loratadine 10 MG TABLET PO (09:31)
[2022-10-31] MEDS: Apixaban 5 MG TABLET PO ×2 (09:31→20:56)
[2022-10-31] MEDS: 0.9 % Sodium Chloride Flush 3 ML SYRINGE IVFLUSH ×2 (09:31→16:06)
[2022-10-31] MEDS: dilTIAZem HCL CD 120 MG CAP.ER.DEG PO (09:31)
[2022-10-31] MEDS: Montelukast Sodium 10 MG TABLET PO (09:31)
[2022-10-31] MEDS: Furosemide 20 MG TABLET PO (09:31)
[2022-10-31] MEDS: Atorvastatin Calcium 80 MG TABLET PO (09:31)
--- NOTE | 2022-10-31 14:15 | P.PNIM_ITS ---
Subjective Subjective Date of Service: 10/31/22 Interval History: Feeling better this morning able to talk but still complaining of shortness of breath and cough, no fevers no chills requiring q.4 hours updraft treatment, no chest pain no nausea, no vomiting, no abdominal pain or diarrhea and no other acute issues overnight. Review of Systems Review of Systems: Yes all other systems are reviewed and are negative Physical Exam Vital Signs: Vital Signs: Last Vital Signs Temp 98 F 10/31/22 11:45 Pulse 79 10/31/22 11:45 Resp 20 10/31/22 11:45 BP 123/58 L 10/31/22 11:45 Pulse Ox 92 10/31/22 11:45 O2 Del Method Room Air 10/31/22 11:45 O2 Flow Rate 1 10/31/22 07:32 Oxygen Flow Rate 1 10/29/22 10:20 BMI result Body Mass Index 33.5 Const: Other: General? Awake al ert x3, coughing, no acute distress. ? Neck is supple n o JVD. CVS? regula r rate rhythm, Res piratory lungs? bi lateral expiratory wheeze, no use of accessory muscles . Gastrointestinal abdomen soft, non tender, bowel anand nds audible, no gu arding , no rigidi ty. Extremities no edema. Neuro non focal . Skin no ra sh psych appropria te affect Objective Data Active Medications Acetaminophen (Acetaminophen 325 Mg Tablet) 650 mg PO Q6H PRN PRN Reason: Pain, Mild (Pain Scale 1-3) Apixaban (Apixaban 5 Mg Tablet) 5 mg PO BID [facility] Last Admin: 10/31/22 09:31 Dose: 5 mg Documented By: ALESSANDRO Ascorbic Acid (Ascorbic Acid 500 Mg Tablet) 1,000 mg PO MOWEFR [facility] Last Admin: 10/30/22 11:08 Dose: 1,000 mg Documented By: ALESSANDRO Atorvastatin Calcium (Atorvastatin Calcium 80 Mg Tablet) 80 mg PO DAILY [facility] Last Admin: 10/31/22 09:31 Dose: 80 mg Documented By: ALESSANDRO Diltiazem HCl (Diltiazem Hcl Cd 120 Mg Cap.Er.Deg) 120 mg PO DAILY [facility]; Protocol Last Admin: 10/31/22 09:31 Dose: 120 mg Documented By: ALESSANDRO Furosemide (Furosemide 20 Mg Tablet) 20 mg PO DAILY [facility]; Protocol Last Admin: 10/31/22 09:31 Dose: 20 mg Documented By: ALESSANDRO Guaifenesin (Guaifenesin La 600 Mg Tab.Er.12h) 600 mg PO BID [facility] Last Admin: 10/31/22 09:32 Dose: Not Given Documented By: ALESSANDRO Non-Admin Reason: Patient Refused Guaifenesin/Codeine Phosphate (Guaifen/Codeine Sf 200/20/10ml 10 Ml Liquid) 10 ml PO Q6H PRN PRN Reason: Cough Last Admin: 10/31/22 09:30 Dose: 10 ml Documented By: ALESSANDRO Doxycycline Hyclate 100 mg/ (Sodium Chloride) 250 mls @ 166.67 mls/hr IV BID [facility] Last Infusion: 10/31/22 11:14 Dose: 0 mls/hr Documented By: ALESSANDRO Levalbuterol HCl (Levalbuterol Hcl 1.25 Mg/3 Ml Vial.Neb) 1.25 mg INHALE RQ4H WHILE AWAKE PRN PRN Reason: Wheezing Last Admin: 10/30/22 23:02 Dose: 1.25 mg Documented By: YESSY Levalbuterol HCl (Levalbuterol Hcl 1.25 Mg/3 Ml Vial.Neb) 1.25 mg INHALE RQ4H WHILE AWAKE [facility] Last Admin: 10/31/22 11:11 Dose: 1.25 mg Documented By: HORTENSIA Loratadine (Loratadine 10 Mg Tablet) 10 mg PO DAILY [facility] Last Admin: 10/31/22 09:31 Dose: 10 mg Documented By: ALESSANDRO Methylprednisolone Sodium Succinate (Methylprednisolone Sod Succ 40 Mg/Ml Vial) 40 mg IVPUSH Q8H [facility] Last Admin: 10/31/22 13:24 Dose: 40 mg Documented By: ALESSANDRO Montelukast Sodium (Montelukast Sodium 10 Mg Tablet) 10 mg PO DAILY [facility] Last Admin: 10/31/22 09:31 Dose: 10 mg Documented By: ALESSANDRO Omeprazole (Omeprazole 20 Mg Capsule.Dr) 20 mg PO DAILY PRN PRN Reason: gi upset Ondansetron HCl (Ondansetron Hcl 4 Mg/2 Ml Vial) 4 mg IVPUSH Q8H PRN PRN Reason: Nausea and Vomiting Pharmacy Consult (Consult Rx Perform Med Rec) 1 each MISCELLANE ONCE PRN PRN Reason: Consult order Sodium Chloride (0.9 % Sodium Chloride Flush 3 Ml Syringe) 3 ml IVFLUSH QSHIFT [facility] Last Admin: 10/31/22 09:31 Dose: 3 ml Documented By: MONICAORRZe Labs 10/30/22 06:02 10/30/22 06:02 Microbiology Microbiology Results: Microbiology 10/29/22 10:43 Blood Culture - Preliminary Blood - Venous No growth after 48 hours. 10/29/22 10:43 Blood Culture - Preliminary Blood - Venous No growth after 48 hours. Assessment and Plan (1) Atrial fibrillation with RVR: Status: Acute (2) Hypoxia: Status: Acute (3) Asthma-COPD overlap syndrome: Status: Acute Plan 77 year old women admitted with COPD/asthma exacerbation Acute COPD/Asthma exacerbation with bronchomalacia slowly improving less shortness of breath and cough, continue Scheduled duonebs (levalbuterol d/t afib) and as needed, continue IV steroid 40 mg q.8 hours for 24 more hours oxygenation improved currently on room air finger oximetry 92%, continue cough medication Mucinex and added as needed cough seen by ordnance artificer they agree with the above treatment plan and recommend to [place] antibiotics acute hypoxic respiratory failure due to above resolved. 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 BMI 33.5 recommended low-calorie diet, as this may be contributing to worsening of other comorbidities GERD will schedule Prilosec DVT prophylaxis with Eliquis Full code patient will need continued inpatient hospitalization for persistent shortness of breath, expiratory wheeze,, requiring IV steroids,O2 and scheduled updraft treatment. Time Spent With Patient Time: Total time managing care of this patient today ____ minutes. Quality Stroke Does the patient have a stroke diagnosis?: No VTE Prior VTE?: No VTE Risk Level:: Medical - moderate - high VTE Device Contraindication: Treatment Not Indicated VTE Drug Contraindication: N/A - Med Ordered
[2022-10-31] MEDS: Omeprazole 20 MG CAPSULE.DR PO (18:40)
[2022-10-31] MEDS: guaiFENesin LA 600 MG TAB.ER.12H PO (20:56)
[2022-11-01] VITALS (11 sets, daily range): BP systolic 113–147; BP diastolic 56–65; PULSE 58–125; RESP 14–20; TEMP 36–36.7; O2SAT 89–95
[2022-11-01] MEDS: 0.9 % Sodium Chloride Flush 3 ML SYRINGE IVFLUSH ×4 (01:31→21:21)
[2022-11-01] MEDS: methylPREDNISolone Sod Succ 40 MG/ML VIAL IVPUSH ×2 (04:09→17:53)
[2022-11-01] MEDS: levalbuterol HCL 1.25 MG/3 ML VIAL.NEB INHALE ×4 (07:24→19:50)
[2022-11-01] MEDS: Doxycycline Hyclate 100 MG in 0.9 % Sodium Chloride 250 ML 166.67 MG IV (07:30)
[2022-11-01] MEDS: dilTIAZem HCL CD 120 MG CAP.ER.DEG PO (07:32)
[2022-11-01] MEDS: guaiFENesin LA 600 MG TAB.ER.12H PO (07:32)
[2022-11-01] MEDS: Apixaban 5 MG TABLET PO ×2 (07:32→21:20)
[2022-11-01] MEDS: Loratadine 10 MG TABLET PO (07:32)
[2022-11-01] MEDS: Furosemide 20 MG TABLET PO (07:32)
[2022-11-01] MEDS: Atorvastatin Calcium 80 MG TABLET PO (07:32)
[2022-11-01] MEDS: Montelukast Sodium 10 MG TABLET PO (07:32)
[2022-11-01] MEDS: guaiFEN/Codeine SF 200/20/10ML 10 ML LIQUID PO (07:40)
[2022-11-01] MEDS: dilTIAZem HCL 50 MG/10 ML VIAL 10 MG IVPUSH (09:55)
--- NOTE | 2022-11-01 12:17 | HO.PM.IMPN ---
Subjective Subjective Date of Service: 11/01/22 Interval History: patient noted to have AFib with RVR in 170s this morning also complaining of shortness of breath with activity, otherwise at rest feeling significantly better than yesterday cough is improved, no other overnight events, denies chest pain, no palpitations, no fevers, no chills, denies lightheadedness, no dizziness. Review of Systems Review of Systems: Yes all other systems are reviewed and are negative Physical Exam Vital Signs: Vital Signs: Last Vital Signs Temp 97.4 F 11/01/22 11:49 Pulse 69 11/01/22 11:49 Resp 20 11/01/22 11:49 BP 113/56 L 11/01/22 11:49 Pulse Ox 93 11/01/22 11:49 O2 Del Method Room Air 11/01/22 11:49 O2 Flow Rate 1 10/31/22 07:32 Oxygen Flow Rate 1 10/29/22 10:20 BMI result Body Mass Index 33.5 Const: Other: General? awake alert x3, short of breath while talking, tele monitor showing ventricular rate in 160s.? Neck is supple no JVD. CVS? irregular rate rhythm, Respiratory lungs? Few expiratory rhonchi significant improvement in lung examination, no use of accessory muscles. Gastrointestinal abdomen soft, non tender, bowel sounds audible, no guarding , no rigidity. Extremities no edema. Neuro nonfocal . Skin no rash psych appropriate affect Objective Data Active Medications Acetaminophen (Acetaminophen 325 Mg Tablet) 650 mg PO Q6H PRN PRN Reason: Pain, Mild (Pain Scale 1-3) Apixaban (Apixaban 5 Mg Tablet) 5 mg PO BID [facility] Last Admin: 11/01/22 07:32 Dose: 5 mg Documented By: RODRIGUEZ Ascorbic Acid (Ascorbic Acid 500 Mg Tablet) 1,000 mg PO MOWEFR [facility] Last Admin: 11/01/22 09:55 Dose: Not Given Documented By: RODRIGUEZ Non-Admin Reason: Patient Refused Atorvastatin Calcium (Atorvastatin Calcium 80 Mg Tablet) 80 mg PO DAILY [facility] Last Admin: 11/01/22 07:32 Dose: 80 mg Documented By: RODRIGUEZ Diltiazem HCl (Diltiazem Hcl Cd 120 Mg Cap.Er.Deg) 120 mg PO DAILY [facility]; Protocol Last Admin: 11/01/22 07:32 Dose: 120 mg Documented By: RODRIGUEZ Furosemide (Furosemide 20 Mg Tablet) 20 mg PO DAILY [facility]; Protocol Last Admin: 11/01/22 07:32 Dose: 20 mg Documented By: RODRIGUEZ Guaifenesin (Guaifenesin La 600 Mg Tab.Er.12h) 600 mg PO BID [facility] Last Admin: 11/01/22 07:32 Dose: 600 mg Documented By: RODRIGUEZ Guaifenesin/Codeine Phosphate (Guaifen/Codeine Sf 200/20/10ml 10 Ml Liquid) 10 ml PO Q6H PRN PRN Reason: Cough Last Admin: 11/01/22 07:40 Dose: 10 ml Documented By: RODRIGUEZ Levalbuterol HCl (Levalbuterol Hcl 1.25 Mg/3 Ml Vial.Neb) 1.25 mg INHALE RQ4H WHILE AWAKE PRN PRN Reason: Wheezing Last Admin: 10/30/22 23:02 Dose: 1.25 mg Documented By: YESSY Levalbuterol HCl (Levalbuterol Hcl 1.25 Mg/3 Ml Vial.Neb) 1.25 mg INHALE RQ4H WHILE AWAKE [facility] Last Admin: 11/01/22 11:10 Dose: 1.25 mg Documented By: HORTENSIA Loratadine (Loratadine 10 Mg Tablet) 10 mg PO DAILY [facility] Last Admin: 11/01/22 07:32 Dose: 10 mg Documented By: RODRIGUEZ Methylprednisolone Sodium Succinate (Methylprednisolone Sod Succ 40 Mg/Ml Vial) 40 mg IVPUSH Q8H [facility] Last Admin: 11/01/22 04:09 Dose: 40 mg Documented By: RAUL Montelukast Sodium (Montelukast Sodium 10 Mg Tablet) 10 mg PO DAILY [facility] Last Admin: 11/01/22 07:32 Dose: 10 mg Documented By: RODRIGUEZ Omeprazole (Omeprazole 20 Mg Capsule.Dr) 20 mg PO DAILY PRN PRN Reason: gi upset Last Admin: 10/31/22 18:40 Dose: 20 mg Documented By: CTORRZ Ondansetron HCl (Ondansetron Hcl 4 Mg/2 Ml Vial) 4 mg IVPUSH Q8H PRN PRN Reason: Nausea and Vomiting Pharmacy Consult (Consult Rx Perform Med Rec) 1 each MISCELLANE ONCE PRN PRN Reason: Consult order Sodium Chloride (0.9 % Sodium Chloride Flush 3 Ml Syringe) 3 ml IVFLUSH QSHIFT [facility] Last Admin: 11/01/22 07:33 Dose: 3 ml Documented By: RODRIGUEZ Labs 10/30/22 06:02 10/30/22 06:02 Microbiology Microbiology Results: Microbiology 10/29/22 10:43 Blood Culture - Preliminary Blood - Venous No growth after 48 hours. 10/29/22 10:43 Blood Culture - Preliminary Blood - Venous No growth after 48 hours. Assessment and Plan (1) Atrial fibrillation with RVR: Status: Acute (2) Hypoxia: Status: Acute (3) Asthma-COPD overlap syndrome: Status: Acute Plan 77 year old women admitted with COPD/asthma exacerbation Acute COPD/Asthma exacerbation with bronchomalacia significant improvement in lung examination patient feels better, except for now in AFib with RVR therefore feels short of breath continue Scheduled Xopenex, decrease dose of IV Solu Medrol, no antibiotics oxygenation improved currently on room air finger oximetry 92%, continue cough medication Mucinex and Robitussin with codeine seen by burglar alarm installer they agree with the above treatment plan acute hypoxic respiratory failure due to above resolved. PAF with RVR noted to be in rapid ventricular rate this morning treated with 1 dose of IV Cardizem 10 mg converted to normal sinus rhythm continue eliquis and diltiazem, monitor worker obtained cardiology consultation since patient complained of recurrent episode of hypoxia with ambulation question related to RVR since patient asymptomatic with no palpitations. Hypertension stable blood pressure, continue diltiazem CAD no chest pain, continue diltiazem and statin Chronic leg edema on lasix History of obstructive sleep apnea Reports that she was taken off CPAP by her burglar alarm installer HLD Statin Obesity. BMI 33.5 recommended low-calorie diet, as this may be contributing to worsening of other comorbidities GERD Prilosec DVT prophylaxis with Eliquis Full code patient will need continued inpatient hospitalization for recurrent AFib with RVR, need Cardiology evaluation, persistent shortness of breath, expiratory wheeze,, requiring IV steroids,O2 and scheduled updraft treatment. Time Spent With Patient Time: Total time managing care of this patient today ____ minutes. Quality Stroke Does the patient have a stroke diagnosis?: No VTE Prior VTE?: No VTE Risk Level:: Medical - moderate - high VTE Device Contraindication: Treatment Not Indicated VTE Drug Contraindication: N/A - Med Ordered
--- NOTE | 2022-11-01 12:49 | P.CONCA_ITS ---
History of Present Illness History of Present Illness Date of Service: 11/01/22 Requesting physician: Holden Jacobs Chief complaint: COPD exacerbation, PAF Narrative: [age] female with known history of atrial fibrillation for which she has been on apixaban in the past along with diltiazem 120 mg. She is presenting mostly for shortness of breath and wheezing. She has COPD exacerbation and is getting steroids. She has been noticed to have tachycardia episodes specially when she ambulates and it appears she goes in and out of atrial fibrillation with activity. She had a 2 hour episode of atrial fibrillation this morning. She said she got some palpitations when that happened. She has no chest discomfort or any other concerns right now. She still is quite wheezy on examination and short of breath. She said her legs were swollen but since she put her legs up the swelling has subsided. She also had the GI blood loss underwent endoscopy at [facility], [place]. She said she has see blood and iron in the past. She has not had any significant bleeding recently by her report. 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 Family History Family History Other Asthma Surgical History Surgical History History of bronchoscopy History of foot surgery Social History Social History Household Members: None Housing: Apartment Do you presently have visiting nurse or other home services: No Alcohol intake: former Patient Tobacco Use Status: Former Tobacco user Quit Date: 2001 Tobacco use type: Cigarette Years Smoked: 50 Smoked in Last 30 Days: No e-Cigarette/Vaping Use: Never Used Second Hand Smoke Exposure: Yes Use of substances other than those prescribed or required for medical reasons: No Currently Displaying Signs/Symptoms of Drug Intoxication Withdrawal: No Advance Directives: Yes Advance Directives on File: Yes Advance Directives Date on File: 01/07/22 service: No Current occupational status: retired Meds Allergies Allergy/AdvReac Type Severity Reaction Status Date / Time aspirin Allergy Severe Upset Verified 08/28/22 11:03 Stomach Latex Gloves Allergy Severe Rash Uncoded 08/28/22 11:03 Active Medications: Current Medications Acetaminophen (Acetaminophen 325 Mg Tablet) 650 mg PO Q6H PRN PRN Reason: Pain, Mild (Pain Scale 1-3) Apixaban (Apixaban 5 Mg Tablet) 5 mg PO BID [facility] Last Admin: 11/01/22 07:32 Dose: 5 mg Ascorbic Acid (Ascorbic Acid 500 Mg Tablet) 1,000 mg PO MOWEFR [facility] Last Admin: 11/01/22 09:55 Dose: Not Given Atorvastatin Calcium (Atorvastatin Calcium 80 Mg Tablet) 80 mg PO DAILY [facility] Last Admin: 11/01/22 07:32 Dose: 80 mg Diltiazem HCl (Diltiazem Hcl Cd 120 Mg Cap.Er.Deg) 120 mg PO DAILY [facility]; Protocol Last Admin: 11/01/22 07:32 Dose: 120 mg Furosemide (Furosemide 20 Mg Tablet) 20 mg PO DAILY [facility]; Protocol Last Admin: 11/01/22 07:32 Dose: 20 mg Guaifenesin (Guaifenesin La 600 Mg Tab.Er.12h) 600 mg PO BID [facility] Last Admin: 11/01/22 07:32 Dose: 600 mg Guaifenesin/Codeine Phosphate (Guaifen/Codeine Sf 200/20/10ml 10 Ml Liquid) 10 ml PO Q6H PRN PRN Reason: Cough Last Admin: 11/01/22 07:40 Dose: 10 ml Levalbuterol HCl (Levalbuterol Hcl 1.25 Mg/3 Ml Vial.Neb) 1.25 mg INHALE RQ4H WHILE AWAKE PRN PRN Reason: Wheezing Last Admin: 10/30/22 23:02 Dose: 1.25 mg Levalbuterol HCl (Levalbuterol Hcl 1.25 Mg/3 Ml Vial.Neb) 1.25 mg INHALE RQ4H WHILE AWAKE [facility] Last Admin: 11/01/22 11:10 Dose: 1.25 mg Loratadine (Loratadine 10 Mg Tablet) 10 mg PO DAILY [facility] Last Admin: 11/01/22 07:32 Dose: 10 mg Methylprednisolone Sodium Succinate (Methylprednisolone Sod Succ 40 Mg/Ml Vial) 40 mg IVPUSH BID@0800,1800 [facility] Montelukast Sodium (Montelukast Sodium 10 Mg Tablet) 10 mg PO DAILY [facility] Last Admin: 11/01/22 07:32 Dose: 10 mg Omeprazole (Omeprazole 20 Mg Capsule.Dr) 20 mg PO DAILY PRN PRN Reason: gi upset Last Admin: 10/31/22 18:40 Dose: 20 mg Ondansetron HCl (Ondansetron Hcl 4 Mg/2 Ml Vial) 4 mg IVPUSH Q8H PRN PRN Reason: Nausea and Vomiting Pharmacy Consult (Consult Rx Perform Med Rec) 1 each MISCELLANE ONCE PRN PRN Reason: Consult order Sodium Chloride (0.9 % Sodium Chloride Flush 3 Ml Syringe) 3 ml IVFLUSH QSHIFT [facility] Last Admin: 11/01/22 07:33 Dose: 3 ml Home Medications Medication Instructions Recorded Confirmed Last Taken Type budesonide 0.5 mg/2 mL suspension 0.5 mg inhalation BID 10/23/20 10/29/22 10/29/22 History for nebulization peg 400-propylene glycol (PF) 0.4 1 drp ophthalmic (eye) TID PRN Dry 10/23/20 10/29/22 Unknown History %-0.3 % eye drops in a dropperette Eye(S) (Systane (PF)) ascorbic acid (vitamin C) 1,000 mg 1,000 mg PO MOWEFR 04/06/21 10/29/22 10/28/22 History tablet montelukast 10 mg tablet 10 mg PO DAILY 05/17/21 10/29/22 10/29/22 History omeprazole 20 mg capsule,delayed 20 mg PO DAILY PRN gi upset 01/06/22 10/29/22 Unknown History release alendronate 70 mg tablet 70 mg PO SA 01/21/22 10/29/22 10/26/22 History gabapentin 100 mg capsule 100 mg PO BEDTIME PRN moderate pain 02/20/22 10/29/22 10/28/22 History CPAP (CPAP Machine/Device) 06/20/22 Unknown History atorvastatin 80 mg tablet 80 mg PO DAILY 06/20/22 10/29/22 10/29/22 History diltiazem HCl 120 mg 120 mg PO DAILY 10/29/22 10/29/22 10/29/22 History capsule,extended release 24 hr ferrous sulfate 142 mg (45 mg 142 mg PO MOWEFR 10/29/22 10/29/22 10/28/22 History iron) tablet,extended release (Slow Fe) Physical Exam Vital Signs: Vital Signs: Last Vital Signs Temp 97.4 F 11/01/22 11:49 Pulse 69 11/01/22 11:49 Resp 20 11/01/22 11:49 BP 113/56 L 11/01/22 11:49 Pulse Ox 93 11/01/22 11:49 O2 Del Method Room Air 11/01/22 11:49 O2 Flow Rate 1 10/31/22 07:32 Oxygen Flow Rate 1 10/29/22 10:20 BMI result Body Mass Index 33.5 GENERAL APPEARANCE: Short of breath, wheezy. NECK: no carotid bruit, no significant jugular venous distention. SKIN: no suspicious lesions, warm and dry. HEART: no murmurs, regular rate and rhythm. LUNGS: Bilateral wheezes. ABDOMEN: soft, nontender. EXTREMITIES: no edema. PERIPHERAL PULSES: equal. NEUROLOGIC: No gross deficits, AAO X 3 Objective Labs and Meds 10/30/22 06:02 10/30/22 06:02 Assessment and Plan (1) PAF (paroxysmal atrial fibrillation): Status: Acute Plan 77-year-old female presenting for COPD exacerbation. She is hypoxic when she ambulates and develops tachycardia and goes into atrial fibrillation with rapid ventricular response. We have been asked to help with management of AFib. She feels palpitations when she develops atrial fibrillation. She is getting treatment for COPD currently. She is still wheezy. I am unsure about the severity of underlying COPD currently. She has CT scan before which showed coronary calcification and she had normal nuclear perfusion imaging the past but still underlying coronary disease is still a possibility. I would avoid flecainide and propafenone currently. I think we using short-term amiodarone in her. Load with 40 mg b.i.d. amiodarone for 7 days and then decrease to 200 mg daily. We will decide about long-term use of amiodarone as she stabilizes and improves from the lung point of view. This decision can be made as outpatient. She may require input from pulmonology about long-term use of amiodarone if required. Thank you for allowing me to participate in the care of your patient. Please feel free to contact me if you have any questions. Time Spent With Patient Time: Total time managing care of this patient today ____ minutes. Procedures Date of Service Date of Service: 11/01/22
--- NOTE | 2022-11-01 14:40 | MHC.CM.PN ---
EMR REVIEWED, PT W/AFIB W/RVR AND SOB THIS AM, NO PLAN FOR D/C TODAY, CM WILL CONT TO FOLLOW D/C NEEDS.
[2022-11-01] MEDS: Amiodarone HCL 200 MG TABLET 400 MG PO (21:20)
[2022-11-02] VITALS (9 sets, daily range): BP systolic 142–158; BP diastolic 55–69; PULSE 57–81; RESP 17–20; TEMP 36.4–37; O2SAT 75–95
[2022-11-02 07:26] LABS: Anion Gap 12 (12-20); Blood Urea Nitrogen 25 mg/dL (9-16); Carbon Dioxide 27 mmol/L (22-29); Chloride 107 mmol/L (96-108); Creatinine Clr Calc Pharmacy 58.4; Estimated Glomerular Filt Rate > 60; Glucose Random 117 mg/dL (60-115); Magnesium 1.7 mg/dL (1.6-2.6); Potassium 3.3 mmol/L (3.3-5.1); Sodium 144 mmol/L (135-145)
[2022-11-02 08:03] LABS: Thyroid Stimulating Hormone 0.11 uIU/mL (0.32-4.0)
[2022-11-02] MEDS: levalbuterol HCL 1.25 MG/3 ML VIAL.NEB INHALE ×4 (08:33→20:17)
[2022-11-02] MEDS: Furosemide 20 MG TABLET PO (09:27)
[2022-11-02] MEDS: 0.9 % Sodium Chloride Flush 3 ML SYRINGE IVFLUSH ×2 (09:27→15:36)
[2022-11-02] MEDS: Loratadine 10 MG TABLET PO (09:27)
[2022-11-02] MEDS: dilTIAZem HCL CD 120 MG CAP.ER.DEG PO (09:27)
[2022-11-02] MEDS: Amiodarone HCL 200 MG TABLET 400 MG PO ×2 (09:27→22:44)
[2022-11-02] MEDS: methylPREDNISolone Sod Succ 40 MG/ML VIAL IVPUSH ×2 (09:27→18:09)
[2022-11-02] MEDS: Montelukast Sodium 10 MG TABLET PO (09:27)
[2022-11-02] MEDS: Apixaban 5 MG TABLET PO ×2 (09:28→22:45)
[2022-11-02] MEDS: Atorvastatin Calcium 80 MG TABLET PO (09:28)
--- NOTE | 2022-11-02 10:11 | PM.PNCARD ---
Subjective Subjective Date of Service: 11/02/22 Interval history: Seen examined at bedside. Continues to have shortness of breath or wheezing but little better than yesterday. Was started on amiodarone yesterday. Has not had any further episodes of atrial fibrillation. Physical Exam Vital Signs: Last Vital Signs Temp 97.6 F 11/02/22 07:51 Pulse 72 11/02/22 08:34 Resp 18 11/02/22 08:34 BP 158/69 H 11/02/22 07:51 Pulse Ox 95 11/02/22 07:51 O2 Del Method Room Air 11/02/22 07:51 O2 Flow Rate 1 10/31/22 07:32 Oxygen Flow Rate 1 10/29/22 10:20 BMI result Body Mass Index 33.5 GENERAL APPEARANCE: Wheezing. Less short of breath than yesterday. Still coughing. NECK: no carotid bruit, mild JVD. SKIN: no suspicious lesions, warm and dry. HEART: no murmurs, regular rate and rhythm. LUNGS: Bilateral wheezes. ABDOMEN: soft, nontender. EXTREMITIES: no edema. PERIPHERAL PULSES: equal. NEUROLOGIC: No gross deficits, AAO X 3 Objective Labs and Meds 10/30/22 06:02 11/02/22 06:36 Lab results: Laboratory Results - last 24 hr 11/02/22 06:36 Sodium 144 Potassium 3.3 Chloride 107 Carbon Dioxide 27 Anion Gap 12 BUN 25 H Creatinine 0.75 Estim Creat Clear Calc 58.4 Estimated GFR > 60 Random Glucose 117 H Calcium 9.0 D Magnesium 1.7 TSH 0.11 L Progress Note: A&P Assessment and plan (1) PAF (paroxysmal atrial fibrillation): Status: Acute Plan 77-year-old female who is presenting for COPD exacerbation. She had episodes of paroxysmal atrial fibrillation. She has been started on amiodarone 4 mg b.i.d.. This should be continued for 10 days and then she can be transitioned to 200 mg daily. Continue anticoagulation as before. Improving from lung point of view but still has wheezes and rhonchi. Not ready for discharge. Thank you for allowing me to participate in the care of your patient. Please feel free to contact me if you have any questions. Time Spent With Patient Time: Total time managing care of this patient today ____ minutes. Progress Note: Quality Stroke Does the patient have a stroke diagnosis?: No Procedures Date of Service Date of Service: 11/02/22
[2022-11-02 10:15] LABS: Free T4 (Free Thyroxine) 0.96 ng/dL (0.71-1.85)
[2022-11-02] MEDS: guaiFEN/Codeine SF 200/20/10ML 10 ML LIQUID PO ×2 (10:49→22:53)
--- NOTE | 2022-11-02 11:32 | P.PNIM_ITS ---
Subjective Subjective Date of Service: 11/03/22 Interval History: complaining of shortness of breath worse with ambulation, also noted to have hypoxia with activity, no acute overnight events, remains in sinus rhythm, denies fevers chills, admit improvement in nonproductive cough. tolerating diet no nausea, no vomiting, no abdominal pain. No urinary symptoms. Review of Systems Review of Systems: Yes all other systems are reviewed and are negative Physical Exam Vital Signs: Vital Signs: Last Vital Signs Temp 97.6 F 11/02/22 07:51 Pulse 72 11/02/22 08:34 Resp 18 11/02/22 08:34 BP 158/69 H 11/02/22 07:51 Pulse Ox 95 11/02/22 07:51 O2 Del Method Room Air 11/02/22 07:51 O2 Flow Rate 1 10/31/22 07:32 Oxygen Flow Rate 1 10/29/22 10:20 BMI result Body Mass Index 33.5 Const: Other: General?? awake alert x3, short of breath while talking, tele monitor showing ventricular rate in 160s.? Neck is supple no JVD. CVS? irregular rate rhythm, Respiratory lungs??b/l expiratory rhonchi , wheeze, no use of accessory muscles. Gastrointestinal abdomen soft, non tender, bowel sounds audible, no guarding , no rigidity. Extremities no edema. Neuro nonfocal . Skin no rash psych appropriate affect Objective Data Active Medications Acetaminophen (Acetaminophen 325 Mg Tablet) 650 mg PO Q6H PRN PRN Reason: Pain, Mild (Pain Scale 1-3) Amiodarone HCl (Amiodarone Hcl 200 Mg Tablet) 400 mg PO BID [facility] Last Admin: 11/02/22 09:27 Dose: 400 mg Documented By: ALESSANDRO Apixaban (Apixaban 5 Mg Tablet) 5 mg PO BID [facility] Last Admin: 11/02/22 09:28 Dose: 5 mg Documented By: ALESSANDRO Ascorbic Acid (Ascorbic Acid 500 Mg Tablet) 1,000 mg PO MOWEFR [facility] Last Admin: 11/01/22 09:55 Dose: Not Given Documented By: RODRIGUEZ Non-Admin Reason: Patient Refused Atorvastatin Calcium (Atorvastatin Calcium 80 Mg Tablet) 80 mg PO DAILY [facility] Last Admin: 11/02/22 09:28 Dose: 80 mg Documented By: ALESSANDRO Diltiazem HCl (Diltiazem Hcl Cd 120 Mg Cap.Er.Deg) 120 mg PO DAILY [facility]; Protocol Last Admin: 11/02/22 09:27 Dose: 120 mg Documented By: ALESSANDRO Furosemide (Furosemide 20 Mg Tablet) 20 mg PO DAILY [facility]; Protocol Last Admin: 11/02/22 09:27 Dose: 20 mg Documented By: ALESSANDRO Guaifenesin (Guaifenesin La 600 Mg Tab.Er.12h) 600 mg PO BID [facility] Last Admin: 11/02/22 09:24 Dose: Not Given Documented By: ALESSANDRO Non-Admin Reason: Patient Refused Guaifenesin/Codeine Phosphate (Guaifen/Codeine Sf 200/20/10ml 10 Ml Liquid) 10 ml PO Q6H PRN PRN Reason: Cough Last Admin: 11/02/22 10:49 Dose: 10 ml Documented By: ALESSANDRO Levalbuterol HCl (Levalbuterol Hcl 1.25 Mg/3 Ml Vial.Neb) 1.25 mg INHALE RQ4H WHILE AWAKE PRN PRN Reason: Wheezing Last Admin: 10/30/22 23:02 Dose: 1.25 mg Documented By: YESSY Levalbuterol HCl (Levalbuterol Hcl 1.25 Mg/3 Ml Vial.Neb) 1.25 mg INHALE RQ4H WHILE AWAKE [facility] Last Admin: 11/02/22 08:33 Dose: 1.25 mg Documented By: HALLE Loratadine (Loratadine 10 Mg Tablet) 10 mg PO DAILY [facility] Last Admin: 11/02/22 09:27 Dose: 10 mg Documented By: ALESSANDRO Methylprednisolone Sodium Succinate (Methylprednisolone Sod Succ 40 Mg/Ml Vial) 40 mg IVPUSH BID@0800,1800 [facility] Last Admin: 11/02/22 09:27 Dose: 40 mg Documented By: ALESSANDRO Montelukast Sodium (Montelukast Sodium 10 Mg Tablet) 10 mg PO DAILY [facility] Last Admin: 11/02/22 09:27 Dose: 10 mg Documented By: ALESSANDRO Omeprazole (Omeprazole 20 Mg Capsule.Dr) 20 mg PO DAILY PRN PRN Reason: gi upset Last Admin: 10/31/22 18:40 Dose: 20 mg Documented By: ALESSANDRO Ondansetron HCl (Ondansetron Hcl 4 Mg/2 Ml Vial) 4 mg IVPUSH Q8H PRN PRN Reason: Nausea and Vomiting Pharmacy Consult (Consult Rx Perform Med Rec) 1 each MISCELLANE ONCE PRN PRN Reason: Consult order Sodium Chloride (0.9 % Sodium Chloride Flush 3 Ml Syringe) 3 ml IVFLUSH QSHIFT [facility] Last Admin: 11/02/22 09:27 Dose: 3 ml Documented By: ALESSANDRO Labs 10/30/22 06:02 11/02/22 06:36 Labs: Laboratory Results - last 24 hr 11/02/22 11/02/22 06:36 09:24 Anion Gap 12 Estim Creat Clear Calc 58.4 Estimated GFR > 60 Random Glucose 117 H Calcium 9.0 D Magnesium 1.7 TSH 0.11 L Free T4 0.96 Assessment and Plan (1) Atrial fibrillation with RVR: Status: Acute (2) Hypoxia: Status: Acute (3) Asthma-COPD overlap syndrome: Status: Acute Plan 77 year old women admitted with COPD/asthma exacerbation Acute COPD/Asthma exacerbation with bronchomalacia shortness of breath and hypoxia with activity continue Scheduled Xopenex, IV Solu Medrol, no antibiotics oxygenation improved currently on room air finger oximetry 92%, but oxygenation dropped to 80s with activity ,continue cough medication Mucinex and Robitussin with codeine seen by cmm programmer they agree with the above treatment plan acute hypoxia with activity home O2 evaluation prior to discharge. Hypoxia likely due to above with some component of fluid overload greater than 5 L positive will give low-dose IV Lasix 20 mg follow clinical course. PAF with RVR noted to be in rapid ventricular rate on 11/01 ,treated with IV Cardizem 10 mg converted to normal sinus rhythm continue eliquis and diltiazem, gambling monitor seen by Cardiology patient started on amiodarone 400 mg loading dose for 10 days, followed by 200 mg daily, patient remained in sinus rhythm overnight con cruzue to follow tele monitor Hypertension noted to have high blood pressure continue diltiazem follow BP closely CAD no chest pain, continue diltiazem and statin. Chronic leg edema on lasix. History of obstructive sleep apnea Reports that she was taken off CPAP by her cmm programmer. HLD Statin Obesity. BMI 33.5 recommended low-calorie diet, as this may be contributing to worsening of other comorbidities GERD Prilosec DVT prophylaxis with Eliquis Full code patient will need continued inpatient hospitalization for persistent shortness of breath, expiratory wheeze,, requiring IV steroids,O2 and scheduled updraft treatment and tele monitoring for AFib. Time Spent With Patient Time: Total time managing care of this patient today ____ minutes. Quality Stroke Does the patient have a stroke diagnosis?: No VTE Prior VTE?: No VTE Risk Level:: Medical - moderate - high VTE Device Contraindication: Treatment Not Indicated VTE Drug Contraindication: N/A - Med Ordered
[2022-11-02] MEDS: Furosemide 20 MG/2 ML VIAL IVPUSH (12:17)
[2022-11-02] MEDS: Potassium Chloride ER 20 MEQ TAB.ER.PRT PO (12:17)
[2022-11-02] MEDS: Acetaminophen 325 MG TABLET 650 MG PO (22:45)
[2022-11-03] VITALS (10 sets, daily range): BP systolic 138–155; BP diastolic 63–70; PULSE 61–83; RESP 18–20; TEMP 36–37; O2SAT 91–98
--- NOTE | 2022-11-03 | ECG_ITS ---
Test Reason : vtach Blood Pressure : / mmHG Vent. Rate : 061 BPM Atrial Rate : 061 BPM P-R Int : 142 ms QRS Dur : 086 ms QT Int : 460 ms P-R-T Axes : 061 026 015 degrees QTc Int : 463 ms Normal sinus rhythm Nonspecific ST abnormality Abnormal ECG When compared with ECG of 29-OCT-2022 14:49, Sinus rhythm has replaced Atrial fibrillation Vent. rate has decreased BY [address] no longer depressed in Anterolateral leads T wave inversion no longer evident in Inferior leads Referred By: Chastity Jiang Electronically Signed By:River Mark
[2022-11-03] MEDS: 0.9 % Sodium Chloride Flush 3 ML SYRINGE IVFLUSH ×4 (00:05→21:42)
[2022-11-03 07:32] LABS: Anion Gap 16 (12-20); Blood Urea Nitrogen 26 mg/dL (9-16); Calcium 8.9 mg/dL (8.4-10.2); Carbon Dioxide 24 mmol/L (22-29); Chloride 106 mmol/L (96-108); Creatinine Clr Calc Pharmacy 57.6; Estimated Glomerular Filt Rate > 60; Glucose Random 119 mg/dL (60-115); Magnesium 1.7 mg/dL (1.6-2.6); Potassium 3.7 mmol/L (3.3-5.1); Sodium 142 mmol/L (135-145)
[2022-11-03] MEDS: levalbuterol HCL 1.25 MG/3 ML VIAL.NEB INHALE (07:44)
[2022-11-03] MEDS: Furosemide 20 MG TABLET PO (08:39)
[2022-11-03] MEDS: Montelukast Sodium 10 MG TABLET PO (08:39)
[2022-11-03] MEDS: Loratadine 10 MG TABLET PO (08:39)
[2022-11-03] MEDS: Amiodarone HCL 200 MG TABLET 400 MG PO ×2 (08:39→21:40)
[2022-11-03] MEDS: methylPREDNISolone Sod Succ 40 MG/ML VIAL IVPUSH ×2 (08:39→17:42)
[2022-11-03] MEDS: Apixaban 5 MG TABLET PO ×2 (08:39→21:40)
[2022-11-03] MEDS: dilTIAZem HCL CD 120 MG CAP.ER.DEG PO (08:39)
[2022-11-03] MEDS: Atorvastatin Calcium 80 MG TABLET PO (08:39)
[2022-11-03] MEDS: Potassium Chloride ER 20 MEQ TAB.ER.PRT PO (10:16)
[2022-11-03] MEDS: Furosemide 40 MG/4 ML VIAL IVPUSH (10:16)
[2022-11-03] MEDS: Doxycycline Hyclate 100 MG in 0.9 % Sodium Chloride 250 ML 166.67 MG IV ×2 (10:22→21:40)
--- NOTE | 2022-11-03 11:19 | P.PNCA_ITS ---
Subjective Subjective Date of Service: 11/03/22 Interval history: Seen examined at bedside. Saying that she still short of breath and coughing. Given IV Lasix but appears to be same. No AFib on telemetry. Physical Exam Vital Signs: Last Vital Signs Temp 97.3 F 11/03/22 08:00 Pulse 65 11/03/22 08:00 Resp 18 11/03/22 08:00 BP 150/67 H 11/03/22 08:00 Pulse Ox 94 11/03/22 08:00 O2 Del Method Room Air 11/03/22 08:00 O2 Flow Rate 1 10/31/22 07:32 Oxygen Flow Rate 1 10/29/22 10:20 BMI result Body Mass Index 33.5 GENERAL APPEARANCE: Wheezing. Appears to be less wheezy than yesterday. NECK: no carotid bruit, no significant JVD. SKIN: no suspicious lesions, warm and dry. HEART: no murmurs, regular rate and rhythm. LUNGS: Bilateral wheezes. ABDOMEN: soft, nontender. EXTREMITIES: no edema. PERIPHERAL PULSES: equal. NEUROLOGIC: No gross deficits, AAO X 3 Objective Labs and Meds 10/30/22 06:02 11/03/22 06:37 Lab results: Laboratory Results - last 24 hr 11/03/22 06:37 Sodium 142 Potassium 3.7 Chloride 106 Carbon Dioxide 24 Anion Gap 16 BUN 26 H Creatinine 0.76 Estim Creat Clear Calc 57.6 Estimated GFR > 60 Random Glucose 119 H Calcium 8.9 Magnesium 1.7 Progress Note: A&P Assessment and plan (1) PAF (paroxysmal atrial fibrillation): Status: Acute Plan 77-year-old female presenting with COPD exacerbation of developed paroxysmal atrial fibrillation. Clinically she is not volume overloaded and has very low BNP level. I think she can be on oral diuretics as unlikely be in heart failure. Continue treat the COPD exacerbation. Would use short-term amiodarone for now. She has recurrent episode of atrial fibrillation then she may need long-term amiodarone which may need to be discussed with her track laying machine operator Dr. Martins. Thank you for allowing me to participate in the care of your patient. Please feel free to contact me if you have any questions. Time Spent With Patient Time: Total time managing care of this patient today ____ minutes. Progress Note: Quality Stroke Does the patient have a stroke diagnosis?: No Procedures Date of Service Date of Service: 11/03/22
[2022-11-03] MEDS: Albuterol/Iprat 2.5/0.5MG 3 ML AMPUL.NEB INHALE ×3 (11:33→19:16)
--- NOTE | 2022-11-03 11:44 | P.PNIM_ITS ---
Subjective Subjective Date of Service: 11/03/22 Interval History: Complaining of persistent shortness of breath, no fevers no chills refusing to take Mucinex because feel symptoms get worse, denied orthopnea, no PND, and no nausea no vomiting, denies chest congestion but complaining of chest tightness, feels not at her baseline last night noted to have nonsustained V-tach patient remains asymptomatic. Review of Systems Review of Systems: Yes all other systems are reviewed and are negative Physical Exam Vital Signs: Vital Signs: Last Vital Signs Temp 97.4 F 11/03/22 11:42 Pulse 67 11/03/22 11:42 Resp 20 11/03/22 11:42 BP 138/63 11/03/22 11:42 Pulse Ox 97 11/03/22 11:42 O2 Del Method Room Air 11/03/22 11:42 O2 Flow Rate 1 10/31/22 07:32 Oxygen Flow Rate 1 10/29/22 10:20 BMI result Body Mass Index 33.5 Const: Other: General?? awake alert x3, short of breath while talking, tele monitor showing ventricular rate in 160s.? Neck is supple no JVD. CVS? regular rate rhythm, Respiratory lungs??b/l expiratory rhonchi? , wheeze, no use of accessory muscles. Gastrointestinal abdomen soft, non tender, bowel sounds audible, no guarding , no rigidity. Extremities no pitting edema. Neuro nonfocal . Skin no rash psych appropriate affect Objective Data Active Medications Acetaminophen (Acetaminophen 325 Mg Tablet) 650 mg PO Q6H PRN PRN Reason: Pain, Mild (Pain Scale 1-3) Last Admin: 11/02/22 22:45 Dose: 650 mg Documented By: REBECCA Albuterol/Ipratropium (Albuterol/Iprat 2.5/0.5mg 3 Ml Ampul.Neb) 3 ml INHALE RQ4H WHILE AWAKE [facility] Last Admin: 11/03/22 11:33 Dose: 3 ml Documented By: BLASCL Amiodarone HCl (Amiodarone Hcl 200 Mg Tablet) 400 mg PO BID [facility] Last Admin: 11/03/22 08:39 Dose: 400 mg Documented By: CTORRZ Apixaban (Apixaban 5 Mg Tablet) 5 mg PO BID [facility] Last Admin: 11/03/22 08:39 Dose: 5 mg Documented By: ALESSANDRO Ascorbic Acid (Ascorbic Acid 500 Mg Tablet) 1,000 mg PO MOWEFR [facility] Last Admin: 11/01/22 09:55 Dose: Not Given Documented By: RODRIGUEZ Non-Admin Reason: Patient Refused Atorvastatin Calcium (Atorvastatin Calcium 80 Mg Tablet) 80 mg PO DAILY [facility] Last Admin: 11/03/22 08:39 Dose: 80 mg Documented By: ALESSANDRO Diltiazem HCl (Diltiazem Hcl Cd 120 Mg Cap.Er.Deg) 120 mg PO DAILY [facility]; Protocol Last Admin: 11/03/22 08:39 Dose: 120 mg Documented By: ALESSANDRO Furosemide (Furosemide 40 Mg/4 Ml Vial) 40 mg IVPUSH DAILY [facility]; Protocol Last Admin: 11/03/22 10:16 Dose: 40 mg Documented By: ALESSANDRO Guaifenesin/Codeine Phosphate (Guaifen/Codeine Sf 200/20/10ml 10 Ml Liquid) 10 ml PO Q6H PRN PRN Reason: Cough Last Admin: 11/02/22 22:53 Dose: 10 ml Documented By: REBECCA Doxycycline Hyclate 100 mg/ (Sodium Chloride) 250 mls @ 166.67 mls/hr IV Q12H [facility] Last Admin: 11/03/22 10:22 Dose: 166.67 mls/hr Documented By: ALESSANDRO Levalbuterol HCl (Levalbuterol Hcl 1.25 Mg/3 Ml Vial.Neb) 1.25 mg INHALE RQ4H WHILE AWAKE PRN PRN Reason: Wheezing Last Admin: 10/30/22 23:02 Dose: 1.25 mg Documented By: YESSY Loratadine (Loratadine 10 Mg Tablet) 10 mg PO DAILY [facility] Last Admin: 11/03/22 08:39 Dose: 10 mg Documented By: ALESSANDRO Methylprednisolone Sodium Succinate (Methylprednisolone Sod Succ 40 Mg/Ml Vial) 40 mg IVPUSH BID@0800,1800 [facility] Last Admin: 11/03/22 08:39 Dose: 40 mg Documented By: ALESSANDRO Montelukast Sodium (Montelukast Sodium 10 Mg Tablet) 10 mg PO DAILY [facility] Last Admin: 11/03/22 08:39 Dose: 10 mg Documented By: ALESSANDRO Omeprazole (Omeprazole 20 Mg Capsule.) 20 mg PO DAILY PRN PRN Reason: gi upset Last Admin: 10/31/22 18:40 Dose: 20 mg Documented By: ALESSANDRO Ondansetron HCl (Ondansetron Hcl 4 Mg/2 Ml Vial) 4 mg IVPUSH Q8H PRN PRN Reason: Nausea and Vomiting Pharmacy Consult (Consult Rx Perform Med Rec) 1 each MISCELLANE ONCE PRN PRN Reason: Consult order Potassium Chloride (Potassium Chloride Er 20 Meq Tab.Er.Prt) 20 meq PO DAILY [facility] Last Admin: 11/03/22 10:16 Dose: 20 meq Documented By: ALESSANDRO Sodium Chloride (0.9 % Sodium Chloride Flush 3 Ml Syringe) 3 ml IVFLUSH QSHIFT [facility] Last Admin: 11/03/22 08:39 Dose: 3 ml Documented By: ALESSANDRO Labs 10/30/22 06:02 11/03/22 06:37 Labs: Laboratory Results - last 24 hr 11/03/22 06:37 Anion Gap 16 Estim Creat Clear Calc 57.6 Estimated GFR > 60 Random Glucose 119 H Calcium 8.9 Magnesium 1.7 Assessment and Plan (1) Atrial fibrillation with RVR: Status: Acute (2) Hypoxia: Status: Acute (3) Asthma-COPD overlap syndrome: Status: Acute Plan 77 year old women admitted with COPD/asthma exacerbation Acute COPD/Asthma exacerbation with bronchomalacia Persistent shortness of breath and hypoxia with activity Will place on DuoNeb, DC Scheduled Xopenex, continue IV Solu Medrol, will add IV doxycycline for possible bronchitis oxygenation improved currently on room air finger oximetry 92%, but oxygenation dropped to 80s with activity ,continue cough medication Robitussin with codeine and DC Mucinex acute hypoxia with activity home O2 evaluation prior to discharge. Hypoxia likely due to above with some component of fluid overload greater than 4 L positive, no CHF last echo showed normal EF and normal diastolic function, normal BNP, will give IV Lasix 40 mg follow clinical course Follow BMP monitor input and output. PAF with RVR noted to be in rapid ventricular rate on 11/01 ,treated with IV Cardizem 10 mg converted to normal sinus rhythm, now on amiodarone 400 mg b.i.d. times 10 days followed by 200 mg daily remains in normal sinus rhythm continue diltiazem, continue tele monitor check electrolytes Hypertension noted to have high blood pressure continue diltiazem follow BP closely CAD no chest pain, continue diltiazem and statin. Chronic leg edema on lasix. History of obstructive sleep apnea Reports that she was taken off CPAP by her summer counselor. HLD Statin Obesity. BMI 33.5 recommended low-calorie diet, as this may be contributing to worsening of other comorbidities GERD Prilosec DVT prophylaxis with Eliquis Full code patient will need continued inpatient hospitalization for persistent shortness of breath, expiratory wheeze,, requiring IV steroids,O2 and scheduled updraft treatment and tele monitoring for AFib. Time Spent With Patient Time: Total time managing care of this patient today ____ minutes. Quality Stroke Does the patient have a stroke diagnosis?: No VTE Prior VTE?: No VTE Risk Level:: Medical - moderate - high VTE Device Contraindication: Treatment Not Indicated VTE Drug Contraindication: N/A - Med Ordered
[2022-11-03] MEDS: Omeprazole 20 MG CAPSULE.DR PO (17:42)
[2022-11-04 03:42] VITALS: BP 154/68; PULSE 61; RESP 18; TEMP 36.3; O2SAT 94
[2022-11-04 07:32] VITALS: BP 145/57; PULSE 57; RESP 20; TEMP 36.1; O2SAT 94
[2022-11-04 07:37] VITALS: PULSE 55; RESP 18; O2SAT 94
[2022-11-04] MEDS: Albuterol/Iprat 2.5/0.5MG 3 ML AMPUL.NEB INHALE ×2 (07:37→11:13)
[2022-11-04] MEDS: Furosemide 40 MG/4 ML VIAL IVPUSH (08:53)
[2022-11-04] MEDS: methylPREDNISolone Sod Succ 40 MG/ML VIAL IVPUSH (08:53)
[2022-11-04] MEDS: 0.9 % Sodium Chloride Flush 3 ML SYRINGE IVFLUSH (08:53)
[2022-11-04 08:54] LABS: Anion Gap 16 (12-20); Blood Urea Nitrogen 31 mg/dL (9-16); Calcium 9.2 mg/dL (8.4-10.2); Carbon Dioxide 27 mmol/L (22-29); Chloride 103 mmol/L (96-108); Creatinine Clr Calc Pharmacy 54.1; Estimated Glomerular Filt Rate > 60; Glucose Random 107 mg/dL (60-115); Potassium 3.6 mmol/L (3.3-5.1); Sodium 142 mmol/L (135-145)
[2022-11-04] MEDS: Apixaban 5 MG TABLET PO (08:56)
[2022-11-04] MEDS: Atorvastatin Calcium 80 MG TABLET PO (08:56)
[2022-11-04] MEDS: Montelukast Sodium 10 MG TABLET PO (08:56)
[2022-11-04] MEDS: Loratadine 10 MG TABLET PO (08:56)
[2022-11-04] MEDS: Potassium Chloride ER 20 MEQ TAB.ER.PRT PO (08:56)
[2022-11-04] MEDS: dilTIAZem HCL CD 120 MG CAP.ER.DEG PO (08:56)
[2022-11-04] MEDS: Amiodarone HCL 200 MG TABLET 400 MG PO (08:56)
--- NOTE | 2022-11-04 09:41 | P.PNCA_ITS ---
Subjective Subjective Date of Service: 11/04/22 Interval history: She states that she is feeling okay. No new complaints from cardiac standpoint. Review of Systems Review of Systems Yes all other systems are reviewed and are negative Constitutional: Reports as per HPI and Reports no additional constitutional complaints Eyes: Reports as per HPI and Denies no additional eye complaints Denies system reviewed and no additional complaints, except as documented and Reports as per HPI Cardiovascular: Reports as per HPI, Reports no additional cardiovascular complaints, Denies acrocyanosis, Denies cool extremities, Denies chest pain, Denies leg edema, Denies lightheadedness, Denies palpitations and Denies dyspnea Respiratory: Reports as per HPI, Denies no additional respiratory complaints and Denies dyspnea Gastrointestinal: Reports as per HPI and Denies no additional gastrointestinal complaints Genitourinary: Reports as per HPI Musculoskeletal: Reports no additional musculoskeletal complaints and Reports as per HPI Skin/Breast: Reports system reviewed and no additional complaints, except as docu Reports system reviewed and no additional complaints, except as documented and Reports as per HPI Psychiatric: Reports no additional psychiatric complaints and Reports as per HPI Endocrine: Reports no additional endocrine complaints, Reports as per HPI and Denies palpitations Hematologic/Lymphatic: Reports no additional hematologic/lymphatic complaints a nd Reports as per HPI Allergic/Immunologic: Reports no additional allergic/immunologic complaints and Reports as per HPI Physical Exam Vital Signs: Last Vital Signs Temp 97.0 F 11/04/22 07:32 Pulse 55 11/04/22 07:37 Resp 18 11/04/22 07:37 BP 145/57 H 11/04/22 07:32 Pulse Ox 94 11/04/22 07:32 O2 Del Method Room Air 11/04/22 07:32 O2 Flow Rate 1 10/31/22 07:32 Oxygen Flow Rate 1 10/29/22 10:20 BMI result Body Mass Index 33.5 Const General: comfortable and no acute distress Orientation/consciousness: patient oriented x3 HEENT Other: Unremarkable Head: Yes normal to inspection Neck Neck: Yes normal visual inspection Chest Chest palpation & inspection: normal inspection of the chest Resp Auscultation: clear to auscultation bilaterally Cardio Palpation: normal PMI Heart sounds: S1 normal heart sound present, S2 normal heart sound present, no gallops, Murmur heart sound present systolic I/ and at the right sternal b order and no rubs GI Palpation (GI): Soft to palpation Back/Spine/Pelvis Other: unremarkable Skin General skin exam: no rashes or lesions noted Neuro General: patient oriented x3 Extrem General: Yes normal to inspection Psych Mental Status: mental status grossly normal Objective Labs and Meds 10/30/22 06:02 11/04/22 08:22 Lab results: Laboratory Results - last 24 hr 11/04/22 08:22 Sodium 142 Potassium 3.6 Chloride 103 Carbon Dioxide 27 Anion Gap 16 BUN 31 H Creatinine 0.81 Estim Creat Clear Calc 54.1 Estimated GFR > 60 Random Glucose 107 Calcium 9.2 Progress Note: A&P Assessment and plan (1) Atrial fibrillation with RVR: Status: Acute (2) Encounter for monitoring amiodarone therapy: Status: Acute Plan On telemetry, she remains sinus rhythm. Chart reviewed and it seems that she has been commenced on amiodarone this admission. There is slight abnormality in TSH but T4 is looking okay. T3 is pending. Probably switch the amiodarone to Multaq rather. In the last EKG from yesterday, underlying rhythm is sinus at 61/Min; no significant ST-T changes and normal NE/corrected QT. Time Spent With Patient Time: Total time managing care of this patient today ____ minutes. Progress Note: Quality Stroke Does the patient have a stroke diagnosis?: No Procedures Date of Service Date of Service: 11/04/22
[2022-11-04 10:58] VITALS: PULSE 115; PULSE 87; O2SAT 93; O2SAT 96
--- NOTE | 2022-11-04 11:05 | MHC.CM.PN ---
PER HOSPITALIST PATRICIO PT TO BE MEDICALLY CLEARED FOR D/C HOME NO SERVICES W/FAMILY FOR TRANSPORT
[2022-11-04 11:14] VITALS: PULSE 68; RESP 18; O2SAT 95
[2022-11-04 11:15] VITALS: BP 140/59; PULSE 68; RESP 16; TEMP 36.6; O2SAT 98
--- NOTE | 2022-11-04 12:20 | PM.DS ---
DS: Providers Provider Date of Service: 11/04/22 Date of admission: 10/30/22 09:15 Primary care physician: JAIME Simms Consults: 10/29/22 16:47 Consult to Pulmonology Routine Consulting Provider: [facility] [place] Pulmonology Services Reason for consultation: copd 11/01/22 12:17 Consult to Cardiology Routine Consulting Provider: [facility] Reason for consultation: atfib rvr Has provider been notified: Yes DS: Diagnosis Discharge Diagnosis (1) Atrial fibrillation with RVR: Status: Acute (2) Encounter for monitoring amiodarone therapy: Status: Acute DS: Summary Hospital Course Hospital Course: Date of Service: 10/29/22 Attending physician on admission: Sander Madera Chief Complaint: SOB 77 year old women presenting to the ED with worsening shortness of breath and dry cough.? She reports over the last 2 weeks she has had worsening shortness breath that started with upper respiratory symptoms then moved to her lungs.? She has had increase in wheezing and fever over the last couple of nights including last night with fever over 100.0.? She denied chest pain, nausea, vomiting, diarrhea, recent illness, sick contacts, recent travel.? She is able to speak in full sentences in currently is on 2 L nasal cannula.? In the ER, Labs all within acceptable limits, vital signs stable. She was given levalbuterol, lasix, solumedrol, metoprolol. She will be admitted for further management of COPD exacerbation. Hospital course: 77 year old women admitted with COPD/asthma exacerbation ?Acute COPD/Asthma exacerbation with bronchomalacia, patient treated with Xopenex updrafts, IV steroid ,cough medication, patient did not respond to Xopenex treatment, therefore switched to DuoNeb with good relief in symptoms, at present patient seems to be at baseline, initially patient was noted to be hypoxic , at time of discharge patient finger oximetry stable with ambulation and did not qualify for home O2. ? PAF with RVR noted to be in rapid ventricular rate on 11/01 ,treated with IV Cardizem 10 mg converted to normal sinus rhythm, subsequently placed on amiodarone 400 mg b.i.d. times 14 days followed by 200 mg daily remains in normal sinus rhythm, continue diltiazem Acute diastolic CHF due to AFib / RVR treated with IV Lasix with good response, will discharge home on Lasix 40 mg by mouth daily recommend to follow BMP in 1 week. Hypertension noted to have high blood pressure continue diltiazem , and resume home dose of valsartan. CAD no chest pain, continue diltiazem and statin. History of obstructive sleep apnea Reports that she was taken off CPAP by her teletype telegrapher. Obesity. BMI 33.5 ,recommended low-calorie diet, as this may be contributing to worsening of other comorbidities. GERD? Prilosec Time Spent with Patient Time attestation: Total time managing care of this patient today ____ minutes. Discharge coordination time: Greater than 30 minutes Quality: Safe Use of Opioids Does Pt have an Active Cancer Diagnosis on the Problem List?: No Quality: Stroke Does the patient have a stroke diagnosis?: No Physical Exam Vital Signs: Vital Signs: Last Vital Signs Temp 97.8 F 11/04/22 11:15 Pulse 68 11/04/22 11:15 Resp 16 11/04/22 11:15 BP 140/59 H 11/04/22 11:15 Pulse Ox 98 11/04/22 11:15 O2 Del Method Room Air 11/04/22 11:15 O2 Flow Rate 1 10/31/22 07:32 Oxygen Flow Rate 1 10/29/22 10:20 BMI result Body Mass Index 33.5 Const: Other: General?? awake al ert x3, no acute d istress? Neck is s upple no JVD. CVS? regular rate rhyt hm, Respiratory colette ngs??clear to ausc ultation, no wheez e, no rhonchi, no use of accessory m uscles. Gastrointe stinal abdomen sof t, non tender, bow el sounds audible, no guarding , no rigidity. Extremit ies no pitting g[place] ma. Neuro non foca l . Skin no rash p sych appropriate a ffect DS: Data Data Completed and Pending Labs on day of discharge: Laboratory Results - last 24 hr 11/04/22 08:22 Sodium 142 Potassium 3.6 Chloride 103 Carbon Dioxide 27 Anion Gap 16 BUN 31 H Creatinine 0.81 Estim Creat Clear Calc 54.1 Estimated GFR > 60 Random Glucose 107 Calcium 9.2 Discharge Plan Discharge Anticipated Discharge Date/Time: 11/04/22 11:07 Patient Disposition: Home, Self-Care Discharge Diagnosis: Acute exacerbation of COPD/asthma Acute hypoxic respiratory failure Paroxysmal atrial fibrillation with RVR Referrals: Rula Hilario FNP [Primary Care Provider] - 1 Week Discharge Medications: New prednisone 20 mg tablet 20 mg PO DAILY Qty: 5 0RF ipratropium-albuterol 0.5 mg-3 mg(2.5 mg base)/3 mL solution for nebulization 3 ml inhalation Q4H PRN (Reason: shortness of breath) Qty: 90 0RF amiodarone 200 mg tablet 200 mg PO BID Qty: 90 0RF Rx Instructions: Take amiodarone 400 mg (2x 200mg tablet) twice daily for 10 days then take amiodarone 200 mg 1 tablet daily. furosemide [Lasix] 40 mg tablet 40 mg PO DAILY Qty: 30 0RF Continued levalbuterol tartrate 45 mcg/actuation HFA aerosol inhaler 2 puff inhalation Q4-6H PRN (Reason: shortness of breath) Qty: 15 0RF loratadine [Claritin] 10 mg tablet 10 mg PO DAILY 30 Days Qty: 30 11RF Eliquis 5 mg tablet 5 mg PO BID 30 Days Qty: 60 5RF doxycycline hyclate 100 mg capsule 100 mg PO BID 10 Days Qty: 20 0RF budesonide 0.5 mg/2 mL Suspension For Nebulization 0.5 mg INHALATION BID Systane (PF) 0.4-0.3 % Dropperette 1 drp OPHTHALMIC (EYE) TID PRN (Reason: Dry Eye(S)) omeprazole 20 mg Capsule,Delayed Release(Dr/Ec) 20 mg PO DAILY PRN (Reason: gi upset) gabapentin 100 mg capsule 100 mg PO BEDTIME PRN (Reason: moderate pain) diltiazem HCl 120 mg capsule,extended release 24hr 120 mg PO DAILY Slow Fe 142 mg (45 mg iron) Tablet Extended Release 142 mg PO MOWEFR levalbuterol HCl 1.25 mg/3 mL solution for nebulization 1.25 mg inhalation BID Qty: 180 11RF alendronate 70 mg tablet 70 mg PO SA ascorbic acid (vitamin C) 1,000 mg tablet 1,000 mg PO MOWEFR montelukast 10 mg tablet 10 mg PO DAILY atorvastatin 80 mg tablet 80 mg PO DAILY (DME) CPAP Machine/Device Device See Rx Instructions .ROUTE Rx Instructions: As directed Discontinued furosemide [Lasix] 20 mg tablet 20 mg PO DAILY 3 Days Qty: 3 0RF Discharge Orders: Discharge Order (Routine); Ordered 11/04/22 Ordered By: Holden Jacobs Diet: Low fat, low cholesterol Activity on Discharge: As tolerated Stand Alone Forms: Patient Portal Discharge page Other Ambulatory Orders: Basic Metabolic Panel Fasting (Routine) Timeframe: 1 Week Facility: [facility] - Location: Laboratory Ordered By: Holden Jacobs Care Plan Goals: Take doxycycline 1 tablet twice daily for 2 more days Take prednisone 20 mg daily for 5 days Take amiodarone 400 mg twice daily for 10 days and then amiodarone 200 mg 1 tablet daily Resume home dose of valsartan at bedtime Increase dose of Lasix to 40 mg daily Follow BMP in 1 week Return to check with worsening symptoms of shortness of breath, lightheadedness, dizziness, leg edema. Health Concerns: Atrial fibrillation/COPD Plan of Treatment: Outpatient follow-up with primary care physician, teletype telegrapher Dr. Martins and Cardiology Dr. Vernon call for appointment Assessment: As above
[2022-11-05 15:13] LABS: Triiodothyronine T3 Free 2.1 pg/mL (2.3-4.2)
== END 2022-11-04 15:45 | disposition home or self-care (01) | DRG 190 ==
LOC: HO.ED 15:51 → HO.EDOVER 16:28 → HO.IMC 19:18
PROVIDERS: Internal Medicine; Admitting Provider Nurse Practitioner Acute Care; Emergency Provider Student in an Organized Health Care Education/Training Program; PCP Nurse Practitioner Family; Visit Provider Hospitalist
DX: J44.1 Chronic obstructive pulmonary disease with (acute) exacerbation (principal); I50.31 Acute diastolic (congestive) heart failure; J96.01 Acute respiratory failure with hypoxia; J45.41 Moderate persistent asthma with (acute) exacerbation; I48.0 Paroxysmal atrial fibrillation; J98.09 Other diseases of bronchus, not elsewhere classified; I25.10 Atherosclerotic heart disease of native coronary artery without angina pectoris; E66.9 Obesity, unspecified; Z68.33 Body mass index [BMI] 33.0-33.9, adult; Z87.891 Personal history of nicotine dependence; Z91.040 Latex allergy status; Z88.6 Allergy status to analgesic agent; Z79.01 Long term (current) use of anticoagulants; Z79.899 Other long term (current) drug therapy
CPT/HCPCS: 36415; 71045; 71046; 80048; 80053; 82803; 83605; 83735; 83880; 84439; 84443; 84481; 85025; 85610; 87040; 93005; 94640; 99222; 99285; J1940; J2920; J2930

== ENCOUNTER 2022-11-09 07:45 | Outpatient (REF) | payer MEDICARE, SELFPAY ==
[2022-11-09 09:06] LABS: Anion Gap 11 (12-20); Blood Urea Nitrogen 20 mg/dL (9-16); Calcium 9.2 mg/dL (8.4-10.2); Carbon Dioxide 34 mmol/L (22-29); Chloride 101 mmol/L (96-108); Estimated Glomerular Filt Rate > 60; Glucose Fasting 78 mg/dL (60-99); Potassium 3.4 mmol/L (3.3-5.1); Sodium 143 mmol/L (135-145)
== END 2022-11-09 07:46 | disposition home or self-care (01) ==
LOC: HO.LAB 07:45
PROVIDERS: Visit Provider Hospitalist
DX: I48.91 Unspecified atrial fibrillation (principal)
CPT/HCPCS: 36415; 80048

== ENCOUNTER → 2022-11-12 11:10 | Outpatient (REF) | payer MEDICARE, SELFPAY ==
--- NOTE | 2022-11-12 11:13 | HM_ITS ---
Conclusion: 1. Patient was monitored for total period of 2 days and 23 hours 2. Baseline was normal sinus rhythm with average heart rate of 66 beats per minute 3. No significant pauses or bradycardia noted 4. Rare PACs noted 5. No patient reported symptoms MTDD
== END ==
LOC: HO.CARD 11:10
PROVIDERS: PCP Nurse Practitioner Family; Visit Provider Internal Medicine
DX: I48.0 Paroxysmal atrial fibrillation (principal)
CPT/HCPCS: 93242

== ENCOUNTER → 2022-12-04 09:43 | Outpatient (BNVA) | payer MEDICARE, SELFPAY | PROVIDERS: PCP Nurse Practitioner Family; Visit Provider Hospitalist | DX: J44.9 Chronic obstructive pulmonary disease, unspecified (principal); J45.51 Severe persistent asthma with (acute) exacerbation; R91.8 Other nonspecific abnormal finding of lung field; J98.09 Other diseases of bronchus, not elsewhere classified; R60.0 Localized edema; D64.9 Anemia, unspecified | CPT/HCPCS: 99212 ==

== ENCOUNTER → 2022-12-19 15:33 | Outpatient (BNVA) | payer MEDICARE, SELFPAY | PROVIDERS: PCP Nurse Practitioner Family; Visit Provider Nurse Practitioner Family | DX: I48.0 Paroxysmal atrial fibrillation (principal); I25.10 Atherosclerotic heart disease of native coronary artery without angina pectoris; I10 Essential (primary) hypertension; J44.9 Chronic obstructive pulmonary disease, unspecified | CPT/HCPCS: 93005; 99212 ==

== ENCOUNTER 2023-01-01 07:55 | Outpatient (REF) | payer MEDICARE, SELFPAY ==
[2023-01-01 08:53] LABS: Alanine Aminotransferase 20 U/L (0-31); Albumin Level 3.9 g/dL (3.5-5.0); Alkaline Phosphatase 84 U/L (39-117); Anion Gap 12 (12-20); Aspartate Amino Transferase 15 U/L (5-31); Bilirubin Total 0.8 mg/dL (0.0-1.0); Blood Urea Nitrogen 19 mg/dL (9-16); Calcium 9.8 mg/dL (8.4-10.2); Carbon Dioxide 31 mmol/L (22-29); Chloride 104 mmol/L (96-108); Estimated Glomerular Filt Rate > 60; Glucose Random 91 mg/dL (60-115); Potassium 3.5 mmol/L (3.3-5.1); Sodium 143 mmol/L (135-145); Total Protein 6.3 g/dL (6.5-8.0)
[2023-01-01 09:08] LABS: TSH reflex Free T4 16.09 uIU/mL (0.32-4.0)
[2023-01-01 09:45] LABS: Free T4 (Free Thyroxine) 0.76 ng/dL (0.71-1.85)
== END 2023-01-01 07:56 | disposition home or self-care (01) ==
LOC: HO.LAB 07:55
PROVIDERS: PCP Nurse Practitioner Family; Visit Provider Nurse Practitioner Family
DX: I48.0 Paroxysmal atrial fibrillation (principal); J44.9 Chronic obstructive pulmonary disease, unspecified; Z79.01 Long term (current) use of anticoagulants; Z79.899 Other long term (current) drug therapy; Z87.01 Personal history of pneumonia (recurrent)
CPT/HCPCS: 36415; 80053; 84439; 84443; 99212

== ENCOUNTER 2023-01-01 09:20 | Outpatient (AMB) | payer MEDICARE, SELFPAY ==
[2023-01-01 09:25] VITALS: BP 130/58; PULSE 77; O2SAT 95
--- NOTE | 2023-01-01 09:25 | A.OFFVIS_ITS ---
Intake Vital Signs 01/01/23 09:25 Weight 175 lb 4.28 oz BP 130/58 L Blood Pressure Location Lt brachial Position Sitting Pulse 77 Pulse Source Pulse Oximeter Pulse Oximetry (%) 95 Oxygen Delivery Method Room Air Intake Visit Reasons: COPD/Hosp DC Follow Up ([facility]) Allergies aspirin Allergy (Severe, Verified 01/01/23 09:28) Upset Stomach Latex Gloves Allergy (Severe, Uncoded 01/01/23 09:28) Rash Medication List - Last Reconciled 01/01/23 by Rozina Rees LPN alendronate 70 mg PO SA amiodarone 200 mg PO DAILY apixaban (Eliquis) 5 mg PO BID 30 days ascorbic acid (vitamin C) 1,000 mg PO MOWEFR atorvastatin 80 mg PO DAILY budesonide 0.5 mg inhalation BID CPAP (CPAP Machine/Device) As directed diltiazem HCl 120 mg PO DAILY ferrous sulfate ER (Slow Fe) 142 mg PO MOWEFR furosemide 40 mg PO DAILY gabapentin 100 mg PO BEDTIME PRN ipratropium-albuterol 0.5 mg-3 mg(2.5 mg base)/3 mL 3 mL inhalation Q4H PRN levalbuterol tartrate 45 mcg/actuation 2 puffs inhalation Q4-6H PRN loratadine (Claritin) 10 mg PO DAILY 30 days montelukast 10 mg PO DAILY nebulizers As directed omeprazole 20 mg PO DAILY PRN prednisone PO daily; Take 2 tabs daily x 5 days, then 1 tablet daily x 5 days 10 days roflumilast (Daliresp) 250 mcg PO DAILY 30 days valsartan 80 mg PO DAILY HPI COPD/Hosp DC Follow Up ([facility]) HPI Details Tessa is a pleasant 77-year-old female with underlying history of asthma/COPD overlap syndrome, CHF on lasix 40 mg and atrial fibrillation on amiodarone and anticoagulated on eliquis. At baseline, she is suboptimally co ntrolled on daliresp, budesonide 0.5 mg BID and levalbtuerol. She was previously on Nucala but it was not financially feasible. Today, she presents for hospital follow up. She was admitted to [facility] for 3 nights for pneumonia and pleural effusion then discharged on 12/23/22 with prednisone and antibiotics. She reports moderate improvement in symptoms but does not feel like she is back to baseline. She has nonproductive cough, wheezing and dyspnea on exertion. 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 Surgical History History of bronchoscopy History of foot surgery Family History Other Asthma Social History Household Members: None Housing: Apartment Do you presently have visiting nurse or other home services: No Alcohol intake: former Patient Tobacco Use Status: Former Tobacco user Quit Date: 2001 Tobacco use type: Cigarette Years Smoked: 50 e-Cigarette/Vaping Use: Never Used Second Hand Smoke Exposure: Yes Advance Directives Date on File: 01/07/22 service: No Current occupational status: retired Review of Systems Const Denies chills, Denies excessive sweating, Denies fever(s), Denies headache(s), Denies night sweats and Reports weight gain Eyes Denies dry eyes, Denies irritation and Denies itchy eyes ENT Reports Normal hearing present, Denies headache(s), Denies nasal congestion, Denies nasal discharge, Denies post nasal drip and Denies sore throat Card Denies chest pain, Denies chest pain at rest, Denies chest pain with activity and Reports dyspnea on exertion Resp Denies chest congestion, Reports cough, Denies excessive phlegm production, Denies pain on inspiration, Denies pain with cough, Reports dyspnea on exertion, Denies stridor and Reports wheezing Musc Denies myalgias Neuro Reports Normal hearing present and Denies headache(s) Endo Denies excessive sweating Seferino/Lymph Denies lymphadenopathy Aller/Immun Denies itchy eyes, Denies seasonal rhinorrhea and Reports wheezing Physical Exam Vital Signs: Last Vital Signs Pulse 77 01/01/23 09:25 BP 130/58 L 01/01/23 09:25 Pulse Ox 95 01/01/23 09:25 Oxygen Delivery Method Room Air 01/01/23 09:25 Const General: cooperative, no acute distress, well developed and alert Nutritional Appearance: obese Orientation/consciousness: patient oriented x3 Limitations: no limitations HEENT Head: Yes normal to inspection, Yes normocephalic and Yes atraumatic Ears: hearing grossly normal bilaterally and external ears normal Eyes General: appearance normal, both eyes and all related structures Eyelids: Yes eyelids normal Sclerae: sclerae normal EOM: EOMs intact bilaterally Neck Neck: Yes normal visual inspection and Yes no lymphadenopathy Lymphatic: no lymphadenopathy noted Chest Chest palpation & inspection: normal inspection of the chest Resp Effort & Inspection: able to speak in complete sentences, audible wheezes (after 6MWT, resolved after resting for a few minutes, declined neb tx), Actively coughing, no stridor, no tripod positioning and no use of accessory muscles Auscultation: crackles (faint bilateral bases) and wheezes expiratory wheezes an d throughout Cardio Rate: regular rate Skin Other: warm, dry General skin exam: no rashes or lesions noted Neuro General: patient oriented x3 Cranial nerves: Yes Normal hearing present Cognition (Neuro): normal cognition Gait exam (Neuro): Normal gait present Psych Appearance: grossly normal and well kempt Speech and movement: Normal speech and movement present and Clear speech present Affect: normal affect Attitude: cooperative Thought process: Normal thought process present Thought content: Normal thought content present Insight: Good insight present (Psych) Judgement: Good judgement present (Psych) Assessment & Plan Assessment & Plan (1) Asthma-COPD overlap syndrome: Code(s): J44.9 - Chronic obstructive pulmonary disease, unspecified Plan Tessa presents for hospital follow up from [facility]. She was reportedly diagnosed and treated for pneumonia and notes pleural effusions. Patient still with wheezing on exam, will send in prednisone taper. She is aware to contact the office if her symptoms do not improve. Will send for repeat CXR for resolution in 6 weeks. If still symptomatic, then consider chest CT. We performed a 6MWT. Her oxygen saturation maintained 93-97%, lowest 90%, with HR maintained 80s-90s, max 91. Patient was eager to cancel oxygen and at this time does not qualify. Will discontinue oxygen. All questions were answered and patient is in agreement of plan. Will follow up for routine follow up scheduled with Dr. Martins in January. Orders: Orders XR chest 2V 6 Weeks Z87.01 - Personal history of pneumonia (recurrent) Medications: Refilled prednisone Take 4 tabs x 3 days, then 3 tabs x 3 days, then 2 tabs daily x 3 days, then 1 tab x 3 days to complete. 10 mg PO DAILY 12 days 30 tabs 0RF prednisone Take 4 tabs x 3 days, then 3 tabs x 3 days, then 2 tabs daily x 3 days, then 1 tab x 3 days to complete. 10 mg PO DAILY 30 tabs 0RF 12 days Coding Level of Care Code Est Pt Level 4 (44746) Diagnoses Asthma-COPD overlap syndrome J44.9
== END 2023-01-01 10:27 | disposition home or self-care (01) ==
PROVIDERS: PCP Nurse Practitioner Family; Visit Provider Nurse Practitioner Family
DX: J44.9 Chronic obstructive pulmonary disease, unspecified (principal)
CPT/HCPCS: 99214

== ENCOUNTER 2023-01-06 09:47 | Outpatient (RCR) | payer MEDICARE, SELFPAY ==
[2023-01-06 10:07] VITALS: BP 128/58; PULSE 63
--- NOTE | 2023-01-06 12:03 | MHC.PR.IN ---
[address] [phone] F: [phone] Pulmonary Rehabilitation Individual Treatment Plan Tessa Montalvo is a 77 year old (F) who was referred to the Pulmonary Rehabilitation program by Beto Martins. This patient who has a primary diagnosis of COPD will begin pulmonary rehabilitation with monitored exercise and education to optimize both physical and social performance, autonomy, increase strength and endurance, and control dypsnea. The following information was gathered from the patient: Smoking History Current smoking status: Former Smoker Years smoked: 46 years Last time smoked: 2002 Quit Date: 2002 Assistance with quitting needed: Past Medical History Medical History: Cardiac Disorders Hypertension COPD Asthma Pneumonia Sleep Apnea Bronchitis Anxiety Surgeries: Past Pulmonary Hospitalizations # of hospitalizations in the past year: 5 # of ER vists due to breathing troubles in the past year: Current Pulmonary Medications Montelukast 10mg 1 tab daily Roflumilast 250mcg daily Ipatropium-albuterol 0.5-2.5 nebulizer q4 prn Budesonide 0.5 neb BID Levalbuterol HFA PRN prednisone Amiodarone HCL 200MG DAILY Furosemide 20mg 2 tabs daily Diltiazem HCL daily Valsartain 80mg daily elliquis 5 mg daily Atorvastatin 80mg daily alendronate sodium 70mg X1 weekly Allergy History Allergies: perfume/mold/mildew/ seasonal Current Oxygen Use Supplemental Oxygen Device Used: Liter flow: 2 How often: With exercise only Pulmonary History Cough: Yes Sputum: No: dry cough Sleep device: No: diagnosed cpap but cannot use Other pulmonary devices: Peak flow meter: Nebulizer: Suction: Ventilator: Yes Secretion clearance: PEP: Influenza vaccine: Yes Pneumonia vaccine: No Patient Questionaire Scores MRC Dyspnea Scale (mRC): 4 CAT Score: 19 PHQ-9 Score: 2 Pulmonary Function Test and Vital Signs Pulmonary Function Test Date of PFT 03/14/2022 FVC Actual 1.50% FVC Predicted 2.30% FEV1 Actual 1.20% FEV1 Predicted 1.70% FEV1/FVC Actual 80% FEV1/FVC Predicted 74% DLCO 14.25 Vital Signs Heart Rate 63 Blood Pressure 128/58 SpO2 97% Respiratory Rate normal respirations Six Minute Walk Test Supplemental Oxygen O2 L/min: Room Air FiO2: Resting Vitals SpO2: 94% BP: 128/58mmHg HR: 63 bpm Total Distance 610 Number/ Time of Rests (sec) 1 30 ANDRES 3 METS 1.89 SpO2 95 HR (bpm) 80 MPH 1.15 Meters/Minute 31 Post-walk Vitals SpO2: 99 BP: 134/58 HR: 66 Performance Observations pt walked slow pace unassisted for 6 minutes. Pt rested one time for 30 seconds and then resumed testing without prompts. Pulmonary Rehabilitation Plan Topic Problem Goal Plan Comment Education Knowledge deficit of disease self management strategies Ineffective control of dyspnea Verbalize adequate disease self-management skills Effective control of dyspnea Advanced directives Disease overview Exacerbation prevention and management Respiratory medication Pt educated on pursed lip breathing/ Anatomy and physiology of good lung vs. bad lung. Education on COPD umbrella Hypoxia Needs oxygen recommendation SpO2 >90 Monitor oxygen saturation with rest and exercise Educate appropriate use of oxygen at rest and with activity Pt recently discharged with oxygen 2L with exertion by steve prior to discharge. Pt does not require o2 at this time. Pt states she has not been using O2 at home. MD will be notified Psychosocial Anxiety Verbalizes improved psychosocial coping strategies & mechanisms Benefits of exercise Relaxation techniques Stress management Pt states she does experience anxiety due to dry cough and shortness of breath. Activities of Daily Living Fear of severe dyspnea ADL management and control of dyspnea ADL performance with pacing and pursed lip breathing Educate on pursed lip breathing and pacing with stairs and activity Educated and demonstration of pursed lip breathing techniques. Nutrition & Weight Management Overweight Lose weight during program Education classes Pt completed Rate my plate questionnaire. Educated on Dash diet/ will continue to discuss throughout program. Pt's goal is to continue to lose weight during program. Pt states she is currently doing weight watchers program. Tobacco Managment NA Become/remain smoke free Benefits of quitting Coping strategies Pt has been smoke free since 2002. Pt states no relapses. Medication N/A, pt reports compliance w/ prescribed medications Adherence to prescribed medications Importance of medication compliance Medications purpose Medication schedule Medication side-effects Pt states she uses medication 100% of the time as prescribed. Education will be ongoing of meds/ and side effects Inhaled Medication Incorrect inhaled prescription use Correct technique/timing and care of inhaled medications Demo of MDI with spacer device MDI with spacer device Pt uses spacer with inhaler. Secretion Management N/A, pt able to self manage secretions Patient demonstrates effective cough and airway clearance Patient demonstrates effective cough and airway clearance Pt reports persistent dry cough Exercise & Fitness Decreased strength & endurance Knowledge deficit of exercise guidelines & safety Pulmonary Rehab 2-3x/week Weight or resistance training 2-3x/week Aerobic Exercise: 30-60mins x 9 weeks Review benefits & core components of exercise program Review how to measure and monitor dyspnea level Review exercise safety guidelines Review frequency and duration of exercise Review exercise intensity ANDRES RPD 3-4/10 Review home exercise guidelines Pt agrees to pulmonary rehab 2 X weekly Friday's and 's. Pt participates in chair workouts and walking 2X weekly at the [facility]. goal 31 minutes of exercise. Recumbent 3X weekly RPD 3-4 UBE 2-3X weekly RPD 3-4 Completed Day 1 Recumbent L1.0/Mets 1.5 5 minutes RPD 2 UBE L1.5 MEts 1.7 RPD 3 5 minutes Treadmill L1.0 RPD 3 5 min Diabetes Management Does patient have DM?: No Diabetes Type: Current Blood Glucose Level: Current A1C Level: Self Check: Patient's Goals and Concerns Patients goals in her own words My goal with pulmonary rehab is so I can do better with my breathing and build up my strength. . Finisher Plate Review I have reviewed the outcome assessment, treatment plan, goals, and problem list. The treatment plan and goals support the patient's needs and abilities, and thereby recommend that the exercise plan be completed as documented. Special precautions or modifications to the treatment plan include:
[2023-01-09 10:56] VITALS: BP 112/50; BP 122/48
[2023-01-14 11:03] VITALS: BP 112/50; BP 116/54
[2023-01-16 11:05] VITALS: BP 112/56; BP 130/54
[2023-01-21 10:57] VITALS: BP 118/54; BP 132/54
[2023-01-23 10:59] VITALS: BP 110/52; BP 122/50
[2023-01-28 11:22] VITALS: BP 104/48; BP 128/42
[2023-02-04 12:50] VITALS: BP 104/48; BP 122/60
--- NOTE | 2023-02-21 08:16 | MHC.PR.RE ---
[address] [phone] F: [phone] Pulmonary Rehabilitation Reassessment Tessa Montalvo is a 77 year old (F) who was referred to the Pulmonary Rehabilitation program by Beto Martins. This patient who has a primary diagnosis of COPD has completed 8 sessions of the pulmonary rehabilitation program thus far with monitored exercise and education to optimize both physical and social performance, autonomy, increase strength and endurance, and control dypsnea. They were evaluated on 02/21/23. Reassessment Type: 30-day reassessment Topic Education/ Progress Progress Comments Education Demonstrates disease self-management strategies Using medications as directed Education classes initiated and ongoing during weekly sessions. Hypoxia Current oxygen Use: Room air Pt does not use 02 at this time. Psychosocial PHQ-9 Score: 2 Education ongoing for coping techniques/ dealing with worry Activities of Daily Living Management of ADL with Control of Dyspnea Progressing Pt progressing well. Pt active at home, and participated in the local senior center. Pt currenlty on hold, as of a few days for hospitalization for pneumonia. Nutrition & Weight Management Current weight: 178 BMI: Weight change: Weight Loss Progressing Pt would like to lose weight while in the program Tobacco Stages of Change: Maintenance Tobacco Use: Cigerettes/Day: Any nicotine replacement: Any cessation medication: Smoking quit date: Smokeless tobacco use and amount: Pt has been smoke free since 2002 Medication Met, taking 100% of time Montelukast 10mg 1 tab daily Roflumilast 250mcg daily Ipatropium-albuterol 0.5-2.5 nebulizer q4 prn Budesonide 0.5 neb BID Levalbuterol HFA PRN prednisone Amiodarone HCL 200MG DAILY Furosemide 20mg 2 tabs daily Diltiazem HCL daily Valsartain 80mg daily elliquis 5 mg daily Atorvastatin 80mg daily alendronate sodium 70mg X1 weekly Inhaled Medication Patient verbalizes correct technique of: MDI: Yes DPI: SMI: NEBULIZER: Secretion Management Patient provides adequate return demonstration of: Controlled cough: Yes Morales cough: Acapella/ PEP Device: CPT: Sputum management: education classes completed. Exercise & Fitness Aerobic Exercise Frequency: 2-3X weekly Target heart range: Heart rate range: 91-121 SpO2 Range: >92% ANDRES RPD: 3-4 Time (minutes): 31 O2 use with exercise: RA Current HEP: Treadmill 2-3X weekly/ 16 min Nustep 2-3X weekly/ 15 min UBE 2-3X weekly/ 10 min Recumbent bike 2-3X weekly 15 min Pt continues to increase time/mets/level. Ramp Boss Review I have reviewed the outcome re-assessment and treatment plan. The treatment plan and goals support the patient's needs and abilities, and thereby recommend that the exercise plan be completed as documented. Special precautions or modifications to the treatment plan include:
--- NOTE | 2023-03-28 11:10 | MHC.PR.RE ---
[address] [phone] F: [phone] Pulmonary Rehabilitation Reassessment Tessa Montalvo is a 77 year old (F) who was referred to the Pulmonary Rehabilitation program by Beto Martins. This patient who has a primary diagnosis of COPD has completed 8 sessions of the pulmonary rehabilitation program thus far with monitored exercise and education to optimize both physical and social performance, autonomy, increase strength and endurance, and control dypsnea. They were evaluated on 03/28/23. Reassessment Type: 60-day reassessment Topic Education/ Progress Progress Comments Education Demonstrates disease self-management strategies Using medications as directed Education classes initiated and ongoing during weekly sessions. Hypoxia Current oxygen Use: Room air Pt does not use 02 at this time. Psychosocial PHQ-9 Score: 2 Education ongoing for coping techniques/ dealing with worry Activities of Daily Living Management of ADL with Control of Dyspnea Progressing Pt progressing well. Pt active at home, and participated in the local senior center. Pt currenlty on hold, as of a few days for hospitalization for pneumonia. Nutrition & Weight Management Current weight: 178 BMI: Weight change: Weight Loss Progressing Pt would like to lose weight while in the program Tobacco Stages of Change: Maintenance Tobacco Use: Cigerettes/Day: Any nicotine replacement: Any cessation medication: Smoking quit date: Smokeless tobacco use and amount: Pt has been smoke free since 2002 Medication Met, taking 100% of time Montelukast 10mg 1 tab daily Roflumilast 250mcg daily Ipatropium-albuterol 0.5-2.5 nebulizer q4 prn Budesonide 0.5 neb BID Levalbuterol HFA PRN prednisone Amiodarone HCL 200MG DAILY Furosemide 20mg 2 tabs daily Diltiazem HCL daily Valsartain 80mg daily elliquis 5 mg daily Atorvastatin 80mg daily alendronate sodium 70mg X1 weekly Inhaled Medication Patient verbalizes correct technique of: MDI: Yes DPI: SMI: NEBULIZER: Secretion Management Patient provides adequate return demonstration of: Controlled cough: Yes Morales cough: Acapella/ PEP Device: CPT: Sputum management: education classes completed. Exercise & Fitness Aerobic Exercise Frequency: 2-3X weekly Target heart range: Heart rate range: 91-121 SpO2 Range: >92% NADRES RPD: 3-4 Time (minutes): 31 O2 use with exercise: RA Current HEP: Treadmill 2-3X weekly/ 16 min Nustep 2-3X weekly/ 15 min UBE 2-3X weekly/ 10 min Recumbent bike 2-3X weekly 15 min Pt has not particiapted in reahb in about a month [facility] Loss Control Surveyor Review I have reviewed the outcome re-assessment and treatment plan. The treatment plan and goals support the patient's needs and abilities, and thereby recommend that the exercise plan be completed as documented. Special precautions or modifications to the treatment plan include:
--- NOTE | 2023-04-29 07:32 | MHC.PR.DC ---
[address] [phone] F: [phone] Pulmonary Rehabilitation Discharge Tessa Montalvo is a 78 year old (F) who was referred to the Pulmonary Rehabilitation program by Beto Martins. This patient who has a primary diagnosis of COPD has completed 8 sessions of the pulmonary rehabilitation program with monitored exercise and education to optimize both physical and social performance, autonomy, increase strength and endurance, and control dypsnea. They were evaluated on 03/28/23. Discharge summary and tests are below. Initial MRC Score: 4 Discharge MRC Score: Six Minute Walk Test Initial 6MWT Discharge 6MWT Supplemental Oxygen O2 L/min: Room Air FiO2: O2 L/min: FiO2: Resting Vitals SpO2: 94% BP: 128/58mmHg HR: 63 bpm SpO2: % BP: mmHg HR: bpm Total Distance (ft) 610 Number/ Time of Rests (sec) 1 30 ANDRES 3 Walk Vitals SpO2: 95 HR: 80 SpO2: HR: Post-Walk Vitals SpO2: 99 BP: 134/58 HR: 66 SpO2: BP: HR: Performance Observations pt walked slow pace unassisted for 6 minutes. Pt rested one time for 30 seconds and then resumed testing without prompts. Exercise Assessment on : Pre-exercise Post-exercise SpO2 Heart Rate ANDRES METS Exercise Assessment on : Pre-exercise Post-exercise SpO2 Heart Rate ANDRES METS Exercise Assessment on : Pre-exercise Post-exercise SpO2 Heart Rate ANDRES METS Topic Education/Progress Progress Comments Education Demonstrates disease self-management strategies Using medications as directed Education classes initiated and ongoing during weekly sessions. Hypoxia Current oxygen Use: Room air Pt does not use 02 at this time. Psychosocial PHQ-9 Score: 2 Education ongoing for coping techniques/ dealing with worry Activities of Daily Living Management of ADL with Control of Dyspnea Progressing Pt progressing well. Pt active at home, and participated in the local senior center. Pt currenlty on hold, as of a few days for hospitalization for pneumonia. Nutrition and Weight Managment Current weight: 178 BMI: Weight change: Weight Loss Progressing Pt would like to lose weight while in the program Tobacco Stages of Change: Maintenance Tobacco Use: Cigerettes/Day: Any nicotine replacement: Any cessation medication: Smoking quit date: Smokeless tobacco use and amount: Pt has been smoke free since 2002 Medications Met, taking 100% of time Inhaled Medications Patient verbalizes correct technique of: MDI: Yes DPI: SMI: NEBULIZER: Secretion Management Patient provides adequate return demonstration of: Controlled cough: Yes Morales cough: Acapella/ PEP Device: CPT: Sputum management: education classes completed. Exercise and Fitness Aerobic Exercise Frequency: 2-3X weekly Target heart range: Heart rate range: 91-121 SpO2 Range: >92% ANDRES RPD: 3-4 Time (minutes): 31 O2 use with exercise: RA Current HEP: Treadmill 2-3X weekly/ 16 min Nustep 2-3X weekly/ 15 min UBE 2-3X weekly/ 10 min Recumbent bike 2-3X weekly 15 min Pt continues to increase time/mets/level. Discharge Assessment: Discharge Reason: Pt discharged for medical reasons Discharge Recommendation: :
== END 2023-05-01 10:42 | disposition home or self-care (01) ==
LOC: HO.PR 09:47
PROVIDERS: PCP Nurse Practitioner Family; Visit Provider Hospitalist
DX: J44.9 Chronic obstructive pulmonary disease, unspecified (principal)
CPT/HCPCS: 94625

== ENCOUNTER 2023-02-04 08:52 | Outpatient (REF) | payer MEDICARE, SELFPAY ==
--- NOTE | ~2023-02-04 | XR_ITS ---
EXAMINATION: XR CHEST CLINICAL INFORMATION: Recurrent pneumonia COMPARISON: Previous chest x-ray most recent October 2022 TECHNIQUE: 2 views of the chest were obtained. FINDINGS: The cardiac and mediastinal contours are stable. The lungs are clear. No pleural effusion or pneumothorax. There are degenerative changes of the spine. There are postsurgical changes to the proximal lumbar spine. XR/XR chest 2V IMPRESSION: No evidence for acute disease in the chest.
== END 2023-02-04 08:53 | disposition home or self-care (01) ==
LOC: HO.XRAY 08:52
PROVIDERS: PCP Nurse Practitioner Family; Visit Provider Nurse Practitioner Family
DX: Z87.01 Personal history of pneumonia (recurrent) (principal)
CPT/HCPCS: 71046

== ENCOUNTER 2023-02-05 09:41 | Outpatient (AMB) | payer MEDICARE, SELFPAY ==
--- NOTE | 2023-02-05 09:46 | MHC.OFFVIS ---
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 Her symptoms have been significant. She has been complaining of worsening dyspnea on exertion due to the shortness of breath and wheezing. She has been using her nebulized therapy about 4 times a day. She recently ran out of 1 medication and therefore her breathing has been worse. She also has significant allergies including mold and other sensitivities to perfumes. In the office she was found to be significantly wheezy. She was giving nebulized treatment we talked about potentially switching her over to additional long-acting albuterol therapies via the nebulizer. The patient is agreeable to this. She recently underwent a CT scan of the chest back in February 2019 which demonstrated stable pulmonary nodules. The patient now will be scheduled for CT scan in a year's time. The Daliresp medication did give her significant GI side effects and was very expensive so therefore she stopped it. She does have pulmonary nodules she has a CT scan scheduled for February 2020 and will follow up with her after that. 07/26/2021 the patient is here for sick visit. She started developing worsening respiratory symptoms in the last 24 hours. Her wheezing has become significantly worse and she has had significant chest tightness. She has been reluctant to go to the ER. She denies any fevers or chills. She did not tested for COVID-19 apparently. Her results were negative per report. She denies any significant exposures that could have triggered her asthma. In the office she was noted to be significantly wheezing and mild respiratory distress. She was given 3 treatments of Xopenex and also was given Solu-Medrol 125 mg IM x1. Her symptoms improved some. Although I am still concerned she may still need hospital level of care. The patient understands that if she is no better or if she worsens definitely she should go to the ER to be admitted to the hospital in the meantime the patient is optimized with respiratory therapy. 09/18/2021 the patient is here for a pulmonary follow-up visit. She is finally feeling better. She continues use her respiratory therapy. She still gets shortness of breath with minimal activity. She was able to find senior housing and she was able to retire from her job which is very reassuring to hear. Now she is dealing with back pain and leg pain. She is getting treated for muscle spasms. She does figure that the treatment for the muscle spasms actually helping her breathing as well. She does have daytime drowsiness. The patient does have significant snoring. Her Clarendon score still elevated at 12 over 24. She did qualify for CPAP but she still waiting for her machine that was ordered back in the end of March. I did call the [employer] company to make sure that she gets an update as far as when she is going to be started on CPAP. When she does get CPAP she is going to use it every night. She is going to bring machine with her to the next visit so we can adjusted further. Otherwise patient is without any other complaints. 02/12/2022 the patient is here for pulmonary follow-up visit. The patient overall is doing better. She is responding well to the Nucala. It is not completed improving her symptoms but it is helping. She still continue to use the nebulizer 2 to 3 times a day. She is concerned about using it because she does not want worsen the atrial fibrillation. Currently she is on Xopenex. She is also using budesonide. In addition to that she does have her CPAP. The CPAP therapy continues to be affecting beneficial. She did bring the machine in. Her AHI is well within normal around 1.5 events per hour. Her mask she has a nasal mask that fits her well. Sometimes she has air leakage when she lays on her side. I did provide her with a different mask, and 30 I small that she is going to try I do believe that this is going to be a better fit for her. I will also request that from her [employer] company. In the meantime also going to request pulmonary function studies and I do believe the patient would benefit from pulmonary rehabilitation. 06/20/2022 the patient is here for a pulmonary follow-up visit. If she is having some difficulty with her breathing. Having increasing shortness of breath. She has been having some issues with the Nucala injections. Now that she has a supplementary insurance we have to request a prior approval for her biologic injections. Hopefully when she is back in her biologics her respiratory status will improve. In the meantime she has significant shortness of breath, chest tightness and wheezing. The patient was admitted to [facility] with symptomatic anemia as well. She did require a transfusion of packed red blood cells in addition to an IV infusion. She is scheduled to get another IV infusion of iron. The patient does have now significant lower extremity edema. Likely from her volume resuscitation during the hospitalization. Unfortunately this will also affect her respiratory status. Will go ahead and give her shot of Solu-Medrol today to try to alleviate some of her symptoms. She does continue using her nebulized therapy with good effect. In the meantime she is also using her CPAP. The CPAP therapy has been affecting beneficial. She does try to use it more than 4 hours a night. She is trying to get used to it. 08/28/2022 the patient is here for a pulmonary follow-up visit. The patient continues to struggle with the anemia. 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 She is also taking oral iron although does not appear to be absorbing it as well. The patient has been feeling better although still short of breath she still having chest tightness and wheezing. Unfortunately she could not continue the Nucala because of her insurance changed now is too expensive and she cannot afford it. We did try to get her into in addition it program or free medications which she does not qualify based on her financial status. The patient also is no longer using the oxygen. Will have on the oxygen discontinued we can always reassess the need for oxygen later. She is also not using the CPAP. I did recommend she can use the oxygen at nighttime but the patient is sleeping well when she is waking up rested so there is no role for any additional therapies at this time. She does continue to use respiratory therapy and has continued to use the budesonide with some improvement of her symptoms. 02/05/2023 the patient is here for sick visit. She has been sick now for about 3 weeks. The prior to that she had just completed a prednisone course. She is having significant chest tightness and wheezing. She is coughing more and hard to expectorate. Moderate severity. She has a hard time doing any activity. However, she does check her oxygen and oxygen levels are within normal limits. She does have oxygen at home and she wants that to be picked up since she is not requiring it. The patient denies any sick contacts that she is aware of. She has tested for COVID a few times and has been negative. She did have a chest x-ray that I personally reviewed demonstrating no acute disease of the which still waiting for the final read. She is using all her respiratory therapy only with minimal improvement. Today she is having both inspiratory and expiratory wheezing and she is having some tachypnea. The patient will be given 3 Xopenex treatments and will given Solu-Medrol intramuscularly. The patient also has significant tracheal bronchomalacia. She does use a flutter valve to help her expectorate. Will start on some antibiotics as well just in case she has a bout of bronchitis. 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 Surgical History History of bronchoscopy History of foot surgery Family History Other Asthma Social History Household Members: None Housing: Apartment Do you presently have visiting nurse or other home services: No Alcohol intake: former Patient Tobacco Use Status: Former Tobacco user Quit Date: 2001 Tobacco use type: Cigarette Years Smoked: 46 years e-Cigarette/Vaping Use: Never Used Second Hand Smoke Exposure: No Advance Directives Date on File: 01/07/22 service: No Current occupational status: retired Review of Systems Const Denies weakness ENT Denies dizziness Card Denies chest pain, Denies chest pain with activity, Denies syncope, Denies rapid heart rate, Denies pedal edema, Denies edema, Denies leg edema, Denies lightheadedness, Denies palpitations, Reports dyspnea, Reports dyspnea on exertion and Denies orthopnea Resp Reports chest congestion, Reports cough, Denies hemoptysis, Reports dyspnea, Reports dyspnea on exertion and Reports wheezing GI Denies hematochezia and Denies change in stool character Musc Denies abnormal gait, Denies muscle weakness, Denies numbness, Denies radiating pain into limb and Denies tingling Neuro Denies abnormal gait, Denies dizziness, Denies syncope, Denies numbness, Denies tingling and Denies weakness Endo Denies palpitations Aller/Immun Reports wheezing Physical Exam Vital Signs: Last Vital Signs Pulse 75 02/05/23 09:47 Pulse Ox 98 02/05/23 09:47 Oxygen Delivery Method Room Air 02/05/23 09:47 BMI result Body Mass Index 34.0 Const General: comfortable and no acute distress Orientation/consciousness: patient oriented x3 HEENT Other: Unremarkable Head: Yes normal to inspection Neck Neck: Yes normal visual inspection Chest Chest palpation & inspection: normal inspection of the chest Resp Effort & Inspection: Actively coughing Quality: actively coughing, tachypneic and prolonged expiratory phase Auscultation: wheezes and diminished lung sounds Cardio Palpation: normal PMI Heart sounds: S1 normal heart sound present, S2 normal heart sound present, no gallops, no murmurs and no rubs GI Palpation (GI): Soft to palpation Back/Spine/Pelvis Other: unremarkable Skin General skin exam: no rashes or lesions noted Neuro General: patient oriented x3 Extrem General: Yes normal to inspection Psych Mental Status: mental status grossly normal Office Procedures Nebulizer Treatment Nebulizer Treatment [id number]/[id number] RX initial, or Nebulizer Subsequent Treatment Office Meds methylprednisolone sod suc(PF) Performing Provider: Beto Martins MD Administered by: Rozina Rees LPN on 02/05/23 10:17 Dose Route Admin Location Lot Number Expiration Date [facility] [employer] 125 mg IM L buttock [id number] 03/15/25 7675-3761-15 [employer] levalbuterol HCl Performing Provider: Beto Martins MD Administered by: Rozina Rees LPN on 02/05/23 10:17 Dose Route Admin Location Lot Number Expiration Date [facility] [place] [employer] 1.25 mg inhalation [id number] 01/14/24 22049-858-17 [employer] Assessment & Plan Assessment & Plan (1) Asthma: Code(s): J45.909 - Unspecified asthma, uncomplicated Qualifiers: Asthma complication type: with acute exacerbation Asthma persistence: persistent Asthma severity: severe Qualified Code(s): J45.51 - Severe persistent asthma with (acute) exacerbation (2) Pulmonary nodules: Code(s): R91.8 - Other nonspecific abnormal finding of lung field (3) Bronchomalacia: Code(s): J98.09 - Other diseases of bronchus, not elsewhere classified (4) Asthma-COPD overlap syndrome: Code(s): J44.9 - Chronic obstructive pulmonary disease, unspecified (5) Lower extremity edema: Code(s): R60.0 - Localized edema (6) Anemia: Code(s): D64.9 - Anemia, unspecified Plan Continue BUdesonide continue Duoneb QID stopped Nucala q4 weeks, too expensive, although, very effective for her Daliresp continue oxygen while sleeping and with activity start Prednisone Start abx: doxy/vantin coug medicine MED as needed, sending xopenex F/U 3-4 months Orders: Orders AMB Methylprednisolone Injection Today J45.909 - Unspecified asthma, uncomplicated AMB Nebulizer Treatment Today J45.909 - Unspecified asthma, uncomplicated AMB Nebulizer Treatment Today J45.51 - Severe persistent asthma with (acute) exacerbation Medications: New levalbuterol HCl 1.25 mg (3 mL) inhalation ONCE 9 mL 0RF J45.51 - Severe persistent asthma with (acute) exacerbation prednisone PO daily; Take 6 tabs daily x 3 days, then 5 tabs x 3 days, then 4 tabs x 3 days, then 3 tabs x 3 days, then 2 tabs daily x 3 days, then 1 tab x 3 days to complete. 18 days 63 tabs 0RF doxycycline monohydrate 100 mg PO BID 14 days 28 tabs 0RF codeine-guaifenesin 10-100 mg/5 mL 10 mL PO Q6H 10 days PRN 300 mL 0RF cough cefpodoxime must administer with a meal/food 200 mg PO BID 20 tabs 0RF Coding Level of Care Code Est Pt Level 4 (99144) Diagnoses Asthma J45.51 Asthma complication type: with acute exacerbation Asthma persistence: persistent Asthma severity: severe Pulmonary nodules R91.8 Bronchomalacia J98.09 Asthma-COPD overlap syndrome J44.9 Lower extremity edema R60.0 Anemia D64.9 CPT Codes Nebulizer Treatment - Nebulizer Treatment, initial or subsequent: [id number]/MDI RX initial, or Nebulizer Subsequent Treatment ([id number]) Time Spent (min) 30
[2023-02-05 09:47] VITALS: PULSE 75; O2SAT 98; BMI 34.0
== END 2023-02-05 10:23 | disposition home or self-care (01) ==
PROVIDERS: PCP Nurse Practitioner Family; Visit Provider Hospitalist
DX: R91.8 Other nonspecific abnormal finding of lung field (principal); J98.09 Other diseases of bronchus, not elsewhere classified; J44.9 Chronic obstructive pulmonary disease, unspecified; R60.0 Localized edema; D64.9 Anemia, unspecified
CPT/HCPCS: 99214

== ENCOUNTER → 2023-02-05 09:41 | Outpatient (BNVA) | payer MEDICARE, SELFPAY | PROVIDERS: PCP Nurse Practitioner Family; Visit Provider Hospitalist | DX: J45.51 Severe persistent asthma with (acute) exacerbation (principal); J44.9 Chronic obstructive pulmonary disease, unspecified; R91.8 Other nonspecific abnormal finding of lung field; J98.09 Other diseases of bronchus, not elsewhere classified; R60.0 Localized edema; D64.9 Anemia, unspecified | CPT/HCPCS: 94640; 96372; 99212; J2930 ==

== ENCOUNTER 2023-02-12 10:09 | Outpatient (AMB) | payer MEDICARE, SELFPAY ==
--- NOTE | 2023-02-12 10:31 | A.OFFVIS_ITS ---
Intake Vital Signs 02/12/23 10:32 Height 5 ft 1 in Weight 179 lb 14.355 oz BMI 34.0 Pulse 59 Pulse Source Pulse Oximeter Pulse Oximetry (%) 95 Oxygen Delivery Method Room Air Intake Visit Reasons: Discuss Oxygen Allergies aspirin Allergy (Severe, Verified 02/05/23 09:48) Upset Stomach Latex Gloves Allergy (Severe, Uncoded 02/05/23 09:48) Rash HPI HPI Comments History of Present Illness Details The patient is a 77-year-old woman with known asthma COPD overlap syndrome. Her symptoms have been significant. She has been complaining of worsening dyspnea on exertion due to the shortness of breath and wheezing. She has been using her nebulized therapy about 4 times a day. She recently ran out of 1 medication and therefore her breathing has been worse. She also has significant allergies including mold and other sensitivities to perfumes. In the office she was found to be significantly wheezy. She was giving nebulized treatment we talked about potentially switching her over to additional long- acting albuterol therapies via the nebulizer. The patient is agreeable to this. She recently underwent a CT scan of the chest back in February 2019 which demonstrated stable pulmonary nodules. The patient now will be scheduled for CT scan in a year's time. The Daliresp medication did give her significant GI side effects and was very expensive so therefore she stopped it. She does have pulmonary nodules she has a CT scan scheduled for February 2020 and will follow up with her after that. 07/26/2021 the patient is here for sick visit. She started developing worsening respiratory symptoms in the last 24 hours. Her wheezing has become significantly worse and she has had significant chest tightness. She has been reluctant to go to the ER. She denies any fevers or chills. She did not tested for COVID-19 apparently. Her results were negative per report. She denies any significant exposures that could have triggered her asthma. In the office she was noted to be significantly wheezing and mild respiratory distress. She was given 3 treatments of Xopenex and also was given Solu-Medrol 125 mg IM x1. Her symptoms improved some. Although I am still concerned she may still need hospital level of care. The patient understands that if she is no better or if she worsens definitely she should go to the ER to be admitted to the hospital in the meantime the patient is optimized with respiratory therapy. 09/18/2021 the patient is here for a pulmonary follow-up visit. She is finally feeling better. She continues use her respiratory therapy. She still gets shortness of breath with minimal activity. She was able to find senior housing and she was able to retire from her job which is very reassuring to hear. Now she is dealing with back pain and leg pain. She is getting treated for muscle spasms. She does figure that the treatment for the muscle spasms actually helping her breathing as well. She does have daytime drowsiness. The patient does have significant snoring. Her [place] score still elevated at 12 over 24. She did qualify for CPAP but she still waiting for her machine that was ordered back in the end of March. I did call the [employer] company to make sure that she gets an update as far as when she is going to be started on CPAP. When she does get CPAP she is going to use it every night. She is going to bring machine with her to the next visit so we can adjusted further. Otherwise patient is without any other complaints. 02/12/2022 the patient is here for pulmonary follow-up visit. The patient overall is doing better. She is responding well to the Nucala. It is not completed improving her symptoms but it is helping. She still continue to use the nebulizer 2 to 3 times a day. She is concerned about using it because she does not want worsen the atrial fibrillation. Currently she is on Xopenex. She is also using budesonide. In addition to that she does have her CPAP. The CPAP therapy continues to be affecting beneficial. She did bring the machine in. Her AHI is well within normal around 1.5 events per hour. Her mask she has a nasal mask that fits her well. Sometimes she has air leakage when she lays on her side. I did provide her with a different mask, and 30 I small that she is going to try I do believe that this is going to be a better fit for her. I will also request that from her [employer] company. In the meantime also going to request pulmonary function studies and I do believe the patient would benefit from pulmonary rehabilitation. 06/20/2022 the patient is here for a pulmonary follow-up visit. If she is having some difficulty with her breathing. Having increasing shortness of breath. She has been having some issues with the Nucala injections. Now that she has a supplementary insurance we have to request a prior approval for her biologic injections. Hopefully when she is back in her biologics her respiratory status will improve. In the meantime she has significant shortness of breath, chest tightness and wheezing. The patient was admitted to [facility] with symptomatic anemia as well. She did require a transfusion of packed red blood cells in addition to an IV infusion. She is scheduled to get another IV infusion of iron. The patient does have now significant lower extremity edema. Likely from her volume resuscitation during the hospitalization. Unfortunately this will also affect her respiratory status. Will go ahead and give her shot of Solu-Medrol today to try to alleviate some of her symptoms. She does continue using her nebulized therapy with good effect. In the meantime she is also using her CPAP. The CPAP therapy has been affecting beneficial. She does try to use it more than 4 hours a night. She is trying to get used to it. 08/28/2022 the patient is here for a pulmonary follow-up visit. The patient continues to struggle with the anemia. She was last seen yesterday with the knife glazer and was scheduled to get for more infusions of iron. She is also taking oral iron although does not appear to be absorbing it as well. The patient has been feeling better although still short of breath she still having chest tightness and wheezing. Unfortunately she could not continue the Nucala because of her insurance changed now is too expensive and she cannot afford it. We did try to get her into in addition it program or free medications which she does not qualify based on her financial status. The patient also is no longer using the oxygen. Will have on the oxygen discontinued we can always reassess the need for oxygen later. She is also not using the CPAP. I did recommend she can use the oxygen at nighttime but the patient is sleeping well when she is waking up rested so there is no role for any additional therapies at this time. She does continue to use respiratory therapy and has continued to use the budeso nide with some improvement of her symptoms. 02/05/2023 the patient is here for sick visit. She has been sick now for about 3 weeks. The prior to that she had just completed a prednisone course. She is having significant chest tightness and wheezing. She is coughing more and hard to expectorate. Moderate severity. She has a hard time doing any activity. However, she does check her oxygen and oxygen levels are within normal limits. She does have oxygen at home and she wants that to be picked up since she is not requiring it. The patient denies any sick contacts that she is aware of. She has tested for COVID a few times and has been negative. She did have a chest x-ray that I personally reviewed demonstrating no acute disease of the which still waiting for the final read. She is using all her respiratory therapy only with minimal improvement. Today she is having both inspiratory and expiratory wheezing and she is having some tachypnea. The patient will be given 3 Xopenex treatments and will given Solu-Medrol intramuscularly. The patient also has significant tracheal bronchomalacia. She does use a flutter valve to help her expectorate. Will start on some antibiotics as well just in case she has a bout of bronchitis. 02/12/2023 the patient is here for pulmonary follow-up visit. She was recently diagnosed with bronchopneumonia and treated pretty aggressively with antibiotics and prednisone. She feels a little better. She denies any productive cough although she feels that she has a hard time expectorating the phlegm. I explained to her that she has significant tracheobronchomalacia and does going to make it difficult to expectorate. The patient also had a CT scan of the chest back in December 2021 demonstrating some haziness and also nodular densities. Therefore we will request a CT scan to better address the nodular densities and also to see if the pneumonia is completely gone. The patient also benefit from a bronchoscopy. After the bronchoscopy will be able to better navigate and schedule the bronchoscopy to further provide clarity of her underlying airway disease. The patient in the meantime will get some Solu- Medrol today for her significant wheezing. She has been having issues with the amiodarone. She had issues with thyroid disease. A CT scan will also help to find out if there is any evidence of any amiodarone induced pulmonary toxicity. 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 Surgical History History of bronchoscopy History of foot surgery Family History Other Asthma Social History Household Members: None Housing: Apartment Do you presently have visiting nurse or other home services: No Alcohol intake: former Patient Tobacco Use Status: Former Tobacco user Quit Date: 2001 Tobacco use type: Cigarette Years Smoked: 46 years e-Cigarette/Vaping Use: Never Used Second Hand Smoke Exposure: No Advance Directives Date on File: 01/07/22 service: No Current occupational status: retired Review of Systems Const Denies weakness ENT Denies dizziness Card Denies chest pain, Denies chest pain with activity, Denies syncope, Denies rapid heart rate, Denies pedal edema, Denies edema, Denies leg edema, Denies lightheadedness, Denies palpitations, Reports dyspnea, Reports dyspnea on exertion and Denies orthopnea Resp Reports chest congestion, Reports cough, Denies hemoptysis, Reports dyspnea, Reports dyspnea on exertion and Reports wheezing GI Denies hematochezia and Denies change in stool character Musc Denies abnormal gait, Denies muscle weakness, Denies numbness, Denies radiating pain into limb and Denies tingling Neuro Denies abnormal gait, Denies dizziness, Denies syncope, Denies numbness, Denies tingling and Denies weakness Endo Denies palpitations Aller/Immun Reports wheezing Physical Exam Vital Signs: Last Vital Signs Pulse 59 02/12/23 10:32 Pulse Ox 95 02/12/23 10:32 Oxygen Delivery Method Room Air 02/12/23 10:32 BMI result Body Mass Index 34.0 Const General: comfortable and no acute distress Orientation/consciousness: patient oriented x3 HEENT Other: Unremarkable Head: Yes normal to inspection Neck Neck: Yes normal visual inspection Chest Chest palpation & inspection: normal inspection of the chest Resp Effort & Inspection: prolonged expiratory phase Auscultation: wheezes and diminished lung sounds Cardio Palpation: normal PMI Heart sounds: S1 normal heart sound present, S2 normal heart sound present, no gallops, no murmurs and no rubs GI Palpation (GI): Soft to palpation Back/Spine/Pelvis Other: unremarkable Skin General skin exam: no rashes or lesions noted Neuro General: patient oriented x3 Extrem General: Yes normal to inspection Psych Mental Status: mental status grossly normal Office Meds methylprednisolone sod suc(PF) Performing Provider: Beto Martins MD Administered by: Anjali Jordan LPN on 02/12/23 10:58 Dose Route Admin Location Lot Number Expiration Date [employer] 125 mg IM left buttock [id number] 03/15/25 [id number] [email or web address] [facility] Assessment & Plan Assessment & Plan (1) Asthma: Code(s): J45.909 - Unspecified asthma, uncomplicated Qualifiers: Asthma complication type: with acute exacerbation Asthma persistence: persistent Asthma severity: severe Qualified Code(s): J45.51 - Severe persistent asthma with (acute) exacerbation (2) Pulmonary nodules: Code(s): R91.8 - Other nonspecific abnormal finding of lung field (3) Bronchomalacia: Code(s): J98.09 - Other diseases of bronchus, not elsewhere classified (4) Asthma-COPD overlap syndrome: Code(s): J44.9 - Chronic obstructive pulmonary disease, unspecified (5) Lower extremity edema: Code(s): R60.0 - Localized edema (6) Anemia: Code(s): D64.9 - Anemia, unspecified Plan Solumedrol today CT chest Bronchoscopy for therapeutic and diagnostic intervention Continue BUdesonide continue Duoneb QID stopped Nucala q4 weeks, too expensive, although, very effective for her Daliresp continue oxygen while sleeping and with activity cough medicine MED as needed, sending xopenex F/U 3-4 months Orders: Orders CT chest wo IV con Today R91.1 - Solitary pulmonary nodule AMB Methylprednisolone Injection Today J44.9 - Chronic obstructive pulmonary disease, unspecified Medications: New benzonatate 200 mg PO BID 30 days PRN 30 caps 11RF cough Coding Level of Care Code Est Pt Level 4 (58125) Diagnoses Asthma J45.51 Asthma complication type: with acute exacerbation Asthma persistence: persistent Asthma severity: severe Pulmonary nodules R91.8 Bronchomalacia J98.09 Asthma-COPD overlap syndrome J44.9 Lower extremity edema R60.0 Anemia D64.9 Time Spent (min) 18
[2023-02-12 10:32] VITALS: PULSE 59; O2SAT 95; BMI 34.0
== END 2023-02-12 10:58 | disposition home or self-care (01) ==
PROVIDERS: PCP Nurse Practitioner Family; Visit Provider Hospitalist
DX: J45.51 Severe persistent asthma with (acute) exacerbation (principal); R91.8 Other nonspecific abnormal finding of lung field; J98.09 Other diseases of bronchus, not elsewhere classified; R60.0 Localized edema; D64.9 Anemia, unspecified
CPT/HCPCS: 99214

== ENCOUNTER → 2023-02-12 10:09 | Outpatient (BNVA) | payer MEDICARE, SELFPAY | PROVIDERS: PCP Nurse Practitioner Family; Visit Provider Hospitalist | DX: J44.9 Chronic obstructive pulmonary disease, unspecified (principal); J45.51 Severe persistent asthma with (acute) exacerbation; J98.09 Other diseases of bronchus, not elsewhere classified; R91.8 Other nonspecific abnormal finding of lung field; R60.0 Localized edema; D64.9 Anemia, unspecified | CPT/HCPCS: 96372; 99212; J2930 ==

== ENCOUNTER 2023-02-19 10:07 | Inpatient (IN) | payer MEDICARE, SELFPAY ==
[2023-02-19] VITALS (8 sets, daily range): BP systolic 123–175; BP diastolic 53–76; PULSE 62–95; RESP 12–25; TEMP 36.7–36.8; O2SAT 92–97; BMI 34.2
--- NOTE | ~2023-02-19 | XR_ITS ---
EXAMINATION: XR CHEST CLINICAL INFORMATION: Shortness of breath COMPARISON: Chest radiograph from 02/05/2020 TECHNIQUE: 2 views of the chest were obtained. FINDINGS: Slightly prominent bronchovascular markings. No pneumothorax. Trachea is midline. Cardiomediastinal silhouette is not enlarged. Aorta demonstrates atherosclerotic calcifications. No large pleural effusion. Osseous structures are intact. Partially visualized lumbar spinal hardware. Soft tissues are unremarkable. XR/XR chest 2V IMPRESSION: Slightly prominent bronchovascular markings.
--- NOTE | 2023-02-19 11:38 | ED_ITS ---
HPI - SOB/Dyspnea General Chief Complaint: Dyspnea Stated Complaint: sob Time Seen by Provider: 02/19/23 11:53 Source: patient, EMS, RN notes reviewed and old records reviewed Mode of arrival: EMS History of Present Illness HPI Narrative: 77-year-old female with a past medical history of COPD/asthma overlap, bronchial malacia, CHF, AFib on Eliquis, HTN, CAD, obesity, ARIEL, GERD, presenting to the ED complaining of acute on chronic worsening dry cough and SOB/wheezing. Patient follows with pulmonology Dr. Martins most recently seen on 02/12/23, prescribed prednisone taper as well as Cefpodoxime and Doxycycline which patient was noncompliant with. Patient also reports recently discharge from [facility] for bronchopneumonia mid January. Denies fever/chills, chest pain, pedal edema, calf tenderness, productive cough MD elicited complaint: shortness of breath and cough Related Data Home Medications Medication Instructions Recorded Confirmed budesonide 0.5 mg/2 mL suspension 0.5 mg inhalation BID 10/23/20 01/01/23 for nebulization montelukast 10 mg tablet 10 mg PO DAILY 05/17/21 02/19/23 omeprazole 20 mg capsule,delayed 20 mg PO DAILY PRN gi upset 01/06/22 01/01/23 release alendronate 70 mg tablet 70 mg PO SA 01/21/22 02/19/23 atorvastatin 80 mg tablet 80 mg PO DAILY 06/20/22 02/19/23 diltiazem HCl 120 mg 120 mg PO DAILY 10/29/22 02/19/23 capsule,extended release 24 hr nebulizers 12/04/22 01/01/23 levalbuterol tartrate 45 2 puff inhalation Q4-6H PRN 12/19/22 01/01/23 mcg/actuation aerosol inhaler furosemide 40 mg tablet 20 mg PO DAILY 02/05/23 02/19/23 levothyroxine 25 mcg tablet 50 mcg PO DAILY 02/12/23 02/19/23 estradiol 0.01% (0.1 mg/gram) 1 g vaginal 2XW 02/19/23 02/19/23 vaginal cream Previous Rx's Medication Instructions Recorded loratadine 10 mg tablet (Claritin) 10 mg PO DAILY 30 days #30 tabs 05/31/22 apixaban 5 mg tablet (Eliquis) 5 mg PO BID 90 days #180 tabs 01/17/23 ipratropium 0.5 mg-albuterol 3 mg 3 ml inhalation Q4H PRN for 01/20/23 (2.5 mg base)/3 mL nebulization dyspnea #180 mL soln valsartan 80 mg tablet 80 mg PO DAILY #90 tabs 01/20/23 amiodarone 200 mg tablet 200 mg PO DAILY #30 tabs 02/03/23 cefpodoxime 200 mg tablet 200 mg PO BID #20 tabs 02/05/23 codeine 10 mg-guaifenesin 100 mg/5 10 ml PO Q6H PRN cough 10 days 02/05/23 mL oral liquid #300 mL prednisone 10 mg tablet See Rx Instructions PO DAILY 18 02/05/23 days #63 tabs benzonatate 200 mg capsule 200 mg PO BID PRN cough 30 days 02/12/23 #30 caps Allergies Allergy/AdvReac Type Severity Reaction Status Date / Time aspirin Allergy Severe Upset Verified 02/19/23 11:41 Stomach Latex Gloves Allergy Severe Rash Uncoded 02/19/23 11:41 Review of Systems Review of Systems: Constitutional: No Fever, No Chills, No Fatigue, No Malaise ENT/Mouth: No Ear Pain, No Nasal Congestion, No sore throat, No Rhinorrhea, No Swallowing Difficulty Eyes: No Eye Pain, No Swelling Cardiovascular: No Chest Pain, + SOB, No Dyspnea on Exertion, No Orthopnea, No Edema, No Palpitations Respiratory: + Cough, No Sputum, + Wheezing, No Smoke Exposure, + Dyspnea Gastrointestinal: No Nausea, No Vomiting, No Diarrhea, No Constipation, No Abdominal pain Genitourinary: No irregular bleeding, No Dysuria Musculoskeletal: No joint pain, No Myalgias, No Joint Swelling Skin: No Skin Lesions, No rash Neuro: No Weakness, No Headache Yes all other systems are reviewed and are negative Constitutional: Constitutional: Reports as per [facility] Past Medical History Attestation statement: The following information was validated with the patient. 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 Surgical History History of bronchoscopy History of foot surgery Family History Family History Other Asthma Social History Social History Household Members: None Housing: Apartment Do you presently have visiting nurse or other home services: No Alcohol intake: former Patient Tobacco Use Status: Former Tobacco user Quit Date: 2001 Tobacco use type: Cigarette Years Smoked: 46 years Smoked in Last 30 Days: No e-Cigarette/Vaping Use: Never Used Second Hand Smoke Exposure: No Advance Directives: Yes Advance Directives on File: Yes Advance Directives Date on File: 01/07/22 service: No Current occupational status: retired Physical Exam Vital Signs: Vital Signs: Last Vital Signs Temp 98.3 F 02/19/23 15:39 Pulse 95 02/19/23 15:39 Resp 12 02/19/23 15:39 BP 123/53 L 02/19/23 15:39 Pulse Ox 97 02/19/23 15:39 O2 Del Method Room Air 02/19/23 15:39 BMI result Body Mass Index 34.2 Const: General: cooperative and no acute distress Orientation/consciousness: patient oriented x3 Limitations: no limitations HEENT: Head: Yes normal to inspection and Yes atraumatic Ears: hearing grossly normal bilaterally General nose exam: Normal external nose present Face and sinus: Yes normal facial exam Eyes: General: appearance normal, both eyes and all related structures EOM: EOMs intact bilaterally Neck: Neck: Yes normal visual inspection and Yes no meningeal signs Resp: Other: Good air movement Effort & Inspection: normal respiratory effort, audible wheezes and no respiratory distress Auscultation: wheezes expiratory wheezes and throughout Cardio: Rate: regular rate Heart sounds: S1 normal heart sound present and S2 normal heart sound present GI: Inspection: Yes normal to inspection Palpation (GI): Soft to palpation, nontender, no guarding and not rigid : General: Yes no CVA tenderness Back/Spine/Pelvis: Back: no CVA tenderness Skin: Rashes: no rashes Wounds: no wounds Neuro: General: patient oriented x3, tone normal and no meningeal signs Cranial nerves: Yes CN's II-XII intact bilaterally Gait exam (Neuro): Normal gait present Extrem: General: Yes normal to inspection, Yes no pedal edema and Yes no calf tenderness Course Course Course Narrative: This is a rapid medical exam. deferred additional HPI, ROS, PE to primary provider. 77 yo female with history of obstructive sleep apnea, pneumonitis, asthma/COPD overlap, bronchial malacia, pulmonary nodules, afib on eliquis here with shortness of breath, cough. Finishing 2 antibiotics, prednisone with no changes. [place] [facility] *wheezing in triage. Will obtain labs, EKG, CXR, viral testing. -1400--no leukocytosis. Labs otherwise reassuring/patient's baseline XR chest 2V IMPRESSION: Slightly prominent bronchovascular markings. ? -Viral testing negative. 1401--on re-evaluation patient was ambulating steady from bathroom, diffuse expiratory wheeze/coarse lung sounds still appreciated. Plan to admit for further management Medications Administered Discontinued Medications Generic Name Dose Route Start Last Admin Trade Name Freq PRN Reason Stop Dose Admin Albuterol Sulfate 10 mg 02/19/23 14:02 02/19/23 14:11 Albuterol Sulfate (0.083%) 2.5 Mg/3 Ml Vial.Neb INHALE 02/19/23 14:03 10 mg ONCE ONE Administration Albuterol/Ipratropium 3 ml 02/19/23 11:41 02/19/23 11:53 Albuterol/Iprat 2.5/0.5mg 3 Ml Ampul.Neb INHALE 02/19/23 11:42 3 ml ONCE ONE Administration Albuterol Sulfate 7.5 mg/ 0 mg 02/19/23 13:19 02/19/23 13:40 Albuterol/Ipratropium 3 ml INHALE 02/19/23 13:20 10 each ONCE ONE Administration Magnesium Sulfate 2 gm in 50 mls @ 25 mls/hr 02/19/23 12:17 02/19/23 13:13 Magnesium Sulfate/H2o IV 02/19/23 14:16 Infused ONCE ONE Infusion Methylprednisolone Sodium Succinate 125 mg 02/19/23 12:17 02/19/23 12:37 Methylprednisolone Sod Succ 125 Mg/2 Ml Vial IVPUSH 02/19/23 12:18 125 mg ONCE ONE Administration Medical Decision Making Medical Decision Making [facility] Narrative: 77-year-old female with a past medical history of COPD/asthma overlap, bronchial malacia, CHF, AFib on Eliquis, HTN, CAD, obesity, ARIEL, GERD, presenting to the ED complaining of acute on chronic worsening dry cough and SOB/wheezing. On exam initially to cap neck, satting 97% on RA, audible wheeze appreciated with dry cough, good air movement however with diffuse expiratory wheeze. No pedal edema/calf tenderness. Concern for asthma/COPD exacerbation vs pneumonia vs CHF. Lower suspicion for PE/DVT at this time. Unlikely ACS. Low suspicion for severe sepsis at this time Plan: EKG, labs, CXR, viral testing, DuoNeb, IV Solu-Medrol, IV magnesium, anticipate admission Please refer to course for remaining clinical decision making, interpretation of labs/imaging results, and discussions with consultants and/or family members. Differential Diagnosis Differential Diagnoses: The differential diagnosis associated with the p resentation includes As above Admission/Observation Consideration of admission/observation: Escalation of care including admiss ion/observation considered Consult Healthcare Provider Management of the patient was discussed with: Hospitalist Lab Data [facility] Lab Attestation statement: I reviewed the patient's lab results. 02/19/23 11:56 02/19/23 11:55 Labs: Lab Results 02/19/23 02/19/23 02/19/23 Range/Units 11:55 11:55 11:55 WBC (4.8-10.8) X10*3/uL RBC (4.20-5.50) X10*6/uL Hgb (12.0-16.0) g/dl Hct (37.0-47.0) % MCV (80.0-98.0) fL MCH (27.0-33.0) pg MCHC (31.0-35.0) g/dl RDW (11.0-16.0) % Plt Count (160-400) X10*3/uL MPV (9.4-12.3) fL Immature Gran % (Auto) (0.0-0.4) % Neut % (Auto) (45-73) % Lymph % (Auto) (20-40) % Dawson % (Auto) (2-11) % Eos % (Auto) (0-4) % Baso % (Auto) (0-2) % Lymph # (Auto) (1.2-4.9) X10*3/uL Dawson # (Auto) (0.1-1.2) X10*3/uL Eos # (Auto) (0.0-0.4) X10*3/uL Baso # (Auto) (0.0-0.2) X10*3/uL Abs Immat Gran (auto) (0.00-0.03) X10*3/uL Absolute Neuts (auto) (2.0-8.3) x10*3/uL Absolute Nucleated RBC (0.0-0.012) X10*3/uL Nucleated RBC % (auto) (0.0-0.2) /100WBC PT 15.0 H (11.1-13.3) SEC INR 1.2 H (0.9-1.1) Sodium 145 (135-145) mmol/L Potassium 3.6 (3.3-5.1) mmol/L Chloride 101 (96-108) mmol/L Carbon Dioxide 33 H (22-29) mmol/L Anion Gap 15 (12-20) BUN 15 (9-16) mg/dL Creatinine 0.81 (0.5-1.4) mg/dL Estim Creat Clear Calc 54.7 Estimated GFR > 60 Random Glucose 83 (60-115) mg/dL Lactic Acid 1.5 (0.5-2.0) mmol/L Calcium 10.1 (8.4-10.2) mg/dL Total Bilirubin 0.8 (0.0-1.0) mg/dL Direct Bilirubin 0.2 (0.0-0.5) mg/dL AST 16 (5-31) U/L ALT 20 (0-31) U/L Alkaline Phosphatase 76 (39-117) U/L Troponin I High Sens (<3.5-17.0) ng/L B-Natriuretic Peptide (<100) pg/mL Total Protein 7.0 (6.5-8.0) g/dL Albumin 4.4 (3.5-5.0) g/dL Influenza Type A (PCR) (Negative) Influenza Type B (PCR) (Negative) RSV RNA Qual (PCR) (Negative) SARS-CoV-2 RNA (RT-PCR) (Negative) 02/19/23 02/19/23 02/19/23 Range/Units 11:55 11:56 11:56 WBC 11.2 H (4.8-10.8) X10*3/uL RBC 4.11 L (4.20-5.50) X10*6/uL Hgb 13.0 (12.0-16.0) g/dl Hct 39.3 (37.0-47.0) % MCV 95.6 (80.0-98.0) fL MCH 31.6 (27.0-33.0) pg MCHC 33.1 (31.0-35.0) g/dl RDW 14.1 (11.0-16.0) % Plt Count 202 (160-400) X10*3/uL MPV 10.5 (9.4-12.3) fL Immature Gran % (Auto) 0.5 H (0.0-0.4) % Neut % (Auto) 73.2 H (45-73) % Lymph % (Auto) 15.3 L (20-40) % Dawson % (Auto) 7.8 (2-11) % Eos % (Auto) 3.0 (0-4) % Baso % (Auto) 0.2 (0-2) % Lymph # (Auto) 1.7 (1.2-4.9) X10*3/uL Dawson # (Auto) 0.9 (0.1-1.2) X10*3/uL Eos # (Auto) 0.3 (0.0-0.4) X10*3/uL Baso # (Auto) 0.0 (0.0-0.2) X10*3/uL Abs Immat Gran (auto) 0.06 H (0.00-0.03) X10*3/uL Absolute Neuts (auto) 8.2 (2.0-8.3) x10*3/uL Absolute Nucleated RBC 0.000 (0.0-0.012) X10*3/uL Nucleated RBC % (auto) 0.0 (0.0-0.2) /100WBC PT (11.1-13.3) SEC INR (0.9-1.1) Sodium (135-145) mmol/L Potassium (3.3-5.1) mmol/L Chloride (96-108) mmol/L Carbon Dioxide (22-29) mmol/L Anion Gap (12-20) BUN (9-16) mg/dL Creatinine (0.5-1.4) mg/dL Estim Creat Clear Calc Estimated GFR Random Glucose (60-115) mg/dL Lactic Acid (0.5-2.0) mmol/L Calcium (8.4-10.2) mg/dL Total Bilirubin (0.0-1.0) mg/dL Direct Bilirubin (0.0-0.5) mg/dL AST (5-31) U/L ALT (0-31) U/L Alkaline Phosphatase (39-117) U/L Troponin I High Sens < 2.7 (<3.5-17.0) ng/L B-Natriuretic Peptide 31 (<100) pg/mL Total Protein (6.5-8.0) g/dL Albumin (3.5-5.0) g/dL Influenza Type A (PCR) (Negative) Influenza Type B (PCR) (Negative) RSV RNA Qual (PCR) (Negative) SARS-CoV-2 RNA (RT-PCR) (Negative) 02/19/23 Range/Units 12:21 WBC (4.8-10.8) X10*3/uL RBC (4.20-5.50) X10*6/uL Hgb (12.0-16.0) g/dl Hct (37.0-47.0) % MCV (80.0-98.0) fL MCH (27.0-33.0) pg MCHC (31.0-35.0) g/dl RDW (11.0-16.0) % Plt Count (160-400) X10*3/uL MPV (9.4-12.3) fL Immature Gran % (Auto) (0.0-0.4) % Neut % (Auto) (45-73) % Lymph % (Auto) (20-40) % Dawson % (Auto) (2-11) % Eos % (Auto) (0-4) % Baso % (Auto) (0-2) % Lymph # (Auto) (1.2-4.9) X10*3/uL Dawson # (Auto) (0.1-1.2) X10*3/uL Eos # (Auto) (0.0-0.4) X10*3/uL Baso # (Auto) (0.0-0.2) X10*3/uL Abs Immat Gran (auto) (0.00-0.03) X10*3/uL Absolute Neuts (auto) (2.0-8.3) x10*3/uL Absolute Nucleated RBC (0.0-0.012) X10*3/uL Nucleated RBC % (auto) (0.0-0.2) /100WBC PT (11.1-13.3) SEC INR (0.9-1.1) Sodium (135-145) mmol/L Potassium (3.3-5.1) mmol/L Chloride (96-108) mmol/L Carbon Dioxide (22-29) mmol/L Anion Gap (12-20) BUN (9-16) mg/dL Creatinine (0.5-1.4) mg/dL Estim Creat Clear Calc Estimated GFR Random Glucose (60-115) mg/dL Lactic Acid (0.5-2.0) mmol/L Calcium (8.4-10.2) mg/dL Total Bilirubin (0.0-1.0) mg/dL Direct Bilirubin (0.0-0.5) mg/dL AST (5-31) U/L ALT (0-31) U/L Alkaline Phosphatase (39-117) U/L Troponin I High Sens (<3.5-17.0) ng/L B-Natriuretic Peptide (<100) pg/mL Total Protein (6.5-8.0) g/dL Albumin (3.5-5.0) g/dL Influenza Type A (PCR) NEGATIVE (Negative) Influenza Type B (PCR) NEGATIVE (Negative) RSV RNA Qual (PCR) NEGATIVE (Negative) SARS-CoV-2 RNA (RT-PCR) NEGATIVE (Negative) Independent Interpretation I performed an independent interpretation of an: EKG Radiology Impression Discussion of test interpretation with radiology: I have reviewed the radiologist's reading. External Record Review External record reviewed: Inpatient record, Office record, Outpatient record, Prior outpatient labs, Prior outpatient radiology, Primary care record and Outside ED record Tests considered The following testing was considered but not selected: As above Prescription Management I considered prescription management with: Pain Medication and Antibiotic Chronic Conditions Patient?s care impacted by: Hypertension and Other (Asthma/COPD, ARIEL) Critical Care Time Critical Care Time Critical Care Time: Yes Total Critical Care Time: 45 Attestation: I have personally provided critical care time exclusive of time spent on separ ately billable procedures. Time includes review of lab data, radiology results, discussion with consultants, and monitoring for potential decompensation. Intervention performed as documented. Discharge Plan Discharge Clinical Impression: Asthma-COPD overlap syndrome Patient Disposition: Admitted As Inpatient
--- NOTE | 2023-02-19 11:40 | ECG_ITS ---
Test Reason : sob Blood Pressure : / mmHG Vent. Rate : 071 BPM Atrial Rate : 071 BPM P-R Int : 164 ms QRS Dur : 080 ms QT Int : 428 ms P-R-T Axes : 039 000 019 degrees QTc Int : 465 ms Normal sinus rhythm Possible Inferior infarct , age undetermined Possible Anterior infarct , age undetermined Abnormal ECG When compared with ECG of 03-NOV-2022 05:30, Borderline criteria for Anterior infarct are now Present Borderline criteria for Inferior infarct are now Present Referred By: Hodan Sepulveda Electronically Signed By:KIKE LOPEZ
[2023-02-19] MEDS: Albuterol/Iprat 2.5/0.5MG 3 ML AMPUL.NEB INHALE ×2 (11:53→20:01)
--- NOTE | 2023-02-19 12:03 | PC.NURSE ---
patient presented to ED with dyspnea, pt respiratory jones sounds wheezy and tight. respiratory giving duoneb
[2023-02-19 12:04] LABS: MANUAL DIFF FLAG NO
[2023-02-19 12:07] LABS: Basophils Percent Auto 0.2 % (0-2); Eosinophils Absolute Auto 0.3 X10*3/uL (0.0-0.4); Hematocrit 39.3 % (37.0-47.0); Imm Gran Abs Auto 0.06 X10*3/uL (0.00-0.03); Imm Gran Pct Auto 0.5 % (0.0-0.4); Lymphocytes Absolute Auto 1.7 X10*3/uL (1.2-4.9); Lymphocytes Percent Auto 15.3 % (20-40); Mean Corpuscular HGB Conc 33.1 g/dl (31.0-35.0); Mean Corpuscular Hemoglobin 31.6 pg (27.0-33.0); Mean Corpuscular Volume 95.6 fL (80.0-98.0); Mean Platelet Volume 10.5 fL (9.4-12.3); Monocytes Absolute Auto 0.9 X10*3/uL (0.1-1.2); Monocytes Percent Auto 7.8 % (2-11); Neutrophils Absolute Auto 8.2 x10*3/uL (2.0-8.3); Neutrophils Percent Auto 73.2 % (45-73); Platelet Count 202 X10*3/uL (160-400); Red Blood Count 4.11 X10*6/uL (4.20-5.50); Red Cell Distribution Width 14.1 % (11.0-16.0); White Blood Count 11.2 X10*3/uL (4.8-10.8)
[2023-02-19 12:11] LABS: INTERNATIONAL NORM RATIO 1.2 (0.9-1.1)
[2023-02-19 12:17] LABS: Lactic Acid 1.5 mmol/L (0.5-2.0)
[2023-02-19 12:23] LABS: Alanine Aminotransferase 20 U/L (0-31); Albumin Level 4.4 g/dL (3.5-5.0); Alkaline Phosphatase 76 U/L (39-117); Anion Gap 15 (12-20); Aspartate Amino Transferase 16 U/L (5-31); Bilirubin Direct 0.2 mg/dL (0.0-0.5); Bilirubin Total 0.8 mg/dL (0.0-1.0); Blood Urea Nitrogen 15 mg/dL (9-16); Calcium 10.1 mg/dL (8.4-10.2); Carbon Dioxide 33 mmol/L (22-29); Chloride 101 mmol/L (96-108); Creatinine Clr Calc Pharmacy 54.7; Estimated Glomerular Filt Rate > 60; Glucose Random 83 mg/dL (60-115); Potassium 3.6 mmol/L (3.3-5.1); Sodium 145 mmol/L (135-145)
[2023-02-19 12:30] LABS: Troponin-I High Sensitivity < 2.7 ng/L (<3.5-17.0)
[2023-02-19 12:30] LABS: B Type Natriuretic Peptide 31 pg/mL (<100)
[2023-02-19] MEDS: Magnesium Sulfate/H2O 2 GM/50 ML PIGGYBACK IV (12:37)
[2023-02-19] MEDS: methylPREDNISolone Sod Succ 125 MG/2 ML VIAL IVPUSH (12:37)
[2023-02-19 13:06] LABS: Influenza A PCR NEGATIVE (Negative); Influenza B PCR NEGATIVE (Negative); Resp Syncy Virus RNA Qual PCR NEGATIVE (Negative); SARS COV2 PCR INHOUSE NEGATIVE (Negative)
[2023-02-19] MEDS: Albuterol Sulfate 7.5 MG, Albuterol/Iprat 2.5/0.5MG 3 ML 3 ML INHALE (13:40)
[2023-02-19] MEDS: Albuterol Sulfate (0.083%) 2.5 MG/3 ML VIAL.NEB 10 MG INHALE (14:11)
--- NOTE | 2023-02-19 15:42 | PM.IMHP ---
History of Present Illness Date of Service: 02/19/23 Attending physician on admission: Holden Jacobs Chief Complaint: SOB, cough Pt is a 77-year-old female with a PMH significant for?COPD/asthma, paroxysmal AFib on Eliquis, HTN, HLD, CAD, ARIEL, GERD, osteoporosis, and hypothyroidism who presents to the ED with?worsening SOB, dyspnea with exertion, and nonproductive cough x2 weeks. Patient with a significant pulmonary history, followed by Dr. Martins. Patient states she has been experiencing significant COPD exacerbations on off for the past year, and has been on and off antibiotics since August. Reports having significant SOB since October, though has worsened significantly in the past [address] Martins 2 weeks ago and was started on a prednisone taper and prescribed cefpodoxime and doxycycline which caused her stomach upset. Saw Dr. Martins again 7 days ago on 02/12/2023 and discussed outpatient bronchoscopy. Patient reports for shortness breath and nonproductive cough have only gotten worse, thus prompting her visit to the emergency department. Patient states she has supplemental oxygen at home, though has not been using it because her O2 saturation has been > 95%. She also has CPAP for sleeping at night, however reports she is unable to tolerate the device. Denies chest pain/pressure, palpitations. No fever, chills, nausea, vomiting, abdominal pain. In the ED patient was afebrile but tachypneic up to 25 and hypertensive up to 175/64, satting at 97% on RA. Labs were significant for leukocytosis of 11.2. H&H stable. Electrolytes WNL. Renal and hepatic function baseline. Troponin negative. BNP WNL at 31. CXR showed slightly prominent bronchovascular markings. EKG demonstrated a normal sinus rhythm without ST elevations or depressions. Pt was treated with DuoNebs, Solu-Medrol, and magnesium sulfate. Pt will be admitted to the hospital for acute asthma/COPD overlap exacerbation. Review of Systems Review of Systems: Increasing shortness of breath and dyspnea with exertion x2 weeks Increasing nonproductive cough x2 weeks Wheezing Denies chest pain/pressure, palpitations. 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 Family History Other Asthma Surgical History History of bronchoscopy History of foot surgery Social History Household Members: None Housing: Apartment Do you presently have visiting nurse or other home services: No Alcohol intake: former Patient Tobacco Use Status: Former Tobacco user Quit Date: 2001 Tobacco use type: Cigarette Years Smoked: 46 years Smoked in Last 30 Days: No e-Cigarette/Vaping Use: Never Used Second Hand Smoke Exposure: No Advance Directives: Yes Advance Directives on File: Yes Advance Directives Date on File: 01/07/22 service: No Current occupational status: retired Meds Allergies Allergy/AdvReac Type Severity Reaction Status Date / Time aspirin Allergy Severe Upset Verified 02/19/23 11:41 Stomach Latex Gloves Allergy Severe Rash Uncoded 02/19/23 11:41 Home Medications Medication Instructions Recorded Confirmed Last Taken Type budesonide 0.5 mg/2 mL suspension 0.5 mg inhalation BID 10/23/20 02/19/23 02/19/23 History for nebulization montelukast 10 mg tablet 10 mg PO BEDTIME 05/17/21 02/19/23 02/18/23 History omeprazole 20 mg capsule,delayed 20 mg PO DAILY 01/06/22 02/19/23 02/19/23 History release alendronate 70 mg tablet 70 mg PO SA 01/21/22 02/19/23 02/15/23 History atorvastatin 80 mg tablet 80 mg PO DAILY 06/20/22 02/19/23 02/19/23 History diltiazem HCl 120 mg 120 mg PO DAILY 10/29/22 02/19/23 02/19/23 History capsule,extended release 24 hr nebulizers 12/04/22 01/01/23 Unknown History levalbuterol tartrate 45 2 puff inhalation Q4-6H PRN 12/19/22 02/19/23 Unknown History mcg/actuation aerosol inhaler Wheezing furosemide 40 mg tablet 40 mg PO DAILY 02/05/23 02/19/23 02/19/23 History levothyroxine 25 mcg tablet 50 mcg PO DAILY 02/12/23 02/19/23 02/19/23 History estradiol 0.01% (0.1 mg/gram) 1 g vaginal TUFR 02/19/23 02/19/23 02/19/23 History vaginal cream peg 400-propylene glycol (PF) 0.4 1 drp ophthalmic (eye) TID PRN Dry 02/19/23 02/19/23 Unknown History %-0.3 % eye drops in a dropperette Eyes (Systane (PF)) valsartan 80 mg tablet 80 mg PO BEDTIME 02/19/23 02/19/23 02/18/23 History Physical Exam Vital Signs and Narrative: Vital Signs: Last Vital Signs Temp 98.3 F 02/19/23 15:39 Pulse 95 02/19/23 15:39 Resp 12 02/19/23 15:39 BP 123/53 L 02/19/23 15:39 Pulse Ox 97 02/19/23 15:39 O2 Del Method Room Air 02/19/23 15:39 BMI result Body Mass Index 34.2 Constitutional: Alert, in no acute distress. Mental Status: Oriented to person, place and time. Eyes: Pupils are equal, round, and reactive to light. Ear, Nose, and Throat: Oropharynx clear, mucous membranes moist. Ears and nose without deformities. Trachea midline. Respiratory: Diffuse coarse breath sounds with expiratory wheezing bilaterally. Cardiovascular: S1, S2 regular. No murmurs, rubs, or gallops. Gastrointestinal: Abdomen soft, non-tender, non-distended. Normal bowel sounds. Neurologic: Cranial nerves II-XII are grossly intact bilaterally. No focal neurological deficits. Moves all extremities spontaneously. Skin: No rashes or lesions noted. Musculoskeletal: No cyanosis or clubbing. Extremities: No edema. Psychiatric: Normal mood and affect. Results Labs 02/19/23 11:56 02/19/23 11:55 Labs: Laboratory Results - last 24 hr 02/19/23 02/19/23 02/19/23 11:55 11:55 11:55 MCV MCH MCHC RDW Plt Count MPV Immature Gran % (Auto) Neut % (Auto) Lymph % (Auto) [place] % (Auto) Eos % (Auto) Baso % (Auto) Lymph # (Auto) [place] # (Auto) Eos # (Auto) Baso # (Auto) Abs Immat Gran (auto) Absolute Neuts (auto) Absolute Nucleated RBC Nucleated RBC % (auto) PT 15.0 H INR 1.2 H Anion Gap 15 Estim Creat Clear Calc 54.7 Estimated GFR > 60 Random Glucose 83 Lactic Acid 1.5 Calcium 10.1 Total Bilirubin 0.8 Direct Bilirubin 0.2 AST 16 ALT 20 Alkaline Phosphatase 76 B-Natriuretic Peptide Total Protein 7.0 Albumin 4.4 Influenza Type A (PCR) Influenza Type B (PCR) RSV RNA Qual (PCR) SARS-CoV-2 RNA (RT-PCR) 02/19/23 02/19/23 02/19/23 11:56 11:56 12:21 MCV 95.6 MCH 31.6 MCHC 33.1 RDW 14.1 Plt Count 202 MPV 10.5 Immature Gran % (Auto) 0.5 H Neut % (Auto) 73.2 H Lymph % (Auto) 15.3 L [place] % (Auto) 7.8 Eos % (Auto) 3.0 Baso % (Auto) 0.2 Lymph # (Auto) 1.7 [place] # (Auto) 0.9 Eos # (Auto) 0.3 Baso # (Auto) 0.0 Abs Immat Gran (auto) 0.06 H Absolute Neuts (auto) 8.2 Absolute Nucleated RBC 0.000 Nucleated RBC % (auto) 0.0 PT INR Anion Gap Estim Creat Clear Calc Estimated GFR Random Glucose Lactic Acid Calcium Total Bilirubin Direct Bilirubin AST ALT Alkaline Phosphatase B-Natriuretic Peptide 31 Total Protein Albumin Influenza Type A (PCR) NEGATIVE Influenza Type B (PCR) NEGATIVE RSV RNA Qual (PCR) NEGATIVE SARS-CoV-2 RNA (RT-PCR) NEGATIVE Imaging Radiologist's Impressions: Impressions Chest X-Ray 02/19/23 11:27 IMPRESSION: Slightly prominent bronchovascular markings. Assessment and Plan (1) Asthma-COPD overlap syndrome: Status: Acute Plan Pt is a 77-year-old female with a PMH significant for?COPD/asthma, paroxysmal AFib on Eliquis, HTN, HLD, CAD, ARIEL, GERD, osteoporosis, and hypothyroidism who presents to the ED with?worsening SOB, dyspnea with exertion, and nonproductive cough x2 weeks. Pt will be admitted to the hospital for acute asthma/COPD overlap exacerbation. Acute asthma/COPD overlap syndrome exacerbation Patient with significantly increased wheezing, SOB, dyspnea with exertion, and nonproductive cough x2 weeks Patient has seen pulmonology twice in the past 2 weeks, been started on prednisone and antibiotics to no positive effect Significant coarse breath sounds and wheezing upon auscultation Patient is not hypoxic, satting at 97% on RA Solu-Medrol 40 mg Q 12 DuoNebs q.6 Benzonatate, guaifenesin Continue home inhalers Will hold off on additional round of antibiotics for now since patient recently just finished prior course and had stomach upset Pulmonology consult Paroxysmal AFib Continue amiodarone, diltiazem, Eliquis HTN Continue valsartan HLD Statin Hypothyroidism Continue levothyroxine GERD Continue omperazole Full Code Attending:?Dr. Jacobs DVT Prophylaxis: On Eliquis Pt will require a hospitalization of at least two nights for treatment of?acute asthma/COPD overlap with IV steroids, breathing treatments, and specialist consult. Time Spent With Patient Time: Total time managing care of this patient today ____ minutes. Quality Stroke Does the patient have a stroke diagnosis?: No VTE Prior VTE?: No VTE Risk Level:: Medical - moderate - high VTE Device Contraindication: Treatment Not Indicated VTE Drug Contraindication: N/A - Med Ordered
--- NOTE | 2023-02-19 16:15 | PC.NURSE ---
assumed care of pt at this time. 2 MD at bedside for o2 sat eval while pt ambulates.
--- NOTE | 2023-02-19 17:06 | PHA.MEDREC ---
Pharmacy Consult ? Medication Reconciliation Pharmacy has completed the medication reconciliation. Patient had list of medication with her. Reports she does not need her estrdiol cream while inpatient. Juliana Torres, ChristieD
--- NOTE | 2023-02-19 18:35 | PC.NURSE ---
attempt to call report.
--- NOTE | 2023-02-19 18:39 | PC.NURSE ---
Addendum entered by Rodo Hallman 02/19/23 18:40: awaiting transport. Original Note: report given to s3 rn john.
[2023-02-19] MEDS: Budesonide 0.5 MG/2 ML AMPUL.NEB INHALE (20:01)
[2023-02-19] MEDS: Valsartan 80 MG TABLET PO (21:30)
[2023-02-19] MEDS: Apixaban 5 MG TABLET PO (21:30)
[2023-02-19] MEDS: Montelukast Sodium 10 MG TABLET PO (21:30)
[2023-02-20] MEDS: methylPREDNISolone Sod Succ 40 MG/ML VIAL IVPUSH (01:11)
[2023-02-20] MEDS: 0.9 % Sodium Chloride Flush 3 ML SYRINGE IVFLUSH ×2 (01:15→10:58)
[2023-02-20 03:22] VITALS: BP 110/53; PULSE 79; RESP 16; TEMP 36.3; O2SAT 96
[2023-02-20] MEDS: Omeprazole 20 MG CAPSULE.DR PO (06:39)
[2023-02-20] MEDS: Levothyroxine Sodium 50 MCG TABLET PO (06:40)
[2023-02-20 07:37] VITALS: BP 134/63; PULSE 72; RESP 20; TEMP 36.3; O2SAT 94
[2023-02-20] MEDS: Albuterol/Iprat 2.5/0.5MG 3 ML AMPUL.NEB INHALE (08:13)
[2023-02-20 08:15] VITALS: PULSE 78; RESP 16; O2SAT 98
--- NOTE | 2023-02-20 09:52 | PM.CNPUL ---
History of Present Illness History of Present Illness Consult date: 02/20/23 Chief complaint: Increasing SOB,cough serious Narrative: PULMONARY CONSULTATION I have seen this 77 years old female this morning. She is admitted which chief complaint of ongoing cough, and increasing shortness of breath, Denies fever or chills . Main complaint is that she feels some mucus in the upper airways which she cannot clear. She also states that each time she reduces her prednisone down to lower does like 5 or 10 mg, she starts having escalation of her respiratory symptoms. This suggests that she has become heavily steroids dependent. Patient is being actively followed up by Dr. Martins in the office, she has been seen twice in the last 2 weeks. He each time she comes she gets the a DuoNeb updraft, and a large doses of IV Solu-Medrol followed by prednisone taper. According to the notes of Dr. Martins she has Tracheo-Bronchial malacia . Dr. Martins was planning to do a bronchoscopy as outpatient. However patient has been told that her is stridor, which is partly due to tracheomalacia, may not clear.. This patient has history of obstructive sleep apnea but has not been able to tolerate the CPAP therapy. She does not need oxygen at home. She uses levalbuterol 2 puffs Q 4-6 hours p.r.n., and is on budesonide VIA a nebulizer twice a day, Patient also has coronary artery disease with paroxysmal atrial fibrillation. She is on Amiodarone. Diltiazem, and Eliquis for anticoagulation. Review of Systems Review of Systems: Yes all other systems are reviewed and are negative Cardiovascular: Cardiovascular: Reports irregular heart rhythm (Paroxysmal atrial fibrillation) Respiratory: Respiratory: Reports as per HPI Gastrointestinal: Gastrointestinal: Reports nausea (Secondary to Daliresp.) Musculoskeletal: Musculoskeletal: Reports myalgias and Reports muscle weakness Integumentary/Breasts: Skin/Breast: Reports other (Has ecchymosis over the right hand and left total leg due to recent fall) [facility] Past Medical History Medical History Anemia Essential hypertension PAF (paroxysmal atrial fibrillation) Coronary artery calcification seen on CAT scan ARIEL (obstructive sleep apnea) Bronchomalacia HTN (hypertension) 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 Bronchitis Pulmonary nodules Asthma-COPD overlap syndrome Family History Family History Other Asthma Surgical History Surgical History History of bronchoscopy History of foot surgery Social History Social History Household Members: None Housing: Assisted Living Facility Do you presently have visiting nurse or other home services: Yes (home health aide for housekeeping) Alcohol intake: former Patient Tobacco Use Status: Former Tobacco user Quit Date: 25 years ago Tobacco use type: Cigarette Years Smoked: 45 Smoked in Last 30 Days: No e-Cigarette/Vaping Use: Never Used Second Hand Smoke Exposure: No Use of substances other than those prescribed or required for medical reasons: No Currently Displaying Signs/Symptoms of Drug Intoxication Withdrawal: No Any prior treatment program specific to substance use: No Have you been hit, kicked, punched, or otherwise hurt by someone within the past year? If so, by whom?: No Do you feel safe in your current relationship?: No Current Relationship Is there a partner from a previous relationship who is making you feel unsafe now?: No Are you made to feel afraid or neglected: No Syn[employer] Healthcare Practices: [employer] Advance Directives: Yes Advance Directives on File: Yes Advance Directives Date on File: 01/07/22 Do you have thoughts of harming others: None Do you have a plan to hurt others: No Plan Recently lost weight without trying: No How much weight loss: Not applicable Eating poorly because of decreased appetite: No Nutrition screen score: 0 Nutrition Risks: No Nutritional Risk Patient : No : No Poor oral hygiene: No service: No Current occupational status: retired Meds Allergies Allergy/AdvReac Type Severity Reaction Status Date / Time aspirin Allergy Severe Upset Verified 02/19/23 11:41 Stomach Latex Gloves Allergy Severe Rash Uncoded 02/19/23 11:41 Active Medications: Current Medications Acetaminophen (Acetaminophen 325 Mg Tablet) 650 mg PO Q6H PRN PRN Reason: Pain, Mild (Pain Scale 1-3) Albuterol/Ipratropium (Albuterol/Iprat 2.5/0.5mg 3 Ml Ampul.Neb) 3 ml INHALE RQ6H WHILE AWAKE [facility] Last Admin: 02/20/23 08:13 Dose: 3 ml Amiodarone HCl (Amiodarone Hcl 200 Mg Tablet) 200 mg PO DAILY [facility] Apixaban (Apixaban 5 Mg Tablet) 5 mg PO BID [facility] Last Admin: 02/19/23 21:30 Dose: 5 mg Atorvastatin Calcium (Atorvastatin Calcium 80 Mg Tablet) 80 mg PO DAILY [facility] Benzonatate (Benzonatate 100 Mg Capsule) 200 mg PO BID PRN PRN Reason: cough Budesonide (Budesonide 0.5 Mg/2 Ml Ampul.Neb) 0.5 mg INHALE RBID [facility] Last Admin: 02/20/23 08:15 Dose: Not Given Diltiazem HCl (Diltiazem Hcl Cd 120 Mg Cap.Er.Deg) 120 mg PO DAILY [facility]; Protocol Docusate Sodium (Docusate Sodium 100 Mg Capsule) 100 mg PO DAILY PRN PRN Reason: Constipation Furosemide (Furosemide 40 Mg Tablet) 40 mg PO DAILY [facility]; Protocol Guaifenesin/Dextromethorphan (Guaifenesin Dm 200/20/10 Ml 10 Ml Syrup) 10 ml PO Q4H PRN PRN Reason: Cough Levothyroxine Sodium (Levothyroxine Sodium 50 Mcg Tablet) 50 mcg PO DAILY@0600 [facility] Last Admin: 02/20/23 06:40 Dose: 50 mcg Loratadine (Loratadine 10 Mg Tablet) 10 mg PO DAILY [facility] Methylprednisolone Sodium Succinate (Methylprednisolone Sod Succ 40 Mg/Ml Vial) 40 mg IVPUSH Q12H [facility] Last Admin: 02/20/23 01:11 Dose: 40 mg Montelukast Sodium (Montelukast Sodium 10 Mg Tablet) 10 mg PO BEDTIME [facility] Last Admin: 02/19/23 21:30 Dose: 10 mg Omeprazole (Omeprazole 20 Mg Capsule.Dr) 20 mg PO DAILY@0630 [facility] Last Admin: 02/20/23 06:39 Dose: 20 mg Ondansetron HCl (Ondansetron Hcl 4 Mg/2 Ml Vial) 4 mg IVPUSH Q8H PRN PRN Reason: Nausea and Vomiting Polyethyl Glycol/Propylene Glycol (Propylene Glycol/Peg 400 Gel Eye Drops 10ml) 1 drop EYE-BOTH TID PRN PRN Reason: Dry Eyes Sodium Chloride (0.9 % Sodium Chloride Flush 3 Ml Syringe) 3 ml IVFLUSH QSHIFT [facility] Last Admin: 02/20/23 01:15 Dose: 3 ml Valsartan (Valsartan 80 Mg Tablet) 80 mg PO BEDTIME [facility]; Protocol Last Admin: 02/19/23 21:30 Dose: 80 mg Home Medications Medication Instructions Recorded Confirmed Last Taken Type budesonide 0.5 mg/2 mL suspension 0.5 mg inhalation BID 10/23/20 02/19/23 02/19/23 History for nebulization montelukast 10 mg tablet 10 mg PO BEDTIME 05/17/21 02/19/23 02/18/23 History omeprazole 20 mg capsule,delayed 20 mg PO DAILY 01/06/22 02/19/23 02/19/23 History release alendronate 70 mg tablet 70 mg PO SA 01/21/22 02/19/23 02/15/23 History atorvastatin 80 mg tablet 80 mg PO DAILY 06/20/22 02/19/23 02/19/23 History diltiazem HCl 120 mg 120 mg PO DAILY 10/29/22 02/19/23 02/19/23 History capsule,extended release 24 hr nebulizers 12/04/22 01/01/23 Unknown History levalbuterol tartrate 45 2 puff inhalation Q4-6H PRN 12/19/22 02/19/23 Unknown History mcg/actuation aerosol inhaler Wheezing furosemide 40 mg tablet 40 mg PO DAILY 02/05/23 02/19/23 02/19/23 History levothyroxine 25 mcg tablet 50 mcg PO DAILY 02/12/23 02/19/23 02/19/23 History estradiol 0.01% (0.1 mg/gram) 1 g vaginal TUFR 02/19/23 02/19/23 02/19/23 History vaginal cream peg 400-propylene glycol (PF) 0.4 1 drp ophthalmic (eye) TID PRN Dry 02/19/23 02/19/23 Unknown History %-0.3 % eye drops in a dropperette Eyes (Systane (PF)) valsartan 80 mg tablet 80 mg PO BEDTIME 02/19/23 02/19/23 02/18/23 History Physical Exam Vital Signs: Vital Signs: Last Vital Signs Temp 97.4 F 02/20/23 07:37 Pulse 78 02/20/23 08:15 Resp 16 02/20/23 08:15 BP 134/63 02/20/23 07:37 Pulse Ox 94 02/20/23 07:37 O2 Del Method Room Air 02/20/23 07:37 BMI result Body Mass Index 34.2 Const: General: comfortable (EXCEPT MILD SHORTNESS OF BREATH WHEN TALKING.), no acute distress, alert and awake Orientation/consciousness: patient oriented x3 HEENT: Head: Yes normal to inspection General nose exam: No nasal polyps present and No nasal discharge present Face and sinus: Yes sinuses nontender Mouth: oropharynx normal Throat: Yes posterior oropharynx normal Eyes: General: appearance normal, both eyes and all related structures Neck: Neck: Yes normal visual inspection, Yes no lymphadenopathy, Yes trachea midline and Yes no JVD Thyroid: Thyroid normal Chest: Chest palpation & inspection: normal inspection of the chest, normal palpation of entire chest wall and no tenderness Resp: Other: Percussion note resonant. Breath sounds are distant and somewhat harsh. She does have a mild stridor . No definite wheezes are heard. If you crepitations over the right base. Cardio: Palpation: normal PMI Rate: regular rate Rhythm: regular rhythm Heart sounds: no gallops and no murmurs GI: Palpation (GI): Soft to palpation, nontender, No hepatosplenomegaly present and no masses Auscultation: normal bowel sounds Back/Spine/Pelvis: Thoracic/Lumbar Spine: thoracic and lumbar spine normal to inspection and thoraco-lumbar ROM limited Skin: Other: Has ecchymoses on the dorsum of the right hand and also over the left leg General skin exam: no rashes or lesions noted Neuro: General: patient oriented x3 and no focal motor deficits Cranial nerves: Yes CN's II-XII intact bilaterally Extrem: General: Yes normal to inspection, Yes no clubbing, cyanosis or edema and Yes no calf tenderness Psych: Appearance: grossly normal and well kempt Speech and movement: Normal speech and movement present Results Laboratory Findings 02/19/23 11:56 02/19/23 11:55 ABG, PT/INR, D-dimer: PT/INR, D-dimer PT 15.0 SEC (11.1-13.3) H 02/19/23 11:55 INR 1.2 (0.9-1.1) H 02/19/23 11:55 Abnormal lab findings: Abnormal Labs 02/19/23 02/19/23 11:55 11:56 WBC 11.2 H RBC 4.11 L Immature Gran % (Auto) 0.5 H Neut % (Auto) 73.2 H Lymph % (Auto) 15.3 L Abs Immat Gran (auto) 0.06 H PT 15.0 H INR 1.2 H Carbon Dioxide 33 H Diagnostic Findings Chest x-ray: report reviewed and image reviewed CT scan - chest: report reviewed and image reviewed Assessment and Plan (1) Asthma-COPD overlap syndrome: Status: Acute (2) ARIEL (obstructive sleep apnea): Status: Acute (3) Bronchomalacia: Status: Acute Plan This patient is moderately obese, has diagnosis of obstructive sleep apnea but cannot use CPAP. She has diagnosis of the asthma/COPD overlap syndrome, which seems to be quite severe. And is complicated by tracheo malacia. At present she seems to have ongoing tracheobronchitis. Her stridor is partly due to tracheomalacia, and partly due to acute inflammation. History is suggestive that she is heavily dependent on steroids. At present she seems to be recovering from her acute tracheobronchitis. Recc . Switch to prednisone 40 mg a day and wean of slowly , 40 mg a day for 5 days then 30 mg a day for 5 days then 20 mg a day for 5 days then 10 mg a day. Continue DuoNeb updrafts Q 6 hours p.r.n. while awake. Levalbuterol inhaler 2 puffs Q 4-6 hours p.r.n. when outdoors. Continue using budesonide 0.5 mg. in the nebulizer b.i.d. Montelukast 10 mg daily. Patient needs to follow-up with Dr. Martins, and he plans to do a bronchoscopy as outpatient. Thank you very much for asthma to see this patient. Time Spent With Patient Time: Total time managing care of this patient today ____ minutes. Procedures Date of Service Date of Service: 02/20/23
[2023-02-20] MEDS: Atorvastatin Calcium 80 MG TABLET PO (10:59)
[2023-02-20] MEDS: Apixaban 5 MG TABLET PO (10:59)
[2023-02-20] MEDS: Furosemide 40 MG TABLET PO (10:59)
[2023-02-20] MEDS: dilTIAZem HCL CD 120 MG CAP.ER.DEG PO (10:59)
[2023-02-20] MEDS: Amiodarone HCL 200 MG TABLET PO (11:00)
[2023-02-20] MEDS: Loratadine 10 MG TABLET PO (11:00)
[2023-02-20 11:09] VITALS: BP 128/60; PULSE 89
--- NOTE | 2023-02-20 12:31 | MHC.CM.PN ---
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 PT VERIFIES PCP IS OLGA ALLAN AND REPORTS SHE DID NOT END UP CHANGING HER PCP, PT REPORTS SHE IS FULLY VACCINATED AGAINST COVID19 AND HER HCP IS DTVi RODRIGUEZ [phone]. D/C PLAN: HOME NO SERVICES W/FAMILY FOR TRANSPORT
--- NOTE | 2023-02-20 17:24 | PM.DS ---
DS: Providers Provider Date of Service: 02/20/23 Date of admission: 02/19/23 16:23 Primary care physician: JAIME Simms Consults: 02/19/23 16:22 Consult to Pulmonology Routine Consulting Provider: [facility] Reason for consultation: COPD/Asthma overlap exacerbation DS: Diagnosis Discharge Diagnosis (1) Asthma-COPD overlap syndrome: Status: Acute (2) ARIEL (obstructive sleep apnea): Status: Acute (3) Bronchomalacia: Status: Acute DS: Summary Hospital Course Hospital Course: History of presenting illness: Date of Service: 02/19/23 Attending physician on admission: Holden Jacobs Chief Complaint: SOB, cough Pt is a 77-year-old female with a PMH significant for?COPD/asthma, paroxysmal AFib on Eliquis, HTN, HLD, CAD, ARIEL, GERD, osteoporosis, and hypothyroidism who presents to the ED with?worsening SOB, dyspnea with exertion, and nonproductive cough x2 weeks. Patient with a significant pulmonary history, followed by Dr. Martins. Patient states she has been experiencing significant COPD exacerbations on off for the past year, and has been on and off antibiotics since August. Reports having significant SOB since October, though has worsened significantly in the past [address] Martins 2 weeks ago and was started on a prednisone taper and prescribed cefpodoxime and doxycycline which caused her stomach upset. Saw Dr. Martins again 7 days ago on 02/12/2023 and discussed outpatient bronchoscopy. Patient reports for shortness breath and nonproductive cough have only gotten worse, thus prompting her visit to the emergency department. Patient states she has supplemental oxygen at home, though has not been using it because her O2 saturation has been > 95%. She also has CPAP for sleeping at night, however reports she is unable to tolerate the device. Denies chest pain/pressure, palpitations. No fever, chills, nausea, vomiting, abdominal pain. In the ED patient was afebrile but tachypneic up to 25 and hypertensive up to 175/64, satting at 97% on RA. Labs were significant for leukocytosis of 11.2. H&H stable. Electrolytes WNL. Renal and hepatic function baseline. Troponin negative. BNP WNL at 31. CXR showed slightly prominent bronchovascular markings. EKG demonstrated a normal sinus rhythm without ST elevations or depressions. Pt was treated with DuoNebs, Solu-Medrol, and magnesium sulfate. Pt will be admitted to the hospital for acute asthma/COPD overlap exacerbation. Hospital course: 77-year-old female with a PMH significant for?COPD/asthma, paroxysmal AFib on Eliquis, HTN, HLD, CAD, ARIEL, GERD, osteoporosis, and hypothyroidism who presents to the ED with?worsening SOB, dyspnea with exertion, and nonproductive cough x2 weeks. Pt will be admitted to the hospital for acute asthma/COPD overlap exacerbation, patient treated with IV Solu Medrol, scheduled and as needed DuoNeb and cough medication subsequently she was seen by industrial relations commissioner Dr. Garces who agreed with the above treatment and recommended slow prednisone taper starting at 40 mg, and outpatient follow-up with Dr. Martins for bronchoscopy and CT chest patient responded to above treatment continue to have shortness of breath and chest congestion with activity , otherwise oxygenation remains stable since patient remained hemodynamically stable with no worsening shortness of breath no fevers no cough she is being discharged home patient declined high-dose steroids the recommend to take 20 mg steroids for 3 days followed by 10 mg daily and to have outpatient follow-up with Dr. Martins, patient is on amiodarone question symptoms related to amiodarone toxicity will be evaluated by pulmonology . Paroxysmal AFib Continue amiodarone, diltiazem, and Eliquis HTN recommend to continue valsartan In regard to chronic medical issues including hypothyroidism and GERD recommend to continue levothyroxine and omeprazole Time Spent with Patient Time attestation: Total time managing care of this patient today ____ minutes. Discharge coordination time: Greater than 30 minutes Quality: Safe Use of Opioids Does Pt have an Active Cancer Diagnosis on the Problem List?: No Quality: Stroke Does the patient have a stroke diagnosis?: No Physical Exam Vital Signs: Vital Signs: Last Vital Signs Temp 97.4 F 02/20/23 07:37 Pulse 89 02/20/23 11:09 Resp 16 02/20/23 08:15 BP 128/60 02/20/23 11:09 Pulse Ox 94 02/20/23 07:37 O2 Del Method Room Air 02/20/23 07:37 BMI result Body Mass Index 34.2 Const: Other: General? awake alert x3, no acute distress Neck is supple no JVD. CVS? regular rate rhythm, Respiratory lungs?coarse breath sound,few expiratory rhonchi Gastrointestinal abdomen soft, non tender, bowel sounds audible, no guarding , no rigidity. Extremities no edema. Neuro non focal . Skin no rash psych appropriate affect DS: Data Data Completed and Pending Labs on day of discharge: Preliminary micro results at discharge 02/19/23 12:21 Blood Culture - Preliminary Blood - Venous No growth after 24 hours. 02/19/23 11:55 Blood Culture - Preliminary Blood - Venous No growth after 24 hours. Discharge Plan Discharge Anticipated Discharge Date/Time: 02/20/23 12:16 Patient Disposition: Home, Self-Care Discharge Diagnosis: Acute asthma/COPD overlap syndrome exacerbation Referrals: Rula Hilario FNP [Primary Care Provider] - 1 Week Discharge Medications: Continued loratadine [Claritin] 10 mg tablet 10 mg PO DAILY 30 Days Qty: 30 11RF Eliquis 5 mg tablet 5 mg PO BID 90 Days Qty: 180 3RF ipratropium-albuterol 0.5 mg-3 mg(2.5 mg base)/3 mL solution for nebulization 3 ml inhalation Q4H PRN (Reason: for dyspnea) Qty: 180 0RF amiodarone 200 mg tablet 200 mg PO DAILY Qty: 30 5RF budesonide 0.5 mg/2 mL Suspension For Nebulization 0.5 mg INHALATION BID omeprazole 20 mg Capsule,Delayed Release(Dr/Ec) 20 mg PO DAILY diltiazem HCl 120 mg capsule,extended release 24hr 120 mg PO DAILY estradiol 0.01 % (0.1 mg/gram) cream 1 g vaginal TUFR Systane (PF) 0.4-0.3 % Dropperette 1 drp OPHTHALMIC (EYE) TID PRN (Reason: Dry Eyes) valsartan 80 mg tablet 80 mg PO BEDTIME (DME) nebulizers Misc See Rx Instructions .Route Rx Instructions: As directed alendronate 70 mg tablet 70 mg PO SA montelukast 10 mg tablet 10 mg PO BEDTIME atorvastatin 80 mg tablet 80 mg PO DAILY furosemide 40 mg tablet 40 mg PO DAILY codeine-guaifenesin 10-100 mg/5 mL liquid 10 ml PO Q6H PRN (Reason: cough) 10 Days Qty: 300 0RF levothyroxine 25 mcg tablet 50 mcg PO DAILY levalbuterol tartrate 45 mcg/actuation HFA aerosol inhaler 2 puff inhalation Q4-6H PRN (Reason: Wheezing) benzonatate 200 mg capsule 200 mg PO BID PRN (Reason: cough) 30 Days Qty: 30 11RF Discharge Orders: Discharge Order (Routine); Ordered 02/20/23 Ordered By: Holden Jacobs Diet: Advance to usual diet Activity on Discharge: As tolerated Stand Alone Forms: Patient Portal Discharge page Care Plan Goals: Continue updraft treatment 4 times per day Prednisone tapering dose 20 mg 1 tablet by mouth daily for 3 days followed by prednisone 10 mg by mouth daily Outpatient follow-up with Dr. Martins in 7-10 days call for appointment is scheduled outpatient CT scan of chest and bronchoscopy Avoid allergens, crowded places and exertion. Health Concerns: Take all medications as prescribed Plan of Treatment: Outpatient follow-up with primary care physician and industrial relations commissioner Dr. Martins in 7-10 days Assessment: As above Discharge Date/Time: 02/20/23 14:04
== END 2023-02-20 14:04 | disposition home or self-care (01) | DRG 202 ==
LOC: HO.ED 14:05 → HO.EDOVER 17:02 → HO.S3 18:15
PROVIDERS: Nurse Practitioner Family; Admitting Provider Student in an Organized Health Care Education/Training Program; Emergency Provider Emergency Medicine; PCP Nurse Practitioner Family; Visit Provider Hospitalist
DX: J45.901 Unspecified asthma with (acute) exacerbation (principal); J47.1 Bronchiectasis with (acute) exacerbation; I48.0 Paroxysmal atrial fibrillation; G47.33 Obstructive sleep apnea (adult) (pediatric); E78.5 Hyperlipidemia, unspecified; E03.9 Hypothyroidism, unspecified; K21.9 Gastro-esophageal reflux disease without esophagitis; E66.9 Obesity, unspecified; Z68.34 Body mass index [BMI] 34.0-34.9, adult; Z20.822 Contact with and (suspected) exposure to COVID-19; Z87.891 Personal history of nicotine dependence; Z91.040 Latex allergy status; Z79.01 Long term (current) use of anticoagulants; Z79.890 Hormone replacement therapy; Z79.899 Other long term (current) drug therapy
CPT/HCPCS: 0241U; 71046; 80048; 80076; 83605; 83880; 84484; 85025; 85610; 87040; 93005; 94640; 99285; J2920; J2930; J3475

== ENCOUNTER → 2023-02-19 16:23 | Outpatient (BNV) | payer MEDICARE, SELFPAY | PROVIDERS: Admitting Provider Student in an Organized Health Care Education/Training Program; Emergency Provider Emergency Medicine; PCP Nurse Practitioner Family; Visit Provider Student in an Organized Health Care Education/Training Program | DX: J44.9 Chronic obstructive pulmonary disease, unspecified (principal); G47.33 Obstructive sleep apnea (adult) (pediatric); J98.09 Other diseases of bronchus, not elsewhere classified | CPT/HCPCS: 99223; 99239 ==

== ENCOUNTER → 2023-02-19 16:23 | Outpatient (BNV) | payer MEDICARE, SELFPAY | PROVIDERS: Admitting Provider Student in an Organized Health Care Education/Training Program; Emergency Provider Emergency Medicine; PCP Nurse Practitioner Family; Visit Provider Internal Medicine | DX: J44.9 Chronic obstructive pulmonary disease, unspecified (principal); G47.33 Obstructive sleep apnea (adult) (pediatric); J98.09 Other diseases of bronchus, not elsewhere classified | CPT/HCPCS: 99223 ==

== ENCOUNTER 2023-02-26 12:57 | Outpatient (REF) | payer MEDICARE, SELFPAY ==
--- NOTE | ~2023-02-26 | CT_ITS ---
EXAMINATION: CT CHEST WITHOUT CONTRAST CLINICAL INFORMATION: Solitary pulmonary nodule. COMPARISON: CT chest 01/06/2022. TECHNIQUE: Multidetector volumetric CT imaging of the chest was done. Axial MIP volume rendering provided. Sagittal and coronal reformatted images were obtained. This CT examination was performed using dose optimization techniques as appropriate, variously including the following: *Automated exposure control *Adjustment of mA and/or kV according to patient size (this includes techniques or standardized protocols for targeted exams where dose is matched to indication/reason for exam; i.e. extremities or head) *Use of iterative reconstruction technique DLP: 139 mGy-cm FINDINGS: LUNGS: Some tiny micronodules are without significant change. Some are less prominent and some are slightly more prominent. No convincing evidence of metastatic disease. Again seen is a ground-glass opacity in the right upper lobe along the fissure laterally which appears fairly stable measuring 1.3 x 0.8 cm, similar to prior (7:144, compare prior 5:195). No new worrisome opacity is seen. MEDIASTINUM: Heart size normal. Moderately extensive coronary artery calcifications are seen. Aortic calcifications are present. No aneurysm. Mild stenosis origin of left subclavian artery is again noted. PLEURA: There is no pleural effusion. No pleural mass or thickening. AXILLA: No lymphadenopathy. UPPER ABDOMEN: Status post cholecystectomy OSSEOUS STRUCTURES: Degenerative changes again seen throughout the spine CT/CT chest wo IV con IMPRESSION: 1. Stable ground-glass opacity right upper lobe. No new worrisome lung mass is seen. A followup study in 2 years is recommended based upon Fleischner guidelines. 2. Incidental note made of coronary artery disease and degenerative changes in the spine. 2017 Fleischner Society Recommendations for Lung Nodule(s): Follow up based on size (average of long- and short-axis diameters). Use most suspicious nodule for followup. Single GG lung nodule >= 6 mm: Recommend a non-contrast Chest CT at 6-12 months to confirm persistence, then additional non-contrast Chest CTs every 2 years until 5 years. These guidelines do not apply to patients younger than 35 years, immunocompromised patients, and patients with cancer. Follow up in patients with significant comorbidities as clinically warranted. For lung cancer screening, adhere to Lung-RADS guidelines. Reference: Radiology. 2017 Anshul; 284(1):228-243
== END 2023-02-26 12:58 | disposition home or self-care (01) ==
LOC: HO.CT 12:57
PROVIDERS: Visit Provider Hospitalist
DX: R91.1 Solitary pulmonary nodule (principal)
CPT/HCPCS: 71250

== ENCOUNTER → 2023-04-29 07:33 | Outpatient (RCR) | payer MEDICARE, SELFPAY ==
[2022-04-15 10:10] VITALS: BP 118/50; PULSE 77
[2022-04-25 09:36] VITALS: BP 100/48; BP 100/54
[2022-04-29 11:33] VITALS: BP 110/64; BP 118/64
--- NOTE | 2022-05-06 15:36 | MHC.PR.IN ---
[address] [phone] F: [phone] Pulmonary Rehabilitation Individual Treatment Plan Tessa Montalvo is a 77 year old (F) who was referred to the Pulmonary Rehabilitation program by Beto Martins MD. This patient who has a primary diagnosis of COPD will begin pulmonary rehabilitation with monitored exercise and education to optimize both physical and social performance, autonomy, increase strength and endurance, and control dypsnea. The following information was gathered from the patient: Smoking History Current smoking status: Former Smoker Years smoked: 50 Last time smoked: Quit Date: Assistance with quitting needed: Past Medical History Medical History: Cardiac Disorders Hypertension COPD Asthma Pneumonia Sleep Apnea Bronchitis Osteoporosis GERD Surgeries: Past Pulmonary Hospitalizations # of hospitalizations in the past year: 3 # of ER vists due to breathing troubles in the past year: 1 Current Pulmonary Medications Allergy History Allergies: Current Oxygen Use Supplemental Oxygen Device Used: Liter flow: How often: N/A Pulmonary History Cough: No Sputum: No Sleep device: Other pulmonary devices: Peak flow meter: No Nebulizer: Yes Suction: No Ventilator: No Secretion clearance: No PEP: No Influenza vaccine: Yes Pneumonia vaccine: Yes Patient Questionaire Scores MRC Dyspnea Scale (mRC): 1 CAT Score: 24 PHQ-9 Score: 2 Pulmonary Function Test and Vital Signs Pulmonary Function Test Date of PFT FVC Actual % FVC Predicted % FEV1 Actual % FEV1 Predicted % FEV1/FVC Actual % FEV1/FVC Predicted % DLCO Vital Signs Heart Rate 77 Blood Pressure 118/50 SpO2 98% Respiratory Rate 13 unlabored at rest, shallow, wheezy with exertion. Six Minute Walk Test Supplemental Oxygen O2 L/min: FiO2: Resting Vitals SpO2: 98% BP: 118/50mmHg HR: 77 bpm Total Distance 595 Number/ Time of Rests (sec) 1 40 ANDRES 5 METS 1.86 SpO2 84 HR (bpm) 108 MPH 1.11 Meters/Minute 30 Post-walk Vitals SpO2: 100 BP: 120/64 HR: 72 Performance Observations Pat walked at a moderate pace using a cane for balance Pulmonary Rehabilitation Plan Topic Problem Goal Plan Comment Education Ineffective control of dyspnea Effective control of dyspnea Home exercise program Hypoxia Monitor oxygen saturation with rest and exercise Hypoxic with exertion Psychosocial N/A, PHQ-9 score <5 No reported psychosocial impairments Review screening results Benefits of exercise Relaxation techniques Coping techniques Denies anxiety or depression Activities of Daily Living N/A ADL performance with pacing and pursed lip breathing Educate on pursed lip breathing and pacing with stairs and activity uses a walker or a cane Nutrition & Weight Management Overweight Lose weight during program Prevent further weight gain weight is 190, fluctuates by a couple of pounds. Tobacco Managment NA Quit smoking 30 yrs ago Medication N/A, pt reports compliance w/ prescribed medications Importance of medication compliance Medication schedule Takes medications as prescribed Inhaled Medication N/A Uses MDI and nebulizer correctly Secretion Management N/A, pt able to self manage secretions Pat states she never produces sputum Exercise & Fitness Decreased strength & endurance Knowledge deficit of exercise guidelines & safety No regular exercise Pulmonary Rehab 2-3x/week Weight or resistance training 2-3x/week Aerobic Exercise: 30-60mins x 9 weeks Review benefits & core components of exercise program Review how to measure and monitor dyspnea level Review exercise safety guidelines Review frequency and duration of exercise Review exercise intensity ANDRES RPD 3-4/10 Review home exercise guidelines Diabetes Management Does patient have DM?: No Diabetes Type: Current Blood Glucose Level: Current A1C Level: Self Check: Patient's Goals and Concerns . 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 The treatment plan and goals support the patient's needs and abilities, and thereby recommend that the exercise plan be completed as documented. Special precautions or modifications to the treatment plan include:
[2022-05-07 09:48] VITALS: BP 120/56; BP 124/64
--- NOTE | 2022-11-20 09:53 | MHC.PR.DC ---
[address] [phone] F: [phone] Pulmonary Rehabilitation Discharge Tessa Montalvo is a 77 year old (F) who was referred to the Pulmonary Rehabilitation program by Beto Martins. This patient who has a primary diagnosis of COPD has completed 2 sessions of the pulmonary rehabilitation program with monitored exercise and education to optimize both physical and social performance, autonomy, increase strength and endurance, and control dypsnea. They were evaluated on . Discharge summary and tests are below. Initial MRC Score: 1 Discharge MRC Score: Six Minute Walk Test Initial 6MWT Discharge 6MWT Supplemental Oxygen O2 L/min: FiO2: O2 L/min: FiO2: 21 Resting Vitals SpO2: 98% BP: 118/50mmHg HR: 77 bpm SpO2: % BP: mmHg HR: bpm Total Distance (ft) 595 Number/ Time of Rests (sec) 1 40 ANDRES 5 Walk Vitals SpO2: 84 HR: 108 SpO2: HR: Post-Walk Vitals SpO2: 100 BP: 120/64 HR: 72 SpO2: BP: HR: Performance Observations Pat walked at a moderate pace using a cane for balance not performed Exercise Assessment on : Pre-exercise Post-exercise SpO2 Heart Rate ANDRES METS Exercise Assessment on : Pre-exercise Post-exercise SpO2 Heart Rate ANDRES METS Exercise Assessment on : Pre-exercise Post-exercise SpO2 Heart Rate ANDRES METS Topic Education/Progress Progress Comments Education Hypoxia Current oxygen Use: Room air Psychosocial PHQ-9 Score: 2 Activities of Daily Living Nutrition and Weight Managment Current weight: 190 BMI: Weight change: Tobacco Stages of Change: Tobacco Use: Cigerettes/Day: Any nicotine replacement: Any cessation medication: Smoking quit date: Smokeless tobacco use and amount: Medications Inhaled Medications Patient verbalizes correct technique of: MDI: DPI: SMI: NEBULIZER: Secretion Management Patient provides adequate return demonstration of: Controlled cough: Morales cough: Acapella/ PEP Device: CPT: Sputum management: Exercise and Fitness Aerobic Exercise Frequency: Target heart range: Heart rate range: SpO2 Range: ANDRES RPD: Time (minutes): O2 use with exercise: Current HEP: Discharge Assessment: Discharge Reason: pt no longer attends pulm rehab sessions, therefore being discharged from our services. Discharge Recommendation: :
== END | disposition home or self-care (01) ==
LOC: HO.PR 04-15 09:35
PROVIDERS: PCP Nurse Practitioner Family; Visit Provider Hospitalist
DX: J44.9 Chronic obstructive pulmonary disease, unspecified (principal)
CPT/HCPCS: 94625

== ENCOUNTER 2023-05-15 10:00 | Outpatient (AMB) | payer MEDICARE, SELFPAY ==
--- NOTE | 2023-05-15 10:03 | A.OFFVIS_ITS ---
Intake Vital Signs 05/15/23 10:08 Weight 185 lb BP 140/70 H Blood Pressure Location Lt brachial Pulse 71 Pulse Oximetry (%) 97 Intake Visit Reasons: S/p bronch Allergies aspirin Allergy (Severe, Verified 05/15/23 10:09) Upset Stomach Latex Gloves Allergy (Severe, Uncoded 02/19/23 11:41) Rash HPI HPI Comments History of Present Illness Details The patient is a 78-year-old woman with known asthma COPD overlap syndrome. Her symptoms have been significant. She has been complaining of worsening dyspnea on exertion due to the shortness of breath and wheezing. She has been using her nebulized therapy about 4 times a day. She recently ran out of 1 medication and therefore her breathing has been worse. She also has significant allergies including mold and other sensitivities to perfumes. In the office she was found to be significantly wheezy. She was giving nebulized treatment we talked about potentially switching her over to additional long- acting albuterol therapies via the nebulizer. The patient is agreeable to this. She recently underwent a CT scan of the chest back in February 2019 which demonstrated stable pulmonary nodules. The patient now will be scheduled for CT scan in a year's time. The Daliresp medication did give her significant GI side effects and was very expensive so therefore she stopped it. She does have pulmonary nodules she has a CT scan scheduled for February 2020 and will follow up with her after that. 06/20/2022 the patient is here for a pulmo nary follow-up visit. If she is having some difficulty with her breathing. Having increasing shortness of breath. She has been having some issues with the Nucala injections. Now that she has a supplementary insurance we have to request a prior approval for her biologic injections. Hopefully when she is back in her biologics her respiratory status will improve. In the meantime she has significant shortness of breath, chest tightness and wheezing. The patient was admitted to [facility] with symptomatic anemia as well. She did require a transfusion of packed red blood cells in addition to an IV infusion. She is scheduled to get another IV infusion of iron. The patient does have now significant lower extremity edema. Likely from her volume resuscitation during the hospitalization. Unfortunately this will also affect her respiratory status. Will go ahead and give her shot of Solu-Medrol today to try to alleviate some of her symptoms. She does continue using her nebulized therapy with good effect. In the meantime she is also using her CPAP. The CPAP therapy has been affecting beneficial. She does try to use it more than 4 hours a night. She is trying to get used to it. 08/28/2022 the patient is here for a pulm onary follow-up visit. The patient continues to struggle with the anemia. She was last seen yesterday with the hand salter and was scheduled to get for more infusions of iron. She is also taking oral iron although does not appear to be absorbing it as well. The patient has been feeling better although still short of breath she still having chest tightness and wheezing. Unfortunately she could not continue the Nucala because of her insurance changed now is too expensive and she cannot afford it. We did try to get her into in addition it program or free medications which she does not qualify based on her financial status. The patient also is no longer using the oxygen. Will have on the oxygen discontinued we can always reassess the need for oxygen later. She is also not using the CPAP. I did recommend she can use the oxygen at nighttime but the patient is sleeping well when she is waking up rested so there is no role for any additional therapies at this time. She does continue to use respiratory therapy and has continued to use the budesonide with some improvement of her symptoms. 02/05/2023 [facility] She has been sick now for about 3 weeks. The prior to that she had just completed a prednisone course. She is having significant chest tightness and wheezing. She is coughing more and hard to expectorate. Moderate severity. She has a hard time doing any activity. However, she does check her oxygen and oxygen levels are within normal limits. She does have oxygen at home and she wants that to be picked up since she is not requiring it. The patient denies any sick contacts that she is aware of. She has tested for COVID a few times and has been negative. She did have a chest x- ray that I personally reviewed demonstrating no acute disease of the which still waiting for the final read. She is using all her respiratory therapy only with minimal improvement. Today she is having both inspiratory and expiratory wheezing and she is having some tachypnea. The patient will be given 3 Xopenex treatments and will given Solu-Medrol intramuscularly. The patient also has significant tracheal bronchomalacia. She does use a flutter valve to help her expectorate. Will start on some antibiotics as well just in case she has a bout of bronchitis. 02/12/2023 the patient is here for pulmon shane follow-up visit. She was recently diagnosed with bronchopneumonia and treated pretty aggressively with antibiotics and prednisone. She feels a little better. She denies any productive cough although she feels that she has a hard time expectorating the phlegm. I explained to her that she has significant tracheobronchomalacia and does going to make it difficult to expectorate. The patient also had a CT scan of the chest back in December 2021 demonstrating some haziness and also nodular densities. Therefore we will request a CT scan to better address the nodular densities and also to see if the pneumonia is completely gone. The patient also benefit from a bronchoscopy. After the bronchoscopy will be able to better navigate and schedule the bronchoscopy to further provide clarity of her underlying airway disease. The patient in the meantime will get some Solu-Medrol today for her significant wheezing. She has been having issues with the amiodarone. She had issues with thyroid disease. A CT scan will also help to find out if there is any evidence of any amiodarone induced pulmonary toxicity. 05/15/2023 the patient is here for a pul monary follow-up visit. The patient is feeling better. She was recently hospitalized at [facility]. She was given additional steroids. Her medications were changed a little bit because of her coverage. Otherwise she is on inhaled steroids in addition to long-acting muscarinic antagonist. She does have atrial fibrillations will try to minimize the long-acting beta agonist medication. She does have albuterol that she uses that needed and also via her nebulizer. We were supposed to consider bronchoscopy but the patient has been feeling better. She also had a CT scan which was reassuring with stable pulmonary nodules and a chest x-ray that was also reassuring. At this point no need to perform any diagnostic or therapeutic procedures. I do believe that based on the fact the patient has required multiple courses to prednisone and Solu-Medrol that she does benefit from biologic therapies to treat her severe persistent asthma. The patient had responded well to biologics in the past but then they will no longer covered. I do believe that going back on biologics in this case Tezspire will provide her with improved quality of life decrease hospitalizations and decreased steroid need. 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 Patient Tobacco Use Status: Former Tobacco user Quit Date: 25 years ago Tobacco use type: Cigarette Years Smoked: 45 e-Cigarette/Vaping Use: Never Used Second Hand Smoke Exposure: No Advance Directives Date on File: 01/07/22 service: No Current occupational status: retired Review of Systems Const Denies weakness ENT Denies dizziness Card Denies chest pain, Denies chest pain with activity, Denies syncope, Denies rapid heart rate, Denies pedal edema, Denies edema, Denies leg edema, Denies lightheadedness, Denies palpitations, Reports dyspnea on exertion and Denies orthopnea Resp Denies chest congestion, Reports cough, Denies hemoptysis, Reports dyspnea on exertion and Reports wheezing GI Denies hematochezia and Denies change in stool character Musc Denies abnormal gait, Denies muscle weakness, Denies numbness, Denies radiating pain into limb and Denies tingling Neuro Denies abnormal gait, Denies dizziness, Denies syncope, Denies numbness, Denies tingling and Denies weakness Endo Denies palpitations Aller/Immun Reports wheezing Physical Exam Vital Signs: Last Vital Signs Pulse 71 05/15/23 10:08 BP 140/70 H 05/15/23 10:08 Pulse Ox 97 05/15/23 10:08 Const General: comfortable and no acute distress Orientation/consciousness: patient oriented x3 HEENT Other: Unremarkable Head: Yes normal to inspection Neck Neck: Yes normal visual inspection Chest Chest palpation & inspection: normal inspection of the chest Resp Effort & Inspection: No prolonged expiratory phase Auscultation: diminished lung sounds Cardio Palpation: normal PMI Heart sounds: S1 normal heart sound present, S2 normal heart sound present, no gallops, no murmurs and no rubs GI Palpation (GI): Soft to palpation Back/Spine/Pelvis Other: unremarkable Skin General skin exam: no rashes or lesions noted Neuro General: patient oriented x3 Extrem General: Yes normal to inspection Psych Mental Status: mental status grossly normal Assessment & Plan Assessment & Plan (1) Asthma: Code(s): J45.909 - Unspecified asthma, uncomplicated Qualifiers: Asthma complication type: with acute exacerbation Asthma persistence: persistent Asthma severity: severe Qualified Code(s): J45.51 - Severe persistent asthma with (acute) exacerbation (2) Pulmonary nodules: Code(s): R91.8 - Other nonspecific abnormal finding of lung field (3) Bronchomalacia: Code(s): J98.09 - Other diseases of bronchus, not elsewhere classified (4) Asthma-COPD overlap syndrome: Code(s): J44.9 - Chronic obstructive pulmonary disease, unspecified Plan Continue BUdesonide continue Duoneb BID Continue Incruse start Tezspire Q4 weeks start Doxycycline daily x 30 days Daliresp continue oxygen while sleeping and with activity cough medicine MED as needed, sending xopenex F/U 3-4 months Medications: New umeclidinium 62.5 mcg/actuation (Incruse Ellipta) 1 inh inhalation DAILY 30 days 30 ea 11RF J45.909 - Unspecified asthma, uncomplicated doxycycline monohydrate 100 mg PO DAILY 28 days 28 tabs 11RF Coding Level of Care Code Est Pt Level 4 (42638) Diagnoses Severe persistent asthma with acute exacerbation J45.51 Asthma complication type: with acute exacerbation Asthma persistence: persistent Asthma severity: severe Pulmonary nodules R91.8 Bronchomalacia J98.09 Asthma-COPD overlap syndrome J44.9 Time Spent (min) 16
[2023-05-15 10:08] VITALS: BP 140/70; PULSE 71; O2SAT 97
== END 2023-05-15 10:22 | disposition home or self-care (01) ==
PROVIDERS: PCP Nurse Practitioner Family; Visit Provider Hospitalist
DX: J45.51 Severe persistent asthma with (acute) exacerbation (principal); R91.8 Other nonspecific abnormal finding of lung field; J98.09 Other diseases of bronchus, not elsewhere classified; J44.9 Chronic obstructive pulmonary disease, unspecified
CPT/HCPCS: 99214

== ENCOUNTER → 2023-05-15 10:00 | Outpatient (BNVA) | payer MEDICARE, SELFPAY | PROVIDERS: PCP Nurse Practitioner Family; Visit Provider Hospitalist | DX: J44.9 Chronic obstructive pulmonary disease, unspecified (principal); J45.51 Severe persistent asthma with (acute) exacerbation; J98.09 Other diseases of bronchus, not elsewhere classified; R91.8 Other nonspecific abnormal finding of lung field; Z87.891 Personal history of nicotine dependence | CPT/HCPCS: 99212 ==

== ENCOUNTER 2023-05-30 13:28 | Outpatient (AMB) | payer MEDICARE, SELFPAY ==
--- NOTE | 2023-05-30 13:29 | MHC.OFFVIS ---
Intake Vital Signs 05/30/23 13:33 Height 5 ft 1.5 in Weight 185 lb BMI 34.4 BP 142/70 H Blood Pressure Location Rt brachial Position Sitting Pulse 76 Pulse Source Pulse Oximeter Pulse Oximetry (%) 96 Oxygen Delivery Method Room Air Intake Visit Reasons: asthma exacerbation Industrial Waste Treatment Technician Required: No Financial Aid Officer: Financial Aid Officer offered & declined Accompanied by: Self / Same As Patient Allergies aspirin Allergy (Severe, Verified 05/30/23 13:34) Upset Stomach Latex Gloves Allergy (Severe, Uncoded 05/30/23 13:34) Rash Medication List - Last Reconciled 05/30/23 by Anjali Jordan LPN alendronate 70 mg PO SA amiodarone 200 mg PO DAILY apixaban (Eliquis) 5 mg PO BID 90 days atorvastatin 80 mg PO DAILY benzonatate 200 mg PO BID PRN 30 days budesonide 0.5 mg (2 mL) inhalation BID codeine-guaifenesin 10-100 mg/5 mL 10 mL PO Q6H PRN 10 days diltiazem HCl 120 mg PO DAILY estradiol 0.01%(0.1mg/gram) 1 g vaginal TUFR furosemide 40 mg PO DAILY ipratropium-albuterol 0.5 mg-3 mg(2.5 mg base)/3 mL 3 mL inhalation Q4H PRN levalbuterol tartrate 45 mcg/actuation 2 puffs inhalation Q4-6H PRN levothyroxine 50 mcg PO DAILY loratadine (Claritin) 10 mg PO DAILY 30 days nebulizers As directed omeprazole 20 mg PO DAILY peg 400-propylene glycol (PF) 0.4-0.3 % (Systane (PF)) 1 drp ophthalmic (eye) TID PRN tezepelumab-ekko (Tezspire) 210 mg (1.91 mL) subcut Q4W 4 weeks umeclidinium 62.5 mcg/actuation (Incruse Ellipta) 1 inh inhalation DAILY 30 days valsartan 80 mg PO BEDTIME HPI asthma exacerbation HPI Details Tessa is a pleasant 78 year old female with underlying history of asthma/COPD overlap syndrome, CHF on lasix 40 mg and atrial fibrillation on amiodarone and anticoagulated on eliquis. At baseline, she is suboptimally controlled on incruse, budesonide 0.5 mg BID, Duoneb and levalbuterol. She is awaiting initiation of Tezspire, which was recently approved. Today, she presents for an acute visit. She reports a nonproductive cough, moderate to severe wheezing and dyspnea on exertion that began two days ago. She reports minimal change after nebulizer use. She denies fever, chills or sick contacts. 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 Patient Tobacco Use Status: Former Tobacco user Quit Date: 25 years ago Tobacco use type: Cigarette Years Smoked: 45 Smoked in Last 30 Days: No e-Cigarette/Vaping Use: Never Used Second Hand Smoke Exposure: No Advance Directives Date on File: 01/07/22 service: No Current occupational status: retired Review of Systems Const Denies chills, Denies excessive sweating, Denies fever(s), Denies headache(s) and Denies night sweats Eyes Denies dry eyes, Denies irritation and Denies itchy eyes ENT Reports Normal hearing present, Denies headache(s), Denies nasal congestion, Denies nasal discharge, Denies post nasal drip and Denies sore throat Card Denies chest pain, Denies chest pain at rest, Denies chest pain with activity and Reports dyspnea on exertion Resp Denies chest congestion, Reports cough, Denies excessive phlegm production, Denies pain on inspiration, Denies pain with cough, Reports dyspnea on exertion, Denies stridor and Reports wheezing Musc Denies myalgias Neuro Reports Normal hearing present and Denies headache(s) Endo Denies excessive sweating Seferino/Lymph Denies lymphadenopathy Aller/Immun Denies itchy eyes, Denies seasonal rhinorrhea and Reports wheezing Physical Exam Vital Signs: Last Vital Signs Pulse 76 05/30/23 13:33 BP 142/70 H 05/30/23 13:33 Pulse Ox 96 05/30/23 13:33 Oxygen Delivery Method Room Air 05/30/23 13:33 BMI result Body Mass Index 34.4 Const General: cooperative, well developed and alert Nutritional Appearance: obese Orientation/consciousness: patient oriented x3 Limitations: no limitations HEENT Head: Yes normal to inspection, Yes normocephalic and Yes atraumatic Ears: hearing grossly normal bilaterally and external ears normal Eyes General: appearance normal, both eyes and all related structures Eyelids: Yes eyelids normal Sclerae: sclerae normal EOM: EOMs intact bilaterally Neck Neck: Yes normal visual inspection and Yes no lymphadenopathy Lymphatic: no lymphadenopathy noted Chest Chest palpation & inspection: normal inspection of the chest Resp Effort & Inspection: able to speak in complete sentences (however dyspnea with prolonged speech), audible wheezes, Actively coughing, no stridor, no tripod positioning and no use of accessory muscles Auscultation: wheezes (moderate) expiratory wheezes and throughout Cardio Rate: regular rate Skin Other: warm, dry General skin exam: no rashes or lesions noted Neuro General: patient oriented x3 Cranial nerves: Yes Normal hearing present Cognition (Neuro): normal cognition Gait exam (Neuro): Normal gait present Psych Appearance: grossly normal and well kempt Speech and movement: Normal speech and movement present and Clear speech present Affect: normal affect Attitude: cooperative Thought process: Normal thought process present Thought content: Normal thought content present Insight: Good insight present (Psych) Judgement: Good judgement present (Psych) Office Procedures Nebulizer Treatment Nebulizer Treatment [id number]/[id number] RX initial, or Nebulizer Subsequent Treatment Office Meds methylprednisolone sod suc(PF) 125 mg/2 mL solution for injection Performing Provider: Noreen Jacobs NP [place] [facility] Administered by: Anjali Jordan LPN on 05/30/23 14:44 Dose Route Admin Location Dispensed Lot Number Expiration Date [facility] [employer] 125 mg IM left buttock 2 mL [id number] 09/13/25 4879-3577-06 [employer] ipratropium 0.5 mg-albuterol 3 mg (2.5 mg base)/3 mL nebulization soln Performing Provider: Noreen Jacobs NP [place]forming [place] [facility] Administered by: Anjali Jordan LPN on 05/30/23 14:47 Dose Route Admin Location Dispensed Lot Number Expiration Date [facility] [employer] 3 mL inhalation 3 mL [id number] 03/15/25 32356-747-89 [place] Social Assessment & Plan Assessment & Plan (1) Asthma-COPD overlap syndrome: Code(s): J44.9 - Chronic obstructive pulmonary disease, unspecified Plan Tessa presents with an acute asthma exacerbation with moderate to severe wheezing which was minimally changed after nebulizer treatment. She was given solumedrol in office and will send in prescription for prednisone. Discussed with patient the acuity of her symptoms and recommended an evaluation in the ED. She declined at this time. She is aware of the severity of symptoms and if she does not feel any improvement or experiences worsening of symptoms, to seek emergent care. She expressed frustration as she is maximized on outpatient therapy but is aware that Tezspire may offer improvements once initiated. All questions were answered and patient is in agreement of plan. Patient should be seen for a close follow up in the next two weeks with myself or Dr. Martins. Orders: Orders AMB Nebulizer Treatment Today J44.9 - Chronic obstructive pulmonary disease, unspecified AMB Methylprednisolone Injection Today J44.9 - Chronic obstructive pulmonary disease, unspecified Medications: Refilled ipratropium-albuterol 0.5 mg-3 mg(2.5 mg base)/3 mL 3 mL inhalation Q4H PRN 180 mL 3RF for dyspnea J45.51 - Severe persistent asthma with (acute) exacerbation prednisone PO daily; Take 6 tabs daily x 3 days, then 5 tabs x 3 days, then 4 tabs x 3 days, then 3 tabs x 3 days, then 2 tabs daily x 3 days, then 1 tab x 3 days to complete. 18 days 63 tabs 0RF Coding Level of Care Code Est Pt Level 4 (88093) Diagnoses Asthma-COPD overlap syndrome J44.9 CPT Codes Nebulizer Treatment - Nebulizer Treatment, initial or subsequent: [id number] RX initial, or Nebulizer Subsequent Treatment ([id number])
[2023-05-30 13:33] VITALS: BP 142/70; PULSE 76; O2SAT 96; BMI 34.4
== END 2023-05-30 14:30 | disposition home or self-care (01) ==
PROVIDERS: PCP Nurse Practitioner Family; Visit Provider Nurse Practitioner Family
DX: J44.9 Chronic obstructive pulmonary disease, unspecified (principal)
CPT/HCPCS: 99214

== ENCOUNTER → 2023-05-30 13:28 | Outpatient (BNVA) | payer MEDICARE, SELFPAY | PROVIDERS: PCP Nurse Practitioner Family; Visit Provider Nurse Practitioner Family | DX: J44.9 Chronic obstructive pulmonary disease, unspecified (principal) | CPT/HCPCS: 94640; 99212; J2930 ==

== ENCOUNTER 2023-06-03 09:35 | Inpatient (IN) | payer MEDICARE, SELFPAY ==
[2023-06-03] VITALS (12 sets, daily range): BP systolic 119–140; BP diastolic 42–56; PULSE 63–98; RESP 14–24; TEMP 36.6–36.8; O2SAT 90–98; BMI 35.1
--- NOTE | ~2023-06-03 | XR_ITS ---
EXAMINATION: XR CHEST CLINICAL INFORMATION: Dyspnea. COMPARISON: Chest x-ray 02/19/2023 TECHNIQUE: Frontal view of the chest was obtained. FINDINGS: There is cardiomegaly with prominent pulmonary vascularity consistent with congestion/CHF. The lungs are clear without acute pneumonic process. There is no pleural effusion. No gross bony abnormality. XR/XR chest 1V IMPRESSION: . Cardiomegaly with mild CHF.
--- NOTE | ~2023-06-03 | CT_ITS ---
EXAMINATION: CT CHEST WITHOUT CONTRAST CLINICAL INFORMATION: Shortness of breath COMPARISON: Chest radiograph from 02/26/2023 TECHNIQUE: Multidetector volumetric CT imaging of the chest was done. Axial MIP volume rendering provided. Sagittal and coronal reformatted images were obtained. This CT examination was performed using dose optimization techniques as appropriate, variously including the following: *Automated exposure control *Adjustment of mA and/or kV according to patient size (this includes techniques or standardized protocols for targeted exams where dose is matched to indication/reason for exam; i.e. extremities or head) *Use of iterative reconstruction technique DLP: 293 mGy-cm FINDINGS: LUNGS/PLEURA: Biapical pleural parenchymal scarring. Emphysematous changes. Peripheral reticular nodular opacities. Redemonstration of groundglass consolidative focus measuring 1.3 cm along the lateral margin of the right major fissure, similar in appearance a few micropulmonary nodules are noted, stable for example along the posterior aspect of the right lung apex measuring 3 mm (series 4, image 64). Stable subpleural 3 mm nodule in the anterior aspect of the left upper lobe (series 4, image 147). No new enlarged or suspicious pulmonary nodules or masses are noted. Central airways are patent. No pneumothorax. No large pleural effusion. MEDIASTINUM: Heart is mildly enlarged. Small pericardial effusion. Coronary artery calcified patient are noted. Aorta is nonaneurysmal and demonstrates atherosclerotic calcifications. Main pulmonary artery is not enlarged. No enlarged lymph nodes per size criteria. Atherosclerotic calcifications noted along the proximal left subclavian artery. Visualized portions of the thyroid are unremarkable. AXILLA: No lymphadenopathy. UPPER ABDOMEN: Gallbladder surgically absent. Small hiatal hernia. OSSEOUS STRUCTURES: Osteopenia. Multilevel degenerative changes of the thoracolumbar spine. Sclerotic foci left humeral head statistically representing bone islands. CT/CT chest wo IV con IMPRESSION: 1. Redemonstration of groundglass consolidative focus along the lateral margin of the right major fissure, similar in appearance. 2. Stable bilateral pulmonary nodules with no new enlarged or suspicious pulmonary nodules or masses identified. 3. Gallbladder surgically absent. 4. Small hiatal hernia. 5. Osteopenia.
--- NOTE | 2023-06-03 09:47 | ECG_ITS ---
Test Reason : diff breathing Blood Pressure : / mmHG Vent. Rate : 084 BPM Atrial Rate : 084 BPM P-R Int : 138 ms QRS Dur : 098 ms QT Int : 414 ms P-R-T Axes : 032 -03 012 degrees QTc Int : 489 ms Normal sinus rhythm Cannot rule out Anterior infarct (cited on or before 19-FEB-2023) Abnormal ECG When compared with ECG of 19-FEB-2023 12:41, No significant change was found Referred By: Generic ED Physician Electronically Signed By:BELLA HERNANDEZ MD
[2023-06-03 10:12] LABS: Basophils Percent Auto 0.2 % (0-2); Hematocrit 32.4 % (37.0-47.0); Hemoglobin 10.2 g/dl (12.0-16.0); Imm Gran Abs Auto 0.11 X10*3/uL (0.00-0.03); Imm Gran Pct Auto 0.9 % (0.0-0.4); Lymphocytes Percent Auto 4.4 % (20-40); Mean Corpuscular HGB Conc 31.5 g/dl (31.0-35.0); Mean Corpuscular Hemoglobin 27.2 pg (27.0-33.0); Mean Corpuscular Volume 86.4 fL (80.0-98.0); Mean Platelet Volume 9.8 fL (9.4-12.3); Monocytes Percent Auto 4.3 % (2-11); Neutrophils Absolute Auto 10.9 x10*3/uL (2.0-8.3); Neutrophils Percent Auto 90.2 % (45-73); Platelet Count 285 X10*3/uL (160-400); Red Blood Count 3.75 X10*6/uL (4.20-5.50); Red Cell Distribution Width 15.4 % (11.0-16.0); White Blood Count 12.1 X10*3/uL (4.8-10.8)
[2023-06-03 10:13] LABS: Lymphocytes Absolute Auto 0.5 X10*3/uL (1.2-4.9); MANUAL DIFF FLAG SCAN; Monocytes Absolute Auto 0.5 X10*3/uL (0.1-1.2); SCAN SMEAR FLAG 1
[2023-06-03 10:23] LABS: Anion Gap 15 (12-20); Blood Urea Nitrogen 19 mg/dL (9-16); Calcium 9.7 mg/dL (8.4-10.2); Carbon Dioxide 27 mmol/L (22-29); Chloride 106 mmol/L (96-108); Creatinine Clr Calc Pharmacy 49.6; Estimated Glomerular Filt Rate > 60; Glucose Random 102 mg/dL (60-115); Potassium 3.2 mmol/L (3.3-5.1); Sodium 145 mmol/L (135-145)
--- NOTE | 2023-06-03 10:30 | PC.NURSE ---
a&ox3, vss and up to date, nsr on the lunchroom monitor. pt comes in today d/t dyspnea since friday. inspiratory/expiratory wheezing noted upon auscultation. pt displays w/ wob/pursed lip breathing at this time. productive cough noted - denies mucous production. pt verbalizes sob increased upon movement/exertion/lying flat. respirations even/slightly labored. pt awaiting to be seen by ED provider. call vivas placed within reach.
[2023-06-03 10:31] LABS: Troponin-I High Sensitivity 3.9 ng/L (<3.5-17.0)
--- NOTE | 2023-06-03 10:33 | PC.NURSE ---
pt placed on 2L via NC to promote comfort.
[2023-06-03 10:38] LABS: SLIDE REVIEW VERIFIED
[2023-06-03] MEDS: Albuterol Sulfate 5 MG, Albuterol/Iprat 2.5/0.5MG 3 ML 3 ML INHALE (10:40)
--- NOTE | 2023-06-03 10:50 | PC.NURSE ---
pt receiving neb treatment via RT. tech bedside obtaining swabs.
[2023-06-03 11:35] LABS: Influenza A PCR NEGATIVE (Negative); Influenza B PCR NEGATIVE (Negative); Resp Syncy Virus RNA Qual PCR NEGATIVE (Negative); SARS COV2 PCR INHOUSE NEGATIVE (Negative)
--- NOTE | 2023-06-03 11:52 | ED_ITS ---
HPI - General Adult General Chief complaint: Dyspnea Stated complaint: Diff Breathing Time Seen by Provider: 06/03/23 10:20 Source: patient Mode of arrival: ambulatory Limitations: no limitations History of Present Illness HPI narrative: 78-year-old female with COPD, bronchomalacia, CHF, and paroxysmal a-fib anticoagulated on Eliquis presents for shortness of breath. She was seen last week for similar symptoms and given prednisone. She presents today because she feels very little improvement in her breathing and needed to sleep on her stomach last night. She has a cough with no sputum. She reports a wheeze, left sided chest tightness, and bilateral upper back pain. No palpitations. No lightheadedness or dizziness. No fevers or chills. No nausea, vomiting, abdominal pain, diarrhea, or dysuria. Related Data Home Medications Medication Instructions Recorded Confirmed omeprazole 20 mg capsule,delayed 20 mg PO DAILY 01/06/22 05/30/23 release alendronate 70 mg tablet 70 mg PO SA 01/21/22 05/30/23 atorvastatin 80 mg tablet 80 mg PO DAILY 06/20/22 05/30/23 diltiazem HCl 120 mg 120 mg PO DAILY 10/29/22 05/30/23 capsule,extended release 24 hr nebulizers 12/04/22 01/01/23 levalbuterol tartrate 45 2 puff inhalation Q4-6H PRN 12/19/22 05/30/23 mcg/actuation aerosol inhaler Wheezing furosemide 40 mg tablet 40 mg PO DAILY 02/05/23 05/30/23 levothyroxine 25 mcg tablet 50 mcg PO DAILY 02/12/23 05/30/23 estradiol 0.01% (0.1 mg/gram) 1 g vaginal TUFR 02/19/23 05/30/23 vaginal cream peg 400-propylene glycol (PF) 0.4 1 drp ophthalmic (eye) TID PRN Dry 02/19/23 02/19/23 %-0.3 % eye drops in a dropperette Eyes (Systane (PF)) valsartan 80 mg tablet 80 mg PO BEDTIME 02/19/23 05/30/23 Previous Rx's Medication Instructions Recorded loratadine 10 mg tablet (Claritin) 10 mg PO DAILY 30 days #30 tabs 05/31/22 apixaban 5 mg tablet (Eliquis) 5 mg PO BID 90 days #180 tabs 01/17/23 amiodarone 200 mg tablet 200 mg PO DAILY #30 tabs 02/03/23 codeine 10 mg-guaifenesin 100 mg/5 10 ml PO Q6H PRN cough 10 days 02/05/23 mL oral liquid #300 mL benzonatate 200 mg capsule 200 mg PO BID PRN cough 30 days 02/12/23 #30 caps budesonide 0.5 mg/2 mL suspension 0.5 mg (2 mL) inhalation BID #60 mL 04/24/23 for nebulization umeclidinium 62.5 mcg/actuation 1 inh inhalation DAILY 30 days #30 05/15/23 blister powder for inhalation ea (Incruse Ellipta) tezepelumab-ekko 210 mg/1.91 mL 210 mg (1.91 mL) subcut Q4W 4 05/20/23 (110 mg/mL) subcutaneous syringe weeks #1.91 mL (Tezspire) ipratropium 0.5 mg-albuterol 3 mg 3 ml inhalation Q4H PRN for 05/30/23 (2.5 mg base)/3 mL nebulization dyspnea #180 mL soln prednisone 10 mg tablet See Rx Instructions PO DAILY 18 05/30/23 days #63 tabs Allergies Allergy/AdvReac Type Severity Reaction Status Date / Time aspirin Allergy Severe Upset Verified 05/30/23 13:34 Stomach Latex Gloves Allergy Severe Rash Uncoded 05/30/23 13:34 Review of Systems 2 Review of Systems: Constitutional : No Weight loss, No Fever, No Chills ENT/Mouth :? No sore throat, No Rhinorrhea Eyes: No Eye Pain, No Swelling Cardiovascular : +Chest Pain, + SOB, +Dyspnea on Exertion, No Edema, No Palpitations Respiratory : +Cough, No Sputum Gastrointestinal : No Nausea, No Vomiting, No Diarrhea, No abdominal Pain, No Hematochezia, No Melena, no bowel incontinence Genitourinary : No Dysuria, No Urinary Frequency, no urinary incontinence Musculoskeletal : No joint pain, No Myalgias, No Joint Swelling Skin : No Skin Lesions, No rash Neuro : No Weakness, No Numbness, No Dizziness, No Headache, No gait abnormalities, no foot drop Psych : No Anxiety/Panic, No Depression All other systems reviewed and are negative Yes all other systems are reviewed and are negative [facility] Past Medical History Attestation statement: The following information was validated with the patient. 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 Patient Tobacco Use Status: Former Tobacco user Quit Date: 25 years ago Tobacco use type: Cigarette Years Smoked: 45 Smoked in Last 30 Days: No e-Cigarette/Vaping Use: Never Used Second Hand Smoke Exposure: No Use of substances other than those prescribed or required for medical reasons: No Advance Directives: Yes Advance Directives on File: Yes Advance Directives Date on File: 01/07/22 service: No Current occupational status: retired Physical Exam ED Vital Signs: Vital Signs - 24 hr 06/03/23 09:43 06/03/23 10:30 06/03/23 10:41 Temperature 97.8 F Pulse Rate 77 70 Respiratory Rate 17 22 H Blood Pressure 140/53 H 140/56 H Pulse Oximetry 96 96 98 Oxygen Delivery Method Room Air Room Air Nasal Cannula Oxygen Flow Rate 2 06/03/23 10:42 06/03/23 12:09 06/03/23 12:29 Temperature Pulse Rate 63 82 Respiratory Rate 16 14 Blood Pressure 119/42 L Pulse Oximetry 90 L 93 Oxygen Delivery Method Room Air Room Air Oxygen Flow Rate BMI result Body Mass Index 35.1 90 % on RA ( not oxygen dependent at home) Appearance: Alert.? Oriented X3.? + acute distress.? Head: Normocephalic, atraumatic, no step-offs or deformities Eyes: Pupils equal, round and reactive to light.? ENT: Pharynx normal.?? Neck: Normal inspection.? Neck supple.? CVS: Normal heart rate and rhythm.? Pulses normal.? Respiratory: + mod respiratory distress.? Expiratory wheezes ausciltated throughout. Abdomen: Soft and nontender.? Skin: Skin warm and dry.? Normal skin color.? Normal skin turgor.? Extremities: No lower extremity edema.? No calf ttp. 5/5 strength and full ROM to bilateral upper and lower extremities. 2+ PT/DP pulses bilaterally. Neuro: Oriented X 3.? No motor deficit.? No sensory deficit. CN 2-12 intact. Course Reevaluation(s) Reevaluation #1: CBC with leukocytosis and a left shift concerning for possible infectious etiology. Ceftriaxone and is a throat ordered for concerns for possible bronchitis versus pneumonia. Chemistry unremarkable. Troponin negative x2. No indication for blood cultures and lactic no signs of systemic disease. Chest x- ray cardiomegaly with mild CHF however patient has negative BNP. CT chest pending. Plan hospital admission. Time: 14:29 Medications Administered Discontinued Medications Generic Name Dose Route Start Last Admin Trade Name Freq PRN Reason Stop Dose Admin Albuterol Sulfate 5 mg/ 0 mg 06/03/23 10:36 06/03/23 10:40 Albuterol/Ipratropium 3 ml INHALE 06/03/23 10:37 1 each ONCE ONE Administration Magnesium Sulfate 2 gm in 50 mls @ 25 mls/hr 06/03/23 11:55 06/03/23 14:12 Magnesium Sulfate/H2o IV 06/03/23 13:54 Infused ONCE ONE Infusion Ceftriaxone Sodium 1 gm/ 50 mls @ 100 mls/hr 06/03/23 11:58 06/03/23 12:59 Sodium Chloride IV 06/03/23 12:27 Infused ONCE ONE Infusion Azithromycin 500 mg/ Sodium 250 mls @ 125 mls/hr 06/03/23 11:58 06/03/23 12:59 Chloride IV 06/03/23 13:57 125 mls/hr ONCE ONE Administration Methylprednisolone Sodium Succinate 125 mg 06/03/23 11:55 06/03/23 12:08 Methylprednisolone Sod Succ 125 Mg/2 Ml Vial IVPUSH 06/03/23 11:56 125 mg ONCE ONE Administration Medical Decision Making Medical Decision Making [facility] Narrative: 78-year-old female presents with 1 week of worsening shortness of breath, cough, left-sided chest pain, and upper back pain. PE revealed bilateral wheezes throughout lungs and intermittent hypoxia History and physical suspicious for acute bronchitis secondary to bacterial etiology, viral infection, pneumonia, COPD exacerbation, CHF exacerbation. Unlikely ARDS, acute respiratory failure, LA, aortic dissection, PE Plan: Labs, viral testing, imaging Differential Diagnosis Differential Diagnoses: The differential diagnosis associated with the presentation includes History and physical suspicious for acute bronchitis secondary to bacterial etiology, viral infection, pneumonia, COPD exacerbation, CHF exacerbation. Unlikely ARDS, acute respiratory failure, LA, aortic dissection, PE Admission/Observation Consideration of admission/observation: Escalation of care including admission/observation considered likely Consult Healthcare Provider Management of the patient was discussed with: Hospitalist Lab Data [facility] Lab Attestation statement: I reviewed the patient's lab results. 06/03/23 10:02 06/03/23 10:02 Labs: Lab Results 06/03/23 06/03/23 06/03/23 Range/Units 10:02 10:47 13:06 WBC 12.1 H (4.8-10.8) X10*3/uL RBC 3.75 L (4.20-5.50) X10*6/uL Hgb 10.2 L D (12.0-16.0) g/dl Hct 32.4 L (37.0-47.0) % MCV 86.4 (80.0-98.0) fL MCH 27.2 (27.0-33.0) pg MCHC 31.5 (31.0-35.0) g/dl RDW 15.4 (11.0-16.0) % Plt Count 285 D (160-400) X10*3/uL MPV 9.8 (9.4-12.3) fL Immature Gran % (Auto) 0.9 H (0.0-0.4) % Neut % (Auto) 90.2 H (45-73) % Lymph % (Auto) 4.4 L (20-40) % [place] % (Auto) 4.3 (2-11) % Eos % (Auto) 0.0 (0-4) % Baso % (Auto) 0.2 (0-2) % Lymph # (Auto) 0.5 L (1.2-4.9) X10*3/uL [place] # (Auto) 0.5 (0.1-1.2) X10*3/uL Eos # (Auto) 0.0 (0.0-0.4) X10*3/uL Baso # (Auto) 0.0 (0.0-0.2) X10*3/uL Abs Immat Gran (auto) 0.11 H (0.00-0.03) X10*3/uL Absolute Neuts (auto) 10.9 H (2.0-8.3) x10*3/uL Absolute Nucleated RBC 0.000 (0.0-0.012) X10*3/uL Nucleated RBC % (auto) 0.0 (0.0-0.2) /100WBC Smear Tech's Comments VERIFIED Sodium 145 (135-145) mmol/L Potassium 3.2 L (3.3-5.1) mmol/L Chloride 106 (96-108) mmol/L Carbon Dioxide 27 (22-29) mmol/L Anion Gap 15 (12-20) BUN 19 H (9-16) mg/dL Creatinine 0.89 (0.5-1.4) mg/dL Estim Creat Clear Calc 49.6 Estimated GFR > 60 Random Glucose 102 (60-115) mg/dL Calcium 9.7 (8.4-10.2) mg/dL Troponin I High Sens 3.9 < 2.7 (<3.5-17.0) ng/L B-Natriuretic Peptide 75 (<100) pg/mL Influenza Type A (PCR) NEGATIVE (Negative) Influenza Type B (PCR) NEGATIVE (Negative) RSV RNA Qual (PCR) NEGATIVE (Negative) SARS-CoV-2 RNA (RT-PCR) NEGATIVE (Negative) Critical Care Time Critical Care Time Critical Care Time: Yes Total Critical Care Time: 35 Attestation: I attest to this time spent taking care of the patient, obtaining history, physical, reviewing labs, imaging Discharge Plan Discharge Clinical Impression: Asthma-COPD overlap syndrome, Hypoxia, Bronchitis Patient Disposition: Admitted As Inpatient
[2023-06-03] MEDS: Magnesium Sulfate/H2O 2 GM/50 ML PIGGYBACK IV (12:08)
[2023-06-03] MEDS: methylPREDNISolone Sod Succ 125 MG/2 ML VIAL IVPUSH (12:08)
--- NOTE | 2023-06-03 12:10 | PC.NURSE ---
provider bedside assessing pt. pt O2 dipped to 90% on RA - documented in vs section. 20gIV placed in the left forearm - medication administered per provider order. pt currently being transferred to CT at this time. will administer abx when able.
[2023-06-03 12:22] LABS: B Type Natriuretic Peptide 75 pg/mL (<100)
[2023-06-03] MEDS: cefTRIAXone sodium 1 GM in 0.9 % Sodium Chloride 50 ML IV (12:28)
--- NOTE | 2023-06-03 12:34 | PC.NURSE ---
pt returned from CT at this time. abx administered per provider order.
[2023-06-03] MEDS: Azithromycin 500 MG in 0.9 % Sodium Chloride 250 ML 125 MG IV (12:59)
[2023-06-03 13:46] LABS: Troponin-I High Sensitivity < 2.7 ng/L (<3.5-17.0)
--- NOTE | 2023-06-03 14:52 | P.HPHOSP_ITS ---
History of Present Illness Date of Service: 06/03/23 Attending physician on admission: Balwinder Horowitz Chief Complaint: sob, wheezing 78-year-old female with history of asthma/COPD overlap, paroxysmal atrial fibrillation anticoagulated with Eliquis, hypertension, hyperlipidemia, CAD, bronchomalacia, ARIEL on CPAP, GERD, osteoporosis, and hypothyroidism presented to the ED earlier today for evaluation of shortness of breath, nonproductive cough, and pleuritic chest pain ongoing for about 6 days. There has been an increase in nebulizer usage. She states she has been compliant with all of her maintenance inhalers. Was seen by pulmonology (Eliezer) 4 days ago and started on prednisone taper which she has been taking as prescribed. Despite this, there has been no improvement in symptoms. Denies any fevers, chills, nasal congestion, sore throat, sick contacts, abdominal pain, nausea, vomiting, diarrhea, lightheadedness, headache, orthopnea, or chest pressure. She is non oxygen dependent at home. On arrival, vital stable. Oximetry has been ranging 90-96%. She has a mild leukocytosis of 12.1, likely secondary to steroid use. Renal function baseline, electrolyte levels normal except for mild hypokalemia of 3.2. Troponins below detectable limit x2. BNP 75. Negative for COVID-19, RSV, influenza. Chest x- ray shows cardiomegaly with mild CHF/prominent pulmonary vascularity. Chest CT pending. In the ED, has received 125 mg IV methylprednisolone, 1 g IV ceftriaxone, 500 mg IV Zithromax, 2 g IV magnesium, and DuoNeb without improvement. Review of Systems 2 Review of Systems: General: No fevers, malaise, unintentional weight loss HEENT: No blurred vision, diplopia. No sore throat, nasal congestion, rhinorrhea, sinus pain, ear pain Cardiovascular: +pleuritic chest pain. No palpitations, or leg edema Respiratory: +sob, +wheezing, +cough. 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 Patient Tobacco Use Status: Former Tobacco user Quit Date: 25 years ago Tobacco use type: Cigarette Years Smoked: 45 Smoked in Last 30 Days: No e-Cigarette/Vaping Use: Never Used Second Hand Smoke Exposure: No Use of substances other than those prescribed or required for medical reasons: No Advance Directives: Yes Advance Directives on File: Yes Advance Directives Date on File: 01/07/22 service: No Current occupational status: retired Meds Allergies Allergy/AdvReac Type Severity Reaction Status Date / Time aspirin Allergy Severe Upset Verified 05/30/23 13:34 Stomach Latex Gloves Allergy Severe Rash Uncoded 05/30/23 13:34 Home Medications Medication Instructions Recorded Confirmed Last Taken Type omeprazole 20 mg capsule,delayed 20 mg PO DAILY 01/06/22 05/30/23 02/19/23 History release alendronate 70 mg tablet 70 mg PO SA 01/21/22 05/30/23 02/15/23 History atorvastatin 80 mg tablet 80 mg PO DAILY 06/20/22 05/30/23 02/19/23 History diltiazem HCl 120 mg 120 mg PO DAILY 10/29/22 05/30/23 02/19/23 History capsule,extended release 24 hr nebulizers 12/04/22 01/01/23 Unknown History levalbuterol tartrate 45 2 puff inhalation Q4-6H PRN 12/19/22 05/30/23 Unknown History mcg/actuation aerosol inhaler Wheezing furosemide 40 mg tablet 40 mg PO DAILY 02/05/23 05/30/23 02/19/23 History levothyroxine 25 mcg tablet 50 mcg PO DAILY 02/12/23 05/30/23 02/19/23 History estradiol 0.01% (0.1 mg/gram) 1 g vaginal TUFR 02/19/23 05/30/23 02/19/23 History vaginal cream peg 400-propylene glycol (PF) 0.4 1 drp ophthalmic (eye) TID PRN Dry 02/19/23 02/19/23 Unknown History %-0.3 % eye drops in a dropperette Eyes (Systane (PF)) valsartan 80 mg tablet 80 mg PO BEDTIME 02/19/23 05/30/23 02/18/23 History Physical Exam 2 Vital Signs and Narrative: Vital Signs: Last Vital Signs Temp 97.8 F 06/03/23 10:30 Pulse 82 06/03/23 12:29 Resp 14 06/03/23 12:29 BP 119/42 L 06/03/23 12:29 Pulse Ox 93 06/03/23 12:29 O2 Del Method Room Air 06/03/23 12:29 O2 Flow Rate 2 06/03/23 10:41 BMI result Body Mass Index 35.1 Constitutional - Awake and Alert, No apparent distress Eyes - PERRLA, EOMI Cardiovascular - S1S2, RRR, No edema Respiratory - Normal lung expansion, increased wob, No respiratory distress, Ccoarse rhonchi lower lobes bilaterally with diffuse expiratory wheezing Gastrointestinal - NT / ND; +BS; No rebound or guarding Extremities - no calf tenderness bilaterally, no swelling Skin - Warm/Dry Neurological - Alert & oriented x3 Psychological - Appropriate affect Results Labs 06/03/23 10:02 06/03/23 10:02 Labs: Laboratory Results - last 24 hr 06/03/23 06/03/23 10:02 10:47 MCV 86.4 MCH 27.2 MCHC 31.5 RDW 15.4 Plt Count 285 D MPV 9.8 Immature Gran % (Auto) 0.9 H Neut % (Auto) 90.2 H Lymph % (Auto) 4.4 L [place] % (Auto) 4.3 Eos % (Auto) 0.0 Baso % (Auto) 0.2 Lymph # (Auto) 0.5 L [place] # (Auto) 0.5 Eos # (Auto) 0.0 Baso # (Auto) 0.0 Abs Immat Gran (auto) 0.11 H Absolute Neuts (auto) 10.9 H Absolute Nucleated RBC 0.000 Nucleated RBC % (auto) 0.0 Smear Tech's Comments VERIFIED Anion Gap 15 Estim Creat Clear Calc 49.6 Estimated GFR > 60 Random Glucose 102 Calcium 9.7 B-Natriuretic Peptide 75 Influenza Type A (PCR) NEGATIVE Influenza Type B (PCR) NEGATIVE RSV RNA Qual (PCR) NEGATIVE SARS-CoV-2 RNA (RT-PCR) NEGATIVE Imaging Radiologist's Impressions: Impressions Chest X-Ray 06/03/23 10:42 IMPRESSION: . Cardiomegaly with mild CHF. Assessment and Plan (1) COPD exacerbation: Status: Resolved Plan 78-year-old female with history of asthma/COPD overlap, paroxysmal atrial fibrillation anticoagulated with Eliquis, hypertension, hyperlipidemia, CAD, bronchomalacia, ARIEL on CPAP, GERD, osteoporosis, and hypothyroidism to be observed for acute COPD exacerbation #Acute asthma/COPD exacerbation -CXR negative for any focal consolidations. Negative for COVID-19, RSV, influenza -chest CT pending. Check full viral respiratory panel -IV methylprednisolone 40 mg q.8h -DuoNebs q.4h while awake -albuterol p.r.n. -continue maintenance inhalers -Robitussin AC q.6h -azithromycin for pleiotropic effect -leukocytosis secondary to steroid use. Tachycardia secondary to albuterol use. No sepsis # paroxysmal atrial fibrillation-rate controlled -continue Eliquis for anticoagulation -continue amiodarone, diltiazem # hypothyroidism -continue levothyroxine # hypertension -blood pressure reasonably controlled -continue valsartan, diltiazem, furosemide # CAD/HLD -no anginal chest pain -continue Eliquis, statin # GERD -continue PPI # ARIEL -CPAP bedtime DVT prophylaxis-Eliquis Full code Quality Stroke Does the patient have a stroke diagnosis?: No VTE Prior VTE?: No VTE Risk Level:: Medical - moderate - high VTE Device Contraindication: Treatment Not Indicated VTE Drug Contraindication: N/A - Med Ordered
[2023-06-03] MEDS: Albuterol/Iprat 2.5/0.5MG 3 ML AMPUL.NEB INHALE ×2 (15:27→19:33)
[2023-06-03] MEDS: guaiFEN/Codeine SF 200/20/10ML 10 ML LIQUID PO ×2 (15:39→22:51)
[2023-06-03] MEDS: Potassium Chloride Packet 20 MEQ PACKET PO (15:39)
[2023-06-03] MEDS: 0.9 % Sodium Chloride Flush 3 ML SYRINGE IVFLUSH (15:40)
--- NOTE | 2023-06-03 15:42 | PC.NURSE ---
vss and up to date at this time. pt continues to rest in no apparent distress at this time. pt still displays w/ sob/wob. productive cough still present. respirations even/unlabored. pt verbalizing no pain at this time. medication administered per provider order. call vivas placed within reach.
--- NOTE | 2023-06-03 16:48 | PHA.MEDREC ---
Pharmacy Consult ? Medication Reconciliation Pharmacy has completed the medication reconciliation. Spoke to patient and confirmed medication list.
--- NOTE | 2023-06-03 18:02 | PC.NURSE ---
pt continues to rest in no apparent distress. pt awaiting admission upstairs at this time.
[2023-06-03] MEDS: Budesonide 0.5 MG/2 ML AMPUL.NEB INHALE (19:33)
--- NOTE | 2023-06-03 19:36 | PC.RT ---
pt refused CPAP states she does not wear at home and does not want to wear in hospital
--- NOTE | 2023-06-03 19:39 | PC.NURSE ---
RT bedside speaking w/ pt.
[2023-06-03] MEDS: Apixaban 5 MG TABLET PO (22:51)
[2023-06-03] MEDS: Valsartan 80 MG TABLET PO (22:51)
[2023-06-04] VITALS (9 sets, daily range): BP systolic 128–137; BP diastolic 54–61; PULSE 64–83; RESP 14–20; TEMP 36.2–36.8; O2SAT 91–96
[2023-06-04] MEDS: 0.9 % Sodium Chloride Flush 3 ML SYRINGE IVFLUSH ×3 (00:12→20:07)
--- NOTE | 2023-06-04 02:33 | PC.NURSE ---
Pt aox4 resting at the bedside. No apparent distress noted. VSS. Breaths are even regular and unlabored. Pt reports improvement in breathing. Pending bed assignment. Pt aware of plan of care. Monitoring is ongoing.
[2023-06-04] MEDS: Levothyroxine Sodium 112 MCG TABLET PO (04:01)
[2023-06-04] MEDS: guaiFEN/Codeine SF 200/20/10ML 10 ML LIQUID PO ×2 (05:00→20:07)
[2023-06-04 05:18] LABS: MANUAL DIFF FLAG NO
[2023-06-04 05:19] LABS: Basophils Percent Auto 0.1 % (0-2); Hematocrit 28.2 % (37.0-47.0); Hemoglobin 8.9 g/dl (12.0-16.0); Imm Gran Abs Auto 0.12 X10*3/uL (0.00-0.03); Imm Gran Pct Auto 1.5 % (0.0-0.4); Lymphocytes Absolute Auto 0.5 X10*3/uL (1.2-4.9); Lymphocytes Percent Auto 6.2 % (20-40); Mean Corpuscular HGB Conc 31.6 g/dl (31.0-35.0); Mean Corpuscular Hemoglobin 26.6 pg (27.0-33.0); Mean Corpuscular Volume 84.2 fL (80.0-98.0); Mean Platelet Volume 9.9 fL (9.4-12.3); Monocytes Absolute Auto 0.2 X10*3/uL (0.1-1.2); Monocytes Percent Auto 2.7 % (2-11); Neutrophils Percent Auto 89.5 % (45-73); Platelet Count 258 X10*3/uL (160-400); Red Blood Count 3.35 X10*6/uL (4.20-5.50); Red Cell Distribution Width 15.3 % (11.0-16.0); White Blood Count 7.8 X10*3/uL (4.8-10.8)
[2023-06-04 05:39] LABS: Anion Gap 14 (12-20); Blood Urea Nitrogen 21 mg/dL (9-16); Calcium 9.1 mg/dL (8.4-10.2); Carbon Dioxide 26 mmol/L (22-29); Chloride 108 mmol/L (96-108); Creatinine Clr Calc Pharmacy 58.1; Estimated Glomerular Filt Rate > 60; Glucose Random 132 mg/dL (60-115); Sodium 144 mmol/L (135-145)
[2023-06-04] MEDS: Omeprazole 20 MG CAPSULE.DR PO (06:05)
[2023-06-04] MEDS: Budesonide 0.5 MG/2 ML AMPUL.NEB INHALE ×2 (07:39→21:05)
[2023-06-04] MEDS: Albuterol/Iprat 2.5/0.5MG 3 ML AMPUL.NEB INHALE ×4 (07:39→21:05)
--- NOTE | 2023-06-04 09:51 | MHC.CM.PN ---
PT REPORTS SHE LIVES ALONE AND IS INDEPENDENT WTIH SELF CARE SHE HAS NO FORMAL SERVICES HOWEVER STATES [facility] ASSIST HER WITH HE[employer] PRN SHE HAS A CANE AND WALKER, SHE SAYS SHE NO LONGER USES THE CANE BUT HAS A ROLLATOR SHE USES FOR LONG DISTANCES SHE HAS A HCP NAMING HER DAUGHTER, SEGUN RODRIGUEZ, HER AGENT, COPY REQUESTED PCP: OLGA ALLAN OBSERVATION NOTICE DELIVERED DCP: HOME NO SERVICES VIA SELF TRANSPORT
[2023-06-04] MEDS: Amiodarone HCL 200 MG TABLET PO (10:01)
[2023-06-04] MEDS: Atorvastatin Calcium 80 MG TABLET PO (10:01)
[2023-06-04] MEDS: Apixaban 5 MG TABLET PO ×2 (10:02→20:07)
[2023-06-04] MEDS: Loratadine 10 MG TABLET PO (10:02)
[2023-06-04] MEDS: Furosemide 40 MG TABLET PO (10:02)
[2023-06-04] MEDS: dilTIAZem HCL CD 120 MG CAP.ER.DEG PO (10:02)
[2023-06-04] MEDS: cefTRIAXone sodium 1 GM in 0.9 % Sodium Chloride 50 ML IV (11:55)
[2023-06-04] MEDS: Azithromycin 500 MG in 0.9 % Sodium Chloride 250 ML 125 MG IV (12:51)
[2023-06-04] MEDS: Tiotropium Bromide 2.5 mcg 1 PUFF/2.5 MCG MIST.INHAL 2 PUFF INHALE (13:27)
[2023-06-04] MEDS: prednisoLONE sodium phosphate 15 MG/5 ML SOLUTION PO (13:36)
[2023-06-04 15:33] LABS: Adenovirus PCR Not Detected (Not Detect.); Bordetella parapertussis PCR Not Detected (Not Detect.); Bordetella pertussis PCR Not Detected (Not Detect.); Chlamydia pneumoniae PCR Not Detected (Not Detect.); Coronavirus 229E PCR Not Detected (Not Detect.); Coronavirus HKU1 PCR Not Detected (Not Detect.); Coronavirus NL63 PCR Not Detected (Not Detect.); Coronavirus OC43 PCR Not Detected (Not Detect.); Human metapneumovirus PCR Not Detected (Not Detect.); Influenza A PCR Not Detected (Not Detect.); Influenza B PCR Not Detected (Not Detect.); Mycoplasma pneumoniae PCR Not Detected (Not Detect.); Parainfluenza 1 PCR Not Detected (Not Detect.); Parainfluenza 2 PCR Not Detected (Not Detect.); Parainfluenza 3 PCR Not Detected (Not Detect.); Parainfluenza 4 PCR Not Detected (Not Detect.); RSV PCR Not Detected (Not Detect.); Rhino/Enterovirus PCR Not Detected (Not Detect.)
[2023-06-04 15:37] LABS: SARS-CoV-2 PCR Not Detected (Not Detect.)
--- NOTE | 2023-06-04 17:12 | P.PNIM_ITS ---
Subjective Subjective Date of Service: 06/04/23 Interval History: Seen in follow up for asthma/COPD exacerbation Interval history: Patient reports feeling better compared to yesterday but is still quite dyspneic with exertion. Still with dry cough and chest congestion. Afebrile Review of Systems Review of Systems: Yes all other systems are reviewed and are negative Physical Exam 2 Vital Signs: Vital Signs: Last Vital Signs Temp 98.1 F 06/04/23 13:34 Pulse 83 06/04/23 15:23 Resp 18 06/04/23 15:23 BP 129/61 06/04/23 13:34 Pulse Ox 94 06/04/23 13:34 O2 Del Method Room Air 06/04/23 13:34 O2 Flow Rate 2 06/03/23 10:41 BMI result Body Mass Index 35.1 Constitutional - Awake and Alert, No apparent distress Eyes - PERRLA, EOMI Cardiovascular - S1S2, RRR, No edema Respiratory - Normal lung expansion, Normal respiratory effort, No respiratory distress, coarse lung sounds with rhonchi in the bilateral lower lobes and expiratory wheezing Gastrointestinal - NT / ND; +BS; No rebound or guarding Extremities - no calf tenderness bilaterally, no swelling Skin - Warm/Dry Neurological - Alert & oriented x3 Psychological - Appropriate affect Objective Data Active Medications Acetaminophen (Acetaminophen 325 Mg Tablet) 650 mg PO Q6H PRN PRN Reason: Pain, Mild (Pain Scale 1-3) Albuterol Sulfate (Albuterol Sulfate (0.083%) 2.5 Mg/3 Ml Vial.Neb) 2.5 mg INHALE Q2H PRN PRN Reason: Shortness of Breath/Wheezing Albuterol/Ipratropium (Albuterol/Iprat 2.5/0.5mg 3 Ml Ampul.Neb) 3 ml INHALE RQ4H WHILE AWAKE [facility] Last Admin: 06/04/23 15:22 Dose: 3 ml Documented By: HALLE Amiodarone HCl (Amiodarone Hcl 200 Mg Tablet) 200 mg PO DAILY [facility] Last Admin: 06/04/23 10:01 Dose: 200 mg Documented By: GARRET Apixaban (Apixaban 5 Mg Tablet) 5 mg PO BID [facility] Last Admin: 06/04/23 10:02 Dose: 5 mg Documented By: GARRET Atorvastatin Calcium (Atorvastatin Calcium 80 Mg Tablet) 80 mg PO DAILY [facility] Last Admin: 06/04/23 10:01 Dose: 80 mg Documented By: GARRET Budesonide (Budesonide 0.5 Mg/2 Ml Ampul.Neb) 0.5 mg INHALE RBID [facility] Last Admin: 06/04/23 07:39 Dose: 0.5 mg Documented By: HALLE Diltiazem HCl (Diltiazem Hcl Cd 120 Mg Cap.Er.Deg) 120 mg PO DAILY [facility]; Protocol Last Admin: 06/04/23 10:02 Dose: 120 mg Documented By: GARRET Furosemide (Furosemide 40 Mg Tablet) 40 mg PO DAILY [facility]; Protocol Last Admin: 06/04/23 10:02 Dose: 40 mg Documented By: GARRET Guaifenesin/Codeine Phosphate (Guaifen/Codeine Sf 200/20/10ml 10 Ml Liquid) 10 ml PO Q6H [facility] Last Admin: 06/04/23 16:21 Dose: Not Given Documented By: GARRET Non-Admin Reason: patient refused, does not feel like she needs Azithromycin 500 mg/ Sodium (Chloride) 250 mls @ 125 mls/hr IV Q24H [facility] Stop: 06/05/23 14:59 Last Infusion: 06/04/23 14:55 Dose: Infused Documented By: GARRET Ceftriaxone Sodium 1 gm/ (Sodium Chloride) 50 mls @ 100 mls/hr IV Q24H [facility] Last Infusion: 06/04/23 12:25 Dose: Infused Documented By: GARRET Levothyroxine Sodium (Levothyroxine Sodium 112 Mcg Tablet) 112 mcg PO DAILY@0400 [facility] Last Admin: 06/04/23 04:01 Dose: 112 mcg Documented By: MICHELE Loratadine (Loratadine 10 Mg Tablet) 10 mg PO DAILY [facility] Last Admin: 06/04/23 10:02 Dose: 10 mg Documented By: GARRET Methylprednisolone Sodium Succinate (Methylprednisolone Sod Succ 40 Mg/Ml Vial) 40 mg IVPUSH Q8H [facility] Non-Formulary Medication (Estradiol) 1 gm VAGINAL TUFR [facility] Omeprazole (Omeprazole 20 Mg Capsule.) 20 mg PO DAILY@0630 [facility] Last Admin: 06/04/23 06:05 Dose: 20 mg Documented By: MICHELE Polyethyl Glycol/Propylene Glycol (Propylene Glycol/Peg 400 Gel Eye Drops 10ml) 1 drop EYE-BOTH TID PRN PRN Reason: Dry Eyes Prednisolone Sodium Phosphate (Prednisolone Sodium Phosphate 15 Mg/5 Ml Solution) 15 mg PO ONCE [facility] Senna (Sennosides 8.6 Mg Tablet) 17.2 mg PO BEDTIME PRN PRN Reason: Constipation Sodium Chloride (0.9 % Sodium Chloride Flush 3 Ml Syringe) 3 ml IVFLUSH QSHIFT [facility] Last Admin: 06/04/23 16:39 Dose: Not Given Documented By: GARRET Non-Admin Reason: IV Running Tiotropium [place] (Tiotropium [place] 2.5 Mcg 1 Puff/2.5 Mcg Mist.Inhal) 2 puff INHALE RDAILY@1400 [facility] Last Admin: 06/04/23 13:27 Dose: 2 puff Documented By: HALLE Valsartan (Valsartan 80 Mg Tablet) 80 mg PO BEDTIME [facility]; Protocol Last Admin: 06/03/23 22:51 Dose: 80 mg Documented By: MICHELE Labs 06/04/23 05:04 06/04/23 05:04 Labs: Laboratory Results - last 24 hr 06/04/23 06/04/23 05:04 13:45 MCV 84.2 MCH 26.6 L MCHC 31.6 RDW 15.3 Plt Count 258 MPV 9.9 Immature Gran % (Auto) 1.5 H Neut % (Auto) 89.5 H Lymph % (Auto) 6.2 L [place] % (Auto) 2.7 Eos % (Auto) 0.0 Baso % (Auto) 0.1 Lymph # (Auto) 0.5 L [place] # (Auto) 0.2 Eos # (Auto) 0.0 Baso # (Auto) 0.0 Abs Immat Gran (auto) 0.12 H Absolute Neuts (auto) 7.0 Absolute Nucleated RBC 0.000 Nucleated RBC % (auto) 0.0 Anion Gap 14 Estim Creat Clear Calc 58.1 Estimated GFR > 60 Random Glucose 132 H Calcium 9.1 D Respiratory Panel [place] See Note Adenovirus (Rapid PCR) Not Detected B.pert (TEM-PCR) Not Detected B.parapertussis DNA PCR Not Detected C. pneumoniae DNA (PCR) Not Detected Coronavirus OC43 (PCR) Not Detected Coronavirus HKU1 (PCR) Not Detected Coronavirus 229E (PCR) Not Detected Coronavirus NL63 (PCR) Not Detected Human Metapneumovir PCR Not Detected Influenza A (RT-PCR) Not Detected Influenza B (RT-PCR) Not Detected M. pneumoniae (PCR) Not Detected Parainfluenza 1 (PCR) Not Detected Parainfluenza 2 (PCR) Not Detected Parainfluenza 3 (PCR) Not Detected Parainfluenza 4 (PCR) Not Detected RSV (PCR) Not Detected Entero/Rhino (PCR) Not Detected SARS-CoV-2 RNA (RT-PCR) Not Detected Assessment and Plan (1) Bronchitis: Status: Acute (2) Hypoxia: Status: Acute (3) COPD exacerbation: Status: Acute Plan 78-year-old female with history of asthma/COPD overlap, paroxysmal atrial fibrillation anticoagulated with Eliquis, hypertension, hyperlipidemia, CAD, bronchomalacia, ARIEL on CPAP, GERD, osteoporosis, and hypothyroidism to be observed for acute COPD exacerbation #Acute asthma/COPD exacerbation -CXR negative for any focal consolidations. Full viral respiratory panel negative -chest CT negative for acute abnormality. Shows redemonstration ground-glass consolidative focus, similar in appearance to prior imaging as well as stable bilateral pulmonary nodules. -IV methylprednisolone 40 mg q.8h -DuoNebs q.4h while awake -albuterol p.r.n. -continue maintenance inhalers -Robitussin AC q.6h -azithromycin for pleiotropic effect -leukocytosis, now resolved, secondary to steroid use. Tachycardia secondary to albuterol use. No sepsis # bronchomalacia -give additional dose prednisolone 15 mg p.o. # paroxysmal atrial fibrillation-rate controlled -continue Eliquis for anticoagulation -continue amiodarone, diltiazem # hypothyroidism -continue levothyroxine # hypertension -blood pressure reasonably controlled -continue valsartan, diltiazem, furosemide # CAD/HLD -no anginal chest pain -continue Eliquis, statin # GERD -continue PPI # ARIEL -CPAP bedtime DVT prophylaxis-Eliquis Full code Due to persistent significant dyspnea with exertion and coarse lung sounds with ongoing expiratory wheezing patient will require at least 2 midnight stay for IV steroids, scheduled nebulizers, and close monitoring for any pulmonary decompensation Quality Stroke Does the patient have a stroke diagnosis?: No VTE Prior VTE?: No VTE Risk Level:: Medical - moderate - high VTE Device Contraindication: Treatment Not Indicated VTE Drug Contraindication: N/A - Med Ordered
[2023-06-04] MEDS: methylPREDNISolone Sod Succ 40 MG/ML VIAL IVPUSH (20:06)
[2023-06-04] MEDS: Valsartan 80 MG TABLET PO (20:06)
[2023-06-05 04:00] VITALS: BP 149/65; PULSE 68; RESP 18; TEMP 36.3; O2SAT 92
[2023-06-05] MEDS: Levothyroxine Sodium 112 MCG TABLET PO (04:21)
[2023-06-05] MEDS: methylPREDNISolone Sod Succ 40 MG/ML VIAL IVPUSH (04:21)
[2023-06-05] MEDS: Omeprazole 20 MG CAPSULE.DR PO (05:43)
[2023-06-05 06:28] LABS: Basophils Percent Auto 0.1 % (0-2); Hematocrit 28.2 % (37.0-47.0); Imm Gran Abs Auto 0.11 X10*3/uL (0.00-0.03); Imm Gran Pct Auto 1.1 % (0.0-0.4); Lymphocytes Absolute Auto 0.4 X10*3/uL (1.2-4.9); Lymphocytes Percent Auto 3.8 % (20-40); MANUAL DIFF FLAG SCAN; Mean Corpuscular HGB Conc 31.9 g/dl (31.0-35.0); Mean Corpuscular Hemoglobin 26.9 pg (27.0-33.0); Mean Corpuscular Volume 84.4 fL (80.0-98.0); Mean Platelet Volume 10.3 fL (9.4-12.3); Monocytes Absolute Auto 0.2 X10*3/uL (0.1-1.2); Monocytes Percent Auto 2.1 % (2-11); NRBC Pct Auto 0.2 /100WBC (0.0-0.2); Neutrophils Absolute Auto 9.7 x10*3/uL (2.0-8.3); Neutrophils Percent Auto 92.9 % (45-73); Platelet Count 279 X10*3/uL (160-400); Red Blood Count 3.34 X10*6/uL (4.20-5.50); Red Cell Distribution Width 15.5 % (11.0-16.0); SCAN SMEAR FLAG 1; White Blood Count 10.4 X10*3/uL (4.8-10.8)
[2023-06-05 06:49] VITALS: BP 136/73; PULSE 69; RESP 17; TEMP 36.6; O2SAT 94
[2023-06-05 06:49] LABS: SLIDE REVIEW VERIFIED
[2023-06-05 06:50] LABS: Anion Gap 14 (12-20); Blood Urea Nitrogen 24 mg/dL (9-16); Calcium 9.2 mg/dL (8.4-10.2); Carbon Dioxide 25 mmol/L (22-29); Chloride 107 mmol/L (96-108); Creatinine Clr Calc Pharmacy 53.2; Estimated Glomerular Filt Rate > 60; Glucose Random 133 mg/dL (60-115); Sodium 142 mmol/L (135-145)
[2023-06-05] MEDS: Budesonide 0.5 MG/2 ML AMPUL.NEB INHALE (07:49)
[2023-06-05] MEDS: Albuterol/Iprat 2.5/0.5MG 3 ML AMPUL.NEB INHALE ×2 (07:49→11:15)
[2023-06-05 07:51] VITALS: PULSE 63; RESP 18; O2SAT 96
[2023-06-05] MEDS: predniSONE 20 MG TABLET 40 MG PO (08:19)
[2023-06-05] MEDS: Atorvastatin Calcium 80 MG TABLET PO (08:20)
[2023-06-05] MEDS: 0.9 % Sodium Chloride Flush 3 ML SYRINGE IVFLUSH (08:20)
[2023-06-05] MEDS: Amiodarone HCL 200 MG TABLET PO (08:20)
[2023-06-05] MEDS: Doxycycline Monohydrate 100 MG CAPSULE PO (08:20)
[2023-06-05] MEDS: dilTIAZem HCL CD 120 MG CAP.ER.DEG PO (08:20)
[2023-06-05] MEDS: Furosemide 40 MG TABLET PO (08:20)
[2023-06-05] MEDS: Apixaban 5 MG TABLET PO (08:20)
[2023-06-05] MEDS: Loratadine 10 MG TABLET PO (08:20)
--- NOTE | 2023-06-05 10:44 | MHC.CM.PN ---
EMR REVIEWED. PER MD ROUNDS PATIENT IS MEDICALLY CLEARED FOR DC - HOME, SELF CARE. PATIENT IS INDEPENDENT AND HER CAR IS ON SITE. SHE WILL TRANSPORT HERSELF HOME. RN AWARE.
--- NOTE | 2023-06-05 11:11 | PM.DS ---
DS: Providers Provider Date of Service: 06/05/23 Date of admission: 06/04/23 13:26 Date of discharge: 06/05/23 Primary care physician: JAIME Simms Admitting clinician: Cathy London Attending physician on admission: Balwinder Horowitz Attending physician on discharge: Son Manuel Discharging clinician: Cathy London DS: Diagnosis Discharge Diagnosis (1) Bronchitis: Status: Acute (2) Hypoxia: Status: Acute (3) COPD exacerbation: Status: Acute DS: Summary Hospital Course Hospital Course: HPI on admission by this provider 06/03: 78-year-old female with history of asthma/COPD overlap, paroxysmal atrial fibrillation anticoagulated with Eliquis, hypertension, hyperlipidemia, CAD, bronchomalacia, ARIEL on CPAP, GERD, osteoporosis, and hypothyroidism presented to the ED earlier today for evaluation of shortness of breath, nonproductive cough, and pleuritic chest pain ongoing for about 6 days. There has been an increase in nebulizer usage. She states she has been compliant with all of her maintenance inhalers. Was seen by pulmonology (Eliezer) 4 days ago and started on prednisone taper which she has been taking as prescribed. Despite this, there has been no improvement in symptoms. Denies any fevers, chills, nasal congestion, sore throat, sick contacts, abdominal pain, nausea, vomiting, diarrhea, lightheadedness, headache, orthopnea, or chest pressure. She is non oxygen dependent at home. On arrival, vital stable. Oximetry has been ranging 90-96%. She has a mild leukocytosis of 12.1, likely secondary to steroid use. Renal function baseline, electrolyte levels normal except for mild hypokalemia of 3.2. Troponins below detectable limit x2. BNP 75. Negative for COVID-19, RSV, influenza. Chest x-ray shows cardiomegaly with mild CHF/prominent pulmonary vascularity. Chest CT pending. In the ED, has received 125 mg IV methylprednisolone, 1 g IV ceftriaxone, 500 mg IV Zithromax, 2 g IV magnesium, and DuoNeb without improvement. Hospital course: Hospital course uneventful. Pt admitted to [facility] for further management of COPD exacerbation with bronchomalacia, Respiral viral panel was negative. She was treated with IV methylprednisolone 40 mg t.i.d. as well as scheduled DuoNebs and albuterol p.r.n.. She was also treated with azithromycin for pleiotrophic effect. She was given prednisolone 15mg x2 and robitussin AC for bronchomalacia/cough with good effect. She has returned to functional baseline wihtout any respiratory distress at rest or with exertion. There was no hypoxia and vitals remained stable throughout admission. She will be discharge home to continue prednisone taper as advised by pulmonology starting with 40mg x 3 days, 30mg x3 days, 30mg x3 days, 20mg x3 days, and 10mg x3days. Take doxycycline 100mg BID x 3 days. Continue maintenance inhalers and use rescue inhaler/nebulizers as needed. Continue all other home medications and follow up with PCP/exercise physiologist certified soon Time spent discussing smoking cessation with patient: 3 to 10 minutes Status at Discharge Functional status at discharge: independent ambulation Overall status at discharge: patient is progressing back to baseline Time Attestation Discharge coordination time: Greater than 30 minutes Quality: Safe Use of Opioids Does Pt have an Active Cancer Diagnosis on the Problem List?: No Quality: Stroke Does the patient have a stroke diagnosis?: No Physical Exam Vital Signs: Vital Signs: Last Vital Signs Temp 98 F 06/05/23 06:49 Pulse 63 06/05/23 07:51 Resp 18 06/05/23 07:51 BP 136/73 06/05/23 06:49 Pulse Ox 94 06/05/23 06:49 O2 Del Method Room Air 06/05/23 06:49 O2 Flow Rate 2 06/03/23 10:41 BMI result Body Mass Index 35.1 DS: Data Data Completed and Pending Labs on day of discharge: Laboratory Results - last 24 hr 06/04/23 06/05/23 13:45 05:53 WBC 10.4 RBC 3.34 L Hgb 9.0 L Hct 28.2 L MCV 84.4 MCH 26.9 L MCHC 31.9 RDW 15.5 Plt Count 279 MPV 10.3 Immature Gran % (Auto) 1.1 H Neut % (Auto) 92.9 H Lymph % (Auto) 3.8 L [place] % (Auto) 2.1 Eos % (Auto) 0.0 Baso % (Auto) 0.1 Lymph # (Auto) 0.4 L [place] # (Auto) 0.2 Eos # (Auto) 0.0 Baso # (Auto) 0.0 Abs Immat Gran (auto) 0.11 H Absolute Neuts (auto) 9.7 H Absolute Nucleated RBC 0.020 H Nucleated RBC % (auto) 0.2 Smear Tech's Comments VERIFIED Sodium 142 Potassium 4.0 Chloride 107 Carbon Dioxide 25 Anion Gap 14 BUN 24 H Creatinine 0.83 Estim Creat Clear Calc 53.2 Estimated GFR > 60 Random Glucose 133 H Calcium 9.2 Respiratory Panel [place] See Note Adenovirus (Rapid PCR) Not Detected B.pert (TEM-PCR) Not Detected B.parapertussis DNA PCR Not Detected C. pneumoniae DNA (PCR) Not Detected Coronavirus OC43 (PCR) Not Detected Coronavirus HKU1 (PCR) Not Detected Coronavirus 229E (PCR) Not Detected Coronavirus NL63 (PCR) Not Detected Human Metapneumovir PCR Not Detected Influenza A (RT-PCR) Not Detected Influenza B (RT-PCR) Not Detected M. pneumoniae (PCR) Not Detected Parainfluenza 1 (PCR) Not Detected Parainfluenza 2 (PCR) Not Detected Parainfluenza 3 (PCR) Not Detected Parainfluenza 4 (PCR) Not Detected RSV (PCR) Not Detected Entero/Rhino (PCR) Not Detected SARS-CoV-2 RNA (RT-PCR) Not Detected Discharge Plan Discharge Anticipated Discharge Date/Time: 06/05/23 11:45 Patient Disposition: Home, Self-Care Discharge Diagnosis: asthma/copd overlap exacerbation Referrals: Rula Hilario FNP [Primary Care Provider] - 1 Week Beto Martins MD [Physician] - 1 Week Discharge Medications: New doxycycline hyclate 100 mg capsule 100 mg PO BID Qty: 6 0RF prednisone 10 mg tablet 10 mg PO DIRECTED Qty: 1 0RF Rx Instructions: see taper instructions Continued loratadine [Claritin] 10 mg tablet 10 mg PO DAILY 30 Days Qty: 30 11RF Eliquis 5 mg tablet 5 mg PO BID 90 Days Qty: 180 3RF budesonide 0.5 mg/2 mL suspension for nebulization 0.5 mg INHALATION BID Qty: 60 3RF [place] 210 mg/1.91 mL (110 mg/mL) syringe 210 mg subcut Q4W 28 Days Qty: 1.91 11RF ipratropium-albuterol 0.5 mg-3 mg(2.5 mg base)/3 mL solution for nebulization 3 ml inhalation Q4H PRN (Reason: for dyspnea) Qty: 180 3RF omeprazole 20 mg Capsule,Delayed Release(Dr/Ec) 20 mg PO DAILY diltiazem HCl 120 mg capsule,extended release 24hr 120 mg PO QAM estradiol 0.01 % (0.1 mg/gram) cream 1 g vaginal TUFR Systane (PF) 0.4-0.3 % Dropperette 1 drp OPHTHALMIC (EYE) TID PRN (Reason: Dry Eyes) valsartan 80 mg tablet 80 mg PO BEDTIME amiodarone 200 mg tablet 200 mg PO QAM acetaminophen 500 mg Tablet 500 mg PO QID PRN (Reason: Pain) levothyroxine 112 mcg Tablet 112 mcg PO DAILY@0400 (DME) nebulizers Misc See Rx Instructions .Route Rx Instructions: As directed alendronate 70 mg tablet 70 mg PO SA atorvastatin 80 mg tablet 80 mg PO QAM furosemide 40 mg tablet 40 mg PO DAILY Incruse Ellipta 62.5 mcg/actuation blister with device 1 inh inhalation DAILY 30 Days Qty: 30 11RF levalbuterol tartrate 45 mcg/actuation HFA aerosol inhaler 2 puff inhalation Q4-6H PRN (Reason: Wheezing) Diet: Advance to usual diet Activity on Discharge: As tolerated Stand Alone Forms: Patient Portal Discharge page Care Plan Goals: Treat and prevent recurrent copd exacerbation Health Concerns: asthma/copd overlap bronchomalacia Plan of Treatment: Asthma/COPD overlap -continue prednisone taper as advised by Dr. Martins starting at 40mg daily x3 days, then 30mg daily x3 days, then 20mg daily x 3 days, then 10mg x3 days -take doxycycline 100 mg twice daily x3 additional days -continue maintenance inhalers, albuterol as needed -follow-up with PCP and pulmonology soon Assessment: see above, see dc summary
[2023-06-05 11:16] VITALS: PULSE 76; RESP 20; O2SAT 95
[2023-06-05] MEDS: cefTRIAXone sodium 1 GM in 0.9 % Sodium Chloride 50 ML IV (11:37)
== END 2023-06-05 14:07 | disposition home or self-care (01) | DRG 191 ==
LOC: HO.ED 14:30 → HO.EDOVER 14:54 → HO.S3 06-04 17:29
PROVIDERS: Physician Assistant; Admitting Provider Physician Assistant; Emergency Provider Emergency Medicine; PCP Nurse Practitioner Family; Visit Provider Physician Assistant
DX: J44.1 Chronic obstructive pulmonary disease with (acute) exacerbation (principal); J45.901 Unspecified asthma with (acute) exacerbation; G47.33 Obstructive sleep apnea (adult) (pediatric); I48.0 Paroxysmal atrial fibrillation; J98.09 Other diseases of bronchus, not elsewhere classified; E03.9 Hypothyroidism, unspecified; E87.6 Hypokalemia; I11.0 Hypertensive heart disease with heart failure; I50.9 Heart failure, unspecified; E78.5 Hyperlipidemia, unspecified; I25.10 Atherosclerotic heart disease of native coronary artery without angina pectoris; K21.9 Gastro-esophageal reflux disease without esophagitis; Z20.822 Contact with and (suspected) exposure to COVID-19; Z91.040 Latex allergy status; Z87.891 Personal history of nicotine dependence; Z79.01 Long term (current) use of anticoagulants; Z79.890 Hormone replacement therapy; Z79.899 Other long term (current) drug therapy
CPT/HCPCS: 0241U; 36415; 71045; 71250; 80048; 83880; 84484; 85025; 87633; 93005; 94640; 99221; 99285; J0456; J0696; J2920; J2930; J3475

== ENCOUNTER → 2023-06-03 09:47 | Outpatient (BNV) | payer MEDICARE, SELFPAY | PROVIDERS: PCP Nurse Practitioner Family; Visit Provider Internal Medicine Cardiovascular Disease | DX: R94.31 Abnormal electrocardiogram [ECG] [EKG] (principal) | CPT/HCPCS: 93010 ==

== ENCOUNTER → 2023-06-04 13:26 | Outpatient (BNV) | payer MEDICARE, SELFPAY | PROVIDERS: Admitting Provider Physician Assistant; Emergency Provider Emergency Medicine; PCP Nurse Practitioner Family; Visit Provider Physician Assistant | DX: J44.1 Chronic obstructive pulmonary disease with (acute) exacerbation (principal); J40 Bronchitis, not specified as acute or chronic; R09.02 Hypoxemia | CPT/HCPCS: 99223; 99232; 99239 ==

== ENCOUNTER 2023-06-11 13:32 | Outpatient (AMB) | payer MEDICARE, SELFPAY ==
[2023-06-11 13:36] VITALS: BP 142/68; PULSE 68; O2SAT 100; BMI 34.2
--- NOTE | 2023-06-11 13:36 | A.OFFVIS_ITS ---
Intake Vital Signs 06/11/23 13:36 Height 5 ft 1.5 in Weight 184 lb BMI 34.2 BP 142/68 H Blood Pressure Location Lt brachial Position Sitting Pulse 68 Pulse Source Pulse Oximeter Pulse Oximetry (%) 100 Oxygen Delivery Method Room Air Intake Visit Reasons: symptoms follow up Therapeutic Case Manager Required: No Property Field Adjuster: Property Field Adjuster offered & declined Accompanied by: Self / Same As Patient Allergies aspirin Allergy (Severe, Verified 06/11/23 13:40) Upset Stomach Latex Gloves Allergy (Severe, Uncoded 06/11/23 13:40) Rash Medication List - Last Reconciled 06/11/23 by Anjali Jordan LPN acetaminophen 500 mg PO QID PRN alendronate 70 mg PO SA amiodarone 200 mg PO QAM apixaban (Eliquis) 5 mg PO BID 90 days atorvastatin 80 mg PO QAM budesonide 0.5 mg (2 mL) inhalation BID diltiazem HCl 120 mg PO QAM estradiol 0.01%(0.1mg/gram) 1 g vaginal TUFR furosemide 40 mg PO DAILY ipratropium-albuterol 0.5 mg-3 mg(2.5 mg base)/3 mL 3 mL inhalation Q4H PRN levalbuterol tartrate 45 mcg/actuation 2 puffs inhalation Q4-6H PRN levothyroxine 112 mcg PO DAILY@0400 loratadine (Claritin) 10 mg PO DAILY 30 days nebulizers As directed omeprazole 20 mg PO DAILY peg 400-propylene glycol (PF) 0.4-0.3 % (Systane (PF)) 1 drp ophthalmic (eye) TID PRN prednisone 10 mg PO DIRECTED tezepelumab-ekko (Tezspire) 210 mg (1.91 mL) subcut Q4W 4 weeks umeclidinium 62.5 mcg/actuation (Incruse Ellipta) 1 inh inhalation DAILY 30 days valsartan 80 mg PO BEDTIME HPI symptoms follow up HPI Details Tessa is a pleasant 78 year old female with underlying history of asthma/COPD overlap syndrome, CHF on lasix 40 mg and atrial fibrillation on am iodarone and anticoagulated on eliquis. At baseline, she is suboptimally controlled on incruse, budesonide 0.5 mg BID, Duoneb and levalbuterol. She is awaiting initiation of Tezspire, which is scheduled for next week. She was seen two weeks ago for nonproductive cough, moderate to severe wheezing and dyspnea on exertion, treated with prednisone and solumedrol in office. She ended seeking emergent care and was admitted x 2 days at [facility] for progressively worsening symptoms. She was treated inpatient with antibiotics and prednisone with minimal change in symptoms. Of note, she states she has an appointment with cardiology in the near future. Today she presents for a close follow up. 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 Patient Tobacco Use Status: Former Tobacco user Quit Date: 2005 Tobacco use type: Cigarette Years Smoked: 45 e-Cigarette/Vaping Use: Never Used Second Hand Smoke Exposure: No Advance Directives Date on File: 06/04/23 service: No Current occupational status: retired Review of Systems Const Denies chills, Denies excessive sweating, Denies fever(s), Denies headache(s) and Denies night sweats Eyes Denies dry eyes, Denies irritation and Denies itchy eyes ENT Reports Normal hearing present, Denies headache(s), Denies nasal congestion, Denies nasal discharge, Denies post nasal drip and Denies sore throat Card Denies chest pain, Denies chest pain at rest, Denies chest pain with activity and Reports dyspnea on exertion Resp Denies chest congestion, Reports cough, Denies excessive phlegm production, Denies pain on inspiration, Denies pain with cough, Reports dyspnea on exertion, Denies stridor and Reports wheezing Musc Denies myalgias Neuro Reports Normal hearing present and Denies headache(s) Endo Denies excessive sweating Seferino/Lymph Denies lymphadenopathy Aller/Immun Denies itchy eyes, Denies seasonal rhinorrhea and Reports wheezing Physical Exam Vital Signs: Last Vital Signs Pulse 68 06/11/23 13:36 BP 142/68 H 06/11/23 13:36 Pulse Ox 100 06/11/23 13:36 Oxygen Delivery Method Room Air 06/11/23 13:36 BMI result Body Mass Index 34.2 Const General: cooperative, well developed and alert Nutritional Appearance: obese Orientation/consciousness: patient oriented x3 Limitations: no limitations HEENT Head: Yes normal to inspection, Yes normocephalic and Yes atraumatic Ears: hearing grossly normal bilaterally and external ears normal Eyes General: appearance normal, both eyes and all related structures Eyelids: Yes eyelids normal Sclerae: sclerae normal EOM: EOMs intact bilaterally Neck Neck: Yes normal visual inspection and Yes no lymphadenopathy Lymphatic: no lymphadenopathy noted Chest Chest palpation & inspection: normal inspection of the chest Resp Effort & Inspection: able to speak in complete sentences (however dyspnea with prolonged speech), audible wheezes, Actively coughing, no stridor, no tripod positioning and no use of accessory muscles Auscultation: wheezes (moderate) expiratory wheezes and throughout Cardio Rate: regular rate Skin Other: warm, dry General skin exam: no rashes or lesions noted Neuro General: patient oriented x3 Cranial nerves: Yes Normal hearing present Cognition (Neuro): normal cognition Gait exam (Neuro): Normal gait present Psych Appearance: grossly normal and well kempt Speech and movement: Normal speech and movement present and Clear speech present Affect: normal affect Attitude: cooperative Thought process: Normal thought process present Thought content: Normal thought content present Insight: Good insight present (Psych) Judgement: Good judgement present (Psych) Results Reviewed Results Reviewed: [address] [address] [address] Scan Report Signed Patient: Tessa Montalvo MR#: [id number] : 1945 Acct:[id number] Age/Sex: 78 / F ADM Date: 06/03/23 Loc: [facility]: Cathy ALEXANDER Ordering Physician: Joceline Ren Date of Service: 06/03/23 Procedure(s): CT chest wo IV con Accession Number(s): [id number] cc: Joceline Ren; Rula Hilario~ EXAMINATION: CT CHEST WITHOUT CONTRAST CLINICAL INFORMATION: Shortness of breath COMPARISON: Chest radiograph from 02/26/2023 TECHNIQUE: Multidetector volumetric CT imaging of the chest was done. Axial MIP volume rendering provided. Sagittal and coronal reformatted images were obtained. This CT examination was performed using dose optimization techniques as appropriate, variously including the following: *Automated exposure control *Adjustment of mA and/or kV according to patient size (this includes techniques or standardized protocols for targeted exams where dose is matched to indication/reason for exam; i.e. extremities or head) *Use of iterative reconstruction technique DLP: 293 mGy-cm FINDINGS: LUNGS/PLEURA: Biapical pleural parenchymal scarring. Emphysematous changes. Peripheral reticular nodular opacities. Redemonstration of groundglass consolidative focus measuring 1.3 cm along the lateral margin of the right major fissure, similar in appearance a few micropulmonary nodules are noted, stable for example along the posterior aspect of the right lung apex measuring 3 mm (series 4, image 64). Stable subpleural 3 mm nodule in the anterior aspect of the left upper lobe (series 4, image 147). No new enlarged or suspicious pulmonary nodules or masses are noted. Central airways are patent. No pneumothorax. No large pleural effusion. MEDIASTINUM: Heart is mildly enlarged. Small pericardial effusion. Coronary artery calcified patient are noted. Aorta is nonaneurysmal and demonstrates atherosclerotic calcifications. Main pulmonary artery is not enlarged. No enlarged lymph nodes per size criteria. Atherosclerotic calcifications noted along the proximal left subclavian artery. Visualized portions of the thyroid are unremarkable. AXILLA: No lymphadenopathy. UPPER ABDOMEN: Gallbladder surgically absent. Small hiatal hernia. OSSEOUS STRUCTURES: Osteopenia. Multilevel degenerative changes of the thoracolumbar spine. Sclerotic foci left humeral head statistically representing bone islands. CT/CT chest wo IV con IMPRESSION: 1. Redemonstration of groundglass consolidative focus along the lateral margin of the right major fissure, similar in appearance. 2. Stable bilateral pulmonary nodules with no new enlarged or suspicious pulmonary nodules or masses identified. 3. Gallbladder surgically absent. 4. Small hiatal hernia. 5. Osteopenia. Assessment & Plan Assessment & Plan (1) Asthma-COPD overlap syndrome: Code(s): J44.9 - Chronic obstructive pulmonary disease, unspecified Plan Tessa presents with continued symptoms, mildly improved from visit two weeks ago. She reports persistent wheezing, coughing and dyspnea. On exam, moderate wheezing is appreciated and today is her last dose of prednisone. Will extend course 40 mg x 5 days and decrease by 1 pill every 5 days. Patient states she has enough prednisone at home and does not need an additional prescription. She is aware of the severity of symptoms and if she does not feel any improvement or experiences worsening of symptoms, she is to seek emergent care. She again expressed frustration as she is maximized on outpatient therapy and has been evaluated/admitted to the hospital on multiple occasions over the last few fri ths. Again explained that Tezspire may offer improvements, although it may take a few doses. All questions were answered and patient is in agreement of plan. Patient was supposed to be scheduled for bronchoscopy but due to multiple exacerbation has been postponed, will discuss with Dr. Martins Coding Level of Care Code Est Pt Level 3 (44991) Diagnoses Asthma-COPD overlap syndrome J44.9
== END 2023-06-11 14:09 | disposition home or self-care (01) ==
PROVIDERS: PCP Nurse Practitioner Family; Visit Provider Nurse Practitioner Family
DX: J44.9 Chronic obstructive pulmonary disease, unspecified (principal)
CPT/HCPCS: 99213

== ENCOUNTER → 2023-06-11 13:32 | Outpatient (BNVA) | payer MEDICARE, SELFPAY | PROVIDERS: PCP Nurse Practitioner Family; Visit Provider Nurse Practitioner Family | DX: J44.9 Chronic obstructive pulmonary disease, unspecified (principal) | CPT/HCPCS: 99212 ==

== ENCOUNTER 2023-06-19 10:45 | Outpatient (REF) | payer MEDICARE, SELFPAY | END 2023-06-19 10:46 | disposition home or self-care (01) | LOC: HO.MDS 10:45 | PROVIDERS: Visit Provider Hospitalist | DX: J45.50 Severe persistent asthma, uncomplicated (principal) | CPT/HCPCS: 96372 ==

== ENCOUNTER 2023-07-02 08:48 | Outpatient (AMB) | payer MEDICARE, SELFPAY ==
[2023-07-02 08:56] VITALS: BP 132/64; PULSE 65; O2SAT 99; BMI 34.6
--- NOTE | 2023-07-02 08:56 | MHC.OFFVIS ---
Intake Vital Signs 07/02/23 08:56 Height 5 ft 1 in Weight 182 lb 15.739 oz BMI 34.6 BP 132/64 Blood Pressure Location Rt brachial Position Sitting Pulse 65 Pulse Source Pulse Oximeter Pulse Oximetry (%) 99 Oxygen Delivery Method Room Air Intake Visit Reasons: Tezspire f/u Karate Teacher Required: No Allergies aspirin Allergy (Severe, Verified 07/02/23 08:59) Upset Stomach Latex Gloves Allergy (Severe, Uncoded 07/02/23 08:59) Rash HPI HPI Comments History of Present Illness Details The patient is a 78-year-old woman with known asthma COPD overlap syndrome. Her symptoms have been significant. She has been complaining of worsening dyspnea on exertion due to the shortness of breath and wheezing. She has been using her nebulized therapy about 4 times a day. She recently ran out of 1 medication and therefore her breathing has been worse. She also has significant allergies including mold and other sensitivities to perfumes. In the office she was found to be significantly wheezy. She was giving nebulized treatment we talked about potentially switching her over to additional long-acting albuterol therapies via the nebulizer. The patient is agreeable to this. She recently underwent a CT scan of the chest back in February 2019 which demonstrated stable pulmonary nodules. The patient now will be scheduled for CT scan in a year's time. The Daliresp medication did give her significant GI side effects and was very expensive so therefore she stopped it. She does have pulmonary nodules she has a CT scan scheduled for February 2020 and will follow up with her after that. 06/20/2022 the patient is here for a pulmonary follow-up visit. If she is having some difficulty with her breathing. Having increasing shortness of breath. She has been having some issues with the Nucala injections. Now that she has a supplementary insurance we have to request a prior approval for her biologic injections. Hopefully when she is back in her biologics her respiratory status will improve. In the meantime she has significant shortness of breath, chest tightness and wheezing. The patient was admitted to [facility] with symptomatic anemia as well. She did require a transfusion of packed red blood cells in addition to an IV infusion. She is scheduled to get another IV infusion of iron. The patient does have now significant lower extremity edema. Likely from her volume resuscitation during the hospitalization. Unfortunately this will also affect her respiratory status. Will go ahead and give her shot of Solu-Medrol today to try to alleviate some of her symptoms. She does continue using her nebulized therapy with good effect. In the meantime she is also using her CPAP. The CPAP therapy has been affecting beneficial. She does try to use it more than 4 hours a night. She is trying to get used to it. 08/28/2022 the patient is here for a pulmonary follow-up visit. The patient continues to struggle with the anemia. She was last seen yesterday with the technical marketing engineer and was scheduled to get for more infusions of iron. She is also taking oral iron although does not appear to be absorbing it as well. The patient has been feeling better although still short of breath she still having chest tightness and wheezing. Unfortunately she could not continue the Nucala because of her insurance changed now is too expensive and she cannot afford it. We did try to get her into in addition it program or free medications which she does not qualify based on her financial status. The patient also is no longer using the oxygen. Will have on the oxygen discontinued we can always reassess the need for oxygen later. She is also not using the CPAP. I did recommend she can use the oxygen at nighttime but the patient is sleeping well when she is waking up rested so there is no role for any additional therapies at this time. She does continue to use respiratory therapy and has continued to use the budesonide with some improvement of her symptoms. 02/05/2023 the patient is here for sick visit. She has been sick now for about 3 weeks. The prior to that she had just completed a prednisone course. She is having significant chest tightness and wheezing. She is coughing more and hard to expectorate. Moderate severity. She has a hard time doing any activity. However, she does check her oxygen and oxygen levels are within normal limits. She does have oxygen at home and she wants that to be picked up since she is not requiring it. The patient denies any sick contacts that she is aware of. She has tested for COVID a few times and has been negative. She did have a chest x-ray that I personally reviewed demonstrating no acute disease of the which still waiting for the final read. She is using all her respiratory therapy only with minimal improvement. Today she is having both inspiratory and expiratory wheezing and she is having some tachypnea. The patient will be given 3 Xopenex treatments and will given Solu-Medrol intramuscularly. The patient also has significant tracheal bronchomalacia. She does use a flutter valve to help her expectorate. Will start on some antibiotics as well just in case she has a bout of bronchitis. 02/12/2023 the patient is here for pulmonary follow-up visit. She was recently diagnosed with bronchopneumonia and treated pretty aggressively with antibiotics and prednisone. She feels a little better. She denies any productive cough although she feels that she has a hard time expectorating the phlegm. I explained to her that she has significant tracheobronchomalacia and does going to make it difficult to expectorate. The patient also had a CT scan of the chest back in December 2021 demonstrating some haziness and also nodular densities. Therefore we will request a CT scan to better address the nodular densities and also to see if the pneumonia is completely gone. The patient also benefit from a bronchoscopy. After the bronchoscopy will be able to better navigate and schedule the bronchoscopy to further provide clarity of her underlying airway disease. The patient in the meantime will get some Solu-Medrol today for her significant wheezing. She has been having issues with the amiodarone. She had issues with thyroid disease. A CT scan will also help to find out if there is any evidence of any amiodarone induced pulmonary toxicity. 05/15/2023 the patient is here for a pulmonary follow-up visit. The patient is feeling better. She was recently hospitalized at [facility]. She was given additional steroids. Her medications were changed a little bit because of her coverage. Otherwise she is on inhaled steroids in addition to long-acting muscarinic antagonist. She does have atrial fibrillations will try to minimize the long-acting beta agonist medication. She does have albuterol that she uses that needed and also via her nebulizer. We were supposed to consider bronchoscopy but the patient has been feeling better. She also had a CT scan which was reassuring with stable pulmonary nodules and a chest x-ray that was also reassuring. At this point no need to perform any diagnostic or therapeutic procedures. I do believe that based on the fact the patient has required multiple courses to prednisone and Solu-Medrol that she does benefit from biologic therapies to treat her severe persistent asthma. The patient had responded well to biologics in the past but then they will no longer covered. I do believe that going back on biologics in this case Tezspire will provide her with improved quality of life decrease hospitalizations and decreased steroid need. 07/02/2023 the patient is here for pulmonary follow-up visit. She has feeling a little better at this time. She is off the prednisone. She did start the Tezspire. The patient is not involved in pulmonary rehabilitation program. They are perform a clinical trial [facility]. They are requesting a bronchoscopy to assess her overall degree of tracheobronchomalacia. Will be scheduling that soon. In the meantime she has been using her respiratory therapy as prescribed. The test part was recently started on hopeful that this provides her some relief. She will continue with pulmonary rehabilitation. 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 Patient Tobacco Use Status: Former Tobacco user Quit Date: 2005 Tobacco use type: Cigarette Years Smoked: 45 e-Cigarette/Vaping Use: Never Used Second Hand Smoke Exposure: No Advance Directives Date on File: 06/04/23 service: No Current occupational status: retired Review of Systems Const Denies weakness ENT Denies dizziness Card Denies chest pain, Denies chest pain with activity, Denies syncope, Denies rapid heart rate, Denies pedal edema, Denies edema, Denies leg edema, Denies lightheadedness, Denies palpitations, Reports dyspnea on exertion and Denies orthopnea Resp Denies chest congestion, Reports cough, Denies hemoptysis, Reports dyspnea on exertion and Reports wheezing GI Denies hematochezia and Denies change in stool character Musc Denies abnormal gait, Denies muscle weakness, Denies numbness, Denies radiating pain into limb and Denies tingling Neuro Denies abnormal gait, Denies dizziness, Denies syncope, Denies numbness, Denies tingling and Denies weakness Endo Denies palpitations Aller/Immun Reports wheezing Physical Exam Vital Signs: Last Vital Signs Pulse 65 07/02/23 08:56 BP 132/64 07/02/23 08:56 Pulse Ox 99 07/02/23 08:56 Oxygen Delivery Method Room Air 07/02/23 08:56 BMI result Body Mass Index 34.6 Const General: comfortable and no acute distress Orientation/consciousness: patient oriented x3 HEENT Other: Unremarkable Head: Yes normal to inspection Neck Neck: Yes normal visual inspection Chest Chest palpation & inspection: normal inspection of the chest Resp Effort & Inspection: No prolonged expiratory phase Auscultation: diminished lung sounds Cardio Palpation: normal PMI Heart sounds: S1 normal heart sound present, S2 normal heart sound present, no gallops, no murmurs and no rubs GI Palpation (GI): Soft to palpation Back/Spine/Pelvis Other: unremarkable Skin General skin exam: no rashes or lesions noted Neuro General: patient oriented x3 Extrem General: Yes normal to inspection Psych Mental Status: mental status grossly normal Assessment & Plan Assessment & Plan (1) Asthma: Code(s): J45.909 - Unspecified asthma, uncomplicated Qualifiers: Asthma complication type: uncomplicated Asthma persistence: persistent Asthma severity: severe Qualified Code(s): J45.50 - Severe persistent asthma, uncomplicated (2) Pulmonary nodules: Code(s): R91.8 - Other nonspecific abnormal finding of lung field (3) Bronchomalacia: Code(s): J98.09 - Other diseases of bronchus, not elsewhere classified (4) Asthma-COPD overlap syndrome: Code(s): J44.9 - Chronic obstructive pulmonary disease, unspecified Plan Continue BUdesonide continue Duoneb BID Continue Incruse continue Tezspire Q4 weeks Daliresp continue oxygen while sleeping and with activity cough medicine MED as needed, sending xopenex pulmonary rehab -clinical trial at [facility] Diagnostic bronchoscopy to assess her TBM F/U 3-4 months Medications: Refilled umeclidinium 62.5 mcg/actuation (Incruse Ellipta) 1 inh inhalation DAILY 30 days 30 ea 11RF J45.909 - Unspecified asthma, uncomplicated Coding Level of Care Code Est Pt Level 4 (20401) Diagnoses Severe persistent asthma without complication J45.50 Asthma complication type: uncomplicated Asthma persistence: persistent Asthma severity: severe Pulmonary nodules R91.8 Bronchomalacia J98.09 Asthma-COPD overlap syndrome J44.9 Time Spent (min) 18
== END 2023-07-02 09:18 | disposition home or self-care (01) ==
PROVIDERS: PCP Nurse Practitioner Family; Visit Provider Hospitalist
DX: J45.50 Severe persistent asthma, uncomplicated (principal); R91.8 Other nonspecific abnormal finding of lung field; J98.09 Other diseases of bronchus, not elsewhere classified; J44.9 Chronic obstructive pulmonary disease, unspecified
CPT/HCPCS: 99214

== ENCOUNTER → 2023-07-02 08:48 | Outpatient (BNVA) | payer MEDICARE, SELFPAY | PROVIDERS: PCP Nurse Practitioner Family; Visit Provider Hospitalist | DX: J45.50 Severe persistent asthma, uncomplicated (principal); R91.8 Other nonspecific abnormal finding of lung field; J98.09 Other diseases of bronchus, not elsewhere classified; J44.9 Chronic obstructive pulmonary disease, unspecified; Z79.899 Other long term (current) drug therapy | CPT/HCPCS: 99212 ==